=== PATIENT | female | born 1935 | race Caucasian/White ===

== ENCOUNTER 2017-05-22 01:52 | Emergency (ER) | payer MEDICARE, BC ==
--- NOTE | 2017-05-22 02:34 | ERPHSYRPT ---
- History of Present Illness Time Seen by Provider: 05/22/17 02:25 Source: patient, family Exam Limitations: clinical condition Patient Subjective Stated Complaint: pt states her blood pressure has been going up over the last 2-3 days; 2100 this pm she felt like the top of her head was hurting so she took 0.25mg xanax and her pressure was in the 160's; woke up this am and felt worse and her pressure was higher; pt also states she has been having "arthritic pain" in the back of her neck but feels the pain is normal for her arthritis. Triage Nursing Assessment: pt assisted to room per wc; skin p, w, and d; pt presents slightly anxious; no other distress noted; family at bedside. Physician History: PATIENT WITH A HISTORY OF HYPERTENSION, AORTIC VALVE REPLACEMENT COMPLAINS OF ELEVATED BLOOD PRESSURE THE PAST 3 DAYS, ASSOCIATED WITH A HEADACHE OVER THE TOP OF HER HEAD. DENIES BLURRED VISION, SLURRED SPEECH, UNSTABLE GAIT, AND FOCAL NUMBNESS, TINGLING OR WEAKNESS IN EXTREMITIES. Timing/Duration: day(s) Activities at Onset: none Quality: throbbing Location: other (HEADACHE) Chest Pain Radiation: no radiation Severity of Pain-Max: moderate Severity of Pain-Current: moderate Modifying Factors: Improves With: nothing Nitro Today/Relief: no nitro taken today Aspirin Treatment Today: no aspirin today (DENIES CHEST PAIN) Associated Symptoms: other (HEADACHE) Prior Chest Pain/Cardiac Workup: no prior chest pain (AORTIC VALVE REPLACEMENT) Allergies/Adverse Reactions: losartan potassium [From Cozaar] Allergy (Verified 05/22/17 02:14) Tetracyclines Allergy (Verified 05/22/17 02:14) Home Medications: Alprazolam 0.5 tab PO UD PRN 05/22/14 [History] Aspirin 81 mg PO DAILY 05/22/14 [History] Biotin 5,000 mg PO DAILY 05/22/14 [History] Esomeprazole Magnesium [Nexium] 40 mg PO DAILY 05/22/14 [History] Leucovorin Calcium 5 mg PO WEEKLY 05/22/14 [History] Metformin HCl 500 mg PO DAILY 05/22/14 [History] Methotrexate Sodium 2.5 mg [Trexall 2.5 mg] 2.5 mg PO UD 05/22/14 [History ] Methylprednisolone 4 mg [Medrol 4 mg] 4 mg PO DAILY 05/22/14 [History] Metoprolol Succinate [Toprol Xl] 25 mg PO DAILY 05/22/14 [History] Simvastatin 20 mg PO HS 05/22/14 [History] Tramadol HCl [Ultram] 50 mg PO Q6HPRN PRN 05/22/14 [History] Triamterene/Hydrochlorothiazid [Maxzide 37.5 mg-25 mg Tablet] 0.5 tab PO DAILY 05/22/14 [History] Triazolam [Halcion] 0.5 tab PO HS 05/22/14 [History] Warfarin Sodium [Coumadin] 4 mg PO DAILY 05/22/14 [History] Acetaminophen [Tylenol Arthritis] 1 tab PO UD 07/22/16 [History] Cholecalciferol (Vitamin D3) [Vitamin D] 1,000 units PO DAILY 07/22/16 [ History] Vitamin B Complex 1 tab PO DAILY 07/22/16 [History] Hx Tetanus, Diphtheria Vaccination/Date Given: Yes Hx Influenza Vaccination/Date Given: Yes Hx Pneumococcal Vaccination/Date Given: Yes - Review of Systems Constitutional: Night Sweats, Other (HEADACHE), No Fever, No Chills Eyes: No Symptoms Ears, Nose, & Throat: No Symptoms Respiratory: No Symptoms, No Cough, No Dyspnea Cardiac: No Symptoms, No Chest Pain, No Edema, No Syncope Abdominal/Gastrointestinal: No Symptoms, No Abdominal Pain, No Nausea, No Vomiting, No Diarrhea Genitourinary Symptoms: No Symptoms, No Dysuria Musculoskeletal: No Symptoms, No Back Pain, No Neck Pain Skin: No Rash Neurological: Headache, No Dizziness, No Focal Weakness, No Sensory Changes Psychological: No Symptoms Endocrine: No Symptoms All Other Systems: Reviewed and Negative - Past Medical History Pertinent Past Medical History: Yes Neurological History: TIA ENT History: Cataracts Cardiac History: High Cholesterol, Hypertension, Other Respiratory History: No Pertinent History Endocrine Medical History: Diabetes Type II Musculoskeletal History: Degenerative Disk Disease, Osteoarthritis, Rheumatoid Arthritis GI Medical History: GERD History: No Pertinent History Psycho-Social History: Anxiety Female Reproductive Disorders: No Pertinent History Other Medical History: artificial aortic valve - Past Surgical History Past Surgical History: Yes Neuro Surgical History: No Pertinent History Cardiac: CABG, Cardiac Catheterization, Valve Replacement Respiratory: No Pertinent History Gastrointestinal: Hernia Repair Genitourinary: No Pertinent History Musculoskeletal: No Pertinent History Female Surgical History: No Pertinent History - Social History Smoking Status: Never smoker Exposure to second hand smoke: No Drug Use: none Patient Lives Alone: No - Female History Hx Last Menstrual Period: postmenopausal - Nursing Vital Signs Nursing Vital Signs: Initial Vital Signs Temperature 97.9 F 05/22/17 01:59 Pulse Rate 82 05/22/17 01:59 Respiratory Rate 16 05/22/17 01:59 Blood Pressure 238/119 05/22/17 01:59 O2 Sat by Pulse Oximetry 99 05/22/17 01:59 Pain Scale Pain Intensity 0 - Physical Exam General Appearance: no apparent distress, alert Eye Exam: PERRL/EOMI, eyes nml inspection Ears, Nose, Throat Exam: normal ENT inspection, moist mucous membranes Neck Exam: normal inspection, non-tender, supple Respiratory Exam: normal breath sounds, lungs clear, No respiratory distress Cardiovascular Exam: regular rate/rhythm, normal heart sounds, other (SYSTOLIC EJECTION MURMUR GRADE 3/6), No edema Gastrointestinal/Abdomen Exam: soft, No tenderness, No mass Back Exam: normal inspection, No CVA tenderness, No vertebral tenderness Extremity Exam: normal inspection, normal range of motion Neurologic Exam: alert, oriented x 3, cooperative, normal mood/affect, nml cerebellar function, sensation nml, No motor deficits Skin Exam: normal color, warm, dry Lymphatic Exam: No adenopathy SpO2 Interpretation: normal SpO2: 99 Oxygen Delivery: Room Air - Course EKG Interpreted by Me: RATE, Sinus Rhythm (RATE [address]GMENT DEPRESSION), NORMAL AXIS - CT Exams Head CT Interpretation: Tele-radiologist Report (OLD LACUNAR INFARCT IN THE LEFT BASAL GANGLIA, ATROPHY, PREIVENTRICULAR WHITE MATTER HYPODENSITY IS NONSPECIFIC.) Ordered Tests: Active Orders 24 hr Category Date Time Status [employer] Erecting STAT Care 05/22/17 02:25 Active EKG-ER Only STAT Care 05/22/17 02:25 Active IV Insertion STAT Care 05/22/17 02:25 Active Oxygen-ED Only NASAL CANNULA 2 lpm Care 05/22/17 02:25 Active CHEST 1 VIEW (PORTABLE) Stat Exams 05/22/17 02:25 Taken HEAD WITHOUT CONTRAST [CT] Stat Exams 05/22/17 02:41 Taken CBC W DIFF Stat Lab 05/22/17 02:31 Completed CMP Stat Lab 05/22/17 02:31 Completed Manual Differential NC Stat Lab 05/22/17 02:31 Completed PROTIME WITH INR Stat Lab 05/22/17 02:31 Completed TROPONIN Q3H Lab 05/22/17 02:31 Completed TROPONIN Q3H Lab 05/22/17 05:30 Ordered TROPONIN Q3H Lab 05/22/17 08:30 Ordered TROPONIN Q3H Lab 05/22/17 11:30 Ordered TROPONIN Q3H Lab 05/22/17 14:30 Ordered UA W/ MICROSCOPIC Stat Lab 05/22/17 03:35 Completed Medication Summary Generic Name Dose Route Start Last Admin Trade Name Freq PRN Reason Stop Dose Admin Sodium Chloride 500 mls @ 50 mls/hr 05/22/17 02:45 05/22/17 03:07 Sodium Chloride 0.9% 500 Ml IV 06/21/17 02:44 50 mls/hr .Q10H ADRIAN Administration Discontinued Medications Generic Name Dose Route Start Last Admin Trade Name Freq PRN Reason Stop Dose Admin Hydralazine HCl 15 mg 05/22/17 02:49 05/22/17 03:07 Apresoline 20 Mg/Ml Inj IV 05/22/17 02:50 15 mg STAT ONE Administration Lab/Rad Data: Laboratory Result Diagrams 05/22/17 02:31 05/22/17 02:31 Laboratory Results 05/22/17 05/22/17 05/22/17 Range/Units 03:35 02:31 02:31 WBC (4.0-10.5) K/mm3 RBC (4.1-5.4) M/mm3 Hgb (12.0-16.0) gm/dl Hct (35-47) % MCV (78-100) fl MCH (26-32) pg MCHC (32-36) g/dl RDW (11.5-14.0) % Plt Count (150-450) K/mm3 MPV (6-9.5) fl Segmented Neutrophils (36.0-66.0) % Lymphocytes (Manual) (24-44) % Monocytes (Manual) (0.0-12.0) % Differential Comment Atypical Lymphocytes % Platelet Estimate (NORMAL) INR 2.37 (0.8-3.0) Sodium (137-145) mmol/L Potassium (3.5-5.1) mmol/L Chloride (98-107) mEq/L Carbon Dioxide (22-30) mmol/L Anion Gap (5-15) MEQ/L BUN (7-17) mg/dl Creatinine (0.52-1.04) mg/dl Estimated GFR ML/MIN Glucose (74-106) mg/dL Calcium (8.4-10.2) mg/dL Total Bilirubin (0.2-1.3) mg/d? AST (14-36) U/L ALT (0-35) U/L Alkaline Phosphatase (38-126) U/L Troponin I < 0.012 (0.000-0.034) ng/ml Serum Total Protein (6.3-8.2) mg/dl Albumin (3.5-5.0) g/dl Ur Collection Type CLEAN CATCH Urine Color YELLOW (YELLOW) Urine Appearance CLEAR (CLEAR) Urine pH 7.0 (5-6) Ur Specific [place] 1.005 (1.005-1.025) Urine Protein NEGATIVE (Negative) Urine Ketones NEGATIVE (NEGATIVE) Urine Blood 50 (0-5) Jossue/ul Urine Nitrite NEGATIVE (NEGATIVE) Urine Bilirubin NEGATIVE (NEGATIVE) Urine Urobilinogen NORMAL (0-1) mg/dL Ur Leukocyte Esterase NEGATIVE (NEGATIVE) Urine Microscopic RBC 5-10 (0-2) /HPF Urine Bacteria FEW (NEGATIVE) /HPF Urine Culture Reflexed NO (NO) Urine Glucose NEGATIVE (NEGATIVE) mg/dL Specimen Received [id number] 05/22/17 05/22/17 Range/Units 02:31 02:31 WBC 7.4 (4.0-10.5) K/mm3 RBC 4.01 L (4.1-5.4) M/mm3 Hgb 11.2 L (12.0-16.0) gm/dl Hct 37.4 (35-47) % MCV 93.3 (78-100) fl MCH 27.9 (26-32) pg MCHC 29.9 L (32-36) g/dl RDW 17.9 H (11.5-14.0) % Plt Count 389 (150-450) K/mm3 MPV 10.1 H (6-9.5) fl Segmented Neutrophils 64 (36.0-66.0) % Lymphocytes (Manual) 25 (24-44) % Monocytes (Manual) 7 (0.0-12.0) % Differential Comment NORMAL Atypical Lymphocytes 4 % Platelet Estimate NORMAL (NORMAL) INR (0.8-3.0) Sodium 142 (137-145) mmol/L Potassium 3.3 L (3.5-5.1) mmol/L Chloride 102 (98-107) mEq/L Carbon Dioxide 31 H (22-30) mmol/L Anion Gap 12.9 (5-15) MEQ/L BUN 13 (7-17) mg/dl Creatinine 0.61 (0.52-1.04) mg/dl Estimated GFR > 60 ML/MIN Glucose 95 (74-106) mg/dL Calcium 9.7 (8.4-10.2) mg/dL Total Bilirubin 0.20 (0.2-1.3) mg/d? AST 22 (14-36) U/L ALT 18 (0-35) U/L Alkaline Phosphatase 82 (38-126) U/L Troponin I (0.000-0.034) ng/ml Serum Total Protein 6.2 L (6.3-8.2) mg/dl Albumin 3.8 (3.5-5.0) g/dl Ur Collection Type Urine Color (YELLOW) Urine Appearance (CLEAR) Urine pH (5-6) Ur Specific [place] (1.005-1.025) Urine Protein (Negative) Urine Ketones (NEGATIVE) Urine Blood (0-5) Jossue/ul Urine Nitrite (NEGATIVE) Urine Bilirubin (NEGATIVE) Urine Urobilinogen (0-1) mg/dL Ur Leukocyte Esterase (NEGATIVE) Urine Microscopic RBC (0-2) /HPF Urine Bacteria (NEGATIVE) /HPF Urine Culture Reflexed (NO) Urine Glucose (NEGATIVE) mg/dL Specimen Received - Progress Progress: improved Progress Note: 05/22/17 02:55 IV NORMAL SALINE 50ML/HR ADMINISTERED HYDRALAZINE 15MG IV, BLOOD PRESSURE IMPROVED TO BP 153/73 05/22/17 04:11 Counseled pt/family regarding: lab results, diagnosis, need for follow-up, rad results - Departure Time of Disposition: 05:10 Departure Disposition: Home Clinical Impression: HYPERTENSION Condition: Stable Critical Care Time: No Referrals: BETHANY CHAMPAGNE [Primary Care Provider] - Additional Instructions: CONTINUE ALL CURRENT MEDICATIONS. BEGIN NORVASC 5MG EVERY MORNING. CONSULT YOUR PRIMARY CARE PROVIDER IN 2 DAYS FOR EVALUATION. Prescriptions: Amlodipine Besylate 5 mg [Norvasc 5 mg] 5 mg PO DAILY #30 tablet
[2017-05-22 02:35] LABS: Granulocyte Absolute (ANC) 5.13 (1.4-6.9); Hematocrit 37.4 % (35-47); Hemoglobin 11.2 gm/dl (12.0-16.0); Mean Cell Volume 93.3 fl (78-100); Mean Corpuscular Hemoglobin 27.9 pg (26-32); Mean Corpuscular Hgb Concent. 29.9 g/dl (32-36); Mean Platelet Volume 10.1 fl (6-9.5); Platelet Count 389 K/mm3 (150-450); Red Blood Count 4.01 M/mm3 (4.1-5.4); Red Cell Distribution Width 17.9 % (11.5-14.0); White Blood Count 7.4 K/mm3 (4.0-10.5)
[2017-05-22] MEDS ORDERED: Sodium Chloride 0.9% 500 ML 500 ML IV SCH (02:45)
[2017-05-22] MEDS ORDERED: APRESOLINE 20 MG/ML INJ IV ONE (02:49)
[2017-05-22] MEDS ORDERED: Sodium Chloride 0.9% 500 ML 500 ML IV ONE (02:57)
[2017-05-22 02:58] LABS: ALBUMIN 3.8 g/dl (3.5-5.0); ALKALINE PHOSPHATASE 82 U/L (38-126); ANION GAP 12.9 MEQ/L (5-15); BLOOD UREA NITROGEN 13 mg/dl (7-17); CHLORIDE 102 mEq/L (98-107); Calcium 9.7 mg/dL (8.4-10.2); Carbon Dioxide 31 mmol/L (22-30); Creatinine 1 0.61 mg/dl (0.52-1.04); Glucose 95 mg/dL (74-106); Potassium 3.3 mmol/L (3.5-5.1); SGOT/AST 22 U/L (14-36); SGPT/ALT 18 U/L (0-35); SODIUM 142 mmol/L (137-145); Total Protein 6.2 mg/dl (6.3-8.2)
[2017-05-22 03:00] LABS: INR 2.37 (0.8-3.0)
[2017-05-22 03:55] LABS: Appearance CLEAR (CLEAR); Bilirubin NEGATIVE (NEGATIVE); Glucose NEGATIVE (NEGATIVE); Ketones NEGATIVE (NEGATIVE); Leukocyte Esterase NEGATIVE (NEGATIVE); Nitrite NEGATIVE (NEGATIVE); Protein,Urine Dip NEGATIVE (Negative); Specific Gravity 1.005 (1.005-1.025); Urobilinogen NORMAL mg/dL (0-1)
[2017-05-22 03:56] LABS: Bacteria FEW /HPF (NEGATIVE); Blood 50 Ery/ul (0-5)
[2017-05-22 04:42] LABS: ATYPICAL LYMPHS 4 %; Lymphocytes 25 % (24-44); Monocyte 7 % (0.0-12.0); Neutrophils 64 % (36.0-66.0); Platelet Estimate NORMAL (NORMAL); Total Cells Counted 100
[2017-05-22] MEDS ORDERED: NORVASC 5 MG ONE (05:03)
[2017-05-22] MEDS ORDERED: NORVASC 5 MG PO ONE (05:06)
[2017-05-22 05:11] VITALS: BP 157/75; PULSE 71; O2SAT 97
--- NOTE | 2017-05-22 07:37 | XRAY ---
Indication: Hypertension. Comparison: June 11, 2011. Portable chest remains clear. Heart and mediastinal structures within normal limits again with previous cardiac valvular replacement surgery. Bony thorax intact with stable double curvature scoliosis. No new/acute findings.
--- NOTE | 2017-05-22 07:39 | XRAY ---
Indication: Headache. Hypertension. Multiple contiguous axial images obtained through the head without contrast. Comparison: None Age-appropriate global atrophy and mild periventricular degenerative micro-ischemia bilaterally. Small focus remote infarct left basal ganglia. No acute intracranial hemorrhage, abnormal extra-axial fluid collection, or mass effect. Fourth ventricle is midline without hydrocephalus. Bony calvarium intact. Moderate mucosal thickening of the visualized right maxillary sinus. Mastoid air cells are clear. Impression: 1. 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 2. Right maxillary sinus disease. Comment: Preliminary interpretation was made by [facility]. No discrepancy. CTDI 71.01
== END 2017-05-22 05:31 | disposition home or self-care (01) ==
LOC: ED 01:52
DX: I10 Essential (primary) hypertension (principal); R51 Headache; Z79.01 Long term (current) use of anticoagulants; Z79.899 Other long term (current) drug therapy
CPT/HCPCS: 36000; 36415; 70450; 71045; 80053; 81000; 84484; 85025; 85610; 93005; 93041; 96360; 96374; 99284; J0360; A9270-GY

== ENCOUNTER 2017-12-18 19:47 | Emergency (ER) | payer MEDICARE, BC ==
[2017-12-18 20:15] LABS: Granulocyte Absolute (ANC) 5.93 (1.4-6.9); Hematocrit 48.9 % (35-47); Hemoglobin 15.7 gm/dl (12.0-16.0); Mean Cell Volume 102.1 fl (78-100); Mean Corpuscular Hemoglobin 32.8 pg (26-32); Mean Corpuscular Hgb Concent. 32.1 g/dl (32-36); Mean Platelet Volume 10.6 fl (6-9.5); Platelet Count 351 K/mm3 (150-450); Red Blood Count 4.79 M/mm3 (4.1-5.4); Red Cell Distribution Width 14.1 % (11.5-14.0); White Blood Count 8.4 K/mm3 (4.0-10.5)
[2017-12-18 20:36] LABS: ALBUMIN 4.5 g/dL (3.5-5.0); ALKALINE PHOSPHATASE 128 U/L (38-126); AMYLASE 75 U/L (30-110); ANION GAP 14.2 MEQ/L (5-15); BLOOD UREA NITROGEN 12 mg/dL (7-17); CHLORIDE 100 mmol/L (98-107); Calcium 10.2 mg/dL (8.4-10.2); Carbon Dioxide 30 mmol/L (22-30); Creatinine 1 0.52 mg/dL (0.52-1.04); Glucose 124 mg/dL (74-106); LIPASE 88 U/L (23-300); Potassium 3.3 mmol/L (3.5-5.1); SGOT/AST 47 U/L (14-36); SGPT/ALT 37 U/L (0-35); SODIUM 140 mmol/L (137-145); Total Protein 6.9 g/dL (6.3-8.2)
[2017-12-18 20:37] LABS: INR 1.13 (0.8-3.0)
--- NOTE | 2017-12-18 20:41 | ERPHSYRPT ---
- History of Present Illness Time Seen by Provider: 12/18/17 20:27 Historian: patient Exam Limitations: no limitations Patient Subjective Stated Complaint: chest pain Triage Nursing Assessment: Pt c/o of chest pain that radiates to her left shoulder and back, started approx at 1900, nausea, diaphoresis, BP 174/106, pulses normal, rates pain 5/10, heard S1, S2, S3, hx of aorta valve replacement , no edema, walks with cane and walker, Physician History: 82-year-old white female with history of diabetes, atherosclerotic coronary artery disease, CABG, aortic valve replacement, hyperlipidemia, high blood pressure. Patient arrives with complaint of pain in her anterior sternal region radiating to her left scapular area as described as sharp worse with breathing symptoms since 1900 today positive diaphoresis positive nausea denies shortness of breath Patient has had recent hernia surgery. Past medical history includes cataracts, diabetes, hyperlipidemia, high blood pressure, GERD, degenerative disc disease, osteoarthritis, rheumatoid arthritis , anxiety, aortic gout replacement, (prosthetic) Past surgical history includes cataracts, CABG, aortic valve prosthesis, hernia surgery Social history patient denies tobacco alcohol or illicit drug use Timing/Duration: today (1900 today) Activities at Onset: none Quality: sharpness Location: substernal, other (left scapular area) Chest Pain Radiation: back (left scapular area) Severity of Pain-Max: moderate Severity of Pain-Current: moderate Modifying Factors: Improves With: nothing Associated Symptoms: nausea, diaphoresis, back pain (pain left scapular area), No vomiting, No palpitations, No heartburn, No abdominal pain, No shortness of breath, No cough, No hurts to breathe, No chills, No fever, No fatigue, No weakness, No swelling/lump in chest, No syncope, No rash, No dizziness, No edema Nitro Today/Relief: no nitro taken today Aspirin Treatment Today: provided at home (81 mg at home noon today), provided by ED (81 mg in er) Allergies/Adverse Reactions: losartan potassium [From Cozaar] Allergy (Verified 12/18/17 20:14) Tetracyclines Allergy (Verified 12/18/17 20:14) Home Medications: Aspirin 81 mg PO DAILY 05/22/14 [History] Biotin 5,000 mg PO DAILY 05/22/14 [History] Esomeprazole Magnesium [Nexium] 40 mg PO DAILY 05/22/14 [History] Leucovorin Calcium 5 mg PO WEEKLY 05/22/14 [History] Metformin HCl 500 mg PO BID 05/22/14 [History] Methotrexate Sodium 2.5 mg [Trexall 2.5 mg] 6 tab PO UD 05/22/14 [History] Methylprednisolone 4 mg [Medrol 4 mg] 8 mg PO DAILY 05/22/14 [History] Metoprolol Succinate [Toprol Xl] 25 mg PO DAILY 05/22/14 [History] Simvastatin 20 mg PO HS 05/22/14 [History] Tramadol HCl [Ultram] 50 mg PO Q6HPRN PRN 05/22/14 [History] Triamterene/Hydrochlorothiazid [Maxzide 37.5 mg-25 mg Tablet] 0.5 tab PO DAILY 05/22/14 [History] Triazolam [Halcion] 0.5 tab PO HS 05/22/14 [History] Warfarin Sodium [Coumadin] 4 mg PO DAILY 05/22/14 [History] Acetaminophen [Tylenol Arthritis] 1 tab PO UD 07/22/16 [History] Cholecalciferol (Vitamin D3) [Vitamin D] 1,000 units PO DAILY 07/22/16 [ History] Vitamin B Complex 1 tab PO DAILY 07/22/16 [History] Enoxaparin Sodium [Enoxaparin Sodium] 60 mg SQ BID 12/18/17 [History] Hx Tetanus, Diphtheria Vaccination/Date Given: Yes Hx Influenza Vaccination/Date Given: Yes Hx Pneumococcal Vaccination/Date Given: Yes - Review of Systems Constitutional: No Fever, No Chills Eyes: No Symptoms Ears, Nose, & Throat: No Symptoms Respiratory: No Cough, No Dyspnea Cardiac: Chest Pain, No Edema, No Syncope Abdominal/Gastrointestinal: Nausea, No Abdominal Pain, No Vomiting, No Constipation, No Hematemesis, No Hematochezia, No Melena, No Dysphagia, No Appetite Changes Genitourinary Symptoms: No Dysuria Musculoskeletal: No Symptoms, No Back Pain, No Neck Pain Skin: No Rash Neurological: No Dizziness, No Focal Weakness, No Sensory Changes Psychological: No Symptoms Endocrine: No Symptoms All Other Systems: Reviewed and Negative - Past Medical History Pertinent Past Medical History: Yes Neurological History: TIA ENT History: Cataracts Cardiac History: High Cholesterol, Hypertension, Other Respiratory History: No Pertinent History Endocrine Medical History: Diabetes Type II Musculoskeletal History: Degenerative Disk Disease, Osteoarthritis, Rheumatoid Arthritis GI Medical History: GERD History: No Pertinent History Psycho-Social History: Anxiety Female Reproductive Disorders: No Pertinent History Other Medical History: artificial aortic valve - Past Surgical History Past Surgical History: Yes Neuro Surgical History: No Pertinent History Cardiac: CABG, Cardiac Catheterization, Valve Replacement Respiratory: No Pertinent History Gastrointestinal: Hernia Repair Genitourinary: No Pertinent History Musculoskeletal: No Pertinent History Female Surgical History: No Pertinent History - Social History Smoking Status: Never smoker Exposure to second hand smoke: No Drug Use: none Patient Lives Alone: No - Nursing Vital Signs Nursing Vital Signs: Initial Vital Signs Temperature 97.9 F 12/18/17 20:02 Pulse Rate 65 12/18/17 20:02 Respiratory Rate 19 12/18/17 20:02 Blood Pressure 157/112 12/18/17 20:02 O2 Sat by Pulse Oximetry 98 12/18/17 20:02 Pain Scale Pain Intensity 5 - Physical Exam General Appearance: mild distress, anxiety Eye Exam: PERRL/EOMI, eyes nml inspection Ears, Nose, Throat Exam: normal ENT inspection, moist mucous membranes Neck Exam: normal inspection, non-tender, supple, full range of motion Respiratory Exam: normal breath sounds, lungs clear, No respiratory distress Cardiovascular Exam: regular rate/rhythm, normal heart sounds, murmur Gastrointestinal/Abdomen Exam: soft, No tenderness, No mass Back Exam: normal inspection, No CVA tenderness, No vertebral tenderness Extremity Exam: normal inspection, normal range of motion Neurologic Exam: alert, oriented x 3, cooperative, remote sensing technician II-XII nml as tested, normal mood/affect, sensation nml, No motor deficits Skin Exam: normal color, warm, dry SpO2 Interpretation: normal (99%), borderline oxygenation SpO2: 99 Oxygen Delivery: Room Air - Course Nursing assessment & vital signs reviewed: Yes EKG Interpreted by Me: RATE (82 bpm), Sinus Rhythm (Tylenol over at [place] himPVCs negative artery of), NORMAL AXIS, Other (EKG: Sinus rhythm with PVC, 82 bpm, normal axis, T-wave inversion and ST depressi, that she filled) - Radiology Exams Chest X-ray Interpretation: Interpreted by me (chest x-ray: No acute disease process noted, status post CABG and prosthetic aortic valve) Ordered Tests: Active Orders 24 hr Category Date Time Status Supervisor Furnace Room STAT Care 12/18/17 20:02 Active EKG-ER Only STAT Care 12/18/17 20:02 Active IV Insertion STAT Care 12/18/17 20:02 Active Pulse Oximetry (ED) STAT Care 12/18/17 20:02 Active CHEST 1 VIEW (PORTABLE) Stat Exams 12/18/17 20:02 Completed AMYLASE Stat Lab 12/18/17 20:37 Completed CBC W DIFF Stat Lab 12/18/17 20:12 Completed CMP Stat Lab 12/18/17 20:37 Completed D-DIMER QUANTITATION Stat Lab 12/18/17 20:37 Completed LIPASE Stat Lab 12/18/17 20:37 Completed Manual Differential NC Stat Lab 12/18/17 20:12 Completed PROTIME WITH INR Stat Lab 12/18/17 20:37 Completed PTT Stat Lab 12/18/17 20:37 Completed TROPONIN Q3H Lab 12/18/17 20:37 Completed TROPONIN Q3H Lab 12/18/17 23:24 Completed TROPONIN Q3H Lab 12/19/17 02:15 Ordered TROPONIN Q3H Lab 12/19/17 05:15 Ordered TROPONIN Q3H Lab 12/19/17 08:15 Ordered Medication Summary Generic Name Dose Route Start Last Admin Trade Name Freq PRN Reason Stop Dose Admin Sodium Chloride 1,000 mls @ 50 mls/hr 12/19/17 00:15 12/19/17 00:22 Sodium Chloride 0.9% 1000 Ml IV 01/18/18 00:14 50 mls/hr .Q20H ADRIAN Administration Discontinued Medications Generic Name Dose Route Start Last Admin Trade Name Freq PRN Reason Stop Dose Admin Aspirin 81 mg 12/18/17 21:22 12/18/17 21:29 Baby Aspirin 81 Mg Chew PO 12/18/17 21:23 81 mg STAT ONE Administration Aspirin Confirm 12/18/17 21:27 Baby Aspirin 81 Mg Chew Administered 12/18/17 21:28 Dose 81 mg .ROUTE .STK-MED ONE Aspirin 162 mg 12/19/17 00:28 12/19/17 00:34 Baby Aspirin 81 Mg Chew PO 12/19/17 00:29 162 mg STAT ONE Administration Morphine Sulfate 4 mg 12/18/17 20:42 12/18/17 20:47 Morphine Sulfate 4 Mg Inj IV 12/18/17 20:43 4 mg STAT ONE Administration Morphine Sulfate Confirm 12/18/17 20:43 Morphine Sulfate 4 Mg Inj Administered 12/18/17 20:44 Dose 4 mg .ROUTE .STK-MED ONE Nitroglycerin 1 gm 12/19/17 00:12 12/19/17 00:22 Nitro-Bid 2% Ud Packets TOP 12/19/17 00:13 1 gm STAT ONE Administration Nitroglycerin Confirm 12/19/17 00:13 Nitro-Bid 2% Ud Packets Administered 12/19/17 00:14 Dose 1 gm .ROUTE .STK-MED ONE Ondansetron HCl 4 mg 12/18/17 20:42 12/18/17 20:47 Zofran 4 Mg/2 Ml Vial IV 12/18/17 20:43 4 mg STAT ONE Administration Ondansetron HCl Confirm 12/18/17 20:43 Zofran 4 Mg/2 Ml Vial Administered 12/18/17 20:44 Dose 4 mg .ROUTE .STK-MED ONE Ondansetron HCl 4 mg 12/18/17 23:59 12/19/17 00:01 Zofran 4 Mg/2 Ml Vial IV 12/19/17 00:00 4 mg STAT ONE Administration Ondansetron HCl Confirm 12/19/17 00:00 Zofran 4 Mg/2 Ml Vial Administered 12/19/17 00:01 Dose 4 mg .ROUTE .STK-MED ONE Lab/Rad Data: Laboratory Result Diagrams 12/18/17 20:12 12/18/17 20:37 Laboratory Results 12/18/17 12/18/17 12/18/17 Range/Units 23:24 20:37 20:37 WBC (4.0-10.5) K/mm3 RBC (4.1-5.4) M/mm3 Hgb (12.0-16.0) gm/dl Hct (35-47) % MCV (78-100) fl MCH (26-32) pg MCHC (32-36) g/dl RDW (11.5-14.0) % Plt Count (150-450) K/mm3 MPV (6-9.5) fl Absolute Granulocytes (1.4-6.9) Segmented Neutrophils (36.0-66.0) % Band Neutrophils (0.0-2.0) % Lymphocytes (Manual) (24-44) % Monocytes (Manual) (0.0-12.0) % Eosinophils (Manual) (0.00-3.0) % Atypical Lymphocytes % Platelet Estimate (NORMAL) RBC Morphology PT (9.95-12.35) SECONDS INR (0.8-3.0) APTT (25.3-37.0) SECONDS D-Dimer (215-500) ng/mL Sodium (137-145) mmol/L Potassium (3.5-5.1) mmol/L Chloride (98-107) mmol/L Carbon Dioxide (22-30) mmol/L Anion Gap (5-15) MEQ/L BUN (7-17) mg/dL Creatinine (0.52-1.04) mg/dL Estimated GFR ML/MIN Glucose (74-106) mg/dL Calcium (8.4-10.2) mg/dL Total Bilirubin (0.2-1.3) mg/dL AST (14-36) U/L ALT (0-35) U/L Alkaline Phosphatase (38-126) U/L Troponin I 1.710 H* 0.013 (0.000-0.034) ng/mL Serum Total Protein (6.3-8.2) g/dL Albumin (3.5-5.0) g/dL Amylase 75 (30-110) U/L Lipase 88 (23-300) U/L 12/18/17 12/18/17 12/18/17 Range/Units 20:37 20:37 20:12 WBC 8.4 (4.0-10.5) K/mm3 RBC 4.79 (4.1-5.4) M/mm3 Hgb 15.7 (12.0-16.0) gm/dl Hct 48.9 H (35-47) % MCV 102.1 H (78-100) fl MCH 32.8 H (26-32) pg MCHC 32.1 (32-36) g/dl RDW 14.1 H (11.5-14.0) % Plt Count 351 (150-450) K/mm3 MPV 10.6 H (6-9.5) fl Absolute Granulocytes 5.93 (1.4-6.9) Segmented Neutrophils 73 H (36.0-66.0) % Band Neutrophils 1 (0.0-2.0) % Lymphocytes (Manual) 16 L (24-44) % Monocytes (Manual) 3 (0.0-12.0) % Eosinophils (Manual) 2 (0.00-3.0) % Atypical Lymphocytes 5 % Platelet Estimate NORMAL (NORMAL) RBC Morphology NORMAL PT 13.1 H (9.95-12.35) SECONDS INR 1.13 (0.8-3.0) APTT 36.0 (25.3-37.0) SECONDS D-Dimer 291 (215-500) ng/mL Sodium 140 (137-145) mmol/L Potassium 3.3 L (3.5-5.1) mmol/L Chloride 100 (98-107) mmol/L Carbon Dioxide 30 (22-30) mmol/L Anion Gap 14.2 (5-15) MEQ/L BUN 12 (7-17) mg/dL Creatinine 0.52 (0.52-1.04) mg/dL Estimated GFR > 60.0 ML/MIN Glucose 124 H (74-106) mg/dL Calcium 10.2 (8.4-10.2) mg/dL Total Bilirubin 0.30 (0.2-1.3) mg/dL AST 47 H (14-36) U/L ALT 37 H (0-35) U/L Alkaline Phosphatase 128 H (38-126) U/L Troponin I (0.000-0.034) ng/mL Serum Total Protein 6.9 (6.3-8.2) g/dL Albumin 4.5 (3.5-5.0) g/dL Amylase (30-110) U/L Lipase (23-300) U/L - Progress Progress: improved Air Movement: fair Progress Note: 12/18/17 21:50 a this is an 82-year-old white female with history of diabetes, hyperlipidemia, high blood pressure, GERD, able Toradol replacement, CABG status post hernia surgery 3 days ago she arrives with complaint of pain in her anterior sternal region radiating to her scapular region described as sharp worse with breathing. Patient had nausea no shortness of breath. Symptoms came on at approximately 1900 today patient was noted have an elevated blood pressure which has improved after 4 mg of morphine patient does continue to have pain in her left anterior chest radiating into her left scapular region patient's chest x-ray Nonacute chest with chronic features patient is status post aortic valve replacement and CABG patient's EKG sinus rhythm with PVC 65 bpm normal axis there is ST inversion in leads 3 patient does not appear to have acute ST or T wave changes Patient's blood pressure again elevated on arrival 157/112 after 4 mg of morphine is 164/92 patient's heart rate is 67 respirations 19 oxygen saturation 99% Patient's CBC within normal limits INR is at 1.13, patient's d-dimer is 291 Patient's chemistry essentially normal amylase 75 lipase 88 troponin 0.013. Should be noted that patient is on Lovenox 60 mg twice a day she has had one injection this morning. She also is on Coumadin 4 mg a day she has apparently had transitioned to Lovenox to enable surgery and was in the process of getting back on the Coumadin. Patient also takes aspirin she took 81 mg of aspirin at noon today I gave the patient 81 mg in the emergency room. Case is discussed with Dr. Booker who is aqua ammonia operator for Dr. Dirk decker also with , hospitalist at [facility]. Will transfer patient to [facility]. Diagnosis chest pain. Patient appears stable at this time. , 12/19/17 00:29 Notified by lab the patient's troponin is elevated to 1.710. Patient with continued pain in her back. I have ordered nitroglycerin 1 inch topically. An additional 162 mg of aspirin. [facility] has been contacted with the patient's information as to increased troponin. They are working on getting a bed on a different floor however they have stated not to delay transport of the patient. Will go ahead and plan on transferring the patient over to [facility]. Will go ahead and check a second EKG at this time as well. 12/19/17 00:35 Repeat EKG Time December 19, 2017 12:32 AM EKG impression sinus rhythm 73 beats for minute normal axis no acute ST or T wave changes essentially normal EKG. - Departure Time of Disposition: 00:32 Departure Disposition: Transfer ([facility]) Clinical Impression: Elevated troponin Chest pain Qualifiers: Chest pain type: unspecified Qualified Code(s): R07.9 - Chest pain, unspecified Condition: Fair Critical Care Time: No Referrals: BETHANY CHAMPAGNE [Primary Care Provider] -
[2017-12-18] MEDS ORDERED: Zofran 4 MG/2 ML VIAL IV ONE ×2 (20:42→23:59)
[2017-12-18] MEDS ORDERED: MORPHINE SULFATE 4 MG INJ IV ONE (20:42)
[2017-12-18] MEDS ORDERED: MORPHINE SULFATE 4 MG INJ ONE (20:43)
[2017-12-18] MEDS ORDERED: Zofran 4 MG/2 ML VIAL ONE (20:43)
[2017-12-18 20:50] LABS: ATYPICAL LYMPHS 5 %; BAND 1 % (0.0-2.0); Eosinophil 2 % (0.00-3.0); Lymphocytes 16 % (24-44); Monocyte 3 % (0.0-12.0); Neutrophils 73 % (36.0-66.0); Total Cells Counted 100
[2017-12-18 20:51] LABS: Platelet Estimate NORMAL (NORMAL)
[2017-12-18] MEDS ORDERED: BABY ASPIRIN 81 MG CHEW PO ONE (21:22)
--- NOTE | 2017-12-18 21:26 | XRAY ---
Indication: Chest pain. Comparison: May 22, 2017. Portable chest remains clear. Heart is not enlarged again with previous cardiac valvular replacement surgery. Bony thorax again demonstrates osteopenia, degenerative changes and dextroscoliosis with interval L1 kyphoplasty. Impression: Nonacute chest with chronic features.
[2017-12-18] MEDS ORDERED: BABY ASPIRIN 81 MG CHEW ONE (21:27)
[2017-12-19] MEDS ORDERED: Zofran 4 MG/2 ML VIAL ONE
[2017-12-19] MEDS ORDERED: Sodium Chloride 0.9% 1000 ML 1,000 ML ONE (00:12)
[2017-12-19] MEDS ORDERED: NITRO-BID 2% UD PACKETS TOP ONE (00:12)
[2017-12-19] MEDS ORDERED: NITRO-BID 2% UD PACKETS ONE (00:13)
[2017-12-19] MEDS ORDERED: Sodium Chloride 0.9% 1000 ML 1,000 ML IV SCH (00:15)
[2017-12-19] MEDS ORDERED: BABY ASPIRIN 81 MG CHEW PO ONE (00:28)
[2017-12-19] MEDS ORDERED: Phenergan 25 MG INJ IV ONE (00:41)
[2017-12-19] MEDS ORDERED: Phenergan 25 MG INJ ONE ×2 (00:42→00:45)
[2017-12-19 00:49] VITALS: BP 151/92; PULSE 78; O2SAT 98
[2017-12-19] MEDS ORDERED: BABY ASPIRIN 81 MG CHEW ONE (11:00)
== END 2017-12-19 00:56 | disposition short-term general hospital (02) ==
LOC: ED 19:47
DX: R07.9 Chest pain, unspecified (principal); R77.8 Other specified abnormalities of plasma proteins; Z95.1 Presence of aortocoronary bypass graft; Z79.01 Long term (current) use of anticoagulants; Z79.899 Other long term (current) drug therapy; E11.9 Type 2 diabetes mellitus without complications; Z79.84 Long term (current) use of oral hypoglycemic drugs; I10 Essential (primary) hypertension
CPT/HCPCS: 36000; 36415; 71045; 80053; 82150; 83690; 84484; 85025; 85379; 85610; 85730; 93005; 93041; 96374; 96375; 96376; 99285; J2270; J2405; J2550; A9270-GY

== ENCOUNTER 2019-03-13 09:35 | Emergency (ER) | payer MEDICARE, BC ==
[2019-03-13] MEDS ORDERED: ZOFRAN ODT 4 MG PO ONE (09:52)
[2019-03-13] MEDS ORDERED: ZOFRAN ODT 4 MG ONE (09:55)
[2019-03-13] MEDS ORDERED: MORPHINE SULFATE 4 MG INJ IM ONE (09:58)
[2019-03-13] MEDS ORDERED: MORPHINE SULFATE 4 MG INJ ONE (10:00)
--- NOTE | 2019-03-13 10:02 | ERPHSYRPT ---
- History of Present Illness Time Seen by Provider: 03/13/19 09:50 Source: patient Exam Limitations: no limitations Patient Subjective Stated Complaint: Pt states "I have rotator cuff problems and I am on blood thinners and I have been having right shoulder pain and I went [facility] in [place] and they said I have bleeding in the right shoulder and it is really hurting since last night." Triage Nursing Assessment: Pt presented alert and oriented X 3, skin pwd Pt ambulates with assistance, able to speak in clear full sentences. PT has severe bruising noted to right shoulder and arm down to her right hand. Physician History: I have rotator cuff problems for long time and I am on blood thinners and I have been having right shoulder pain and I went to [facility] in [place]. I have had multiple X rays in the past. The ortho would not do any surgery as I am high risk Occurred: other (2-3 weeks. Pt has been to [facility] for the same) Method of Injury: unknown Quality: sharpness Severity of Pain-Max: severe Severity of Pain-Current: severe Extremities Pain Location: shoulder: right, arm: right Modifying Factors: Improves With: movement Associated Symptoms: No back pain, No chills, No chest discomfort, No chest pain , No dyspnea, No fever, No jaw pain, No nausea, No neck pain, No sweating Allergies/Adverse Reactions: losartan potassium [From Cozaar] Allergy (Verified 12/18/17 20:14) Tetracyclines Allergy (Verified 12/18/17 20:14) Home Medications: Aspirin 81 mg PO DAILY 05/22/14 [History] Biotin 5,000 mg PO DAILY 05/22/14 [History] Esomeprazole Magnesium [Nexium] 40 mg PO DAILY 05/22/14 [History] Leucovorin Calcium 5 mg PO WEEKLY 05/22/14 [History] Metformin HCl 500 mg PO BID 05/22/14 [History] Methotrexate Sodium 2.5 mg [Trexall 2.5 mg] 6 tab PO UD 05/22/14 [History] Methylprednisolone 4 mg [Medrol 4 mg] 8 mg PO DAILY 05/22/14 [History] Metoprolol Succinate [Toprol Xl] 25 mg PO DAILY 05/22/14 [History] Simvastatin 20 mg PO HS 05/22/14 [History] Tramadol HCl [Ultram] 50 mg PO Q6HPRN PRN 05/22/14 [History] Triamterene/Hydrochlorothiazid [Maxzide 37.5 mg-25 mg Tablet] 0.5 tab PO DAILY 05/22/14 [History] Triazolam [Halcion] 0.5 tab PO HS 05/22/14 [History] Warfarin Sodium [Coumadin] 4 mg PO DAILY 05/22/14 [History] Acetaminophen [Tylenol Arthritis] 1 tab PO UD 07/22/16 [History] Cholecalciferol (Vitamin D3) [Vitamin D] 1,000 units PO DAILY 07/22/16 [ History] Vitamin B Complex 1 tab PO DAILY 07/22/16 [History] Enoxaparin Sodium [Enoxaparin Sodium] 60 mg SQ BID 12/18/17 [History] Hx Tetanus, Diphtheria Vaccination/Date Given: No Hx Influenza Vaccination/Date Given: Yes Hx Pneumococcal Vaccination/Date Given: Yes Immunizations Up to Date: Yes - Review of Systems Constitutional: No Fever, No Chills Eyes: No Symptoms Ears, Nose, & Throat: No Symptoms Respiratory: No Cough, No Dyspnea Cardiac: No Chest Pain, No Edema, No Syncope Abdominal/Gastrointestinal: No Abdominal Pain, No Nausea, No Vomiting, No Diarrhea Genitourinary Symptoms: No Dysuria Musculoskeletal: Other (right shoulder: Painful, bruised, painful range of motion. No deformity. Right upper arm also is bruised. No obvious hematoma.) , No Back Pain, No Neck Pain Skin: Other (right shoulder: Painful, bruised, painful range of motion. No deformity. Right upper arm also is bruised. No obvious hematoma.), No Rash Neurological: No Dizziness, No Focal Weakness, No Sensory Changes Psychological: No Symptoms Endocrine: No Symptoms All Other Systems: Reviewed and Negative - Past Medical History Pertinent Past Medical History: Yes Neurological History: TIA ENT History: Cataracts Cardiac History: High Cholesterol, Hypertension, Other Respiratory History: No Pertinent History Endocrine Medical History: Diabetes Type II Musculoskeletal History: Degenerative Disk Disease, Osteoarthritis, Rheumatoid Arthritis GI Medical History: GERD History: No Pertinent History Psycho-Social History: Anxiety Female Reproductive Disorders: No Pertinent History Other Medical History: artificial aortic valve - Past Surgical History Past Surgical History: Yes Neuro Surgical History: No Pertinent History Cardiac: CABG, Cardiac Catheterization, Valve Replacement Respiratory: No Pertinent History Gastrointestinal: Hernia Repair Genitourinary: No Pertinent History Musculoskeletal: No Pertinent History Female Surgical History: No Pertinent History Other Surgical History: cardiac stent - Social History Smoking Status: Never smoker Exposure to second hand smoke: No Drug Use: none Patient Lives Alone: No - Female History Hx Now: No - Nursing Vital Signs Nursing Vital Signs: Initial Vital Signs Temperature 97.7 F 03/13/19 09:43 Pulse Rate 80 03/13/19 09:43 Respiratory Rate 20 03/13/19 09:43 Blood Pressure 187/103 03/13/19 09:43 O2 Sat by Pulse Oximetry 99 03/13/19 09:43 Pain Scale Pain Intensity 10 - Physical Exam General Appearance: alert Eyes, Ears, Nose, Throat Exam: moist mucous membranes Neck Exam: non-tender, supple Cardiovascular/Respiratory Exam: chest non-tender, normal breath sounds, regular rate/rhythm, no respiratory distress Abdominal Exam: non-tender, No guarding Back Exam: normal inspection, No vertebral tenderness Shoulder Exam: ecchymosis, limited ROM, pain (right shoulder: Painful, bruised, painful range of motion. No deformity. Right upper arm also is bruised. No obvious hematoma., nnormal distal neurovascular function), No bone tenderness, No deformity Wrist Exam: normal inspection Hand Exam: normal inspection Neuro/Tendon Exam: normal sensation, normal motor functions Mental Status Exam: alert, oriented x 3, cooperative Skin Exam: normal color, warm, dry, other (right shoulder: Painful, bruised, painful range of motion. No deformity. Right upper arm also is bruised. No obvious hematoma., nnormal distal neurovascular function) SpO2 Interpretation: normal SpO2: 99 O2 Delivery: Room Air - Course Nursing assessment & vital signs reviewed: Yes Ordered Tests: Active Orders 24 hr Category Date Time Status CBC Stat Lab 03/13/19 10:16 Completed PROTIME WITH INR Stat Lab 03/13/19 10:16 Completed PTT Stat Lab 03/13/19 10:16 Completed Medication Summary Discontinued Medications Generic Name Dose Route Start Last Admin Trade Name Freq PRN Reason Stop Dose Admin Morphine Sulfate 4 mg 03/13/19 09:58 03/13/19 10:01 Morphine Sulfate 4 Mg Inj IM 03/13/19 09:59 4 mg STAT ONE Administration Morphine Sulfate Confirm 03/13/19 10:00 Morphine Sulfate 4 Mg Inj Administered 03/13/19 10:01 Dose 4 mg .ROUTE .STK-MED ONE Ondansetron HCl 4 mg 03/13/19 09:52 03/13/19 09:56 Zofran Odt 4 Mg PO 03/13/19 09:53 4 mg STAT ONE Administration Ondansetron HCl Confirm 03/13/19 09:55 Zofran Odt 4 Mg Administered 03/13/19 09:56 Dose 4 mg .ROUTE .STK-MED ONE Lab/Rad Data: Laboratory Result Diagrams 03/13/19 10:16 Laboratory Results 03/13/19 03/13/19 Range/Units 10:16 10:16 WBC 14.8 H (4.0-10.5) K/mm3 RBC 4.32 (4.1-5.4) M/mm3 Hgb 12.0 (12.0-16.0) gm/dl Hct 39.2 (35-47) % MCV 90.7 (78-100) fl MCH 27.8 (26-32) pg MCHC 30.6 L (32-36) g/dl RDW 19.0 H (11.5-14.0) % Plt Count 453 H (150-450) K/mm3 MPV 9.4 (6-9.5) fl PT 25.5 H (9.95-12.35) SECONDS INR 2.22 (0.8-3.0) APTT 41.5 H (25.3-37.0) SECONDS - Progress Progress: improved Progress Note: 03/13/19 10:39 and that is within expected range of that the no signs of active bleeding. There this is patient's a chronic problem so we'll send patient home to follow with her orthopedic doctor. Counseled pt/family regarding: lab results, diagnosis, need for follow-up - Departure Departure Disposition: Home Clinical Impression: Shoulder pain, right Qualifiers: Chronicity: chronic Qualified Code(s): M25.511 - Pain in right shoulder; G89.29 - Other chronic pain Condition: Stable Critical Care Time: No Referrals: BETHANY CHAMPAGNE [Primary Care Provider] - 03/14/19 Instructions: Shoulder Tendinopathy (DC), Shoulder Sprain (DC) Plan of Treatment: see PCP and also for further management of your chronic shoulder pain. Prescriptions: Ondansetron ODT 4 MG [Zofran Odt 4 mg] 4 mg PO Q6H PRN PRN #10 tab.rapdis PRN Reason: Vomiting
[2019-03-13 10:20] LABS: Hematocrit 39.2 % (35-47); Mean Cell Volume 90.7 fl (78-100); Mean Corpuscular Hemoglobin 27.8 pg (26-32); Mean Corpuscular Hgb Concent. 30.6 g/dl (32-36); Mean Platelet Volume 9.4 fl (6-9.5); Platelet Count 453 K/mm3 (150-450); Red Blood Count 4.32 M/mm3 (4.1-5.4); White Blood Count 14.8 K/mm3 (4.0-10.5)
[2019-03-13 10:25] LABS: INR 2.22 (0.8-3.0); PROTIME 25.5 SECONDS (9.95-12.35)
[2019-03-13 10:27] LABS: PTT 41.5 SECONDS (25.3-37.0)
[2019-03-13 11:03] VITALS: BP 167/100; PULSE 74; O2SAT 98
== END 2019-03-13 11:20 | disposition home or self-care (01) ==
LOC: ED 09:35
DX: M25.511 Pain in right shoulder (principal); G89.29 Other chronic pain; I10 Essential (primary) hypertension; E78.00 Pure hypercholesterolemia, unspecified; E11.9 Type 2 diabetes mellitus without complications; M19.90 Unspecified osteoarthritis, unspecified site; K21.9 Gastro-esophageal reflux disease without esophagitis; Z79.01 Long term (current) use of anticoagulants
CPT/HCPCS: 36415; 85027; 85610; 85730; 96372; 99284; J2270; Q0162

== ENCOUNTER 2019-05-03 00:39 | Emergency (ER) | payer MEDICARE, BC ==
[2019-05-03] MEDS ORDERED: SUBLIMAZE 100 MCG/2 ML IV ONE (00:42)
[2019-05-03] MEDS ORDERED: Nitrostat 0.4 MG (ED) SL ONE ×2 (00:42→01:23)
[2019-05-03] MEDS ORDERED: Sodium Chloride 0.9% 1000 ML 1,000 ML IV SCH (00:45)
[2019-05-03 01:09] LABS: Absolute Neutrophil Ct (ANC) 5.09 (1.4-6.9); BASOPHIL % 0.3 % (0.0-0.4); Basophil (Absolute #) 0.02 (0-0.4); Eosinophil % 0.6 % (0.00-5.0); Eosinophil (Absolute #) 0.04 (0-0.5); Hematocrit 34.4 % (35-47); Hemoglobin 10.3 gm/dl (12.0-16.0); Lymphocyte (Absolute #) 1.24 (1.0-4.6); Lymphocytes % 17.6 % (24.0-44.0); Mean Cell Volume 92.2 fl (78-100); Mean Corpuscular Hemoglobin 27.6 pg (26-32); Mean Corpuscular Hgb Concent. 29.9 g/dl (32-36); Mean Platelet Volume 9.4 fl (7.5-11.0); Monocyte (Absolute #) 0.65 (0.0-1.3); Monocytes % 9.2 % (0.0-12.0); Neutrophil % 72.3 % (36.0-66.0); Platelet Count 469 K/mm3 (150-450); Red Blood Count 3.73 M/mm3 (4.1-5.4); Red Cell Distribution Width 18.8 % (11.5-14.0)
[2019-05-03 01:15] LABS: INR 2.15 (0.8-3.0); PROTIME 24.7 SECONDS (9.95-12.35)
[2019-05-03] MEDS ORDERED: SUBLIMAZE 100 MCG/2 ML ONE (01:23)
[2019-05-03] MEDS ORDERED: Sodium Chloride 0.9% 1000 ML 1,000 ML ONE (01:23)
[2019-05-03 01:28] LABS: ALBUMIN 3.9 g/dL (3.5-5.0); ALKALINE PHOSPHATASE 149 U/L (38-126); AMYLASE 55 U/L (30-110); ANION GAP 8.9 MEQ/L (5-15); BLOOD UREA NITROGEN 17 mg/dL (7-17); CHLORIDE 104 mmol/L (98-107); Calcium 9.8 mg/dL (8.4-10.2); Carbon Dioxide 29 mmol/L (22-30); Creatinine 1 0.51 mg/dL (0.52-1.04); Glucose 99 mg/dL (74-106); LIPASE 50 U/L (23-300); MAGNESIUM 2.3 mg/dL (1.6-2.3); NT PRO BNP 7160 pg/mL (0-1800); Potassium 3.9 mmol/L (3.5-5.1); SGOT/AST 23 U/L (14-36); SGPT/ALT 10 U/L (0-35); SODIUM 137 mmol/L (137-145); Total Protein 6.8 g/dL (6.3-8.2)
[2019-05-03] MEDS ORDERED: Lasix 40 MG/4 ML IV ONE (01:45)
[2019-05-03] MEDS ORDERED: Lasix 40 MG/4 ML ONE (01:49)
[2019-05-03 02:00] LABS: Appearance CLEAR (CLEAR); Bilirubin NEGATIVE (NEGATIVE); Blood SMALL Ery/ul (0-5); Glucose NEGATIVE (NEGATIVE); Ketones NEGATIVE (NEGATIVE); Leukocyte Esterase NEGATIVE (NEGATIVE); Nitrite NEGATIVE (NEGATIVE); Protein,Urine Dip NEGATIVE (Negative); Specific Gravity 1.006 (1.005-1.025); Urobilinogen NEGATIVE mg/dL (0-1); WBC 0-2 /HPF (0-5)
--- NOTE | 2019-05-03 02:57 | ERPHSYRPT ---
- History of Present Illness Patient Subjective Stated Complaint: pt c/o c/p radiating to her back. did not take her ntg at home Triage Nursing Assessment: pt c/o chest pain radiating to back. Pt states, "It felt like indigestion but I couldn't get away from it". Lungs clear, heart tones reg, abd soft with active bs x4 quad, nontender. Physician History: patient is an 84-year-old white female who presents after awakening one hour prior to arrival with what felt like indigestion and chest pain which radiated through to the back. She did have some nausea she has a history of previous HI and an artificial aortic valve. She is on warfarin and Plavix. She took some [place] which did not provide her any relief. She does have a history of diabetes atherosclerotic coronary artery disease she's had a CABG aortic valve replacement she has hyperlipidemia blood pressure she also complains of some shortness of breath this evening. And alert and in is an alert and very who is in where italo and in her right and and and a who came in to talk to Timing/Duration: week(s) (2aand) Activities at Onset: none Quality: fullness, tightness Location: substernal Chest Pain Radiation: back Severity of Pain-Max: moderate Severity of Pain-Current: moderate Modifying Factors: Improves With: nothing Prior Chest Pain/Cardiac Workup: cardiac cath, heart attack Nitro Today/Relief: no nitro taken today Aspirin Treatment Today: no aspirin today (ppatient is maintained on warfarin and Plavix for anticoagulation) Allergies/Adverse Reactions: losartan potassium [From Cozaar] Allergy (Verified 05/03/19 00:55) Tetracyclines Allergy (Verified 05/03/19 00:55) Home Medications: Biotin 5,000 mg PO DAILY 05/22/14 [History] Esomeprazole Magnesium [Nexium] 40 mg PO DAILY 05/22/14 [History] Leucovorin Calcium 5 mg PO WEEKLY 05/22/14 [History] Metformin HCl 500 mg PO BID 05/22/14 [History] Methotrexate Sodium 2.5 mg [Trexall 2.5 mg] 8 tab PO UD 05/22/14 [History] Methylprednisolone 4 mg [Medrol 4 mg] 4 mg PO DAILY 05/22/14 [History] Tramadol HCl [Ultram] 100 mg PO Q6HPRN PRN 05/22/14 [History] Warfarin Sodium [Coumadin] 4 mg PO DAILY 05/22/14 [History] Acetaminophen [Tylenol Arthritis] 1 tab PO UD 07/22/16 [History] Cholecalciferol (Vitamin D3) [Vitamin D] 1,000 units PO DAILY 07/22/16 [ History] Clopidogrel Bisulfate [Clopidogrel] 75 mg PO DAILY 05/03/19 [History] Metoprolol Succinate 25 mg Xl* [Toprol-Xl 25MG Tablets] 25 mg PO BID [History] lisinopriL [Lisinopril] 5 mg PO BID 05/03/19 [History] Hx Tetanus, Diphtheria Vaccination/Date Given: Yes Hx Influenza Vaccination/Date Given: Yes Hx Pneumococcal Vaccination/Date Given: Yes Immunizations Up to Date: Yes - Past Medical History Pertinent Past Medical History: Yes Neurological History: TIA ENT History: Cataracts Cardiac History: High Cholesterol, Hypertension, Myocardial Infarction ([place]), Other Respiratory History: No Pertinent History Endocrine Medical History: Diabetes Type II Musculoskeletal History: Degenerative Disk Disease, Osteoarthritis, Rheumatoid Arthritis GI Medical History: GERD History: No Pertinent History Psycho-Social History: Anxiety Female Reproductive Disorders: No Pertinent History Other Medical History: artificial aortic valve, heart stent - Past Surgical History Past Surgical History: Yes Neuro Surgical History: No Pertinent History Cardiac: CABG, Cardiac Catheterization, Valve Replacement Respiratory: No Pertinent History Gastrointestinal: Hernia Repair Genitourinary: No Pertinent History Musculoskeletal: No Pertinent History Female Surgical History: No Pertinent History Other Surgical History: cardiac stent - Social History Smoking Status: Never smoker Exposure to second hand smoke: No Drug Use: none Patient Lives Alone: No - Nursing Vital Signs Nursing Vital Signs: Initial Vital Signs Temperature 97.8 F 05/03/19 00:42 Pulse Rate 75 05/03/19 00:42 Respiratory Rate 19 05/03/19 00:42 Blood Pressure 191/93 05/03/19 00:42 O2 Sat by Pulse Oximetry 99 05/03/19 00:42 Pain Scale Pain Intensity 3 - Physical Exam General Appearance: mild distress, alert Eye Exam: PERRL/EOMI, eyes nml inspection Ears, Nose, Throat Exam: normal ENT inspection, moist mucous membranes Neck Exam: normal inspection, non-tender, supple, full range of motion Respiratory Exam: normal breath sounds, lungs clear, No respiratory distress Cardiovascular Exam: regular rate/rhythm, normal heart sounds Gastrointestinal/Abdomen Exam: soft, No tenderness, No mass Back Exam: normal inspection, No CVA tenderness, No vertebral tenderness Extremity Exam: normal inspection, normal range of motion Neurologic Exam: alert, oriented x 3, cooperative, normal mood/affect, sensation nml, No motor deficits Skin Exam: normal color, warm, dry SpO2: 98 - Course Nursing assessment & vital signs reviewed: Yes EKG Interpreted by Me: RATE, Sinus Rhythm, NORMAL AXIS, NORMAL INTERVALS, Non- specific ST Changes, Other (isolated PVC no change from previous tracings) - Radiology Exams Chest X-ray Interpretation: Interpreted by me (chronic changes and an artificial aortic valve) Ordered Tests: Active Orders 24 hr Category Date Time Status Business Performance Analyst STAT Care 05/03/19 00:43 Active EKG-ER Only STAT Care 05/03/19 00:42 Active IV Insertion STAT Care 05/03/19 00:42 Active CHEST 1 VIEW (PORTABLE) Stat Exams 05/03/19 00:43 Ordered AMYLASE Stat Lab 05/03/19 00:55 Completed CBC W DIFF Stat Lab 05/03/19 00:55 Completed CMP Stat Lab 05/03/19 00:55 Completed D-DIMER QUANTITATIVE Stat Lab 05/03/19 00:55 Completed LIPASE Stat Lab 05/03/19 00:55 Completed Lactic Acid Stat Lab 05/03/19 01:00 Completed MAGNESIUM Stat Lab 05/03/19 00:55 Completed NT PRO BNP Stat Lab 05/03/19 00:55 Completed PROTIME WITH INR Stat Lab 05/03/19 00:55 Completed PTT Stat Lab 05/03/19 00:55 Completed TROPONIN Q3H Lab 05/03/19 00:55 Completed TROPONIN Q3H Lab 05/03/19 03:45 Ordered TROPONIN Q3H Lab 05/03/19 06:45 Ordered TROPONIN Q3H Lab 05/03/19 09:45 Ordered TROPONIN Q3H Lab 05/03/19 12:45 Ordered UA W/RFX UR CULTURE Stat Lab 05/03/19 01:46 Completed Medication Summary Generic Name Dose Route Start Last Admin Trade Name Freq PRN Reason Stop Dose Admin Sodium Chloride 1,000 mls @ 50 mls/hr 05/03/19 00:45 05/03/19 01:29 Sodium Chloride 0.9% 1000 Ml IV 06/02/19 00:44 50 mls/hr .Q20H ADRIAN Administration Discontinued Medications Generic Name Dose Route Start Last Admin Trade Name Whitney PRN Reason Stop Dose Admin Fentanyl Citrate 50 mcg 05/03/19 00:42 05/03/19 01:29 Sublimaze 100 Mcg/2 Ml IV 05/03/19 00:43 50 mcg STAT ONE Administration Fentanyl Citrate Confirm 05/03/19 01:23 Sublimaze 100 Mcg/2 Ml Administered 05/03/19 01:24 Dose 100 mcg .ROUTE .STK-MED ONE Furosemide 40 mg 05/03/19 01:45 05/03/19 01:51 Lasix 40 Mg/4 Ml IV 05/03/19 01:46 40 mg STAT ONE Administration Furosemide Confirm 05/03/19 01:49 Lasix 40 Mg/4 Ml Administered 05/03/19 01:50 Dose 40 mg .ROUTE .STK-MED ONE Nitroglycerin 0.4 mg 05/03/19 00:42 05/03/19 01:30 Nitrostat 0.4 Mg (Ed) SL 05/03/19 00:43 0.4 mg STAT ONE Administration Nitroglycerin Confirm 05/03/19 01:23 Nitrostat 0.4 Mg (Ed) Administered 05/03/19 01:24 Dose 0.4 mg SL .STK-MED ONE Lab/Rad Data: Laboratory Result Diagrams 05/03/19 00:55 05/03/19 00:55 Laboratory Results 05/03/19 05/03/19 05/03/19 Range/Units 01:46 01:00 00:55 WBC (4.0-10.5) K/mm3 RBC (4.1-5.4) M/mm3 Hgb (12.0-16.0) gm/dl Hct (35-47) % MCV (78-100) fl MCH (26-32) pg MCHC (32-36) g/dl RDW (11.5-14.0) % Plt Count (150-450) K/mm3 MPV (7.5-11.0) fl Gran % (36.0-66.0) % Eos # (Auto) (0-0.5) Absolute Lymphs (auto) (1.0-4.6) Absolute Monos (auto) (0.0-1.3) Lymphocytes % (24.0-44.0) % Monocytes % (0.0-12.0) % Eosinophils % (0.00-5.0) % Basophils % (0.0-0.4) % Absolute Granulocytes (1.4-6.9) Basophils # (0-0.4) PT (9.95-12.35) SECONDS INR (0.8-3.0) APTT (25.3-37.0) SECONDS D-Dimer (215-500) ng/mL Sodium (137-145) mmol/L Potassium (3.5-5.1) mmol/L Chloride (98-107) mmol/L Carbon Dioxide (22-30) mmol/L Anion Gap (5-15) MEQ/L BUN (7-17) mg/dL Creatinine (0.52-1.04) mg/dL Estimated GFR ML/MIN Glucose (74-106) mg/dL Lactic Acid 1.5 (0.4-2.0) Calcium (8.4-10.2) mg/dL Magnesium (1.6-2.3) mg/dL Total Bilirubin (0.2-1.3) mg/dL AST (14-36) U/L ALT (0-35) U/L Alkaline Phosphatase (38-126) U/L Troponin I < 0.012 (0.000-0.034) ng/mL NT-Pro-B Natriuret Pep (0-1800) pg/mL Serum Total Protein (6.3-8.2) g/dL Albumin (3.5-5.0) g/dL Amylase (30-110) U/L Lipase (23-300) U/L Urine Color STRAW (YELLOW) Urine Appearance CLEAR (CLEAR) Urine pH 9.0 (5-6) Ur Specific [place] 1.006 (1.005-1.025) Urine Protein NEGATIVE (Negative) Urine Ketones NEGATIVE (NEGATIVE) Urine Blood SMALL (0-5) Jossue/ul Urine Nitrite NEGATIVE (NEGATIVE) Urine Bilirubin NEGATIVE (NEGATIVE) Urine Urobilinogen NEGATIVE (0-1) mg/dL Ur Leukocyte Esterase NEGATIVE (NEGATIVE) Urine WBC (Auto) 0-2 (0-5) /HPF Urine RBC (Auto) 6-10 (0-2) /HPF U Epithel Cells (Auto) NONE (FEW) /HPF Urine Bacteria (Auto) NONE (NEGATIVE) /HPF Urine Culture Reflexed NO (NO) Urine Glucose NEGATIVE (NEGATIVE) mg/dL 05/03/19 05/03/19 05/03/19 Range/Units 00:55 00:55 00:55 WBC 7.0 (4.0-10.5) K/mm3 RBC 3.73 L (4.1-5.4) M/mm3 Hgb 10.3 L (12.0-16.0) gm/dl Hct 34.4 L (35-47) % MCV 92.2 (78-100) fl MCH 27.6 (26-32) pg MCHC 29.9 L (32-36) g/dl RDW 18.8 H (11.5-14.0) % Plt Count 469 H (150-450) K/mm3 MPV 9.4 (7.5-11.0) fl Gran % 72.3 H (36.0-66.0) % Eos # (Auto) 0.04 (0-0.5) Absolute Lymphs (auto) 1.24 (1.0-4.6) Absolute Monos (auto) 0.65 (0.0-1.3) Lymphocytes % 17.6 L (24.0-44.0) % Monocytes % 9.2 (0.0-12.0) % Eosinophils % 0.6 (0.00-5.0) % Basophils % 0.3 (0.0-0.4) % Absolute Granulocytes 5.09 (1.4-6.9) Basophils # 0.02 (0-0.4) PT 24.7 H (9.95-12.35) SECONDS INR 2.15 (0.8-3.0) APTT 42.0 H (25.3-37.0) SECONDS D-Dimer 3108 H* (215-500) ng/mL Sodium 137 (137-145) mmol/L Potassium 3.9 (3.5-5.1) mmol/L Chloride 104 (98-107) mmol/L Carbon Dioxide 29 (22-30) mmol/L Anion Gap 8.9 (5-15) MEQ/L BUN 17 (7-17) mg/dL Creatinine 0.51 L (0.52-1.04) mg/dL Estimated GFR > 60.0 ML/MIN Glucose 99 (74-106) mg/dL Lactic Acid (0.4-2.0) Calcium 9.8 (8.4-10.2) mg/dL Magnesium 2.3 (1.6-2.3) mg/dL Total Bilirubin 0.40 (0.2-1.3) mg/dL AST 23 (14-36) U/L ALT 10 (0-35) U/L Alkaline Phosphatase 149 H (38-126) U/L Troponin I (0.000-0.034) ng/mL NT-Pro-B Natriuret Pep 7160 H (0-1800) pg/mL Serum Total Protein 6.8 (6.3-8.2) g/dL Albumin 3.9 (3.5-5.0) g/dL Amylase 55 (30-110) U/L Lipase 50 (23-300) U/L Urine Color (YELLOW) Urine Appearance (CLEAR) Urine pH (5-6) Ur Specific [place] (1.005-1.025) Urine Protein (Negative) Urine Ketones (NEGATIVE) Urine Blood (0-5) Jossue/ul Urine Nitrite (NEGATIVE) Urine Bilirubin (NEGATIVE) Urine Urobilinogen (0-1) mg/dL Ur Leukocyte Esterase (NEGATIVE) Urine WBC (Auto) (0-5) /HPF Urine RBC (Auto) (0-2) /HPF U Epithel Cells (Auto) (FEW) /HPF Urine Bacteria (Auto) (NEGATIVE) /HPF Urine Culture Reflexed (NO) Urine Glucose (NEGATIVE) mg/dL - Progress Progress: improved Air Movement: good Blood Culture(s) Obtained: No Antibiotics given: No (so in yes this for the measurements th) Discussed with DrBritt: Other (Dr Michael (admissions supervisor for Dr Smith) aand hospitalist Genie at [facility] and patient was accepted in transfer) - Departure Departure Disposition: Transfer (ppatient was transferred to [facility] to the hospitalist service Dr. Dirk Roe cardiology group consult) Clinical Impression: Chest pain, CHF (congestive heart failure) Condition: Fair Critical Care Time: Yes Critical Care Time(excluding separately billable procedures): Critical 30-74 mins Referrals: BETHANY CHAMPAGNE [Primary Care Provider] - Instructions: Heart Failure
[2019-05-03 04:13] VITALS: BP 169/86; PULSE 73; O2SAT 99
--- NOTE | 2019-05-03 09:00 | XRAY ---
Indication: Chest pain. Comparison: December 18, 2017. Portable apical lordotic chest remains clear. Heart is now borderline enlarged again with cardiac valvular replacement surgery. Bony thorax intact again with osteopenia, degenerative changes, scoliosis, L1 kyphoplasty, and sternotomy wires. Impression: Nonacute chest with chronic features.
== END 2019-05-03 04:10 | disposition short-term general hospital (02) ==
LOC: ED 00:39
DX: R07.89 Other chest pain (principal); I50.9 Heart failure, unspecified; R11.0 Nausea; I25.2 Old myocardial infarction; Z79.01 Long term (current) use of anticoagulants; I25.10 Atherosclerotic heart disease of native coronary artery without angina pectoris; E78.5 Hyperlipidemia, unspecified; Z79.899 Other long term (current) drug therapy; I10 Essential (primary) hypertension; E78.00 Pure hypercholesterolemia, unspecified; E11.9 Type 2 diabetes mellitus without complications
CPT/HCPCS: 36000; 36415; 71045; 80053; 81001; 82150; 83605; 83690; 83735; 83880; 84484; 85025; 85379; 85610; 85730; 93005; 93041; 96374; 96375; 99285; 99291; J1940; J3010; A9270-GY

== ENCOUNTER 2019-07-08 16:52 | Emergency (ER) | payer MEDICARE, BC ==
[2019-07-08] MEDS ORDERED: Sodium Chloride 0.9% 1000 ML 1,000 ML IV SCH (17:00)
[2019-07-08] MEDS ORDERED: Sodium Chloride 0.9% 1000 ML 1,000 ML ONE (17:01)
[2019-07-08 17:12] LABS: Absolute Neutrophil Ct (ANC) 7.11 (1.4-6.9); BASOPHIL % 0.3 % (0.0-0.4); Basophil (Absolute #) 0.03 (0-0.4); Eosinophil (Absolute #) 0 (0-0.5); Hematocrit 38.7 % (35-47); Hemoglobin 11.5 gm/dl (12.0-16.0); Lymphocyte (Absolute #) 1.17 (1.0-4.6); Lymphocytes % 13.2 % (24.0-44.0); Mean Cell Volume 95.3 fl (78-100); Mean Corpuscular Hemoglobin 28.3 pg (26-32); Mean Corpuscular Hgb Concent. 29.7 g/dl (32-36); Mean Platelet Volume 9.5 fl (7.5-11.0); Monocyte (Absolute #) 0.58 (0.0-1.3); Monocytes % 6.5 % (0.0-12.0); Platelet Count 459 K/mm3 (150-450); Red Blood Count 4.06 M/mm3 (4.1-5.4); Red Cell Distribution Width 18.9 % (11.5-14.0); White Blood Count 8.9 K/mm3 (4.0-10.5)
[2019-07-08 17:19] LABS: INR 1.65 (0.8-3.0); PROTIME 18.8 SECONDS (9.95-12.35)
[2019-07-08 17:22] LABS: ALBUMIN 4.4 g/dL (3.5-5.0); ALKALINE PHOSPHATASE 107 U/L (38-126); ANION GAP 14.1 MEQ/L (5-15); BLOOD UREA NITROGEN 19 mg/dL (7-17); CHLORIDE 99 mmol/L (98-107); Calcium 9.2 mg/dL (8.4-10.2); Carbon Dioxide 31 mmol/L (22-30); Creatinine 1 0.54 mg/dL (0.52-1.04); Glucose 111 mg/dL (74-106); Potassium 3.5 mmol/L (3.5-5.1); SGOT/AST 28 U/L (14-36); SGPT/ALT 18 U/L (0-35); SODIUM 141 mmol/L (137-145); Total Protein 7.3 g/dL (6.3-8.2)
--- NOTE | 2019-07-08 17:36 | ERPHSYRPT ---
- History of Present Illness Time Seen by Provider: 07/08/19 17:29 Source: patient, EMS Exam Limitations: no limitations Patient Subjective Stated Complaint: Dizziness and difficulty forming words. Last known well @ 1530 Triage Nursing Assessment: Pt presents alert et oriented x3. Pt reports experiencing dizziness with associated difficulty forming words. Initial NIHSS - 0. EMS reported negative stroke scale. Pupills 3mm reactive to light. Denies visual/auditory disturbances. Symmetrical facial expression. No noted focal neurological deficits. Symmetrical chest expansion. Lungs clear with adequate airflow. Abdomen soft non-tender without noted palpable organomegaly. No dependent edema. Decreased ROM noted to bilateral upper extremities attributed to bilateral shoulder surgeries. Denied chest pain/shortness of breath/nausea/ vomiting. Physician History: Dizziness and difficulty forming words. Last known well @ 1530 patient states that she gave a list to buy the grocery from the store to his son. When he brought a grocery bag she thought that she did not write all these things and she felt like she has a hard time remembering. Patient son states that she has little bit slurred speech. Patient denies any other symptoms now. Patient denies any other weakness or sensory loss or headache or nausea or vomiting. Patient also denies any speech disturbance now. Time of Onset/Last Time Seen Normal: Dizziness and difficulty forming words. Last known well @ 1530 Timing/Duration: today Severity: mild Character of Deficits: impaired speech Deficits: no difficulties Baseline/Normal Cognition: alert oriented x 3 Current Cognition: alert oriented x 3 Associated Symptoms: denies symptoms Allergies/Adverse Reactions: leflunomide Allergy (Verified 07/08/19 17:01) Stomach Cramps losartan potassium [From Cozaar] Allergy (Verified 07/08/19 16:57) Tetracyclines Allergy (Verified 07/08/19 16:57) Home Medications: Biotin 5,000 mg PO DAILY 05/22/14 [History] Esomeprazole Magnesium [Nexium] 40 mg PO DAILY 05/22/14 [History] Leucovorin Calcium 5 mg PO WEEKLY 05/22/14 [History] Metformin HCl 500 mg PO BID 05/22/14 [History] Methotrexate Sodium 2.5 mg [Trexall 2.5 mg] 8 tab PO UD 05/22/14 [History] Methylprednisolone 4 mg [Medrol 4 mg] 4 mg PO DAILY 05/22/14 [History] Tramadol HCl [Ultram] 100 mg PO Q6HPRN PRN 05/22/14 [History] Warfarin Sodium [Coumadin] 4 mg PO DAILY 05/22/14 [History] Acetaminophen [Tylenol Arthritis] 1 tab PO UD 07/22/16 [History] Cholecalciferol (Vitamin D3) [Vitamin D] 1,000 units PO DAILY 07/22/16 [ History] Clopidogrel Bisulfate [Clopidogrel] 75 mg PO DAILY 05/03/19 [History] Metoprolol Succinate 25 mg Xl* [Toprol-Xl 25MG Tablets] 25 mg PO BID [History] lisinopriL [Lisinopril] 5 mg PO BID 05/03/19 [History] Hx Tetanus, Diphtheria Vaccination/Date Given: Yes Hx Influenza Vaccination/Date Given: Yes Hx Pneumococcal Vaccination/Date Given: Yes Immunizations Up to Date: Yes Travel Risk - International Travel Have you traveled outside of the country in past 3 weeks: No (N) Have you or anyone close to you been diagnosed with or: No Do your reside in a community with a known COVID-19 case?: Yes If Yes where:: [facility] - Coronavirus Screening Has patient experienced Coronavirus symptoms: No - Review of Systems Constitutional: No Fever, No Chills Eyes: No Symptoms Ears, Nose, & Throat: No Symptoms Respiratory: No Cough, No Dyspnea Cardiac: No Chest Pain, No Edema, No Syncope Abdominal/Gastrointestinal: No Abdominal Pain, No Nausea, No Vomiting, No Diarrhea Genitourinary Symptoms: No Dysuria Musculoskeletal: No Back Pain, No Neck Pain Skin: No Rash Neurological: Dizziness, Speech Changes, No Focal Weakness, No Sensory Changes Psychological: No Symptoms Endocrine: No Symptoms All Other Systems: Reviewed and Negative - Past Medical History Pertinent Past Medical History: Yes Neurological History: TIA ENT History: Cataracts Cardiac History: High Cholesterol, Hypertension, Myocardial Infarction ([place]), Other Respiratory History: No Pertinent History Endocrine Medical History: Diabetes Type II Musculoskeletal History: Degenerative Disk Disease, Osteoarthritis, Rheumatoid Arthritis GI Medical History: GERD History: No Pertinent History Psycho-Social History: Anxiety Female Reproductive Disorders: No Pertinent History Other Medical History: artificial aortic valve, heart stent - Past Surgical History Past Surgical History: Yes Neuro Surgical History: No Pertinent History Cardiac: CABG, Cardiac Catheterization, Valve Replacement Respiratory: No Pertinent History Gastrointestinal: Hernia Repair Genitourinary: No Pertinent History Musculoskeletal: No Pertinent History Female Surgical History: No Pertinent History Other Surgical History: cardiac stent - Social History Smoking Status: Never smoker Exposure to second hand smoke: No Drug Use: none Patient Lives Alone: No - Nursing Vital Signs Nursing Vital Signs: Initial Vital Signs Temperature 98.3 F 07/08/19 16:52 Pulse Rate 70 07/08/19 16:52 Respiratory Rate 20 07/08/19 16:52 Blood Pressure 178/96 07/08/19 16:52 O2 Sat by Pulse Oximetry 99 07/08/19 16:52 Pain Scale Pain Intensity 0 - Malachi Coma Scale Best Eye Response (Edro[place]): (4) open spontaneously Best Verbal Response (Malachi): (5) oriented Best Motor Response (Malachi): (6) obeys commands Edroy Total: 15 - Physical Exam General Appearance: no apparent distress, alert Eye Exam: bilateral eye: PERRL, EOMI Ears, Nose, Throat Exam: normal ENT inspection, moist mucous membranes Neck Exam: normal inspection, non-tender, supple Respiratory: normal breath sounds, lungs clear, airway intact, No respiratory distress Cardiovascular: regular rate/rhythm, No edema Gastrointestinal: soft, No tenderness, No distention Back Exam: normal inspection Extremity Exam: normal inspection, No pedal edema Mental Status: alert, oriented x 3 ux engineer Exam: tongue midline Coordination/Gait: normal finger to nose, normal gait Skin Exam: normal color, warm, dry, No rash SpO2: 99 - Course Nursing assessment & vital signs reviewed: Yes EKG Interpreted by Me: Sinus Rhythm - Radiology Exams Chest X-ray Interpretation: Reviewed by me, Negative - CT Exams Head CT Interpretation: Tele-radiologist Report, No/Intracranial Hemorrhag Ordered Tests: Active Orders 24 hr Category Date Time Status EKG-ER Only STAT Care 07/08/19 16:55 Active NPO (ED) STAT Care 07/08/19 16:55 Active CHEST 1 VIEW (PORTABLE) Stat Exams 07/08/19 16:56 Taken HEAD WITHOUT CONTRAST [CT] Stat Exams 07/08/19 16:56 Taken CBC W DIFF Stat Lab 07/08/19 17:09 Completed CMP Stat Lab 07/08/19 17:09 Completed PROTIME WITH INR Stat Lab 07/08/19 17:09 Completed TROPONIN Stat Lab 07/08/19 17:09 Received Medication Summary Generic Name Dose Route Start Last Admin Trade Name Whitney PRN Reason Stop Dose Admin Sodium Chloride 1,000 mls @ 50 mls/hr 07/08/19 17:00 07/08/19 17:02 Sodium Chloride 0.9% 1000 Ml IV 08/07/19 16:59 50 mls/hr .Q20H ADRIAN Administration Lab/Rad Data: Laboratory Result Diagrams 07/08/19 17:09 07/08/19 17:09 Laboratory Results 07/08/19 07/08/19 07/08/19 Range/Units 17:09 17:09 17:09 WBC 8.9 (4.0-10.5) K/mm3 RBC 4.06 L (4.1-5.4) M/mm3 Hgb 11.5 L (12.0-16.0) gm/dl Hct 38.7 (35-47) % MCV 95.3 (78-100) fl MCH 28.3 (26-32) pg MCHC 29.7 L (32-36) g/dl RDW 18.9 H (11.5-14.0) % Plt Count 459 H (150-450) K/mm3 MPV 9.5 (7.5-11.0) fl Gran % 80.0 H (36.0-66.0) % Eos # (Auto) 0 (0-0.5) Absolute Lymphs (auto) 1.17 (1.0-4.6) Absolute Monos (auto) 0.58 (0.0-1.3) Lymphocytes % 13.2 L (24.0-44.0) % Monocytes % 6.5 (0.0-12.0) % Eosinophils % 0.0 (0.00-5.0) % Basophils % 0.3 (0.0-0.4) % Absolute Granulocytes 7.11 H (1.4-6.9) Basophils # 0.03 (0-0.4) PT 18.8 H (9.95-12.35) SECONDS INR 1.65 (0.8-3.0) Sodium 141 (137-145) mmol/L Potassium 3.5 (3.5-5.1) mmol/L Chloride 99 (98-107) mmol/L Carbon Dioxide 31 H (22-30) mmol/L Anion Gap 14.1 (5-15) MEQ/L BUN 19 H (7-17) mg/dL Creatinine 0.54 (0.52-1.04) mg/dL Estimated GFR > 60.0 ML/MIN Glucose 111 H (74-106) mg/dL Calcium 9.2 (8.4-10.2) mg/dL Total Bilirubin 0.50 (0.2-1.3) mg/dL AST 28 (14-36) U/L ALT 18 (0-35) U/L Alkaline Phosphatase 107 (38-126) U/L Serum Total Protein 7.3 (6.3-8.2) g/dL Albumin 4.4 (3.5-5.0) g/dL - Progress Progress: improved Discussed with : Other (Hospitalist at [facility]) Will see patient in: other Counseled pt/family regarding: lab results, diagnosis, need for follow-up, rad results - Departure Departure Disposition: Transfer ([facility]) Clinical Impression: TIA (transient ischemic attack) Condition: Fair Critical Care Time: Yes Critical Care Time(excluding separately billable procedures): Critical 30-74 mins Referrals: BETHANY CHAMPAGNE [Primary Care Provider] -
[2019-07-08 18:10] VITALS: BP 170/90; PULSE 67; O2SAT 96
[2019-07-08 18:16] LABS: Appearance CLEAR (CLEAR); Bilirubin NEGATIVE (NEGATIVE); Blood SMALL Ery/ul (0-5); Glucose NEGATIVE (NEGATIVE); Ketones NEGATIVE (NEGATIVE); Leukocyte Esterase NEGATIVE (NEGATIVE); Nitrite NEGATIVE (NEGATIVE); Protein,Urine Dip NEGATIVE (Negative); Specific Gravity 1.008 (1.005-1.025); Urobilinogen NEGATIVE mg/dL (0-1)
--- NOTE | 2019-07-08 19:11 | XRAY ---
Indication: Confusion and slurred speech. Comparison: May 03, 2019. Portable chest remains clear. Heart remains borderline enlarged again with cardiac valve replacement surgery. Vascularity normal. Suspect new small hiatal hernia. Bony thorax intact again with osteopenia, bilateral shoulder degenerative arthropathy, multilevel degenerative spondylosis, double curvature scoliosis, L1 kyphoplasty, and L1 kyphoplasty. Impression: Nonacute chest with chronic features.
--- NOTE | 2019-07-11 07:43 | XRAY ---
Indication: Confusion and slurred speech. Multiple contiguous axial images obtained through the head without contrast. Comparison: May 22, 2017. There is again age-appropriate global atrophy, mild periventricular degenerative micro-ischemia bilaterally, and remote left basal ganglia lacunar infarct. No acute intracranial hemorrhage, abnormal extra-axial fluid collection, or mass effect. Fourth ventricle is midline without hydrocephalus. Bony calvarium intact. Again moderate mucosal thickening right maxillary sinus. Remaining visualized paranasal sinuses and mastoid air cells are clear. Impression: Continued nonacute senile brain with remote left basal ganglia lacunar infarct and right maxillary sinus disease. Comment: Preliminary interpretation was made by [facility]. No critical discrepancy.
== END 2019-07-08 18:20 | disposition short-term general hospital (02) ==
LOC: ED 16:52
DX: G45.9 Transient cerebral ischemic attack, unspecified (principal); E11.9 Type 2 diabetes mellitus without complications; I10 Essential (primary) hypertension; E78.00 Pure hypercholesterolemia, unspecified; I25.2 Old myocardial infarction
CPT/HCPCS: 36000; 36415; 70450; 71045; 80053; 81001; 82962; 84484; 85025; 85610; 93005; 96360; 99285; 99291

== ENCOUNTER 2020-02-22 09:51 | Emergency (ER) | payer MEDICARE, BC ==
[2020-02-22] MEDS ORDERED: BABY ASPIRIN 81 MG CHEW PO ONE (10:09)
[2020-02-22 10:28] LABS: Absolute Neutrophil Ct (ANC) 7.79 (1.4-6.9); BASOPHIL % 0.3 % (0.0-0.4); Basophil (Absolute #) 0.03 (0-0.4); Eosinophil (Absolute #) 0.09 (0-0.5); Hematocrit 34.6 % (35-47); Hemoglobin 9.7 gm/dl (12.0-16.0); Lymphocyte (Absolute #) 0.58 (1.0-4.6); Lymphocytes % 6.4 % (24.0-44.0); Mean Cell Volume 86.7 fl (78-100); Mean Corpuscular Hemoglobin 24.3 pg (26-32); Mean Platelet Volume 9.8 fl (7.5-11.0); Monocyte (Absolute #) 0.55 (0.0-1.3); Monocytes % 6.1 % (0.0-12.0); Neutrophil % 86.2 % (36.0-66.0); Platelet Count 384 K/mm3 (150-450); Red Blood Count 3.99 M/mm3 (4.1-5.4); Red Cell Distribution Width 21.7 % (11.5-14.0)
[2020-02-22 10:34] LABS: INR 2.78 (0.8-3.0); PROTIME 31.7 SECONDS (9.95-12.35)
[2020-02-22 10:37] LABS: PTT 38.3 SECONDS (25.3-37.0)
[2020-02-22 10:47] LABS: ALBUMIN 3.9 g/dL (3.5-5.0); ALKALINE PHOSPHATASE 84 U/L (38-126); ANION GAP 8.4 MEQ/L (5-15); BLOOD UREA NITROGEN 20 mg/dL (7-17); CHLORIDE 102 mmol/L (98-107); Calcium 9.3 mg/dL (8.4-10.2); Carbon Dioxide 31 mmol/L (22-30); EST GLOMERULAR FILTRATION RATE > 60.0 ML/MIN; Glucose 117 mg/dL (74-106); NT PRO BNP 4470 pg/mL (0-1800); SGOT/AST 23 U/L (14-36); SGPT/ALT 12 U/L (0-35); SODIUM 137 mmol/L (137-145); Total Protein 6.3 g/dL (6.3-8.2)
--- NOTE | 2020-02-22 10:57 | XRAY ---
Indication: Chest pain. Comparison: July 08, 2019. Portable chest remains clear. Heart is borderline enlarged again with cardiac valve replacement surgery. Stable moderate-sized hiatal hernia. Bony thorax intact again with osteopenia, bilateral shoulder degenerative arthropathy, multilevel degenerative spondylosis, double curvature scoliosis, and L1/L4 kyphoplasty. Impression: Continued nonacute chest with chronic features.
--- NOTE | 2020-02-22 11:20 | ERPHSYRPT ---
- History of Present Illness Source: patient Exam Limitations: no limitations Patient Subjective Stated Complaint: PT states "I had a really sudden case of pain in my neck and it went into my back and I took 2 nitro and the pain went away. I feel a little better now." Triage Nursing Assessment: Pt presnted alert and oriented x 3, skin pwd Pt ambulates with a slow gait, able to speak in clear full sentences. Pt shaking, laying on the bed. Pt csm X 4, Physician History: 84 yo wf w inferior neck-superior chest pain 45 minutes before arrival/ sharp/radiation to back/pain 2 out of 10 after 2 SL NTG at home/8 out of 10 at worst. Pt denies N/V/dyspnea/diaphoresis. She has a h/o MVR/RCA stents/VT/HTN/DM/HTN/Hyperlipidemia. 325mg ASA given in ER. Timing/Duration: other (45min) Quality: sharpness Location: other (Inferior neck/superior chest) Chest Pain Radiation: back Severity of Pain-Max: severe (10) Severity of Pain-Current: mild (2) Modifying Factors: Improves With: nitroglycerin Nitro Today/Relief: 0.4 mg x 2, provided at home Aspirin Treatment Today: no aspirin today Associated Symptoms: chest pain, No nausea, No vomiting, No abdominal pain, No shortness of breath, No heartburn, No diaphoresis, No cough, No chills, No fever, No headaches, No malaise, No rash Prior Chest Pain/Cardiac Workup: cardiac cath, heart attack Allergies/Adverse Reactions: leflunomide Allergy (Verified 07/08/19 17:01) Stomach Cramps losartan potassium [From Cozaar] Allergy (Verified 07/08/19 16:57) Tetracyclines Allergy (Verified 07/08/19 16:57) Home Medications: Biotin 5,000 mg PO DAILY 05/22/14 [History] Esomeprazole Magnesium [Nexium] 40 mg PO DAILY 05/22/14 [History] Leucovorin Calcium 5 mg PO WEEKLY 05/22/14 [History] Metformin HCl 500 mg PO BID 05/22/14 [History] Methotrexate Sodium 2.5 mg [Trexall 2.5 mg] 8 tab PO UD 05/22/14 [History] Methylprednisolone 4 mg [Medrol 4 mg] 4 mg PO DAILY 05/22/14 [History] Tramadol HCl [Ultram] 100 mg PO Q6HPRN PRN 05/22/14 [History] Warfarin Sodium [Coumadin] 4 mg PO DAILY 05/22/14 [History] Acetaminophen [Tylenol Arthritis] 1 tab PO UD 07/22/16 [History] Cholecalciferol (Vitamin D3) [Vitamin D] 1,000 units PO DAILY 07/22/16 [History] Clopidogrel Bisulfate [Clopidogrel] 75 mg PO DAILY 05/03/19 [History] Metoprolol Succinate 25 mg Xl* [Toprol-Xl 25MG Tablets] 25 mg PO BID 05/03/19 [History] lisinopriL [Lisinopril] 5 mg PO BID 05/03/19 [History] Hx Tetanus, Diphtheria Vaccination/Date Given: Yes Hx Influenza Vaccination/Date Given: Yes Hx Pneumococcal Vaccination/Date Given: Yes Immunizations Up to Date: Yes Travel Risk - International Travel Have you traveled outside of the country in past 3 weeks: No - Coronavirus Screening Are you exhibiting any of the following symptoms?: No Close contact with a COVID-19 positive Pt in past 14-21 Days: No - Review of Systems Constitutional: No Symptoms Eyes: No Symptoms Ears, Nose, & Throat: No Symptoms Respiratory: No Symptoms Abdominal/Gastrointestinal: No Symptoms Genitourinary Symptoms: No Symptoms Musculoskeletal: No Symptoms Skin: No Symptoms Neurological: No Symptoms Psychological: No Symptoms Endocrine: No Symptoms Hematologic/Lymphatic: No Symptoms Immunological/Allergic: No Symptoms All Other Systems: Reviewed and Negative - Past Medical History Pertinent Past Medical History: Yes Neurological History: TIA ENT History: Cataracts Cardiac History: High Cholesterol, Hypertension, Myocardial Infarction (VT), Other Respiratory History: No Pertinent History Endocrine Medical History: Diabetes Type II Musculoskeletal History: Degenerative Disk Disease, Osteoarthritis, Rheumatoid Arthritis GI Medical History: GERD History: No Pertinent History Psycho-Social History: Anxiety Female Reproductive Disorders: No Pertinent History Other Medical History: artificial aortic valve, heart stent - Past Surgical History Past Surgical History: Yes Neuro Surgical History: No Pertinent History Cardiac: CABG, Cardiac Catheterization, Valve Replacement Respiratory: No Pertinent History Gastrointestinal: Hernia Repair Genitourinary: No Pertinent History Musculoskeletal: No Pertinent History Female Surgical History: No Pertinent History Other Surgical History: cardiac stent - Social History Smoking Status: Never smoker Exposure to second hand smoke: No Drug Use: none Patient Lives Alone: No - Female History Hx Now: No - Nursing Vital Signs Nursing Vital Signs: Initial Vital Signs Temperature 98.6 F 02/22/20 09:57 Pulse Rate 70 02/22/20 09:57 Respiratory Rate 20 02/22/20 09:57 Blood Pressure 159/91 02/22/20 09:57 O2 Sat by Pulse Oximetry 97 02/22/20 09:57 Pain Scale Pain Intensity 0 - Physical Exam SpO2: 97 Ordered Tests: Active Orders 24 hr Category Date Time Status EKG-ER Only STAT Care 02/22/20 10:09 Completed IV Insertion STAT Care 02/22/20 10:09 Completed CHEST 1 VIEW (PORTABLE) Stat Exams 02/22/20 10:10 Completed CBC W DIFF Stat Lab 02/22/20 10:00 Completed CMP Stat Lab 02/22/20 10:00 Completed NT PRO BNP Stat Lab 02/22/20 10:00 Completed PROTIME WITH INR Stat Lab 02/22/20 10:00 Completed PTT Stat Lab 02/22/20 10:00 Completed TROPONIN Q3H Lab 02/22/20 10:15 Completed TROPONIN Q3H Lab 02/22/20 12:45 Completed Medication Summary Discontinued Medications Generic Name Dose Route Start Last Admin Trade Name Freq PRN Reason Stop Dose Admin Aspirin 324 mg 02/22/20 10:09 02/22/20 10:22 Baby Aspirin 81 Mg Chew PO 02/22/20 10:10 324 mg STAT ONE Administration Lab/Rad Data: Laboratory Result Diagrams 02/22/20 10:00 02/22/20 10:00 Laboratory Results 02/22/20 02/22/20 02/22/20 Range/Units 12:45 10:15 10:00 WBC (4.0-10.5) K/mm3 RBC (4.1-5.4) M/mm3 Hgb (12.0-16.0) gm/dl Hct (35-47) % MCV (78-100) fl MCH (26-32) pg MCHC (32-36) g/dl RDW (11.5-14.0) % Plt Count (150-450) K/mm3 MPV (7.5-11.0) fl Gran % (36.0-66.0) % Eos # (Auto) (0-0.5) Absolute Lymphs (auto) (1.0-4.6) Absolute Monos (auto) (0.0-1.3) Lymphocytes % (24.0-44.0) % Monocytes % (0.0-12.0) % Eosinophils % (0.00-5.0) % Basophils % (0.0-0.4) % Absolute Granulocytes (1.4-6.9) Basophils # (0-0.4) PT 31.7 H (9.95-12.35) SECONDS INR 2.78 (0.8-3.0) APTT 38.3 H (25.3-37.0) SECONDS Sodium (137-145) mmol/L Potassium (3.5-5.1) mmol/L Chloride (98-107) mmol/L Carbon Dioxide (22-30) mmol/L Anion Gap (5-15) MEQ/L BUN (7-17) mg/dL Creatinine (0.52-1.04) mg/dL Estimated GFR ML/MIN Glucose (74-106) mg/dL Calcium (8.4-10.2) mg/dL Total Bilirubin (0.2-1.3) mg/dL AST (14-36) U/L ALT (0-35) U/L Alkaline Phosphatase (38-126) U/L Troponin I 0.017 0.026 (0.000-0.034) ng/mL NT-Pro-B Natriuret Pep (0-1800) pg/mL Serum Total Protein (6.3-8.2) g/dL Albumin (3.5-5.0) g/dL Slides for Path Review 02/22/20 02/22/20 Range/Units 10:00 10:00 WBC 9.0 (4.0-10.5) K/mm3 RBC 3.99 L (4.1-5.4) M/mm3 Hgb 9.7 L (12.0-16.0) gm/dl Hct 34.6 L (35-47) % MCV 86.7 (78-100) fl MCH 24.3 L (26-32) pg MCHC 28.0 L (32-36) g/dl RDW 21.7 H (11.5-14.0) % Plt Count 384 (150-450) K/mm3 MPV 9.8 (7.5-11.0) fl Gran % 86.2 H (36.0-66.0) % Eos # (Auto) 0.09 (0-0.5) Absolute Lymphs (auto) 0.58 L (1.0-4.6) Absolute Monos (auto) 0.55 (0.0-1.3) Lymphocytes % 6.4 L (24.0-44.0) % Monocytes % 6.1 (0.0-12.0) % Eosinophils % 1.0 (0.00-5.0) % Basophils % 0.3 (0.0-0.4) % Absolute Granulocytes 7.79 H (1.4-6.9) Basophils # 0.03 (0-0.4) PT (9.95-12.35) SECONDS INR (0.8-3.0) APTT (25.3-37.0) SECONDS Sodium 137 (137-145) mmol/L Potassium 4.0 (3.5-5.1) mmol/L Chloride 102 (98-107) mmol/L Carbon Dioxide 31 H (22-30) mmol/L Anion Gap 8.4 (5-15) MEQ/L BUN 20 H (7-17) mg/dL Creatinine 0.70 (0.52-1.04) mg/dL Estimated GFR > 60.0 ML/MIN Glucose 117 H (74-106) mg/dL Calcium 9.3 (8.4-10.2) mg/dL Total Bilirubin 0.40 (0.2-1.3) mg/dL AST 23 (14-36) U/L ALT 12 (0-35) U/L Alkaline Phosphatase 84 (38-126) U/L Troponin I (0.000-0.034) ng/mL NT-Pro-B Natriuret Pep 4470 H (0-1800) pg/mL Serum Total Protein 6.3 (6.3-8.2) g/dL Albumin 3.9 (3.5-5.0) g/dL Slides for Path Review YES - Progress Progress: improved Air Movement: good Progress Note: 02/22/20 15:14 Pt painfree shortly after arrival and throughout rest of stay. Spoke w Dr. Smith, would like to send home w office f/u in AM. - Departure Departure Disposition: Home Clinical Impression: Chest pain Condition: Stable Critical Care Time: No Referrals: BETHANY CHAMPAGNE [Primary Care Provider] - Instructions: Chest Pain (DC) Additional Instructions: Call Dr. Smith's office in AM for appointment Return to ER for increasing pain or shortness of breath
[2020-02-22 13:24] LABS: Slide Review 1 YES
[2020-02-22 15:25] VITALS: BP 179/81; PULSE 74
[2020-02-22 17:42] VITALS: O2SAT 97
== END 2020-02-22 15:58 | disposition home or self-care (01) ==
LOC: ED 09:51
DX: R07.9 Chest pain, unspecified (principal); I10 Essential (primary) hypertension; E78.5 Hyperlipidemia, unspecified; E11.9 Type 2 diabetes mellitus without complications; Z79.4 Long term (current) use of insulin; Z79.899 Other long term (current) drug therapy; E78.00 Pure hypercholesterolemia, unspecified; M06.9 Rheumatoid arthritis, unspecified
CPT/HCPCS: 36000; 36415; 71045; 80053; 83880; 84484; 85025; 85610; 85730; 93005; 99284; A9270-GY

== ENCOUNTER 2020-04-26 21:05 | Emergency (ER) | payer MEDICARE, BC ==
--- NOTE | 2020-04-26 21:40 | ERPHSYRPT ---
- History of Present Illness Time Seen by Provider: 04/26/20 21:20 Historian: patient Exam Limitations: no limitations Patient Subjective Stated Complaint: "My heart is just beating so hard." Triage Nursing Assessment: Patient reported that she has been working with her pharmacoepidemiologist for two weeks trying to get her BP under better control. Reported that she had her metoprolo changed from 25mg to 50mg today. Reported that roughly 45 minutes after taking her metoprolol, she experienced a heaviness and pounding sensation in her chest with associated nausea. Denied headache, dizziness, near syncope, or vomiting. Pain described as heaviness and non- radiating. Significant cardiac history of MT, stent x2, aortic valve replacement, and CABG. Pupils 3mm brisk bilateral direct and consensual reaction. Neck supple non-tender without JVD. No noted bruits or thrills. Symmetrical chest expansion. heart tones irregular S1/S2 without extra sounds. Lungs vesicular with adequate airflow. Peripheral pulses +2 bilateral. Abdomen soft non-distended with bowel sounds present in all quadrants. No palpable hepatosplenomegaly. No noetd dependent edema. Physician History: This is an 85-year-old white female who has a history of hypertension, chf, rheumatoid arthritis, gastroesophageal reflux disease, elevated cholesterol, typ e 2 diabetes, MT, cardiac stent placement x2, CABG and aortic valve replacement. She is on both Coumadin and Plavix. Patient has had a recent change in her medication. Patient's pharmacoepidemiologist, Dr. Smith, has increased the patient's daily metoprolol from 25 mg a day to 50 mg a day. Patient states that she has had some dizziness but today she noticed a pounding in her chest with some pressure present as well as some associated nausea. She told me that she has had some dizziness on the other days that she took her new 50 mg metoprolol dose. Patient states that she wants to be transferred to [facility] if she has to be admitted anywhere. Timing/Duration: today Activities at Onset: none Quality: pressure Location: substernal, central Chest Pain Radiation: no radiation Severity of Pain-Max: none Severity of Pain-Current: none Associated Symptoms: nausea, palpitations Prior Chest Pain/Cardiac Workup: cardiac cath, heart attack Nitro Today/Relief: no nitro taken today Aspirin Treatment Today: no aspirin today Allergies/Adverse Reactions: leflunomide Allergy (Verified 04/26/20 21:12) Stomach Cramps losartan potassium [From Cozaar] Allergy (Verified 04/26/20 21:12) Tetracyclines Allergy (Verified 04/26/20 21:12) Home Medications: Esomeprazole Magnesium [Nexium] 40 mg PO DAILY 05/22/14 [History] Leucovorin Calcium 5 mg PO WEEKLY 05/22/14 [History] Metformin HCl 500 mg PO BID 05/22/14 [History] Methotrexate Sodium 2.5 mg [Trexall 2.5 mg] 8 tab PO UD 05/22/14 [History] Methylprednisolone 4 mg [Medrol 4 mg] 4 mg PO DAILY 05/22/14 [History] Tramadol HCl [Ultram] 100 mg PO Q6HPRN PRN 05/22/14 [History] Warfarin Sodium [Coumadin] 4 mg PO DAILY 05/22/14 [History] Acetaminophen [Tylenol Arthritis] 1 tab PO UD 07/22/16 [History] Cholecalciferol (Vitamin D3) [Vitamin D] 1,000 units PO DAILY 07/22/16 [History] Clopidogrel Bisulfate [Clopidogrel] 75 mg PO DAILY 05/03/19 [History] Metoprolol Succinate 25 mg Xl* [Toprol-Xl 25MG Tablets] 50 mg PO BID 05/03/19 [History] Hx Tetanus, Diphtheria Vaccination/Date Given: Yes Hx Influenza Vaccination/Date Given: Yes Hx Pneumococcal Vaccination/Date Given: Yes Travel Risk - International Travel Have you traveled outside of the country in past 3 weeks: No - Coronavirus Screening Are you exhibiting any of the following symptoms?: No Symptoms: Vomiting/Diarrhea Close contact with a COVID-19 positive Pt in past 14-21 Days: No - Review of Systems Constitutional: No Symptoms Eyes: No Symptoms Ears, Nose, & Throat: No Symptoms Respiratory: No Symptoms Cardiac: Chest Pain (Described as pressure), Palpitations Abdominal/Gastrointestinal: No Symptoms Genitourinary Symptoms: No Symptoms Musculoskeletal: No Symptoms Skin: No Symptoms Neurological: No Symptoms Psychological: No Symptoms Endocrine: No Symptoms Hematologic/Lymphatic: No Symptoms Immunological/Allergic: No Symptoms All Other Systems: Reviewed and Negative - Past Medical History Pertinent Past Medical History: Yes Neurological History: TIA ENT History: Cataracts Cardiac History: High Cholesterol, Hypertension, Myocardial Infarction (MT), Other Respiratory History: No Pertinent History Endocrine Medical History: Diabetes Type II Musculoskeletal History: Degenerative Disk Disease, Osteoarthritis, Rheumatoid Arthritis GI Medical History: GERD History: No Pertinent History Psycho-Social History: Anxiety Female Reproductive Disorders: No Pertinent History Other Medical History: artificial aortic valve, heart stent - Past Surgical History Past Surgical History: Yes Neuro Surgical History: No Pertinent History Cardiac: CABG, Cardiac Catheterization, Valve Replacement Respiratory: No Pertinent History Gastrointestinal: Hernia Repair Genitourinary: No Pertinent History Musculoskeletal: No Pertinent History Female Surgical History: No Pertinent History Other Surgical History: cardiac stent - Social History Smoking Status: Never smoker Exposure to second hand smoke: No Drug Use: none Patient Lives Alone: No - Nursing Vital Signs Nursing Vital Signs: Initial Vital Signs Temperature 36.7 F 04/26/20 21:06 Pulse Rate 60 04/26/20 21:06 Respiratory Rate 16 04/26/20 21:06 Blood Pressure 188/119 04/26/20 21:06 O2 Sat by Pulse Oximetry 99 04/26/20 21:06 Pain Scale Pain Intensity 2 - Physical Exam General Appearance: no apparent distress, alert, anxiety, thin Eye Exam: PERRL/EOMI, eyes nml inspection Ears, Nose, Throat Exam: normal ENT inspection, moist mucous membranes Neck Exam: normal inspection, non-tender, supple, full range of motion Respiratory Exam: normal breath sounds, lungs clear, airway intact, No respiratory distress Cardiovascular Exam: regular rate/rhythm, normal heart sounds, normal peripheral pulses Gastrointestinal/Abdomen Exam: soft, normal bowel sounds, No tenderness Pelvic Exam: not done Rectal Exam: not done Back Exam: normal inspection, normal range of motion, No CVA tenderness, No vertebral tenderness Extremity Exam: normal inspection, normal range of motion, pelvis stable Neurologic Exam: alert, oriented x 3, cooperative, slunk skin curer II-XII nml as tested, normal mood/affect, nml cerebellar function, nml station & gait, sensation nml Skin Exam: normal color, warm, dry Lymphatic Exam: No adenopathy SpO2 Interpretation: normal SpO2: 98 O2 Delivery: Room Air - Course Nursing assessment & vital signs reviewed: Yes EKG Interpreted by Me: RATE (72), NORMAL AXIS, NORMAL INTERVALS, NORMAL QRS, Other (No acute ischemic changes on today's EKG. There are multiform PVCs present which are new compared to an EKG dated 02/22/2020. There are borderline T wave abnormalities which were present on the prior EKG.) Ordered Tests: Active Orders 24 hr Category Date Time Status Maxillofacial Prosthodontist STAT Care 04/26/20 21:24 Active EKG-ER Only STAT Care 04/26/20 21:24 Active IV Insertion STAT Care 04/26/20 21:24 Active Pulse Oximetry (ED) STAT Care 04/26/20 21:25 Active CHEST 1 VIEW (PORTABLE) Stat Exams 04/26/20 21:42 Taken CBC W DIFF Stat Lab 04/26/20 21:15 Completed CMP Stat Lab 04/26/20 21:15 Completed CULTURE,URINE Stat Lab 04/26/20 22:18 Received D-DIMER QUANTITATIVE Stat Lab 04/26/20 21:15 Completed NT PRO BNP Stat Lab 04/26/20 21:15 Completed PROTIME WITH INR Stat Lab 04/26/20 21:15 Completed TROPONIN Q3H Lab 04/26/20 21:15 Completed TROPONIN Q3H Lab 04/27/20 00:45 Ordered TROPONIN Q3H Lab 04/27/20 03:45 Ordered TROPONIN Q3H Lab 04/27/20 06:45 Ordered TROPONIN Q3H Lab 04/27/20 09:45 Ordered UA W/RFX UR CULTURE Stat Lab 04/26/20 22:18 Completed Medication Summary Generic Name Dose Route Start Last Admin Trade Name Freq PRN Reason Stop Dose Admin Ceftriaxone Sodium/Dextrose 1 g in 50 mls @ 100 mls/hr 04/26/20 23:26 Rocephin 1 Gm-D5w 50 Ml Bag IV 04/26/20 23:55 STAT STA Nitroglycerin 0.4 mg 04/26/20 22:32 04/26/20 22:35 Nitrostat 0.4 Mg Tablet SL 05/26/20 22:31 0.4 mg Q5MIN PRN MR X 3 PRN Administration CHEST PAIN Discontinued Medications Generic Name Dose Route Start Last Admin Trade Name Freq PRN Reason Stop Dose Admin Amlodipine Besylate 5 mg 04/26/20 23:26 Norvasc 5 Mg PO 04/26/20 23:27 STAT ONE Enalaprilat 1.25 mg 04/26/20 21:47 04/26/20 21:50 Vasotec I.V. 2.5 Mg IV 04/26/20 21:48 1.25 mg STAT ONE Administration Enalaprilat Confirm 04/26/20 21:48 Vasotec I.V. 2.5 Mg Administered 04/26/20 21:49 Dose 2.5 mg IV .STK-MED ONE Furosemide 40 mg 04/26/20 22:33 04/26/20 22:35 Lasix 40 Mg/4 Ml IV 04/26/20 22:34 40 mg STAT ONE Administration Furosemide Confirm 04/26/20 22:34 Lasix 40 Mg/4 Ml Administered 04/26/20 22:35 Dose 40 mg .ROUTE .STK-MED ONE Nitroglycerin Confirm 04/26/20 22:34 Nitrostat 0.4 Mg (Ed) Administered 04/26/20 22:35 Dose 0.4 mg SL .STK-MED ONE Lab/Rad Data: Laboratory Result Diagrams 04/26/20 21:15 04/26/20 21:15 Laboratory Results 04/26/20 04/26/20 04/26/20 Range/Units 22:18 21:15 21:15 WBC (4.0-10.5) K/mm3 RBC (4.1-5.4) M/mm3 Hgb (12.0-16.0) gm/dl Hct (35-47) % MCV (78-100) fl MCH (26-32) pg MCHC (32-36) g/dl RDW (11.5-14.0) % Plt Count (150-450) K/mm3 MPV (7.5-11.0) fl Gran % (36.0-66.0) % Eos # (Auto) (0-0.5) Absolute Lymphs (auto) (1.0-4.6) Absolute Monos (auto) (0.0-1.3) Lymphocytes % (24.0-44.0) % Monocytes % (0.0-12.0) % Eosinophils % (0.00-5.0) % Basophils % (0.0-0.4) % Absolute Granulocytes (1.4-6.9) Basophils # (0-0.4) PT 25.8 H (9.95-12.35) SECONDS INR 2.26 (0.8-3.0) D-Dimer 397 (215-500) ng/mL Sodium (137-145) mmol/L Potassium (3.5-5.1) mmol/L Chloride (98-107) mmol/L Carbon Dioxide (22-30) mmol/L Anion Gap (5-15) MEQ/L BUN (7-17) mg/dL Creatinine (0.52-1.04) mg/dL Estimated GFR ML/MIN Glucose (74-106) mg/dL Calcium (8.4-10.2) mg/dL Total Bilirubin (0.2-1.3) mg/dL AST (14-36) U/L ALT (0-35) U/L Alkaline Phosphatase (38-126) U/L Troponin I 0.014 (0.000-0.034) ng/mL NT-Pro-B Natriuret Pep (0-1800) pg/mL Serum Total Protein (6.3-8.2) g/dL Albumin (3.5-5.0) g/dL Urine Color YELLOW (YELLOW) Urine Appearance SLIGHTLY CLOUDY (CLEAR) Urine pH 7.0 (5-6) Ur Specific [place] 1.009 (1.005-1.025) Urine Protein NEGATIVE (Negative) Urine Ketones NEGATIVE (NEGATIVE) Urine Blood MODERATE (0-5) Jossue/ul Urine Nitrite POSITIVE (NEGATIVE) Urine Bilirubin NEGATIVE (NEGATIVE) Urine Urobilinogen NEGATIVE (0-1) mg/dL Ur Leukocyte Esterase NEGATIVE (NEGATIVE) Urine WBC (Auto) 0-2 (0-5) /HPF Urine RBC (Auto) 6-10 (0-2) /HPF U Epithel Cells (Auto) RARE (FEW) /HPF Urine Bacteria (Auto) MANY (NEGATIVE) /HPF Urine Culture Reflexed YES (NO) Urine Glucose NEGATIVE (NEGATIVE) mg/dL 04/26/20 04/26/20 Range/Units 21:15 21:15 WBC 6.6 (4.0-10.5) K/mm3 RBC 4.55 (4.1-5.4) M/mm3 Hgb 11.4 L (12.0-16.0) gm/dl Hct 40.2 (35-47) % MCV 88.4 (78-100) fl MCH 25.1 L (26-32) pg MCHC 28.4 L (32-36) g/dl RDW 23.0 H (11.5-14.0) % Plt Count 379 (150-450) K/mm3 MPV 9.6 (7.5-11.0) fl Gran % 71.4 H (36.0-66.0) % Eos # (Auto) 0.06 (0-0.5) Absolute Lymphs (auto) 0.99 L (1.0-4.6) Absolute Monos (auto) 0.81 (0.0-1.3) Lymphocytes % 15.1 L (24.0-44.0) % Monocytes % 12.3 H (0.0-12.0) % Eosinophils % 0.9 (0.00-5.0) % Basophils % 0.3 (0.0-0.4) % Absolute Granulocytes 4.69 (1.4-6.9) Basophils # 0.02 (0-0.4) PT (9.95-12.35) SECONDS INR (0.8-3.0) D-Dimer (215-500) ng/mL Sodium 132 L (137-145) mmol/L Potassium 4.0 (3.5-5.1) mmol/L Chloride 95 L (98-107) mmol/L Carbon Dioxide 30 (22-30) mmol/L Anion Gap 10.5 (5-15) MEQ/L BUN 18 H (7-17) mg/dL Creatinine 0.60 (0.52-1.04) mg/dL Estimated GFR > 60.0 ML/MIN Glucose 105 (74-106) mg/dL Calcium 9.6 (8.4-10.2) mg/dL Total Bilirubin 0.40 (0.2-1.3) mg/dL AST 28 (14-36) U/L ALT 14 (0-35) U/L Alkaline Phosphatase 107 (38-126) U/L Troponin I (0.000-0.034) ng/mL NT-Pro-B Natriuret Pep 5930 H (0-1800) pg/mL Serum Total Protein 6.7 (6.3-8.2) g/dL Albumin 4.1 (3.5-5.0) g/dL Urine Color (YELLOW) Urine Appearance (CLEAR) Urine pH (5-6) Ur Specific [place] (1.005-1.025) Urine Protein (Negative) Urine Ketones (NEGATIVE) Urine Blood (0-5) Jossue/ul Urine Nitrite (NEGATIVE) Urine Bilirubin (NEGATIVE) Urine Urobilinogen (0-1) mg/dL Ur Leukocyte Esterase (NEGATIVE) Urine WBC (Auto) (0-5) /HPF Urine RBC (Auto) (0-2) /HPF U Epithel Cells (Auto) (FEW) /HPF Urine Bacteria (Auto) (NEGATIVE) /HPF Urine Culture Reflexed (NO) Urine Glucose (NEGATIVE) mg/dL - Progress Progress: improved, re-examined Air Movement: good Progress Note: 04/26/20 22:09 Chest x-ray shows no acute cardiopulmonary process. 04/26/20 23:35 Medical decision making: This patient has a mild urinary tract infection, CHF as well as hypertensive urgency. Patient's UTI is being covered with Rocephin intravenously, patient was given Lasix 40 mg intravenously for the CHF as well as treatment of her hypertensive urgency with Vasotec IV and nitroglycerin sublingually. Patient prefers admission to [facility]. I contacted Dr. Otto, the hospitalist on-call for [facility], at [phone]. I reviewed the patient history, condition, EKG results, chest x-ray results and lab results as well has her response to the therapy I provided. He declined admission. He does not feel the patient requires transfer and admission. The patient's pharmacoepidemiologist told the patient that her blood pressure was not under better control and she was symptomatic that she should report to the emergency department [facility] and be admitted. However, patient symptoms made her divert her travel to our hospital. Therefore I contacted Dr. Traore, the pharmacoepidemiologist on-call for the patient's pharmacoepidemiologist at [facility]. He recommends transfer to [facility] on telemetry/monitored bed. He recommends hospitalist admission and cardiology will consult. He also recommended a dose of amlodipine 5 mg orally now. The patient's blood pressure has improved to a more normal level and will hold off on the amlodipine. Once we hear back from the hospitalist/transfer center we will transfer the patient to [facility]. Blood Culture(s) Obtained: No Antibiotics given: No Counseled pt/family regarding: lab results, diagnosis, need for follow-up, rad results - Departure Departure Disposition: Transfer Clinical Impression: UTI (urinary tract infection), CHF (congestive heart failure), Hypertensive urgency Condition: Stable Critical Care Time: Yes Critical Care Time(excluding separately billable procedures): Critical 30-74 mins Referrals: BETHANY CHAMPAGNE [Primary Care Provider] - Instructions: Heart Failure
[2020-04-26] MEDS ORDERED: VASOTEC I.V. 2.5 MG IV ONE ×2 (21:47→21:48)
[2020-04-26 22:02] LABS: Absolute Neutrophil Ct (ANC) 4.69 (1.4-6.9); BASOPHIL % 0.3 % (0.0-0.4); Basophil (Absolute #) 0.02 (0-0.4); Eosinophil % 0.9 % (0.00-5.0); Eosinophil (Absolute #) 0.06 (0-0.5); Hematocrit 40.2 % (35-47); Hemoglobin 11.4 gm/dl (12.0-16.0); Lymphocyte (Absolute #) 0.99 (1.0-4.6); Lymphocytes % 15.1 % (24.0-44.0); Mean Cell Volume 88.4 fl (78-100); Mean Corpuscular Hemoglobin 25.1 pg (26-32); Mean Corpuscular Hgb Concent. 28.4 g/dl (32-36); Mean Platelet Volume 9.6 fl (7.5-11.0); Monocyte (Absolute #) 0.81 (0.0-1.3); Monocytes % 12.3 % (0.0-12.0); Neutrophil % 71.4 % (36.0-66.0); Platelet Count 379 K/mm3 (150-450); Red Blood Count 4.55 M/mm3 (4.1-5.4); White Blood Count 6.6 K/mm3 (4.0-10.5)
[2020-04-26 22:09] LABS: INR 2.26 (0.8-3.0); PROTIME 25.8 SECONDS (9.95-12.35)
[2020-04-26 22:29] LABS: ALBUMIN 4.1 g/dL (3.5-5.0); ALKALINE PHOSPHATASE 107 U/L (38-126); ANION GAP 10.5 MEQ/L (5-15); BLOOD UREA NITROGEN 18 mg/dL (7-17); CHLORIDE 95 mmol/L (98-107); Calcium 9.6 mg/dL (8.4-10.2); Carbon Dioxide 30 mmol/L (22-30); EST GLOMERULAR FILTRATION RATE > 60.0 ML/MIN; Glucose 105 mg/dL (74-106); NT PRO BNP 5930 pg/mL (0-1800); SGOT/AST 28 U/L (14-36); SGPT/ALT 14 U/L (0-35); SODIUM 132 mmol/L (137-145); Total Protein 6.7 g/dL (6.3-8.2)
[2020-04-26] MEDS ORDERED: Nitrostat 0.4 MG Tablet SL PRN (22:32)
[2020-04-26] MEDS ORDERED: Lasix 40 MG/4 ML IV ONE (22:33)
[2020-04-26] MEDS ORDERED: Nitrostat 0.4 MG (ED) SL ONE (22:34)
[2020-04-26] MEDS ORDERED: Lasix 40 MG/4 ML ONE (22:34)
[2020-04-26 22:43] LABS: Appearance SLIGHTLY CLOUDY (CLEAR); Bacteria MANY /HPF (NEGATIVE); Bilirubin NEGATIVE (NEGATIVE); Blood MODERATE Ery/ul (0-5); Epithelial Cells RARE /HPF (FEW); Glucose NEGATIVE (NEGATIVE); Ketones NEGATIVE (NEGATIVE); Leukocyte Esterase NEGATIVE (NEGATIVE); Nitrite POSITIVE (NEGATIVE); Protein,Urine Dip NEGATIVE (Negative); Specific Gravity 1.009 (1.005-1.025); Urobilinogen NEGATIVE mg/dL (0-1); WBC 0-2 /HPF (0-5)
[2020-04-26 23:05] VITALS: BP 185/89; PULSE 59
[2020-04-26] MEDS ORDERED: NORVASC 5 MG PO ONE (23:26)
[2020-04-26] MEDS ORDERED: ROCEPHIN 1 Gm-D5w 50 ml Bag** 1 G/50 ML IVPB IV STA (23:26)
[2020-04-26] MEDS ORDERED: ROCEPHIN 1 Gm-D5w 50 ml Bag** 1 G/50 ML IVPB IV ONE (23:33)
[2020-04-26] MEDS ORDERED: NORVASC 5 MG ONE (23:33)
[2020-04-26 23:40] VITALS: O2SAT 98
[2020-04-27 01:33] LABS: Slide Review 1 YES
--- NOTE | 2020-04-27 07:36 | XRAY ---
Indication: Chest pain. Palpitations. Comparison: February 22, 2020. Portable chest remains clear. Heart remains borderline enlarged again with cardiac valve replacement surgery. Stable moderate-sized hiatal hernia. Bony thorax intact with osteopenia, bilateral shoulder degenerative arthropathy, multilevel degenerative spondylosis, double curvature scoliosis, and L1 kyphoplasty. Impression: Continued nonacute chest with chronic features.
== END 2020-04-27 00:05 | disposition short-term general hospital (02) ==
LOC: ED 21:05
DX: R07.89 Other chest pain (principal); I50.9 Heart failure, unspecified; R00.2 Palpitations; I16.0 Hypertensive urgency; N39.0 Urinary tract infection, site not specified; R11.2 Nausea with vomiting, unspecified; E11.9 Type 2 diabetes mellitus without complications; I25.2 Old myocardial infarction; Z79.01 Long term (current) use of anticoagulants
CPT/HCPCS: 36000; 36415; 71045; 80053; 81001; 83880; 84484; 85025; 85379; 85610; 87077; 87086; 87186; 93005; 93041; 94760; 96374; 96375; 99285; 99291; J0696; J1940; A9270-GY

== ENCOUNTER 2021-02-10 09:27 | Inpatient (IN) | payer MEDICARE, BC ==
[2021-02-10 09:54] LABS: INR 2.19 (0.8-3.0); PROTIME 25.8 SECONDS (9.4-12.5)
[2021-02-10 09:56] LABS: Hematocrit 41.4 % (35-47); Hemoglobin 12.4 gm/dl (12.0-16.0); Mean Cell Volume 90.8 fl (78-100); Mean Corpuscular Hemoglobin 27.2 pg (26-32); Mean Platelet Volume 10.4 fl (7.5-11.0); Platelet Count 323 K/mm3 (150-450); Red Blood Count 4.56 M/mm3 (4.1-5.4); Red Cell Distribution Width 19.3 % (11.5-14.0)
[2021-02-10 09:56] LABS: PTT 40.7 SECONDS (25.1-36.5)
[2021-02-10] MEDS ORDERED: SUBLIMAZE 100 MCG/2 ML IV ONE (10:03)
[2021-02-10] MEDS ORDERED: SUBLIMAZE 100 MCG/2 ML ONE (10:04)
[2021-02-10] MEDS ORDERED: Zofran 4 MG/2 ML VIAL ONE (10:04)
[2021-02-10] MEDS ORDERED: Zofran 4 MG/2 ML VIAL IV ONE (10:04)
[2021-02-10 10:07] LABS: ALBUMIN 3.7 g/dL (3.5-5.0); ALKALINE PHOSPHATASE 89 U/L (38-126); ANION GAP 9.7 MEQ/L (5-15); BLOOD UREA NITROGEN 16 mg/dL (7-17); CHLORIDE 95 mmol/L (98-107); Calcium 8.6 mg/dL (8.4-10.2); Carbon Dioxide 26 mmol/L (22-30); Creatinine 1 0.56 mg/dL (0.52-1.04); EST GLOMERULAR FILTRATION RATE > 60.0 ML/MIN; Glucose 91 mg/dL (74-106); NT PRO BNP 3500 pg/mL (0-1800); Potassium 3.2 mmol/L (3.5-5.1); SGOT/AST 39 U/L (14-36); SGPT/ALT 18 U/L (0-35); SODIUM 128 mmol/L (137-145); Total Protein 5.9 g/dL (6.3-8.2)
--- NOTE | 2021-02-10 10:09 | XRAY ---
Indication: Short of breath. Suspect Covid 19. Comparison: February 04, 2021. Portable chest better inflated with result cardiomegaly, pulmonary edema, and bibasilar effusions. New left midlung subsegmental atelectasis/scarring. Heart not enlarged again with CABG and large hiatal hernia. Impression: Improved chest as detailed with new left midlung subsegmental atelectasis/scarring and stable large hiatal hernia.
[2021-02-10] MEDS ORDERED: TYLENOL EXTRA STRENGTH 500 MG PO ONE (10:11)
[2021-02-10] MEDS ORDERED: TYLENOL EXTRA STRENGTH 500 MG ONE (10:13)
--- NOTE | 2021-02-10 10:20 | ERPHSYRPT ---
- History of Present Illness Source: patient, EMS Exam Limitations: other (Poor historian) Patient Subjective Stated Complaint: PT stated "I hurt." Triage Nursing Assessment: PT presented alert and confused, unable to sit still. pt rambling, complaining of back pain. Pt has bruisinig noted to left shoulder and right hand. PT unable to say what happened. PT keeps stating she does not feel well. Physician History: 85 yo wf who tested+ for CV19 on 01/04/21 presents w lethargy/fever/back pain/MATOS/confusion. Timing/Duration: other (01/04/21) Fever Severity: mild Fever Therapy STATISTICAL ANALYST: none Associated Symptoms: confusion, cough, headache, muscle aches, shortness of breath, weakness, No abdominal pain, No chest pain, No diaphoresis, No nausea/vomiting, No rash, No rhinorrhea, No sore throat, No stiff neck, No syncope Allergies/Adverse Reactions: leflunomide Allergy (Verified 02/03/21 20:09) Stomach Cramps losartan potassium [From Cozaar] Allergy (Verified 02/03/21 20:09) Tetracyclines Allergy (Verified 02/03/21 20:09) Home Medications: Esomeprazole Magnesium [Nexium] 40 mg PO DAILY 05/22/14 [History] Leucovorin Calcium 5 mg PO WEEKLY 05/22/14 [History] Metformin HCl 500 mg PO BID 05/22/14 [History] Methotrexate Sodium 2.5 mg [Trexall 2.5 mg] 8 tab PO UD 05/22/14 [History] Methylprednisolone 4 mg [Medrol 4 mg] 4 mg PO BID 05/22/14 [History] Tramadol HCl [Ultram] 100 mg PO Q6HPRN PRN 05/22/14 [History] Warfarin Sodium [Coumadin] 4 mg PO DAILY 05/22/14 [History] Acetaminophen [Tylenol Arthritis] 1 tab PO UD 07/22/16 [History] Cholecalciferol (Vitamin D3) [Vitamin D] 1,000 units PO DAILY 07/22/16 [History] Aspirin EC 81 mg [Ecotrin 81 mg] 1 tab PO DAILY 02/03/21 [History] Biotin 5,000 mcg PO DAILY 02/03/21 [History] Diclofenac Sodium Gel [Voltaren GEL] 1 gel TOP BID 02/03/21 [History] Hctz/Triamteren 37.5 mg/25 mg* [Maxzide-25MG Tablet] 0.5 tab PO DAILY 02/03/21 [History] Hx Tetanus, Diphtheria Vaccination/Date Given: Yes Hx Influenza Vaccination/Date Given: Yes Hx Pneumococcal Vaccination/Date Given: Yes Immunizations Up to Date: Yes Travel Risk - International Travel Have you traveled outside of the country in past 3 weeks: No - Coronavirus Screening Are you exhibiting any of the following symptoms?: Yes Symptoms: Cough: New Onset, Vomiting/Diarrhea Close contact with a COVID-19 positive Pt in past 14-21 Days: Yes - Vaccine Status Have you recieved a Covid-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: Yes 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: [employer] - Vaccination Dates Date of 2cond Vaccination (if applicable): 04/15/20 - Review of Systems Constitutional: No Symptoms, Fever, Chills, Fatigue, Lethargy, Weakness Eyes: No Symptoms Ears, Nose, & Throat: No Symptoms, Nose Discharge Respiratory: Cough, Dyspnea Cardiac: No Symptoms Abdominal/Gastrointestinal: No Symptoms Genitourinary Symptoms: No Symptoms Musculoskeletal: No Symptoms, Arthralgias, Back Pain, Myalgias Skin: No Symptoms Neurological: No Symptoms, Headache Psychological: No Symptoms Endocrine: No Symptoms Hematologic/Lymphatic: No Symptoms Immunological/Allergic: No Symptoms - Past Medical History Pertinent Past Medical History: Yes Neurological History: TIA ENT History: Cataracts Cardiac History: High Cholesterol, Hypertension, Myocardial Infarction ([place]), Other Respiratory History: No Pertinent History Endocrine Medical History: Diabetes Type II Musculoskeletal History: Degenerative Disk Disease, Osteoarthritis, Rheumatoid Arthritis GI Medical History: GERD History: No Pertinent History Psycho-Social History: Anxiety Female Reproductive Disorders: No Pertinent History Other Medical History: artificial aortic valve, heart stent - Past Surgical History Past Surgical History: Yes Neuro Surgical History: No Pertinent History Cardiac: CABG, Cardiac Catheterization, Valve Replacement Respiratory: No Pertinent History Gastrointestinal: Hernia Repair Genitourinary: No Pertinent History Musculoskeletal: No Pertinent History Female Surgical History: No Pertinent History Other Surgical History: cardiac stent - Social History Smoking Status: Never smoker Exposure to second hand smoke: No Drug Use: none Patient Lives Alone: No - Nursing Vital Signs Nursing Vital Signs: Initial Vital Signs Temperature 101.1 F 02/10/21 09:32 Pulse Rate 100 H 02/10/21 09:32 Respiratory Rate 28 H 02/10/21 09:32 Blood Pressure 139/83 02/10/21 09:32 O2 Sat by Pulse Oximetry 95 02/10/21 09:32 Pain Scale Pain Intensity 0 Febrile/Tachy/Tachyneic - Physical Exam General Appearance: mild distress Eye Exam: PERRL/EOMI, eyes nml inspection ENT Exam: normal ENT inspection, no apparent trauma, TMs normal, pharynx normal Neck Exam: normal inspection, non-tender, supple, trachea midline Respiratory Exam: no respiratory distress (Rales L base) Cardiovascular/Chest Exam: tachycardia (Tachy w audible prosthetic valve) Gastrointestinal/Abdominal Exam: soft, non tender, no distention Extremity Exam: non-tender, normal range of motion, normal inspection, normal capillary refill, no pedal edema Neurologic Exam: alert (Oriented to person only), cooperative, road builder II-XII nml as tested, sensation nml, confusion, No motor deficits, No sensory deficit Skin Exam: normal color, warm, dry Lymphatic: No adenopathy SpO2 Interpretation: normal SpO2: 95 O2 Delivery: Room Air - Course EKG Interpreted by Me: RATE (NSR/R99/LVH/Prolonged QTc/PAC's/Flat T-waves) Ordered Tests: Active Orders 24 hr Category Date Time Status Clear Liquid Diet 02/10/21 Dinner Completed CHEST 1 VIEW (PORTABLE) Stat Exams 02/10/21 09:32 Completed BLOOD CULTURE Stat Lab 02/10/21 11:03 Received CBC W DIFF AM.LAB Lab 02/11/21 04:00 Ordered CBC W DIFF Stat Lab 02/10/21 09:40 Completed CMP AM.LAB Lab 02/11/21 04:00 Ordered CMP Stat Lab 02/10/21 09:40 Completed CULTURE,URINE Stat Lab 02/10/21 09:59 Ordered D-DIMER QUANTITATIVE AM.LAB Lab 02/11/21 04:00 Ordered Lactic Acid Stat Lab 02/10/21 09:53 Completed Manual Differential NC Stat Lab 02/10/21 09:40 Completed NT PRO BNP Stat Lab 02/10/21 09:40 Completed PROTIME WITH INR AM.LAB Lab 02/11/21 04:00 Ordered PROTIME WITH INR Stat Lab 02/10/21 09:36 Completed PTT AM.LAB Lab 02/11/21 04:00 Ordered PTT Stat Lab 02/10/21 09:36 Completed TROPONIN Q3H Lab 02/10/21 09:40 Completed TROPONIN Q3H Lab 02/10/21 12:44 Completed TROPONIN Q3H Lab 02/10/21 15:46 Completed TROPONIN Q3H Lab 02/10/21 18:45 Ordered TROPONIN Q3H Lab 02/10/21 21:45 Ordered UA W/RFX UR CULTURE Stat Lab 02/10/21 10:30 Completed Transfer Order Routine Transfer 02/10/21 Completed Medication Summary Generic Name Dose Route Start Last Admin Trade Name Freq PRN Reason Stop Dose Admin Acetaminophen 650 mg 02/10/21 11:02 Acetaminophen 325 Mg Tablet PO 03/12/21 11:01 Q4H PRN PRN PAIN AND/OR FEVER Acetaminophen 500 mg 02/10/21 16:06 02/10/21 17:54 Acetaminophen 500 Mg Tablet PO 03/12/21 16:05 500 mg Q6H PRN PRN Administration PAIN Aspirin 81 mg 02/10/21 16:09 Aspirin 81 Mg Tablet.Ec PO 03/06/21 09:59 DAILY ADRIAN Famotidine 20 mg 02/10/21 22:00 Famotidine 20 Mg/1 Vial IV 03/12/21 21:59 Q12HT ADRIAN Sodium Chloride 1,000 mls @ 50 mls/hr 02/10/21 11:15 02/10/21 12:27 Sodium Chloride 0.9% 1000 Ml IV 03/12/21 11:14 100 mls/hr .Q20H ADRIAN Administration Ceftriaxone Sodium/Dextrose 1 g in 50 mls @ 100 mls/hr 02/11/21 10:00 Rocephin 1 Gm-D5w 50 Ml Bag IV 02/14/21 09:59 Q24H10 ADRIAN Insulin Human Lispro 0 unit 02/10/21 17:29 Insulin Lispro 1 Unit SQ 03/12/21 17:28 UD PRN HYPERGLYCEMIA Metformin HCl 500 mg 02/10/21 16:09 02/10/21 17:54 Metformin Hcl 500 Mg Tablet PO 03/06/21 09:59 500 mg BIDWM ADRIAN Administration Methotrexate 20 mg 02/12/21 20:00 Methotrexate Sodium 2.5 Mg Tablet PO 03/14/21 19:59 Q7D ADRIAN Methylprednisolone 4 mg 02/10/21 16:09 Methylprednisolone 4 Mg Tablet PO 03/07/21 10:29 BID [facility] Ondansetron HCl 4 mg 02/10/21 11:02 Ondansetron Hcl 4 Mg/2 Ml Vial IV 03/12/21 11:01 Q6H PRN PRN NAUSEA/VOMITING Pantoprazole Sodium 40 mg 02/10/21 16:10 Protonix (Pantoprazole) 40 Mg Tablet PO 03/06/21 09:59 DAILY [facility] Potassium Chloride 10 meq 02/10/21 22:00 Potassium Chloride 10 Meq Tablet PO 03/12/21 21:59 BID [facility] Tramadol HCl 100 mg 02/10/21 16:05 02/10/21 17:54 Tramadol Hcl 50 Mg Tablet PO 03/06/21 09:59 100 mg Q6HPRN PRN Administration PAIN Triamterene/Hydrochlorothiazide 0.5 tab 02/10/21 16:09 Triamterene/Hydrochlorothiazide 37.5/25mg 1 Tablet PO 03/06/21 09:59 DAILY [facility] Warfarin Sodium 1 mg/ Warfarin 4 mg 02/10/21 16:08 02/10/21 17:54 Sodium 3 mg PO 03/06/21 17:59 4 mg DAILY AT 1800 [facility] Administration Discontinued Medications Generic Name Dose Route Start Last Admin Trade Name Freq PRN Reason Stop Dose Admin Acetaminophen 1,000 mg 02/10/21 10:11 02/10/21 10:16 Acetaminophen 500 Mg Tablet PO 02/10/21 10:12 1,000 mg STAT ONE Administration Acetaminophen Confirm 02/10/21 10:13 Acetaminophen 500 Mg Tablet Administered 02/10/21 10:14 Dose 1,000 mg .ROUTE .STK-MED ONE Acetaminophen 500 - 1,000 mg 02/10/21 16:05 Acetaminophen 500 Mg Tablet PO 03/06/21 09:53 Q4H PRN PRN Temp > 100.4 Orally Dexamethasone Sodium Phosphate 10 mg 02/10/21 10:58 02/10/21 11:13 Dexamethasone Sod Phosphate 10 Mg/Ml IV 02/10/21 10:59 10 mg STAT ONE Administration Dexamethasone Sodium Phosphate 6 mg 02/11/21 10:00 Dexamethasone Sod Phosphate 10 Mg/Ml IV 03/13/21 09:59 DAILY [facility] Dexamethasone Sodium Phosphate Confirm 02/10/21 11:11 Dexamethasone Sod Phosphate 10 Mg/Ml Administered 02/10/21 11:12 Dose 10 mg .ROUTE .STK-MED ONE Fentanyl Citrate 25 mcg 02/10/21 10:03 02/10/21 10:16 Fentanyl Citrate 100 Mcg/2 Ml* Vial IV 02/10/21 10:04 25 mcg STAT ONE Administration Fentanyl Citrate Confirm 02/10/21 10:04 Fentanyl Citrate 100 Mcg/2 Ml* Vial Administered 02/10/21 10:05 Dose 100 mcg .ROUTE .STK-MED ONE Sodium Chloride 500 mls @ 500 mls/hr 02/10/21 10:25 02/10/21 12:19 Sodium Chloride 0.9% 500 Ml IV 02/10/21 11:24 Infused .Q1H ONE Infusion Sodium Chloride Confirm 02/10/21 10:27 Sodium Chloride 0.9% 500 Ml Administered 02/10/21 10:28 Dose 500 mls @ ud IV .STK-MED ONE Ceftriaxone Sodium/Dextrose 1 g in 50 mls @ 100 mls/hr 02/10/21 10:43 02/10/21 12:20 Rocephin 1 Gm-D5w 50 Ml Bag IV 02/10/21 11:12 Infused STAT STA Infusion Remdesivir 100 mg/ Sodium 100 mls @ 100 mls/hr 02/11/21 10:00 Chloride IV 02/14/21 10:59 Q24H ADRIAN Remdesivir 200 mg/ Sodium 250 mls @ 125 mls/hr 02/10/21 11:08 02/10/21 12:25 Chloride IV 02/10/21 13:07 125 mls/hr ONCE ONE Administration Ceftriaxone Sodium/Dextrose Confirm 02/10/21 11:11 Rocephin 1 Gm-D5w 50 Ml Bag Administered 02/10/21 11:12 Dose 1 g in 50 mls @ ud IV .STK-MED ONE Sodium Chloride Confirm 02/10/21 12:26 Sodium Chloride 0.9% 1000 Ml Administered 02/10/21 12:27 Dose 1,000 mls @ ud .ROUTE .STK-MED ONE Ondansetron HCl Confirm 02/10/21 10:04 Ondansetron Hcl 4 Mg/2 Ml Vial Administered 02/10/21 10:05 Dose 4 mg .ROUTE .STK-MED ONE Ondansetron HCl 4 mg 02/10/21 10:04 11/29/21 10:16 Ondansetron Hcl 4 Mg/2 Ml Vial IV 02/10/21 10:05 4 mg STAT ONE Administration Warfarin Sodium 5 mg 02/10/21 18:00 Warfarin Sodium 5 Mg Tablet PO 03/12/21 17:59 DAILY@1800 [facility] Lab/Rad Data: Laboratory Result Diagrams 02/10/21 09:40 02/10/21 09:40 Laboratory Results 02/10/21 02/10/21 02/10/21 Range/Units 12:44 10:30 09:53 WBC (4.0-10.5) K/mm3 RBC (4.1-5.4) M/mm3 Hgb (12.0-16.0) gm/dl Hct (35-47) % MCV (78-100) fl MCH (26-32) pg MCHC (32-36) g/dl RDW (11.5-14.0) % Plt Count (150-450) K/mm3 MPV (7.5-11.0) fl Segmented Neutrophils (36.0-66.0) % Band Neutrophils (0.0-2.0) % Lymphocytes (Manual) (24-44) % Monocytes (Manual) (0.0-12.0) % Platelet Estimate (NORMAL) RBC Morphology PT (9.4-12.5) SECONDS INR (0.8-3.0) APTT (25.1-36.5) SECONDS Sodium (137-145) mmol/L Potassium (3.5-5.1) mmol/L Chloride (98-107) mmol/L Carbon Dioxide (22-30) mmol/L Anion Gap (5-15) MEQ/L BUN (7-17) mg/dL Creatinine (0.52-1.04) mg/dL Estimated GFR ML/MIN Glucose (74-106) mg/dL Lactic Acid 1.6 (0.4-2.0) Calcium (8.4-10.2) mg/dL Total Bilirubin (0.2-1.3) mg/dL AST (14-36) U/L ALT (0-35) U/L Alkaline Phosphatase (38-126) U/L Troponin I 0.027 (0.000-0.034) ng/mL NT-Pro-B Natriuret Pep (0-1800) pg/mL Serum Total Protein (6.3-8.2) g/dL Albumin (3.5-5.0) g/dL Urine Color MARC (YELLOW) Urine Appearance SLIGHTLY CLOUDY (CLEAR) Urine pH 6.0 (5-6) Ur Specific [place] 1.021 (1.005-1.025) Urine Protein 30 (Negative) Urine Ketones MODERATE (NEGATIVE) Urine Blood MODERATE (0-5) Jossue/ul Urine Nitrite NEGATIVE (NEGATIVE) Urine Bilirubin NEGATIVE (NEGATIVE) Urine Urobilinogen NEGATIVE (0-1) mg/dL Ur Leukocyte Esterase SMALL (NEGATIVE) Urine WBC (Auto) >100 (0-5) /HPF Urine RBC (Auto) 3-5 (0-2) /HPF U Epithel Cells (Auto) FEW (FEW) /HPF Urine Bacteria (Auto) FEW (NEGATIVE) /HPF Urine Mucus (Auto) SLIGHT (NEGATIVE) /HPF Urine Culture Reflexed YES (NO) Urine Glucose NEGATIVE (NEGATIVE) mg/dL 02/10/21 02/10/21 02/10/21 Range/Units 09:40 09:40 09:40 WBC 10.0 (4.0-10.5) K/mm3 RBC 4.56 (4.1-5.4) M/mm3 Hgb 12.4 (12.0-16.0) gm/dl Hct 41.4 (35-47) % MCV 90.8 (78-100) fl MCH 27.2 (26-32) pg MCHC 30.0 L (32-36) g/dl RDW 19.3 H (11.5-14.0) % Plt Count 323 (150-450) K/mm3 MPV 10.4 (7.5-11.0) fl Segmented Neutrophils 87 H (36.0-66.0) % Band Neutrophils 2 (0.0-2.0) % Lymphocytes (Manual) 7 L (24-44) % Monocytes (Manual) 4 (0.0-12.0) % Platelet Estimate NORMAL (NORMAL) RBC Morphology NORMAL PT (9.4-12.5) SECONDS INR (0.8-3.0) APTT (25.1-36.5) SECONDS Sodium 128 L (137-145) mmol/L Potassium 3.2 L (3.5-5.1) mmol/L Chloride 95 L (98-107) mmol/L Carbon Dioxide 26 (22-30) mmol/L Anion Gap 9.7 (5-15) MEQ/L BUN 16 (7-17) mg/dL Creatinine 0.56 (0.52-1.04) mg/dL Estimated GFR > 60.0 ML/MIN Glucose 91 (74-106) mg/dL Lactic Acid (0.4-2.0) Calcium 8.6 (8.4-10.2) mg/dL Total Bilirubin 1.00 (0.2-1.3) mg/dL AST 39 H (14-36) U/L ALT 18 (0-35) U/L Alkaline Phosphatase 89 (38-126) U/L Troponin I 0.084 H* (0.000-0.034) ng/mL NT-Pro-B Natriuret Pep 3500 H (0-1800) pg/mL Serum Total Protein 5.9 L (6.3-8.2) g/dL Albumin 3.7 (3.5-5.0) g/dL Urine Color (YELLOW) Urine Appearance (CLEAR) Urine pH (5-6) Ur Specific [place] (1.005-1.025) Urine Protein (Negative) Urine Ketones (NEGATIVE) Urine Blood (0-5) Jossue/ul Urine Nitrite (NEGATIVE) Urine Bilirubin (NEGATIVE) Urine Urobilinogen (0-1) mg/dL Ur Leukocyte Esterase (NEGATIVE) Urine WBC (Auto) (0-5) /HPF Urine RBC (Auto) (0-2) /HPF U Epithel Cells (Auto) (FEW) /HPF Urine Bacteria (Auto) (NEGATIVE) /HPF Urine Mucus (Auto) (NEGATIVE) /HPF Urine Culture Reflexed (NO) Urine Glucose (NEGATIVE) mg/dL 02/10/21 Range/Units 09:36 WBC (4.0-10.5) K/mm3 RBC (4.1-5.4) M/mm3 Hgb (12.0-16.0) gm/dl Hct (35-47) % MCV (78-100) fl MCH (26-32) pg MCHC (32-36) g/dl RDW (11.5-14.0) % Plt Count (150-450) K/mm3 MPV (7.5-11.0) fl Segmented Neutrophils (36.0-66.0) % Band Neutrophils (0.0-2.0) % Lymphocytes (Manual) (24-44) % Monocytes (Manual) (0.0-12.0) % Platelet Estimate (NORMAL) RBC Morphology PT 25.8 H (9.4-12.5) SECONDS INR 2.19 (0.8-3.0) APTT 40.7 H (25.1-36.5) SECONDS Sodium (137-145) mmol/L Potassium (3.5-5.1) mmol/L Chloride (98-107) mmol/L Carbon Dioxide (22-30) mmol/L Anion Gap (5-15) MEQ/L BUN (7-17) mg/dL Creatinine (0.52-1.04) mg/dL Estimated GFR ML/MIN Glucose (74-106) mg/dL Lactic Acid (0.4-2.0) Calcium (8.4-10.2) mg/dL Total Bilirubin (0.2-1.3) mg/dL AST (14-36) U/L ALT (0-35) U/L Alkaline Phosphatase (38-126) U/L Troponin I (0.000-0.034) ng/mL NT-Pro-B Natriuret Pep (0-1800) pg/mL Serum Total Protein (6.3-8.2) g/dL Albumin (3.5-5.0) g/dL Urine Color (YELLOW) Urine Appearance (CLEAR) Urine pH (5-6) Ur Specific [place] (1.005-1.025) Urine Protein (Negative) Urine Ketones (NEGATIVE) Urine Blood (0-5) Jossue/ul Urine Nitrite (NEGATIVE) Urine Bilirubin (NEGATIVE) Urine Urobilinogen (0-1) mg/dL Ur Leukocyte Esterase (NEGATIVE) Urine WBC (Auto) (0-5) /HPF Urine RBC (Auto) (0-2) /HPF U Epithel Cells (Auto) (FEW) /HPF Urine Bacteria (Auto) (NEGATIVE) /HPF Urine Mucus (Auto) (NEGATIVE) /HPF Urine Culture Reflexed (NO) Urine Glucose (NEGATIVE) mg/dL - Progress Progress Note: 02/10/21 11:[address] Ardon Admitting orders written 25umg IV Fentanyl/4mg IV Zofran 10mg IV Decadron 1g IV Rocephin for UTI 500ml IV NS - Departure Departure Disposition: Observation Clinical Impression: COVID-19, UTI (urinary tract infection) Condition: Stable Critical Care Time: Yes Critical Care Time(excluding separately billable procedures): Critical 30-74 mins
[2021-02-10 10:22] LABS: BAND 2 % (0.0-2.0); Lymphocytes 7 % (24-44); Monocyte 4 % (0.0-12.0); Neutrophils 87 % (36.0-66.0); Platelet Estimate NORMAL (NORMAL); Total Cells Counted 100
[2021-02-10] MEDS ORDERED: Sodium Chloride 0.9% 500 ML 500 ML IV ONE ×2 (10:25→10:27)
[2021-02-10 10:38] LABS: Appearance SLIGHTLY CLOUDY (CLEAR); Bilirubin NEGATIVE (NEGATIVE); Blood MODERATE Ery/ul (0-5); Glucose NEGATIVE (NEGATIVE); Ketones MODERATE (NEGATIVE); Leukocyte Esterase SMALL (NEGATIVE); Mucus SLIGHT /HPF (NEGATIVE); Nitrite NEGATIVE (NEGATIVE); Protein,Urine Dip 30 (Negative); Specific Gravity 1.021 (1.005-1.025); Urobilinogen NEGATIVE mg/dL (0-1); WBC >100 /HPF (0-5)
[2021-02-10 10:39] LABS: Bacteria FEW /HPF (NEGATIVE); Epithelial Cells FEW /HPF (FEW)
[2021-02-10] MEDS ORDERED: ROCEPHIN 1 Gm-D5w 50 ml Bag** 1 G/50 ML IVPB IV STA (10:43)
[2021-02-10] MEDS ORDERED: DECADRON 10MG INJ. IV ONE (10:58)
[2021-02-10] MEDS ORDERED: TYLENOL 325 MG PO PRN (11:02)
[2021-02-10] MEDS ORDERED: Zofran 4 MG/2 ML VIAL IV PRN (11:02)
[2021-02-10] MEDS ORDERED: REMDESIVIR 200 MG in Sodium Chloride 0.9% 250 ML 250 ML IV ONE (11:08)
[2021-02-10] MEDS ORDERED: ROCEPHIN 1 Gm-D5w 50 ml Bag** 1 G/50 ML IVPB IV ONE (11:11)
[2021-02-10] MEDS ORDERED: DECADRON 10MG INJ. ONE (11:11)
[2021-02-10] MEDS ORDERED: Sodium Chloride 0.9% 1000 ML 1,000 ML ONE (12:26)
[2021-02-10] MEDS: Sodium Chloride 0.9% 1000 ML 1,000 ML IV SCH (12:27)
[2021-02-10] MEDS ORDERED: TYLENOL EXTRA STRENGTH 500 MG PO PRN (16:05)
[2021-02-10] MEDS ORDERED: HUMALOG SQ PRN (17:29)
[2021-02-10] MEDS: Coumadin 1 MG*** 1 MG, Coumadin 3 MG*** 3 MG PO SCH ×2 (17:54)
[2021-02-10] MEDS: Glucophage 500 MG PO SCH (17:54)
[2021-02-10] MEDS: TYLENOL EXTRA STRENGTH 500 MG PO PRN (17:54)
[2021-02-10] MEDS: ULTRAM 50 MG PO PRN (17:54)
[2021-02-10] MEDS ORDERED: Coumadin 5 MG PO SCH (18:00)
[2021-02-10] MEDS: Pepcid 20 MG VIAL IV SCH (22:11)
[2021-02-10] MEDS: MEDROL 4 MG PO SCH (22:12)
[2021-02-10] MEDS: BENADRYL 25 MG CAPSULE PO PRN (22:12)
[2021-02-10] MEDS: Klor Con 10 MEQ PO SCH (22:14)
[2021-02-11 07:08] LABS: Hematocrit 37.9 % (35-47); Hemoglobin 11.3 gm/dl (12.0-16.0); Mean Cell Volume 93.6 fl (78-100); Mean Corpuscular Hemoglobin 27.9 pg (26-32); Mean Corpuscular Hgb Concent. 29.8 g/dl (32-36); Mean Platelet Volume 10.7 fl (7.5-11.0); Platelet Count 312 K/mm3 (150-450); Red Blood Count 4.05 M/mm3 (4.1-5.4); Red Cell Distribution Width 18.7 % (11.5-14.0); White Blood Count 6.4 K/mm3 (4.0-10.5)
[2021-02-11 07:27] LABS: INR 2.63 (0.8-3.0)
[2021-02-11 07:29] LABS: PTT 35.8 SECONDS (25.1-36.5)
[2021-02-11 07:31] LABS: ALBUMIN 2.8 g/dL (3.5-5.0); ALKALINE PHOSPHATASE 74 U/L (38-126); ANION GAP 10.2 MEQ/L (5-15); BLOOD UREA NITROGEN 17 mg/dL (7-17); CHLORIDE 107 mmol/L (98-107); Calcium 8.1 mg/dL (8.4-10.2); Carbon Dioxide 22 mmol/L (22-30); Creatinine 1 0.41 mg/dL (0.52-1.04); EST GLOMERULAR FILTRATION RATE > 60.0 ML/MIN; Potassium 3.3 mmol/L (3.5-5.1); SGOT/AST 32 U/L (14-36); SGPT/ALT 15 U/L (0-35); SODIUM 136 mmol/L (137-145); Total Protein 4.8 g/dL (6.3-8.2)
[2021-02-11 07:33] LABS: Glucose 126 mg/dL (74-106)
--- NOTE | 2021-02-11 08:08 | HP ---
CHIEF COMPLAINT: Increased confusion, low back pain, fever. HISTORY OF PRESENT ILLNESS: The patient is an 85-year-old white female which was discharged here five days ago after she was treated for COVID. When she left she was alert, orientated, pleasant, eating somewhat, weak and not coughing hardly at all. She had markedly improved. After she went home she had a gradual decrease in condition, according to the son. When I saw her in the emergency room at 12:00 she had a temperature of 102F. She was very much more confused, moving around in bed with marked change. She really could not give a history which normally she could. PAST MEDICAL HISTORY: She has multiple problems of rheumatoid arthritis which she has been on steroids, congestive heart failure which her BNP is elevated to 1900, diabetes mellitus for 20 years on oral agents, recent history of COVID pneumonia but the chest x-ray is improved and not eating well. HOME MEDICATIONS: Tylenol, aspirin 81, biotin 5,000 q.d., vitamin D 1,000 q.d., Nexium 40 q.d., Dyazide 1 q.d. Takes leucovorin calcium 5 mg every week, metformin 500 b.i.d., methotrexate 2.5 q.d., methylprednisolone 4 mg a day, tramadol every 4 hours PRN. ALLERGIES: TETRACYCLINE. LEFLUNOMIDE. LOSARTAN. PAST SURGICAL HISTORY: Coronary artery bypass graft, cardiac catheterization, cardiac stent, valve replacement. Hernia repair. PHYSICAL EXAMINATION: VITAL SIGNS: Temperature 100F, pulse 90, respirations 20. GENERAL: Presently she is alert and more orientated, not in pain. HEENT: Pupils equal and reactive to light. Mouth is dry. NECK: Supple without adenopathy. CHEST: Clear. CVS: Regular rate. No murmurs or gallops. ABDOMEN: No tenderness or organomegaly. EXTREMITIES: Bruising in multiple places from the Coumadin. She states that is just her normal. She does not remember falling. LAB DATA AND TESTS: I do note that her potassium is low at 3.2. Cardiac enzymes are normal. Her BNP is 1900. Chest x-ray showed some new left mid lung segmental atelectasis, scarring, large hiatal hernia. IMPRESSION: 1) Fever and confusion probably secondary to bacterial pneumonia versus less likely urinary tract infection, less likely COVID. 2) Recovering from COVID pneumonia. 3) Rheumatoid arthritis on long-term steroids. 4) Anticoagulated due to mitral valve replacement. 5) Dehydration as shown by labs and her general condition. PLAN: Will give her slow bolus of IV fluids 100 cc/hour, add potassium. Treat her for community acquired pneumonia at this time with Zithromax and Rocephin. She is already anticoagulated. INR is appropriate with her Coumadin. PROGNOSIS: Fair.
[2021-02-11] MEDS: ECOTRIN 81 MG PO SCH (09:46)
[2021-02-11] MEDS: Pepcid 20 MG VIAL IV SCH ×2 (09:46→21:14)
[2021-02-11] MEDS: Klor Con 10 MEQ PO SCH ×2 (09:46→21:13)
[2021-02-11] MEDS: Maxzide-25MG Tablet PO SCH (09:46)
[2021-02-11] MEDS: Glucophage 500 MG PO SCH ×2 (09:46→16:17)
[2021-02-11] MEDS: Protonix 40MG Tablet PO SCH (09:46)
[2021-02-11] MEDS: MEDROL 4 MG PO SCH ×2 (09:47→21:13)
[2021-02-11] MEDS: ROCEPHIN 1 Gm-D5w 50 ml Bag** 1 G/50 ML IVPB IV SCH (09:56)
[2021-02-11] MEDS: Sodium Chloride 0.9% 1000 ML 1,000 ML IV SCH (09:56)
[2021-02-11] MEDS ORDERED: DECADRON 10MG INJ. IV SCH (10:00)
[2021-02-11] MEDS ORDERED: REMDESIVIR 100 MG in Sodium Chloride 0.9% 100 ML BAG 100 ML IV SCH (10:00)
[2021-02-11 10:35] LABS: ANISOCYTOSIS 1+; BAND 1 % (0.0-2.0); Lymphocytes 9 % (24-44); Monocyte 3 % (0.0-12.0); Neutrophils 87 % (36.0-66.0); Platelet Estimate NORMAL (NORMAL); Total Cells Counted 100
[2021-02-11] MEDS: Zithromax 500 MG/ 250 ML NaCl Premix 500 MG/250 ML IVPB IV SCH (14:49)
[2021-02-11] MEDS: Coumadin 1 MG*** 1 MG, Coumadin 3 MG*** 3 MG PO SCH ×2 (16:48)
[2021-02-11] MEDS: ULTRAM 50 MG PO PRN (17:51)
[2021-02-11] MEDS ORDERED: Restoril 15 MG PO SCH (22:00)
[2021-02-11] MEDS: BENADRYL 25 MG CAPSULE PO PRN (22:46)
[2021-02-11] MEDS ORDERED: Lopressor 50 MG ONE (23:03)
[2021-02-11] MEDS: Lopressor 25MG Tab PO SCH (23:04)
[2021-02-12] MEDS: ULTRAM 50 MG PO PRN ×2 (01:44→09:04)
[2021-02-12] MEDS: TYLENOL EXTRA STRENGTH 500 MG PO PRN ×2 (01:45→09:03)
[2021-02-12] MEDS: Sodium Chloride 0.9% 1000 ML 1,000 ML IV SCH (04:49)
[2021-02-12 06:10] LABS: Hematocrit 36.5 % (35-47); Hemoglobin 10.7 gm/dl (12.0-16.0); Mean Cell Volume 94.3 fl (78-100); Mean Corpuscular Hemoglobin 27.6 pg (26-32); Mean Corpuscular Hgb Concent. 29.3 g/dl (32-36); Mean Platelet Volume 10.5 fl (7.5-11.0); Platelet Count 395 K/mm3 (150-450); Red Blood Count 3.87 M/mm3 (4.1-5.4); Red Cell Distribution Width 18.8 % (11.5-14.0); White Blood Count 9.8 K/mm3 (4.0-10.5)
[2021-02-12 06:28] LABS: INR 3.97 (0.8-3.0); PROTIME 46.8 SECONDS (9.4-12.5)
[2021-02-12 06:37] LABS: ANION GAP 8.8 MEQ/L (5-15); Potassium 4.1 mmol/L (3.5-5.1)
[2021-02-12] MEDS: Glucophage 500 MG PO SCH (08:12)
[2021-02-12] MEDS: Protonix 40MG Tablet PO SCH (09:05)
[2021-02-12] MEDS: Klor Con 10 MEQ PO SCH (09:05)
[2021-02-12] MEDS: ECOTRIN 81 MG PO SCH (09:05)
[2021-02-12] MEDS: Pepcid 20 MG VIAL IV SCH (09:06)
[2021-02-12] MEDS: MEDROL 4 MG PO SCH (09:07)
[2021-02-12] MEDS: Lopressor 25MG Tab PO SCH (09:07)
[2021-02-12] MEDS: Maxzide-25MG Tablet PO SCH (09:07)
[2021-02-12] MEDS: ROCEPHIN 1 Gm-D5w 50 ml Bag** 1 G/50 ML IVPB IV SCH (09:09)
[2021-02-12] MEDS: Zithromax 500 MG/ 250 ML NaCl Premix 500 MG/250 ML IVPB IV SCH (10:28)
[2021-02-12 12:07] VITALS: BP 147/97
[2021-02-12 14:20] VITALS: PULSE 62; O2SAT 92
[2021-02-12] MEDS ORDERED: TREXALL 2.5 MG PO SCH (20:00)
== END 2021-02-12 15:55 | disposition home health service (06) | DRG 178 ==
LOC: ED 09:27 → MED SURG 14:26 → OBSVTOIN 17:25
PROVIDERS: ADMIT Family Medicine; ATTEND Family Medicine
DX: U07.1 COVID-19 (principal); N39.0 Urinary tract infection, site not specified; E11.9 Type 2 diabetes mellitus without complications; E78.00 Pure hypercholesterolemia, unspecified; I10 Essential (primary) hypertension; E86.0 Dehydration; R41.0 Disorientation, unspecified; I25.2 Old myocardial infarction; Z79.01 Long term (current) use of anticoagulants; Z79.899 Other long term (current) drug therapy
CPT/HCPCS: 36415; 51702; 71045; 80051; 80053; 81001; 82947; 83605; 83880; 84134; 84484; 85025; 85027; 85379; 85610; 85730; 87040; 87077; 87086; 87186; 93268; 94762; 96374; 96375; 99285; 99291; J0456; J0696; J1100; J1817; J2405; J3010; A9270-GY

== ENCOUNTER 2021-02-15 20:06 | Observation (INO) | payer MEDICARE, BC ==
[2021-02-15 20:48] LABS: Appearance CLEAR (CLEAR); Bilirubin NEGATIVE (NEGATIVE); Blood NEGATIVE Ery/ul (0-5); Glucose NEGATIVE (NEGATIVE); Ketones SMALL (NEGATIVE); Leukocyte Esterase NEGATIVE (NEGATIVE); Mucus SLIGHT /HPF (NEGATIVE); Nitrite NEGATIVE (NEGATIVE); Protein,Urine Dip 30 (Negative); Specific Gravity 1.019 (1.005-1.025); Urobilinogen 2 mg/dL (0-1); WBC 0-2 /HPF (0-5)
--- NOTE | 2021-02-15 20:54 | ERPHSYRPT ---
- History of Present Illness Time Seen by Provider: 02/15/21 20:29 Source: patient, family, EMS Exam Limitations: clinical condition Patient Subjective Stated Complaint: fever Triage Nursing Assessment: Patient brought into ED via EMS and transferred to bed per 2. Patient Alert to self only. Patient's skin pink, warm and dry. Patient confused. This nurse spoke with patient's son and he stated patient was released from hospital on Wednesday for UTI and wasn't able to take her bactrim due to pill being too big. Patient's son got a liquid form of bactrim and she has taken 3 doses of atb. Patient denies pain or discomfort. Physician History: 85 years old female with history of heart valve replacement on Coumadin, h ypertension, hyperlipidemia, recent COVID-19 and UTI who was discharged few days ago is brought back with increasing generalized weakness fatigue and tiredness and confusion. Patient is not acting herself per son and EMS. She is not in any distress on my evaluation. Alert to self and moving all 4 extremities and following few commands. According to son she was given Bactrim for UTI but could not take the pill because of its size and has taken only 2 doses of liquid Bactrim. She is refusing to eat or drink. She is having a downhill course since the start of Covid needing admission twice in the last couple of weeks. She was not discharged on oxygen but today she is requiring 2 L oxygen and was a fever of 101 by EMS. Timing/Duration: day(s) (2), gradual onset, worse Severity: moderate Modifying Factors: Improves With: nothing Associated Symptoms: loss of appetite, weakness Allergies/Adverse Reactions: leflunomide Allergy (Verified 02/15/21 20:20) Stomach Cramps losartan potassium [From Cozaar] Allergy (Verified 02/15/21 20:20) Tetracyclines Allergy (Verified 02/15/21 20:20) Home Medications: Esomeprazole Magnesium [Nexium] 40 mg PO DAILY 05/22/14 [History] Leucovorin Calcium 5 mg PO WEEKLY 05/22/14 [History] Metformin HCl 500 mg PO BID 05/22/14 [History] Methotrexate Sodium 2.5 mg [Trexall 2.5 mg] 8 tab PO UD 05/22/14 [History] Methylprednisolone 4 mg [Medrol 4 mg] 4 mg PO BID 05/22/14 [History] Tramadol HCl [Ultram] 100 mg PO Q6HPRN PRN 05/22/14 [History] Acetaminophen [Tylenol Arthritis] 1 tab PO UD 07/22/16 [History] Cholecalciferol (Vitamin D3) [Vitamin D] 1,000 units PO DAILY 07/22/16 [History] Aspirin EC 81 mg [Ecotrin 81 mg] 1 tab PO DAILY 02/03/21 [History] Biotin 5,000 mcg PO DAILY 02/03/21 [History] Diclofenac Sodium Gel [Voltaren GEL] 1 gel TOP BID 02/03/21 [History] Hctz/Triamteren 37.5 mg/25 mg* [Maxzide-25MG Tablet] 0.5 tab PO DAILY 02/03/21 [History] Metoprolol Tartrate 25 mg PO BID 02/11/21 [History] Hx Tetanus, Diphtheria Vaccination/Date Given: Yes Hx Influenza Vaccination/Date Given: Yes Hx Pneumococcal Vaccination/Date Given: Yes Immunizations Up to Date: Yes Travel Risk - International Travel Have you traveled outside of the country in past 3 weeks: No - Coronavirus Screening Are you exhibiting any of the following symptoms?: Yes Symptoms: Fever - Vaccine Status Have you recieved a Covid-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: Yes 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: [employer] - Vaccination Dates Date of 2cond Vaccination (if applicable): 04/15/20 - Review of Systems All Other Systems: Unable due to condition - Past Medical History Pertinent Past Medical History: Yes Neurological History: TIA ENT History: Cataracts Cardiac History: High Cholesterol, Hypertension, Myocardial Infarction (ND), Other Respiratory History: No Pertinent History Endocrine Medical History: Diabetes Type II Musculoskeletal History: Degenerative Disk Disease, Osteoarthritis, Rheumatoid Arthritis GI Medical History: GERD History: No Pertinent History Psycho-Social History: Anxiety Female Reproductive Disorders: No Pertinent History Other Medical History: artificial aortic valve, heart stent - Past Surgical History Past Surgical History: Yes Neuro Surgical History: No Pertinent History Cardiac: CABG, Cardiac Catheterization, Valve Replacement Respiratory: No Pertinent History Gastrointestinal: Hernia Repair Genitourinary: No Pertinent History Musculoskeletal: No Pertinent History Female Surgical History: No Pertinent History Other Surgical History: cardiac stent - Social History Smoking Status: Never smoker Exposure to second hand smoke: No Drug Use: none Patient Lives Alone: No - Nursing Vital Signs Nursing Vital Signs: Initial Vital Signs Temperature 99.6 F 02/15/21 20:20 Pulse Rate 94 H 02/15/21 20:20 Respiratory Rate 18 02/15/21 20:20 Blood Pressure 125/71 02/15/21 20:20 O2 Sat by Pulse Oximetry 98 02/15/21 20:20 Pain Scale Pain Intensity 0 - Physical Exam General Appearance: no apparent distress, alert Eye Exam: eyes nml inspection Ears, Nose, Throat Exam: TMs normal, dry mucous membranes, pharyngeal erythema Neck Exam: normal inspection, supple, full range of motion Respiratory Exam: diminished breath sounds, crackles/rales, wheezing Cardiovascular Exam: regular rate/rhythm, normal heart sounds, murmur Gastrointestinal/Abdomen Exam: soft, normal bowel sounds, No tenderness Back Exam: normal inspection Extremity Exam: normal inspection, pelvis stable Neurologic Exam: alert, 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 as tested, No oriented x 3, No normal mood/affect Skin Exam: normal color SpO2 Interpretation: O2 applied SpO2: 98 O2 Delivery: Nasal Cannula Ordered Tests: Active Orders 24 hr Category Date Time Status IV Insertion STAT Care 02/15/21 20:29 Active CHEST 1 VIEW (PORTABLE) Stat Exams 02/15/21 20:30 Taken HEAD WITHOUT CONTRAST [CT] Stat Exams 02/15/21 20:51 Taken BLOOD CULTURE Stat Lab 02/15/21 21:10 Received CBC W DIFF Stat Lab 02/15/21 20:47 Completed CMP Stat Lab 02/15/21 20:29 Completed CULTURE,URINE Stat Lab 02/15/21 20:40 Received LIPASE Stat Lab 02/15/21 20:29 Completed Lactic Acid Stat Lab 02/15/21 21:00 Completed Manual Differential NC Stat Lab 02/15/21 20:47 Completed PROTIME WITH INR Stat Lab 02/15/21 20:47 Completed UA W/RFX UR CULTURE Stat Lab 02/15/21 20:40 Completed Transfer Order Routine Transfer 02/15/21 Ordered Medication Summary Generic Name Dose Route Start Last Admin Trade Name Freq PRN Reason Stop Dose Admin Azithromycin 500 mg in 250 mls @ 250 mls/hr 02/15/21 23:12 Zithromax 500 Mg/ 250 Ml Nacl Premix IV 02/16/21 00:11 STAT STA Discontinued Medications Generic Name Dose Route Start Last Admin Trade Name Whitney PRN Reason Stop Dose Admin Ceftriaxone Sodium/Dextrose 1 g in 50 mls @ 100 mls/hr 02/15/21 23:12 02/15/21 23:52 Rocephin 1 Gm-D5w 50 Ml Bag IV 02/15/21 23:41 100 ml/hr STAT STA 100 mls/hr Administration Azithromycin Confirm 02/15/21 23:43 Zithromax 500 Mg/ 250 Ml Nacl Premix Administered 02/15/21 23:44 Dose 500 mg in 250 mls @ ud IV .STK-MED ONE Ceftriaxone Sodium/Dextrose Confirm 02/15/21 23:43 Rocephin 1 Gm-D5w 50 Ml Bag Administered 02/15/21 23:44 Dose 1 g in 50 mls @ ud IV .STK-MED ONE Phytonadione 2.5 mg 02/15/21 23:12 02/15/21 23:50 Phytonadione 10 Mg/Ml Amp PO 02/15/21 23:13 2.5 mg STAT ONE Administration Phytonadione Confirm 02/15/21 23:43 Phytonadione 10 Mg/Ml Amp Administered 02/15/21 23:44 Dose 10 mg .ROUTE .STK-MED ONE Lab/Rad Data: Laboratory Result Diagrams 02/15/21 20:47 02/15/21 20:29 Laboratory Results 02/15/21 02/15/21 02/15/21 Range/Units 21:00 20:47 20:47 WBC 8.6 (4.0-10.5) K/mm3 RBC 4.08 L (4.1-5.4) M/mm3 Hgb 11.4 L (12.0-16.0) gm/dl Hct 37.5 (35-47) % MCV 91.9 (78-100) fl MCH 27.9 (26-32) pg MCHC 30.4 L (32-36) g/dl RDW 19.0 H (11.5-14.0) % Plt Count 390 (150-450) K/mm3 MPV 10.6 (7.5-11.0) fl PT 102.8 H (9.4-12.5) SECONDS INR 8.83 H* (0.8-3.0) Sodium (137-145) mmol/L Potassium (3.5-5.1) mmol/L Chloride (98-107) mmol/L Carbon Dioxide (22-30) mmol/L Anion Gap (5-15) MEQ/L BUN (7-17) mg/dL Creatinine (0.52-1.04) mg/dL Estimated GFR ML/MIN Glucose (74-106) mg/dL Lactic Acid 1.6 (0.4-2.0) Calcium (8.4-10.2) mg/dL Total Bilirubin (0.2-1.3) mg/dL AST (14-36) U/L ALT (0-35) U/L Alkaline Phosphatase (38-126) U/L Serum Total Protein (6.3-8.2) g/dL Albumin (3.5-5.0) g/dL Lipase (23-300) U/L Urine Color (YELLOW) Urine Appearance (CLEAR) Urine pH (5-6) Ur Specific [place] (1.005-1.025) Urine Protein (Negative) Urine Ketones (NEGATIVE) Urine Blood (0-5) Jossue/ul Urine Nitrite (NEGATIVE) Urine Bilirubin (NEGATIVE) Urine Urobilinogen (0-1) mg/dL Ur Leukocyte Esterase (NEGATIVE) Urine WBC (Auto) (0-5) /HPF Urine RBC (Auto) (0-2) /HPF U Epithel Cells (Auto) (FEW) /HPF Urine Bacteria (Auto) (NEGATIVE) /HPF Urine Mucus (Auto) (NEGATIVE) /HPF Urine Culture Reflexed (NO) Urine Glucose (NEGATIVE) mg/dL 02/15/21 02/15/21 Range/Units 20:40 20:29 WBC (4.0-10.5) K/mm3 RBC (4.1-5.4) M/mm3 Hgb (12.0-16.0) gm/dl Hct (35-47) % MCV (78-100) fl MCH (26-32) pg MCHC (32-36) g/dl RDW (11.5-14.0) % Plt Count (150-450) K/mm3 MPV (7.5-11.0) fl PT (9.4-12.5) SECONDS INR (0.8-3.0) Sodium 129 L (137-145) mmol/L Potassium 3.2 L (3.5-5.1) mmol/L Chloride 96 L (98-107) mmol/L Carbon Dioxide 26 (22-30) mmol/L Anion Gap 10.2 (5-15) MEQ/L BUN 9 (7-17) mg/dL Creatinine 0.58 (0.52-1.04) mg/dL Estimated GFR > 60.0 ML/MIN Glucose 107 H (74-106) mg/dL Lactic Acid (0.4-2.0) Calcium 8.1 L (8.4-10.2) mg/dL Total Bilirubin 0.80 (0.2-1.3) mg/dL AST 28 (14-36) U/L ALT 16 (0-35) U/L Alkaline Phosphatase 82 (38-126) U/L Serum Total Protein 5.1 L (6.3-8.2) g/dL Albumin 3.0 L (3.5-5.0) g/dL Lipase 43 (23-300) U/L Urine Color YELLOW (YELLOW) Urine Appearance CLEAR (CLEAR) Urine pH 7.0 (5-6) Ur Specific [place] 1.019 (1.005-1.025) Urine Protein 30 (Negative) Urine Ketones SMALL (NEGATIVE) Urine Blood NEGATIVE (0-5) Jossue/ul Urine Nitrite NEGATIVE (NEGATIVE) Urine Bilirubin NEGATIVE (NEGATIVE) Urine Urobilinogen 2 (0-1) mg/dL Ur Leukocyte Esterase NEGATIVE (NEGATIVE) Urine WBC (Auto) 0-2 (0-5) /HPF Urine RBC (Auto) 11-15 (0-2) /HPF U Epithel Cells (Auto) NONE (FEW) /HPF Urine Bacteria (Auto) NONE (NEGATIVE) /HPF Urine Mucus (Auto) SLIGHT (NEGATIVE) /HPF Urine Culture Reflexed ORDERED SEPARATELY (NO) Urine Glucose NEGATIVE (NEGATIVE) mg/dL - Progress Progress: unchanged, re-examined Progress Note: 02/15/21 23:23 85 years old is evaluated for generalized weakness fatigue and some increasing shortness of breath with recent history of COVID-19. She is currently on 2 L oxygen with saturation around 96%. Chest x-ray showed worsening of airspace disease when compared with previous. Given a dose of antibiotic. She also has INR of 8.3 and given an oral dose of 2.5 mg vitamin K. No UTI at this time. Discussed with Dr. Brown and patient is being admitted for observation. Discussed with Dr.: Other (Dr. Ardon) Will see patient in: hospital (observation) Counseled pt/family regarding: lab results, diagnosis, need for follow-up, rad results - Departure Departure Disposition: Observation Clinical Impression: Hyponatremia, SARS-CoV-2 positive, Bilateral pneumonia, Generalized weakness, Elevated INR (international normalized ratio) Condition: Stable Critical Care Time: No Referrals: BETHANY CHAMPAGNE [Primary Care Provider] - Follow up/PCP as directed
[2021-02-15 21:20] LABS: Hematocrit 37.5 % (35-47); Hemoglobin 11.4 gm/dl (12.0-16.0); Mean Cell Volume 91.9 fl (78-100); Mean Corpuscular Hemoglobin 27.9 pg (26-32); Mean Corpuscular Hgb Concent. 30.4 g/dl (32-36); Mean Platelet Volume 10.6 fl (7.5-11.0); Platelet Count 390 K/mm3 (150-450); Red Blood Count 4.08 M/mm3 (4.1-5.4); White Blood Count 8.6 K/mm3 (4.0-10.5)
[2021-02-15 21:45] LABS: ALKALINE PHOSPHATASE 82 U/L (38-126); ANION GAP 10.2 MEQ/L (5-15); BLOOD UREA NITROGEN 9 mg/dL (7-17); CHLORIDE 96 mmol/L (98-107); Calcium 8.1 mg/dL (8.4-10.2); Carbon Dioxide 26 mmol/L (22-30); Creatinine 1 0.58 mg/dL (0.52-1.04); EST GLOMERULAR FILTRATION RATE > 60.0 ML/MIN; Glucose 107 mg/dL (74-106); LIPASE 43 U/L (23-300); Potassium 3.2 mmol/L (3.5-5.1); SGOT/AST 28 U/L (14-36); SGPT/ALT 16 U/L (0-35); SODIUM 129 mmol/L (137-145); Total Protein 5.1 g/dL (6.3-8.2)
[2021-02-15 21:55] LABS: PROTIME 102.8 SECONDS (9.4-12.5)
[2021-02-15 21:56] LABS: INR 8.83 (0.8-3.0)
[2021-02-15] MEDS ORDERED: Zithromax 500 MG/ 250 ML NaCl Premix 500 MG/250 ML IVPB IV STA (23:12)
[2021-02-15] MEDS ORDERED: ROCEPHIN 1 Gm-D5w 50 ml Bag** 1 G/50 ML IVPB IV STA (23:12)
[2021-02-15] MEDS ORDERED: Vitamin K 10 MG/ML PO ONE (23:12)
[2021-02-15] MEDS ORDERED: Zithromax 500 MG/ 250 ML NaCl Premix 500 MG/250 ML IVPB IV ONE (23:43)
[2021-02-15] MEDS ORDERED: Vitamin K 10 MG/ML ONE (23:43)
[2021-02-15] MEDS ORDERED: ROCEPHIN 1 Gm-D5w 50 ml Bag** 1 G/50 ML IVPB IV ONE (23:43)
[2021-02-16] MEDS ORDERED: TYLENOL 325 MG PO PRN (00:58)
[2021-02-16] MEDS ORDERED: Zofran 4 MG/2 ML VIAL IV PRN (00:58)
[2021-02-16] MEDS ORDERED: HUMALOG SQ PRN (00:58)
[2021-02-16] MEDS ORDERED: DUONEB 0.5-3 MG/3 ml Neb IH SCH (01:00)
[2021-02-16 01:52] LABS: ANISOCYTOSIS 1+; Lymphocytes 3 % (24-44); Monocyte 2 % (0.0-12.0); Neutrophils 95 % (36.0-66.0); Platelet Estimate NORMAL (NORMAL); Total Cells Counted 100; Toxic Granulation 1+
[2021-02-16] MEDS ORDERED: VENTOLIN COMMON CANISTER IH PRN (02:48)
[2021-02-16 06:45] LABS: Hematocrit 34.4 % (35-47); Hemoglobin 10.2 gm/dl (12.0-16.0); Mean Cell Volume 92.7 fl (78-100); Mean Corpuscular Hemoglobin 27.5 pg (26-32); Mean Corpuscular Hgb Concent. 29.7 g/dl (32-36); Mean Platelet Volume 11.1 fl (7.5-11.0); Platelet Count 347 K/mm3 (150-450); Red Blood Count 3.71 M/mm3 (4.1-5.4); Red Cell Distribution Width 18.7 % (11.5-14.0); White Blood Count 6.4 K/mm3 (4.0-10.5)
[2021-02-16 07:14] LABS: ALBUMIN 2.4 g/dL (3.5-5.0); ALKALINE PHOSPHATASE 69 U/L (38-126); ANION GAP 7.6 MEQ/L (5-15); BLOOD UREA NITROGEN 7 mg/dL (7-17); CHLORIDE 103 mmol/L (98-107); Calcium 7.9 mg/dL (8.4-10.2); Carbon Dioxide 25 mmol/L (22-30); Creatinine 1 0.52 mg/dL (0.52-1.04); EST GLOMERULAR FILTRATION RATE > 60.0 ML/MIN; Glucose 84 mg/dL (74-106); PROTIME 61.1 SECONDS (9.4-12.5); Potassium 3.7 mmol/L (3.5-5.1); SGOT/AST 24 U/L (14-36); SGPT/ALT 13 U/L (0-35); SODIUM 132 mmol/L (137-145); Total Protein 4.3 g/dL (6.3-8.2)
[2021-02-16 07:21] LABS: INR 5.33 (0.8-3.0)
--- NOTE | 2021-02-16 07:53 | XRAY ---
Indication: Weakness. Comparison: February 10, 2021. Portable chest demonstrates new moderate diffuse bilateral patchy airspace disease without consolidation/large effusion. Heart not enlarged. Comment: Preliminary interpretation made by C. No critical discrepancy.
--- NOTE | 2021-02-16 07:57 | XRAY ---
Indication: Confusion. History Covid 19. Multiple contiguous axial images obtained through the head without contrast. Comparison: July 08, 2019 Again age-appropriate global atrophy, mild/moderate periventricular degenerative micro-ischemia, and left basal ganglia remote lacunar infarct. No acute intracranial hemorrhage, abnormal extra-axial fluid collection, or mass effect. Fourth ventricle is midline without hydrocephalus. Bony calvarium intact. Again near complete opacification of the right maxillary sinus. New tiny fluid leveling both sphenoid sinuses. Mastoid air cells are clear. Impression: 1. Continued nonacute senile brain with again remote left basal ganglia lacunar infarct. 2. Incidental paranasal sinus disease. Comment: Preliminary interpretation made by [facility]. No critical discrepancy.
[2021-02-16 08:37] LABS: Lymphocytes 14 % (24-44); Monocyte 3 % (0.0-12.0); Neutrophils 83 % (36.0-66.0); Total Cells Counted 100
[2021-02-16 08:38] LABS: ANISOCYTOSIS 1+; Platelet Estimate NORMAL (NORMAL)
[2021-02-16] MEDS ORDERED: REMDESIVIR 200 MG in Sodium Chloride 0.9% 250 ML 250 ML IV ONE (10:00)
[2021-02-16] MEDS ORDERED: PROTONIX 40 MG IV IV SCH (10:00)
[2021-02-16] MEDS: OLUMIANT PO SCH (10:53)
[2021-02-16] MEDS ORDERED: Voltaren GEL TOP PRN (11:53)
[2021-02-16] MEDS: Lopressor 50 MG PO SCH ×2 (12:41→21:25)
[2021-02-16] MEDS: Maxzide-25MG Tablet PO SCH (12:42)
[2021-02-16] MEDS: ULTRAM 50 MG PO PRN (15:45)
[2021-02-16] MEDS: TYLENOL EXTRA STRENGTH 500 MG PO PRN (15:52)
[2021-02-16] MEDS: Glucophage 500 MG PO SCH (16:27)
[2021-02-16] MEDS ORDERED: Lopressor 25MG Tab PO SCH (22:00)
[2021-02-16] MEDS ORDERED: ROCEPHIN 1 Gm-D5w 50 ml Bag** 1 G/50 ML IVPB IV SCH (22:00)
[2021-02-16] MEDS ORDERED: Zithromax 500 MG/ 250 ML NaCl Premix 500 MG/250 ML IVPB IV SCH (22:00)
[2021-02-17] MEDS: ULTRAM 50 MG PO PRN ×2 (02:45→09:09)
[2021-02-17] MEDS: TYLENOL EXTRA STRENGTH 500 MG PO PRN ×2 (02:45→09:08)
[2021-02-17 05:54] LABS: INR 1.66 (0.8-3.0); PROTIME 19.6 SECONDS (9.4-12.5)
[2021-02-17 06:17] LABS: ANION GAP 7.6 MEQ/L (5-15); Potassium 3.4 mmol/L (3.5-5.1)
[2021-02-17] MEDS: Glucophage 500 MG PO SCH (08:38)
[2021-02-17] MEDS: Lopressor 50 MG PO SCH (09:04)
[2021-02-17] MEDS: Maxzide-25MG Tablet PO SCH (09:05)
[2021-02-17] MEDS: OLUMIANT PO SCH (09:05)
[2021-02-17] MEDS ORDERED: REMDESIVIR 100 MG in Sodium Chloride 0.9% 100 ML BAG 100 ML IV SCH (10:00)
[2021-02-17] MEDS ORDERED: Protonix 40MG Tablet PO SCH (10:00)
[2021-02-17] MEDS ORDERED: NON-FORMULARY ITEM (Esomeprazole Magnesium [Nexium] 40 MG Capsule.Dr) PO SCH (10:00)
--- NOTE | 2021-02-17 11:52 | HP ---
CHIEF COMPLAINT: Shortness of breath, weak, cannot walk, nausea, not eating. HISTORY OF PRESENT ILLNESS: The patient is an 85-year-old white female who was discharged from here three or four days ago. She was treated for three days for COVID pneumonia and improved. She was walking with a walker and very much wanted to go home. She was off of oxygen. After got home she stopped eating and started bruising more. She had been on some Bactrim which we had to switch to liquid however really I do not think there was much of a urinary tract infection as urine is clear in the emergency room. She had no fever, denies pain or discomfort. She is just too weak to walk. She has a history of aortic valve replacement, I believe. She is on Coumadin. Her pro-time is elevated. The emergency room doctor did give her some vitamin K so will have to watch that carefully. She has been getting worse for two days. She has had COVID for at least seven or eight days. TRAVEL RISK: International travel: None. CORONAVIRUS SCREENING: She did get a COVID vaccine ([employer]), did not get the booster but did get the second one. HOME MEDICATIONS: Nexium. Metformin 500 b.i.d., methotrexate 2.5 b.i.d., tramadol 100 every 4 hours PRN, Tylenol PRN, vitamin D3 1,000 units q.d., aspirin 81 q.d., Biotin 5,000 q.d., Voltaren gel twice a day to her knees, hydrochlorothiazide 37.5/25 q.d., metoprolol 25 b.i.d. ALLERGIES: LEFLUNOMIDE. TETRACYCLINE. LOSARTAN. PAST MEDICAL HISTORY: The patient was here for three days with COVID pneumonitis. She did get well pretty quickly but as I said she walked out but came back in when she could not eat and became quickly weak. Hypertension. PAST SURGICAL HISTORY: Cataract surgery. Cardiac catheterization, coronary artery bypass graft. Valve replacement. Hernia repair. REVIEW OF SYSTEMS: HEENT: Cataract surgery. CVS: High cholesterol, hypertension, myocardial infarction in the past and also valve replacement. RESPIRATORY: Usually no problems. She has a persistent dry cough. ENDOCRINE: Diabetes mellitus type II well controlled. MUSCULOSKELETAL: Rheumatoid arthritis. Osteoarthritis. GI: Reflux. : No problems. PSYCHOSOCIAL: Some anxiety. SOCIAL HISTORY: She lives with her who is older but he is much healthier and their son lives next door who is very involved in their care. She is not a smoker, no drug use. PHYSICAL EXAMINATION: The patient's emergency room had a temperature of 100F, pulse 90, respirations 18, blood pressure 125/71. O2 saturation 98% but that did drop by the time she got back to the unit. She is now on 2 liters with her O2 saturation at 90%. Pain intensity was 0. GENERAL: The patient when I saw her at midnight she was alert, orientated, fatigued. Claims she is a little confused but nothing markedly. HEENT: Pupils equal and reactive to light. Seems to hear and see okay. CHEST: Few crackles bilateral. CVS: Regular rate. I cannot hear any murmurs. ABDOMEN: Soft. No tenderness or organomegaly. NEUROLOGIC: The patient is weak. She can move all four extremities. There is no edema. Good pulses. LAB DATA AND TESTS: Chest x-ray showed some bilateral effusions not changed from a week ago. White count was 8.6, hemoglobin 11.4. Sodium down to 129, potassium down to 3.2. Her pro-time was 102.8 markedly elevated. INR 8.83. Lactic acid 1.6. IMPRESSION: The patient is suffering from COVID still, generalized weakness and over hydration perhaps. She is not eating so her INR is elevated. The emergency room doctor has given her some vitamin K so will do a daily pro-time and watch that carefully. Will go ahead and start medications for COVID pneumonia to see if they will still help her, some Decadron would certainly help and I expect her to recover.
--- NOTE | 2021-02-17 13:07 | PCM.DS ---
Discharge Summary Date of Admission: 02/16/21 00:54 Admitting Physician: LISA LANDAVERDE Primary Care Provider: BETHANY CHAMPAGNE Allergies Allergies leflunomide Allergy (Verified 02/15/21 20:20) Stomach Cramps losartan potassium [From Cozaar] Allergy (Verified 02/15/21 20:20) Tetracyclines Allergy (Verified 02/15/21 20:20) Hospital Summary - Hospital Course Hospital Course: Chief Complaint Diagnosis Bilateral pneumonia Allergies Allergy/AdvReac Type Severity Reaction Status Date / Time leflunomide Allergy Stomach Verified 02/15/21 20:20 Cramps losartan potassium Allergy Verified 02/15/21 20:20 [From Cozaar] Tetracyclines Allergy Verified 02/15/21 20:20 Vital Signs (Last 24 hours) Temp Pulse Resp BP Pulse Ox 02/17/21 12:00 97.5 F 58 L 12 125/74 96 02/17/21 10:00 66 16 96 02/17/21 08:25 72 18 97 02/17/21 08:00 97.7 F 74 23 146/70 97 02/17/21 06:00 69 21 94 L 02/17/21 04:00 73 16 97 02/17/21 02:00 72 16 96 02/17/21 00:00 97.5 F 70 16 124/74 97 02/16/21 21:53 72 19 92 L 02/16/21 20:06 72 16 96 02/16/21 20:00 97.7 F 70 19 107/63 95 02/16/21 17:39 18 02/16/21 17:27 98.7 F 76 18 137/72 92 L 02/16/21 16:00 98 F 59 L 22 137/72 91 L 02/16/21 15:59 22 02/16/21 15:43 56 L 18 100 02/16/21 13:50 22 02/16/21 13:48 95 H 21 92 L Home Medications Medication Instructions Recorded Confirmed Last Taken Type Sulfamethoxazole/Trimethoprim 20 ml PO BID 02/16/21 02/16/21 Unknown History [Sulfamethoxazole-Tmp Susp] Metformin HCl 500 mg 500 mg PO BREAKFAST #30 tablet 02/17/21 Unknown Rx [Glucophage 500 MG] Warfarin Sodium 1 mg [Coumadin 2 mg PO DAILY 7 Days #7 tablet 02/17/21 Unknown Rx 1 MG] Current Medications Generic Name Dose Route Start Last Admin Trade Name Freq PRN Reason Stop Dose Admin Acetaminophen 650 mg 02/16/21 00:58 Acetaminophen 325 Mg Tablet PO 03/18/21 00:57 Q4H PRN PRN PAIN AND/OR FEVER Acetaminophen 500 mg 02/16/21 15:49 02/17/21 09:08 Acetaminophen 500 Mg Tablet PO 03/18/21 15:48 500 mg UD PRN Administration PAIN Albuterol Sulfate 4 puff 02/16/21 02:48 Albuterol Common Canister Inhaler IH 03/18/21 02:47 Q4H PRN PRN SHORTNESS OF BREATH/WHEEZING Baricitinib 2 mg 02/16/21 10:00 02/17/21 09:05 Baricitinib 2 Mg Tablet PO 03/01/21 10:01 2 mg DAILY ADRIAN Administration Diclofenac Sodium 0 gm 02/16/21 11:53 Diclofenac Sodium 100 Gm Gel..Gm. TOP 03/18/21 11:52 BID PRN PRN PAIN Azithromycin 500 mg in 250 mls @ 250 mls/hr 02/16/21 22:00 02/16/21 22:05 Zithromax 500 Mg/ 250 Ml Nacl Premix IV 03/18/21 21:59 250 mls/hr Q24H22 ADRIAN Administration Ceftriaxone Sodium/Dextrose 1 g in 50 mls @ 100 mls/hr 02/16/21 22:00 02/16/21 21:25 Rocephin 1 Gm-D5w 50 Ml Bag IV 02/19/21 21:59 100 mls/hr Q24H22 ADRIAN Administration Remdesivir 100 mg/ Sodium 100 mls @ 100 mls/hr 02/17/21 10:00 02/17/21 09:54 Chloride IV 02/20/21 10:59 100 mls/hr Q24H ADRIAN Administration Insulin Human Lispro 0 unit 02/16/21 00:58 Insulin Lispro 1 Unit SQ 03/18/21 00:57 UD PRN HYPERGLYCEMIA Metformin HCl 500 mg 02/18/21 08:00 Metformin Hcl 500 Mg Tablet PO 03/20/21 07:59 BREAKFAST ADRIAN Methotrexate 20 mg 02/20/21 18:00 Methotrexate Sodium 2.5 Mg Tablet PO 03/22/21 17:59 Th@1800 ADRIAN Metoprolol Tartrate 25 mg 02/16/21 12:30 02/17/21 09:04 Metoprolol Tartrate 50 Mg Tablet PO 03/18/21 12:29 25 mg BID ADRIAN Administration Ondansetron HCl 4 mg 02/16/21 00:58 Ondansetron Hcl 4 Mg/2 Ml Vial IV 03/18/21 00:57 Q6H PRN PRN NAUSEA/VOMITING Pantoprazole Sodium 40 mg 02/17/21 10:00 02/17/21 09:04 Protonix (Pantoprazole) 40 Mg Tablet PO 03/19/21 09:59 40 mg DAILY ADRIAN Administration Tramadol HCl 100 mg 02/16/21 11:53 02/17/21 09:09 Tramadol Hcl 50 Mg Tablet PO 03/18/21 11:52 100 mg Q6HPRN PRN Administration PAIN Triamterene/Hydrochlorothiazide 0.5 tab 02/16/21 12:30 02/17/21 09:05 Triamterene/Hydrochlorothiazide 37.5/25mg 1 Tablet PO 03/18/21 12:29 0.5 tab DAILY ADRIAN Administration Discontinued Medications Generic Name Dose Route Start Last Admin Trade Name Freq PRN Reason Stop Dose Admin Albuterol/Ipratropium 3 ml 02/16/21 01:00 Ipratropium/Albuterol Sulfate 3 Ml Ampul.Neb IH 03/18/21 00:59 Q6HRT ADRIAN Azithromycin 500 mg in 250 mls @ 250 mls/hr 02/15/21 23:12 02/16/21 00:39 Zithromax 500 Mg/ 250 Ml Nacl Premix IV 02/16/21 00:11 250 mls/hr STAT STA 250 mls/hr Administration Ceftriaxone Sodium/Dextrose 1 g in 50 mls @ 100 mls/hr 02/15/21 23:12 02/16/21 00:26 Rocephin 1 Gm-D5w 50 Ml Bag IV 02/15/21 23:41 Infused STAT STA Infusion Azithromycin Confirm 02/15/21 23:43 Zithromax 500 Mg/ 250 Ml Nacl Premix Administered 02/15/21 23:44 Dose 500 mg in 250 mls @ ud IV .STK-MED ONE Ceftriaxone Sodium/Dextrose Confirm 02/15/21 23:43 Rocephin 1 Gm-D5w 50 Ml Bag Administered 02/15/21 23:44 Dose 1 g in 50 mls @ ud IV .STK-MED ONE Remdesivir 200 mg/ Sodium 250 mls @ 125 mls/hr 02/16/21 10:00 02/16/21 10:53 Chloride IV 02/16/21 11:59 125 mls/hr ONCE ONE Administration Metformin HCl 500 mg 02/16/21 17:00 02/17/21 08:38 Metformin Hcl 500 Mg Tablet PO 03/18/21 16:59 Not Given BIDWM ADRIAN Pantoprazole Sodium 40 mg 02/16/21 10:00 02/16/21 10:54 Pantoprazole 40 Mg Vial IV 03/18/21 09:59 40 mg Q24H10 ADRIAN Administration Phytonadione 2.5 mg 02/15/21 23:12 02/15/21 23:50 Phytonadione 10 Mg/Ml Amp PO 02/15/21 23:13 2.5 mg STAT ONE Administration Phytonadione Confirm 02/15/21 23:43 Phytonadione 10 Mg/Ml Amp Administered 02/15/21 23:44 Dose 10 mg .ROUTE .STK-MED ONE Intake & Output (Last 24 hours) 02/15/21 02/16/21 02/17/21 02/18/21 11:59 11:59 11:59 11:59 Intake Total 731 2332 Output Total 650 2250 Balance 81 82 Weight 56.6 kg Microbiology Results (Last 24 hours) 02/15/21 20:40 Catherized Urine Culture - Final NO GROWTH Laboratory Results (Last 24 hours) 02/17/21 02/17/21 02/17/21 11:12 07:58 05:15 PT 19.6 H INR 1.66 D Sodium Potassium Chloride Carbon Dioxide Anion Gap POC Glucometer 96 81 02/17/21 02/16/21 02/16/21 05:15 21:30 15:56 PT INR Sodium 131 L Potassium 3.4 L Chloride 101 Carbon Dioxide 26 Anion Gap 7.6 POC Glucometer 87 156 H Orders (Last 24 hours) Category Date Time Status Discharge Routine Discharge 02/17/21 Ordered Discharge/Telephone Order Routine Discharge 02/17/21 Active Lytes [ELECTROLYTE PANEL] AM.LAB Lab 02/17/21 05:15 Completed POCT GLUCOSE Stat Lab 02/16/21 15:56 Completed POCT GLUCOSE Stat Lab 02/16/21 21:30 Completed POCT GLUCOSE Stat Lab 02/17/21 07:58 Completed POCT GLUCOSE Stat Lab 02/17/21 11:12 Completed PROTIME WITH INR DAILY Lab 02/18/21 10:38 Ordered PROTIME WITH INR DAILY Lab 02/19/21 10:38 Ordered PT INR [PROTIME WITH INR] AM.LAB Lab 02/17/21 05:15 Completed PT INR [PROTIME WITH INR] AM.LAB Lab 02/18/21 04:00 Ordered PT INR [PROTIME WITH INR] AM.LAB Lab 02/19/21 04:00 Ordered PT INR [PROTIME WITH INR] AM.LAB Lab 02/20/21 04:00 Ordered PT INR [PROTIME WITH INR] AM.LAB Lab 02/21/21 04:00 Ordered Acetaminophen 500 mg [Tylenol Extra Strength 500 mg* Med 02/16/21 15:49 Active ] 500 mg PO UD PRN Azithromycin 500 mg/250 ml [Zithromax 500 MG/ 250 ML Med 02/16/21 22:00 Active NaCl Premix] 500 mg in 250 ml IV Q24H22 Ceftriaxone 1 GM/50 ML PREMIX* [ROCEPHIN 1 Gm-D5w 50 ml Med 02/16/21 22:00 Active Bag] 1 g in 50 ml IV Q24H22 Hctz/Triamteren 37.5 mg/25 mg* [Maxzide-25MG Tablet] Med 02/16/21 12:30 Active 0.5 tab PO DAILY Metformin HCl 500 mg [Glucophage 500 MG] Med 02/16/21 17:00 Discontinued 500 mg PO BIDWM Metformin HCl 500 mg [Glucophage 500 MG] Med 02/18/21 08:00 Active 500 mg PO BREAKFAST Methotrexate Sodium 2.5 mg [Trexall 2.5 mg] Med 02/20/21 18:00 Active 20 mg PO Th@1800 Metoprolol Tartrate 50 mg [Lopressor 50 MG] Med 02/16/21 12:30 Active 25 mg PO BID PANTOPRAZOLE 40 mg Tablet [Protonix 40MG Tablet] Med 02/17/21 10:00 Active 40 mg PO DAILY Remdesivir 100 mg Med 02/17/21 10:00 Active NaCl 0.9% 100Ml [Sodium Chloride 0.9% 100 ML BAG] 100 ml IV Q24H Patient Care Notes (Last 24 hours) 02/17/21 12:31 Case Management Note by Adilene Anne S/W KRISHNA- THEY WILL ARRANGE FOR THE [facility] TO PICK PATIENT UP AFTER 3PM. NOTIFIED. CALLED AND S/W DR. LITTLE PATIENT NO LONGER INFECTIOUS FOR COVID Initialized on 02/17/21 12:31 - END OF NOTE 02/17/21 10:58 Case Management Note by Adilene Anne HAS ACCEPTED PATIENT AND ARE READY WHEN PATIENT MEDICALLY READY FOR DC Initialized on 02/17/21 10:58 - END OF NOTE 02/17/21 10:03 Case Management Note by Adilene Anne S/W ELOISA- THIS IS PATIENT'S THIRD STAY HERE SINCE COVID DIAGNOSIS. THEY WOULD LIKE PATIENT TO GO TO [facility] FOR REHAB AFTER HER STAY THIS TIME. REFERRAL FAXED TO [facility] AT THIS TIME Initialized on 02/17/21 10:03 - END OF NOTE 02/16/21 20:20 Nursing Note by Nicolas Chavez Pt's O2 sat was 84% on RA while sleeping. Added 2L NC, O2 sat up to 96%, turned down to 1L, O2 sat 94%. RT notified. Initialized on 02/16/21 20:20 - END OF NOTE - Vitals & Intake/Output Vital Signs: Vital Signs Temperature 97.5 F 02/17/21 12:00 Pulse Rate 58 L 02/17/21 12:00 Respiratory Rate 12 02/17/21 12:00 Blood Pressure 125/74 02/17/21 12:00 O2 Sat by Pulse Oximetry 96 02/17/21 12:00 Intake & Output: Intake & Output 02/15/21 02/16/21 02/17/21 02/18/21 11:59 11:59 11:59 11:59 Intake Total 731 2332 Output Total 650 2250 Balance 81 82 Weight 56.6 kg - Lab Result Diagrams: 02/16/21 05:40 02/17/21 05:15 Lab Results-Last 24 Hrs: Lab Results-Last 24 Hours 02/16/21 02/16/21 02/17/21 Range/Units 15:56 21:30 05:15 PT (9.4-12.5) SECONDS INR (0.8-3.0) Sodium 131 L (137-145) mmol/L Potassium 3.4 L (3.5-5.1) mmol/L Chloride 101 (98-107) mmol/L Carbon Dioxide 26 (22-30) mmol/L Anion Gap 7.6 (5-15) MEQ/L POC Glucometer 156 H 87 (74 to 106) mg/dL 02/17/21 02/17/21 02/17/21 Range/Units 05:15 07:58 11:12 PT 19.6 H (9.4-12.5) SECONDS INR 1.66 D (0.8-3.0) Sodium (137-145) mmol/L Potassium (3.5-5.1) mmol/L Chloride (98-107) mmol/L Carbon Dioxide (22-30) mmol/L Anion Gap (5-15) MEQ/L POC Glucometer 81 96 (74 to 106) mg/dL Micro Results-Entire Visit: Microbiology 02/15/21 20:40 Urine Culture - Final Catherized NO GROWTH Accuchecks Date 02/17/21 Date 02/17/21 Date 02/16/21 Time 11:30 Time 07:30 Time 16:00 - Radiology Exams Ordered Rad Exams-Entire Visit: Radiology Procedures Category Date Time Status CHEST 1 VIEW (PORTABLE) Stat Exams 02/15/21 20:30 Completed HEAD WITHOUT CONTRAST [CT] Stat Exams 02/15/21 20:51 Completed - Procedures and Test Procedures and Tests throughout Hospitalization: Therapy Orders & Screens 02/16/21 00:58 Oxygen Nasal Cannula 2 lpm Comment: 02/16/21 02:48 Respiratory Therapy Assessment DAILY Comment: Diagnosis: Bilateral pneumonia 02/16/21 03:06 OT Screen per Nursing Assess ONCE Comment: Protocol Order Physician Instructions: Greater than 3 points order OT Admission Screening Reason For Exam: Triggered on Admission Diagnosis: Bilateral pneumonia Open Wound/Cellutlitis/Pressure Ulcers: Yes Acute Fx/ORIF/Change in wt bearing status: No Severe MUSCULOSKELETAL pain: No ADL Dysfunction: No Acute CVA w/Hemiparesis/Hemiplegia: No Decreased Functional Mobility/Strength: Yes Sprain/Strain: No Acute Post-op Mobility Dysfunction: No Total Points: 6 PT Screen per Nursing Assess ONCE Comment: Protocol Order Physician Instructions: Greater than 3 points order PT Admission Screenin Reason For Exam: Triggered on Admission Diagnosis: Bilateral pneumonia Open Wound/Cellutlitis/Pressure Ulcers: Yes Acute Fx/ORIF/Change in wt bearing status: No Severe MUSCULOSKELETAL pain: No ADL Dysfunction: No Acute CVA w/Hemiparesis/Hemiplegia: No Decreased Functional Mobility/Strength: Yes Sprain/Strain: No Acute Post-op Mobility Dysfunction: No Total Points: 6 ST Screen per Nursing Assess ONCE Comment: Protocol Order Physician Instructions: Greater than [address] Admission Screening Reason For Exam: Triggered on Admission Diagnosis: Bilateral pneumonia CVA/Dyshpagia/Aphasia: No Cognitive Deficits: No Dehydration/Nutrition Deficit: No Reflux: Yes Oral-Motor Difficulties: No Pneumonia: Yes Long Term Resident: No Total Points: 8 Discharge Exam General Appearance: no apparent distress, alert Neurologic Exam: alert, oriented x 3, cooperative, normal mood/affect, nml cerebellar function, sensation nml, No motor deficits Eye Exam: PERRL, EOMI, eyes nml inspection Ears, Nose, Throat Exam: normal ENT inspection, pharynx normal, moist mucous membranes Neck Exam: normal inspection, non-tender, supple, full range of motion Respiratory Exam: normal breath sounds, lungs clear, No respiratory distress Cardiovascular Exam: regular rate/rhythm, normal heart sounds Gastrointestinal/Abdomen Exam: soft, No tenderness, No mass Pelvic Exam: deferred Rectal Exam: deferred Back Exam: normal inspection, normal range of motion, No CVA tenderness, No vertebral tenderness Extremity Exam: normal inspection, normal range of motion Skin Exam: normal color, warm, dry Wound Assessment: Skin/Wound Assessment Wound/Incision Assessment Start: 02/16/21 03:06 Text: Status: Active Freq: Q6H Protocol: Document 02/17/21 08:00 BA (Rec: 02/17/21 08:51 BA [id number]) Wound/Incision Assessment Left Lower Other Wound Assessment Admission Wound Type chronic wound Wound Stage Non Pressure Wound Dressing Status Dry & Intact Length (cm) (cm) 5 Width (cm) (cm) 3 Wound Bed Greatest Portion Yellow (Slough) Wound Bed Lesser Portion Pale [place] Surrounding Tissue [place] Secondary Dressing Elastic Bandage Comment Dressing CDI Wound Photo Photo Taken Yes Date: 02/16/21 Final Diagnosis/Problem List - Final Discharge Diagnosis/Problem (1) Bilateral pneumonia Current Visit: Yes Status: Resolved Priority: High Code(s): J18.9 - PNEUMONIA, UNSPECIFIED ORGANISM (2) Elevated INR (international normalized ratio) Current Visit: Yes Status: Acute Code(s): R79.1 - ABNORMAL COAGULATION PROFILE (3) Generalized weakness Current Visit: Yes Status: Acute Code(s): R53.1 - WEAKNESS (4) SARS-CoV-2 positive Current Visit: Yes Status: Acute Code(s): U07.1 - COVID-19 (5) TIA (transient ischemic attack) Current Visit: No Status: Acute Code(s): G45.9 - TRANSIENT CEREBRAL ISCHEMIC ATTACK, UNSPECIFIED - Discharge Discharge Date: 02/17/21 Disposition: Home, Self-Care Condition: Stable Prescriptions: New Warfarin Sodium 1 mg [Coumadin 1 MG] 2 mg PO DAILY 7 Days #7 tablet Metformin HCl 500 mg [Glucophage 500 MG] 500 mg PO BREAKFAST #30 tablet Continue Leucovorin Calcium 5 mg PO WEEKLY Methotrexate Sodium 2.5 mg [Trexall 2.5 mg] 8 tab PO UD Esomeprazole Magnesium [Nexium] 40 mg PO DAILY Tramadol HCl [Ultram] 100 mg PO Q6HPRN PRN PRN Reason: Pain Acetaminophen [Tylenol Arthritis] 1 tab PO Q4H PRN PRN PRN Reason: Pain Cholecalciferol (Vitamin D3) [Vitamin D] 1,000 units PO DAILY Hctz/Triamteren 37.5 mg/25 mg* [Maxzide-25MG Tablet] 0.5 tab PO DAILY Aspirin EC 81 mg [Ecotrin 81 mg] 1 tab PO DAILY Diclofenac Sodium Gel [Voltaren GEL] 1 gel TOP BID PRN PRN PRN Reason: Pain Biotin 5,000 mcg PO DAILY Metoprolol Tartrate 25 mg PO BID Sulfamethoxazole/Trimethoprim [Sulfamethoxazole-Tmp Susp] 20 ml PO BID Discontinued Metformin HCl 500 mg PO BID Warfarin Sodium 3 mg [Coumadin 3 MG] 2 mg PO DAILY AT 1800 Additional Instructions: Keep SPO2>92% Regular diet. Pt evaluate and Tx regarding L lower leg wound and Gait strengthening. Accu checks AC and HS. INR. 02/18/21. Follow up with: BETHANY CHAMPAGNE [Primary Care Provider] -
[2021-02-17 14:39] VITALS: BP 130/77; PULSE 71; O2SAT 94
[2021-02-18] MEDS ORDERED: Glucophage 500 MG PO SCH (08:00)
[2021-02-20] MEDS ORDERED: TREXALL 2.5 MG PO SCH (18:00)
== END 2021-02-17 17:42 ==
LOC: ED 20:06 → MED SURG 02-16 00:54
PROVIDERS: ADMIT Family Medicine; ATTEND Family Medicine
DX: J18.9 Pneumonia, unspecified organism (principal); U07.1 COVID-19; R79.1 Abnormal coagulation profile; E87.1 Hypo-osmolality and hyponatremia; R53.1 Weakness; G45.9 Transient cerebral ischemic attack, unspecified; E78.5 Hyperlipidemia, unspecified; E11.9 Type 2 diabetes mellitus without complications; I10 Essential (primary) hypertension; I25.2 Old myocardial infarction; Z79.01 Long term (current) use of anticoagulants; Z79.899 Other long term (current) drug therapy
CPT/HCPCS: 36000; 36415; 70450; 71045; 80051; 80053; 81001; 82947; 83605; 83690; 85025; 85379; 85610; 87040; 87086; 93268; 94762; 99285; G0378; J0456; J0696; J3430; A9270-GY

== ENCOUNTER 2021-07-30 12:45 | Observation (INO) | payer MEDICARE, BC ==
--- NOTE | 2021-07-30 12:50 | ERPHSYRPT ---
- History of Present Illness Time Seen by Provider: 07/30/21 12:49 Historian: patient, family Exam Limitations: no limitations Physician History: This is an 86-year-old white female who presents via EMS for complaint of chest pain that started earlier this morning. She had associated back pain with this. She had been told by Dr. Smith, her supply assistant, that if she had chest pain to take nitroglycerin x3 and if it did not resolve then to come to the emergency department. The ambulance service brought the patient in. They gave her 324 mg of baby aspirin. Upon arrival to the emergency department, the patient's chest pain has resolved but she still has some back pain. Patient has a history of cardiac valve replacement, cardiac stent and CABG and is on Coumadin. She has a history of hypertension, elevated cholesterol, TIAs, degenerative joint disease, rheumatoid arthritis and gastroesophageal reflux disease. Timing/Duration: today Activities at Onset: none Quality: aching Location: substernal, central Chest Pain Radiation: back Severity of Pain-Max: mild (To moderate) Severity of Pain-Current: none Modifying Factors: Improves With: nitroglycerin, aspirin Associated Symptoms: denies symptoms Prior Chest Pain/Cardiac Workup: cardiac cath, heart attack Nitro Today/Relief: 0.4 mg x 3, provided at home Aspirin Treatment Today: 81 mg x 4, provided by ED Allergies/Adverse Reactions: leflunomide Allergy (Verified 02/15/21 20:20) Stomach Cramps losartan potassium [From Cozaar] Allergy (Verified 02/15/21 20:20) Tetracyclines Allergy (Verified 02/15/21 20:20) Home Medications: Esomeprazole Magnesium [Nexium] 40 mg PO DAILY 05/22/14 [History] Leucovorin Calcium 5 mg PO WEEKLY 05/22/14 [History] Methotrexate Sodium 2.5 mg [Trexall 2.5 mg] 8 tab PO UD 05/22/14 [History] Tramadol HCl [Ultram] 100 mg PO Q6HPRN PRN 05/22/14 [History] Acetaminophen [Tylenol Arthritis] 1 tab PO Q4H PRN PRN 07/22/16 [History] Cholecalciferol (Vitamin D3) [Vitamin D] 1,000 units PO DAILY 07/22/16 [History] Aspirin EC 81 mg [Ecotrin 81 mg] 1 tab PO DAILY 02/03/21 [History] Biotin 5,000 mcg PO DAILY 02/03/21 [History] Diclofenac Sodium Gel [Voltaren GEL] 1 gel TOP BID PRN PRN 02/03/21 [History] Hctz/Triamteren 37.5 mg/25 mg* [Maxzide-25MG Tablet] 0.5 tab PO DAILY PRN 02/03/21 [History] Metoprolol Tartrate 25 mg PO BID 02/11/21 [History] Amlodipine Besylate 5 mg [Norvasc 5 mg] 5 mg PO DAILY 07/30/21 [History] Methylprednisolone 4 mg [Medrol 4 mg] 4 mg PO DAILY 07/30/21 [History] Sertraline HCl [Zoloft] 25 mg PO DAILY 07/30/21 [History] Hx Tetanus, Diphtheria Vaccination/Date Given: Yes Hx Influenza Vaccination/Date Given: Yes Hx Pneumococcal Vaccination/Date Given: Yes Travel Risk - International Travel Have you traveled outside of the country in past 3 weeks: No - Coronavirus Screening Are you exhibiting any of the following symptoms?: No Close contact with a COVID-19 positive Pt in past 14-21 Days: No - Vaccine Status Have you recieved a Covid-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: 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[employer] - Vaccination Dates Date of 2cond Vaccination (if applicable): Apr 2020 Comment: Had booster recently but does not remember the date - Review of Systems Constitutional: No Symptoms Eyes: No Symptoms Ears, Nose, & Throat: No Symptoms, Throat Swelling Cardiac: Chest Pain Abdominal/Gastrointestinal: No Symptoms Genitourinary Symptoms: No Symptoms Musculoskeletal: Back Pain, No Injury Skin: No Symptoms Neurological: No Symptoms Psychological: No Symptoms Endocrine: No Symptoms Hematologic/Lymphatic: No Symptoms Immunological/Allergic: No Symptoms All Other Systems: Reviewed and Negative - Past Medical History Pertinent Past Medical History: Yes Neurological History: TIA ENT History: Cataracts Cardiac History: High Cholesterol, Hypertension, Myocardial Infarction ([place]), Other Respiratory History: No Pertinent History Endocrine Medical History: Diabetes Type II Musculoskeletal History: Degenerative Disk Disease, Osteoarthritis, Rheumatoid Arthritis GI Medical History: GERD History: No Pertinent History Psycho-Social History: Anxiety Female Reproductive Disorders: No Pertinent History Other Medical History: artificial aortic valve, heart stent - Past Surgical History Past Surgical History: Yes Neuro Surgical History: No Pertinent History Cardiac: CABG, Cardiac Catheterization, Valve Replacement Respiratory: No Pertinent History Gastrointestinal: Hernia Repair Genitourinary: No Pertinent History Musculoskeletal: No Pertinent History Female Surgical History: No Pertinent History Other Surgical History: cardiac stent - Social History Smoking Status: Never smoker Exposure to second hand smoke: No Drug Use: none Patient Lives Alone: No - Nursing Vital Signs Nursing Vital Signs: Initial Vital Signs Temperature 97.6 F 07/30/21 12:45 Pulse Rate 73 07/30/21 12:45 Respiratory Rate 22 07/30/21 12:45 Blood Pressure 158/92 07/30/21 12:45 O2 Sat by Pulse Oximetry 98 07/30/21 12:45 Pain Scale Pain Intensity 0 - Physical Exam General Appearance: no apparent distress, alert, anxiety Eye Exam: PERRL/EOMI, eyes nml inspection Ears, Nose, Throat Exam: normal ENT inspection, moist mucous membranes Neck Exam: normal inspection, non-tender, supple, full range of motion Respiratory Exam: normal breath sounds, lungs clear, airway intact, No chest tenderness, No respiratory distress Cardiovascular Exam: regular rate/rhythm, normal heart sounds, normal peripheral pulses Gastrointestinal/Abdomen Exam: soft, normal bowel sounds, No tenderness Pelvic Exam: not done Rectal Exam: not done Back Exam: normal inspection, normal range of motion, No CVA tenderness, No vertebral tenderness Extremity Exam: normal inspection, normal range of motion, pelvis stable Neurologic Exam: alert, oriented x 3, cooperative, dot compliance specialist II-XII nml as tested, normal mood/affect, nml cerebellar function, nml station & gait, sensation nml Skin Exam: normal color, warm, dry Lymphatic Exam: No adenopathy SpO2 Interpretation: normal O2 Delivery: Room Air - Course Nursing assessment & vital signs reviewed: Yes EKG Interpreted by Me: RATE (71), Sinus Rhythm, NORMAL AXIS, NORMAL INTERVALS, NORMAL QRS, NORMAL ST-T, Other (When compared to EKG dated 02/10/2021, the PVCs have now resolved. There is currently no nonspecific T changes on today's EKG.) Ordered Tests: Active Orders 24 hr Category Date Time Status EKG-ER Only STAT Care 07/30/21 13:04 Active IV Insertion STAT Care 07/30/21 13:04 Active Pulse Oximetry (ED) STAT Care 07/30/21 13:04 Active CHEST 1 VIEW (PORTABLE) Stat Exams 07/30/21 13:05 Completed CHEST WITH CONTRAST [CT] Stat Exams 07/30/21 14:01 Ordered CBC W DIFF Stat Lab 07/30/21 13:25 Completed CMP Stat Lab 07/30/21 13:25 Completed D-DIMER QUANTITATIVE Stat Lab 07/30/21 13:25 Completed NT PRO BNP Stat Lab 07/30/21 13:25 Completed PROTIME WITH INR Stat Lab 07/30/21 13:25 Completed TROPONIN Q3H Lab 07/30/21 13:25 Completed TROPONIN Q3H Lab 07/30/21 16:15 Ordered TROPONIN Q3H Lab 07/30/21 19:15 Ordered TROPONIN Q3H Lab 07/30/21 22:15 Ordered TROPONIN Q3H Lab 07/31/21 01:15 Ordered Medication Summary Generic Name Dose Route Start Last Admin Trade Name Freq PRN Reason Stop Dose Admin Sodium Chloride 500 mls @ 50 mls/hr 07/30/21 14:15 07/30/21 14:19 Sodium Chloride 0.9% 500 Ml IV 08/29/21 14:14 Not Given .Q10H ADRIAN Sodium Chloride 1,000 mls @ 50 mls/hr 07/30/21 14:30 07/30/21 14:20 Sodium Chloride 0.9% 1000 Ml IV 08/29/21 14:29 50 mls/hr .Q20H ADRIAN Administration Discontinued Medications Generic Name Dose Route Start Last Admin Trade Name Freq PRN Reason Stop Dose Admin Furosemide 40 mg 07/30/21 14:02 07/30/21 14:18 Furosemide 40 Mg/4 Ml Vial IV 07/30/21 14:03 40 mg STAT ONE Administration Furosemide Confirm 07/30/21 14:17 Furosemide 40 Mg/4 Ml Vial Administered 07/30/21 14:18 Dose 40 mg .ROUTE .STK-MED ONE Lab/Rad Data: Laboratory Result Diagrams 07/30/21 13:25 07/30/21 13:25 Laboratory Results 07/30/21 07/30/21 07/30/21 Range/Units 13:25 13:25 13:25 WBC (4.0-10.5) x10^3/uL RBC (4.1-5.4) x10^6/uL Hgb (12.0-16.0) g/dL Hct (35-47) % MCV (78-100) fL MCH (26-32) pg MCHC (32-36) g/dL RDW (11.5-14.0) % Plt Count (150-450) x10^3/uL MPV (7.5-11.0) fL Gran % (36.0-66.0) % Immature Gran % (Auto) (0.00-0.4) % Nucleat RBC Rel Count (0.00-0.1) % Eos # (Auto) (0-0.5) x10^3/uL Immature Gran # (Auto) (0.00-0.03) x10^3u/L Absolute Lymphs (auto) (1.0-4.6) x10^3/uL Absolute Monos (auto) (0.0-1.3) x10^3/uL Absolute Nucleated RBC (0.00-0.01) x10^3u/L Lymphocytes % (24.0-44.0) % Monocytes % (0.0-12.0) % Eosinophils % (0.00-5.0) % Basophils % (0.0-0.4) % Absolute Granulocytes (1.4-6.9) x10^3/uL Basophils # (0-0.4) x10^3/uL PT 34.3 H (9.4-12.5) SECONDS INR 3.64 H (0.8-3.0) D-Dimer 0.71 H* (0.0-0.50) ng/mL Sodium 136 L (137-145) mmol/L Potassium 4.4 (3.5-5.1) mmol/L Chloride 100 (98-107) mmol/L Carbon Dioxide 31 H (22-30) mmol/L Anion Gap 9.6 (5-15) MEQ/L BUN 24 H (7-17) mg/dL Creatinine 0.49 L (0.52-1.04) mg/dL Estimated GFR > 60.0 ML/MIN Glucose 156 H (74-106) mg/dL Calcium 8.9 (8.4-10.2) mg/dL Total Bilirubin 0.60 (0.2-1.3) mg/dL AST 35 (14-36) U/L ALT 18 (0-35) U/L Alkaline Phosphatase 100 (38-126) U/L Troponin I 3.210 H* (0.000-0.034) ng/mL NT-Pro-B Natriuret Pep 4390 H (0-1800) pg/mL Serum Total Protein 5.9 L (6.3-8.2) g/dL Albumin 3.5 (3.5-5.0) g/dL Slides for Path Review 07/30/21 Range/Units 13:25 WBC 10.8 H (4.0-10.5) x10^3/uL RBC 4.44 (4.1-5.4) x10^6/uL Hgb 10.7 L (12.0-16.0) g/dL Hct 37.7 (35-47) % MCV 84.9 (78-100) fL MCH 24.1 L (26-32) pg MCHC 28.4 L (32-36) g/dL RDW 23.0 H (11.5-14.0) % Plt Count 379 (150-450) x10^3/uL MPV 10.0 (7.5-11.0) fL Gran % 88.0 H (36.0-66.0) % Immature Gran % (Auto) 2.4 H (0.00-0.4) % Nucleat RBC Rel Count 0.0 (0.00-0.1) % Eos # (Auto) 0.03 (0-0.5) x10^3/uL Immature Gran # (Auto) 0.26 H (0.00-0.03) x10^3u/L Absolute Lymphs (auto) 0.53 L (1.0-4.6) x10^3/uL Absolute Monos (auto) 0.44 (0.0-1.3) x10^3/uL Absolute Nucleated RBC 0.00 (0.00-0.01) x10^3u/L Lymphocytes % 4.9 L (24.0-44.0) % Monocytes % 4.1 (0.0-12.0) % Eosinophils % 0.3 (0.00-5.0) % Basophils % 0.3 (0.0-0.4) % Absolute Granulocytes 9.54 H (1.4-6.9) x10^3/uL Basophils # 0.03 (0-0.4) x10^3/uL PT (9.4-12.5) SECONDS INR (0.8-3.0) D-Dimer (0.0-0.50) ng/mL Sodium (137-145) mmol/L Potassium (3.5-5.1) mmol/L Chloride (98-107) mmol/L Carbon Dioxide (22-30) mmol/L Anion Gap (5-15) MEQ/L BUN (7-17) mg/dL Creatinine (0.52-1.04) mg/dL Estimated GFR ML/MIN Glucose (74-106) mg/dL Calcium (8.4-10.2) mg/dL Total Bilirubin (0.2-1.3) mg/dL AST (14-36) U/L ALT (0-35) U/L Alkaline Phosphatase (38-126) U/L Troponin I (0.000-0.034) ng/mL NT-Pro-B Natriuret Pep (0-1800) pg/mL Serum Total Protein (6.3-8.2) g/dL Albumin (3.5-5.0) g/dL Slides for Path Review YES - Progress Progress: improved Air Movement: good Progress Note: 07/30/21 13:47 Chest x-ray shows no acute cardiopulmonary process. 07/30/21 14:40 Medical decision making: We spoke with Dr. Mckeon, who is covering for the patient's supply assistant Dr. Smith. He recommends patient being transferred to [facility] under the hospitalist admission and they will consult. We will now wait for the hospitalist to call us back. The supply assistant also stated there was no need to anticoagulate the patient further since her INR is 3.6 07/30/21 15:01 07/30/21 15:[address] Corona, the [facility] hospitalist. He accepts her in transfer. The transfer center said that the bed level that she requires is scarce at this time. It may be several hours before the patient is transferred. The hospitalist recommends follow-up with the CTA and serial troponins. They have her on the list to be admitted. 07/30/21 15:09 Transfer of care of this patient in this emergency department is to Dr. Blanco. He will check on the CT results and follow serial troponins. They are to call the [facility] in the next several hours. It may be later tonight or tomorrow morning before the patient can be transferred and he will make final disposition of this patient. Blood Culture(s) Obtained: No Antibiotics given: No Counseled pt/family regarding: lab results, diagnosis, need for follow-up, rad results - Departure Departure Disposition: Transfer Clinical Impression: Elevated d-dimer, CHF (congestive heart failure), NSTEMI (non-ST elevated myocardial infarction) Condition: Fair Critical Care Time: Yes Critical Care Time(excluding separately billable procedures): Critical 30-74 mins (30 minutes) Referrals: BETHANY CHAMPAGNE [Primary Care Provider] - Follow up/PCP as directed Instructions: Heart Failure
--- NOTE | 2021-07-30 13:25 | XRAY ---
Indication: Chest pain. Comparison: February 15, 2021. Portable chest now clear. Heart not enlarged again with cardiac valve replacement surgery. Large hiatal hernia. Bony thorax intact again with osteopenia, degenerative changes, double curvature scoliosis, and L1 kyphoplasty. Impression: Nonacute chest with chronic features.
[2021-07-30 13:32] LABS: Absolute Neutrophil Ct (ANC) 9.54 x10^3/uL (1.4-6.9); Basophil (Absolute #) 0.03 x10^3/uL (0-0.4); Eosinophil % 0.3 % (0.00-5.0); Eosinophil (Absolute #) 0.03 x10^3/uL (0-0.5); Hematocrit 37.7 % (35-47); Hemoglobin 10.7 g/dL (12.0-16.0); Lymphocyte (Absolute #) 0.53 x10^3/uL (1.0-4.6); Lymphocytes % 4.9 % (24.0-44.0); Mean Cell Volume 84.9 fL (78-100); Mean Corpuscular Hemoglobin 24.1 pg (26-32); Mean Corpuscular Hgb Concent. 28.4 g/dL (32-36); Monocyte (Absolute #) 0.44 x10^3/uL (0.0-1.3); Monocytes % 4.1 % (0.0-12.0); Platelet Count 379 x10^3/uL (150-450); Red Blood Count 4.44 x10^6/uL (4.1-5.4); White Blood Count 10.8 x10^3/uL (4.0-10.5)
[2021-07-30 13:45] LABS: INR 3.64 (0.8-3.0); PROTIME 34.3 SECONDS (9.4-12.5)
[2021-07-30 13:53] LABS: ALBUMIN 3.5 g/dL (3.5-5.0); ALKALINE PHOSPHATASE 100 U/L (38-126); ANION GAP 9.6 MEQ/L (5-15); BLOOD UREA NITROGEN 24 mg/dL (7-17); CHLORIDE 100 mmol/L (98-107); Calcium 8.9 mg/dL (8.4-10.2); Carbon Dioxide 31 mmol/L (22-30); Creatinine 1 0.49 mg/dL (0.52-1.04); EST GLOMERULAR FILTRATION RATE > 60.0 ML/MIN; Glucose 156 mg/dL (74-106); NT PRO BNP 4390 pg/mL (0-1800); Potassium 4.4 mmol/L (3.5-5.1); SGOT/AST 35 U/L (14-36); SGPT/ALT 18 U/L (0-35); SODIUM 136 mmol/L (137-145); Total Protein 5.9 g/dL (6.3-8.2)
[2021-07-30 13:55] LABS: D-DIMER QUANTITATIVE 0.71 ng/mL (0.0-0.50)
[2021-07-30] MEDS ORDERED: Lasix 40 MG/4 ML IV ONE (14:02)
[2021-07-30] MEDS ORDERED: Lasix 40 MG/4 ML ONE (14:17)
[2021-07-30] MEDS: Sodium Chloride 0.9% 500 ML 500 ML IV SCH (14:19)
[2021-07-30] MEDS: Sodium Chloride 0.9% 1000 ML 1,000 ML IV SCH (14:20)
[2021-07-30] MEDS ORDERED: HOLD METFORMIN PRODUCTS FOR 48 HOURS MC SCH (15:00)
[2021-07-30 15:01] LABS: Slide Review 1 YES
[2021-07-30] MEDS ORDERED: ULTRAM 50 MG PO ONE (19:33)
[2021-07-30] MEDS ORDERED: ULTRAM 50 MG ONE (19:36)
[2021-07-30] MEDS ORDERED: MORPHINE SULFATE 4 MG INJ IV PRN (23:24)
[2021-07-31] MEDS ORDERED: ULTRAM 50 MG PO ONE (11:50)
[2021-07-31 12:50] LABS: INFLUENZA A NEGATIVE (NEGATIVE); INFLUENZA B NEGATIVE (NEGATIVE); RESPIRATORY SYNCTIAL VIRUS NEGATIVE (Negative); SARS-CoV-2 Xpert Express NEGATIVE (NEGATIVE)
[2021-07-31] MEDS ORDERED: ULTRAM 50 MG ONE (13:12)
--- NOTE | 2021-07-31 13:29 | XRAY ---
Indication: Chest pain, short of breath, elevated d-dimer. Multiple contiguous axial images obtained through the chest using 80 cc Isovue 370 contrast and PE protocol. Comparison: None There is good opacification of the pulmonary arteries to include the lobar and segmental branches. No pulmonary embolus. Heart not enlarged with aortic valve replacement surgery. Aorta mildly etcher sclerotic without aneurysm/dissection. Small subcarinal calcified nodes. No pathologic mediastinal/hilar lymphadenopathy. Large hiatal hernia with partial intrathoracic stomach occupying medial left lung base. Lungs demonstrates minimal bilateral lower lobe subsegmental atelectasis/scarring. No suspicious pulmonary mass, infiltrate, or effusion. Bony thorax intact with osteopenia, moderate degenerative changes throughout thoracolumbar spine, moderate double curvature thoracolumbar scoliosis, L1/L4 kyphoplasty, and sternotomy wires. Limited upper abdomen demonstrates moderate diffuse fecal debris of the visualized colon Impression: 1. Negative pulmonary embolus. No acute cardiopulmonary abnormalities. 2. Large hiatal hernia with left lung base intrathoracic stomach. 3. Chronic bony findings and old granulomatous disease.
[2021-07-31] MEDS ORDERED: ULTRAM 50 MG PO PRN ×2 (13:46→16:51)
[2021-07-31] MEDS ORDERED: Zofran 4 MG/2 ML VIAL IV PRN (13:46)
[2021-07-31] MEDS ORDERED: TYLENOL 325 MG PO PRN (13:46)
[2021-07-31] MEDS: Sodium Chloride 0.9% 500 ML 500 ML IV SCH (14:09)
[2021-07-31] MEDS: Sodium Chloride 0.9% 1000 ML 1,000 ML IV SCH (14:09)
[2021-07-31] MEDS ORDERED: ENOXAPARIN SODIUM SQ SCH (15:00)
[2021-07-31] MEDS: Lasix 20 MG/2 ML IV SCH (16:47)
[2021-07-31] MEDS ORDERED: NON-FORMULARY ITEM (Acetaminophen [Tylenol Arthritis] 650 MG Tablet.Er) PO PRN (16:51)
[2021-07-31] MEDS ORDERED: DICLOFENAC SODIUM TP PRN (16:51)
[2021-07-31] MEDS ORDERED: TREXALL 2.5 MG PO SCH (17:00)
[2021-07-31] MEDS ORDERED: LEUCOVORIN CALCIUM 5 MG PO SCH (17:00)
[2021-07-31] MEDS ORDERED: MEDICATION INTERVENTION MC SCH ×2 (17:30)
[2021-07-31] MEDS: Lopressor 25MG Tab PO SCH (20:33)
[2021-07-31] MEDS ORDERED: NON-FORMULARY ITEM (Sertraline Hcl [Zoloft] 25 MG Tablet) PO SCH (22:00)
[2021-07-31] MEDS ORDERED: Glucophage 500 MG PO SCH (22:00)
[2021-07-31] MEDS ORDERED: ZOLOFT 50 MG TABLET PO SCH (22:00)
[2021-08-01 04:52] LABS: Absolute Neutrophil Ct (ANC) 5.82 x10^3/uL (1.4-6.9); Basophil (Absolute #) 0.04 x10^3/uL (0-0.4); Eosinophil % 1.3 % (0.00-5.0); Hematocrit 36.9 % (35-47); Hemoglobin 10.4 g/dL (12.0-16.0); Lymphocyte (Absolute #) 0.84 x10^3/uL (1.0-4.6); Lymphocytes % 10.7 % (24.0-44.0); Mean Cell Volume 84.8 fL (78-100); Mean Corpuscular Hemoglobin 23.9 pg (26-32); Mean Corpuscular Hgb Concent. 28.2 g/dL (32-36); Monocyte (Absolute #) 0.89 x10^3/uL (0.0-1.3); Monocytes % 11.4 % (0.0-12.0); Neutrophil % 74.4 % (36.0-66.0); Platelet Count 369 x10^3/uL (150-450); Red Blood Count 4.35 x10^6/uL (4.1-5.4); Red Cell Distribution Width 23.4 % (11.5-14.0); White Blood Count 7.8 x10^3/uL (4.0-10.5)
[2021-08-01 05:39] LABS: ALBUMIN 2.8 g/dL (3.5-5.0); ALKALINE PHOSPHATASE 90 U/L (38-126); BLOOD UREA NITROGEN 26 mg/dL (7-17); CHLORIDE 100 mmol/L (98-107); Calcium 8.6 mg/dL (8.4-10.2); Carbon Dioxide 29 mmol/L (22-30); Creatinine 1 0.45 mg/dL (0.52-1.04); EST GLOMERULAR FILTRATION RATE > 60.0 ML/MIN; Glucose 122 mg/dL (74-106); Potassium 3.6 mmol/L (3.5-5.1); SGOT/AST 23 U/L (14-36); SGPT/ALT 13 U/L (0-35); SODIUM 133 mmol/L (137-145); Total Protein 4.9 g/dL (6.3-8.2)
[2021-08-01 07:38] LABS: Slide Review 1 YES
[2021-08-01 08:07] LABS: INR 1.86 (0.8-3.0); PROTIME 18.6 SECONDS (9.4-12.5)
[2021-08-01] MEDS ORDERED: Miralax Powder 17GM PACKET PO PRN (08:58)
[2021-08-01] MEDS: Lopressor 25MG Tab PO SCH (09:47)
[2021-08-01] MEDS: Lasix 20 MG/2 ML IV SCH (09:48)
[2021-08-01] MEDS ORDERED: Protonix 40MG Tablet PO SCH (10:00)
[2021-08-01] MEDS ORDERED: BIOTIN 5000 MCG PO SCH (10:00)
[2021-08-01] MEDS ORDERED: MEDROL 4 MG PO SCH (10:00)
[2021-08-01] MEDS ORDERED: NORVASC 5 MG PO SCH (10:00)
[2021-08-01] MEDS ORDERED: ECOTRIN 81 MG PO SCH (10:00)
[2021-08-01] MEDS ORDERED: VITAMIN D PO SCH (10:00)
[2021-08-01] MEDS ORDERED: NON-FORMULARY ITEM (Esomeprazole Magnesium [Nexium] 40 MG Capsule.Dr) PO SCH (10:00)
[2021-08-01 11:55] VITALS: BP 114/68; PULSE 60; O2SAT 95
[2021-08-01] MEDS ORDERED: TREXALL 2.5 MG PO SCH (18:00)
[2021-08-01] MEDS ORDERED: PATIENT OWN MEDICATION PO SCH (18:00)
[2021-08-01] MEDS ORDERED: JANTOVEN PO SCH (18:00)
[2021-08-01] MEDS ORDERED: Glucophage 500 MG PO SCH (22:00)
[2021-08-02] MEDS ORDERED: JANTOVEN PO SCH (18:00)
[2021-08-03] MEDS ORDERED: JANTOVEN PO SCH (18:00)
[2021-08-04] MEDS ORDERED: JANTOVEN PO SCH (18:00)
== END 2021-08-01 13:25 | disposition home or self-care (01) ==
LOC: ED 12:45 → MED SURG 07-31 13:44
PROVIDERS: ADMIT Family Medicine; ATTEND Family Medicine
DX: I21.4 Non-ST elevation (NSTEMI) myocardial infarction (principal); I11.0 Hypertensive heart disease with heart failure; I50.9 Heart failure, unspecified; E78.00 Pure hypercholesterolemia, unspecified; E11.9 Type 2 diabetes mellitus without complications; I25.2 Old myocardial infarction; R79.89 Other specified abnormal findings of blood chemistry; Z79.01 Long term (current) use of anticoagulants; Z79.899 Other long term (current) drug therapy; Z20.828 Contact with and (suspected) exposure to other viral communicable diseases
CPT/HCPCS: 0241U; 36415; 71045; 71260; 80053; 82947; 83036; 83880; 84484; 85025; 85379; 85610; 93005; 93268; 94760; 96360; 96361; 96374; 96375; 99285; 99291; G0378; J1650; J1940; J2270; A9270-GY

== ENCOUNTER 2021-09-24 15:53 | Emergency (ER) | payer MEDICARE, BC ==
--- NOTE | 2021-09-24 16:02 | ERPHSYRPT ---
- History of Present Illness Time Seen by Provider: 09/24/21 16:02 Source: patient Allergies/Adverse Reactions: leflunomide Allergy (Verified 02/15/21 20:20) Stomach Cramps losartan potassium [From Cozaar] Allergy (Verified 02/15/21 20:20) Tetracyclines Allergy (Verified 02/15/21 20:20) Home Medications: Esomeprazole Magnesium [Nexium] 40 mg PO DAILY 05/22/14 [History] Methotrexate Sodium 2.5 mg [Trexall 2.5 mg] 6 tab PO UD 05/22/14 [History] Acetaminophen [Tylenol Arthritis] 1 tab PO Q4H PRN PRN 07/22/16 [History] Cholecalciferol (Vitamin D3) [Vitamin D] 1,000 units PO DAILY 07/22/16 [History] Aspirin EC 81 mg [Ecotrin 81 mg] 1 tab PO DAILY 02/03/21 [History] Biotin 5,000 mcg PO DAILY 02/03/21 [History] Metoprolol Tartrate 25 mg PO BID 02/11/21 [History] Amlodipine Besylate 5 mg [Norvasc 5 mg] 5 mg PO DAILY 07/30/21 [History] Methylprednisolone 4 mg [Medrol 4 mg] 8 mg PO DAILY 07/30/21 [History] Metformin HCl 500 mg [Glucophage 500 MG] 500 mg PO HS 07/31/21 [History] Warfarin Sodium 1 mg [Jantoven] 2.5 mg PO UD 07/31/21 [History] Warfarin Sodium 5 mg [Jantoven] 5 mg PO UD 07/31/21 [History] Leucovorin Calcium 5 mg PO UD 08/01/21 [History] Hx Tetanus, Diphtheria Vaccination/Date Given: Yes Hx Influenza Vaccination/Date Given: Yes Hx Pneumococcal Vaccination/Date Given: Yes Travel Risk - Vaccine Status Have you recieved a Covid-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: Yes 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[employer] - Vaccination Dates Date of 2cond Vaccination (if applicable): 05/02/20 - Past Medical History Pertinent Past Medical History: Yes Neurological History: No Pertinent History ENT History: Cataracts Cardiac History: Angina, Congestive Heart Failure, Hypertension, Myocardial Infarction ([place]) Respiratory History: CHF Endocrine Medical History: Diabetes Type II Musculoskeletal History: Rheumatoid Arthritis GI Medical History: No Pertinent History History: No Pertinent History Psycho-Social History: No Pertinent History Female Reproductive Disorders: No Pertinent History Other Medical History: artificial aortic valve, heart stent - Past Surgical History Past Surgical History: Yes Neuro Surgical History: No Pertinent History Cardiac: Cardiac Catheterization, Cardiac Stent, Valve Replacement Respiratory: No Pertinent History Gastrointestinal: No Pertinent History Genitourinary: No Pertinent History Musculoskeletal: No Pertinent History Female Surgical History: No Pertinent History Other Surgical History: cardiac stent - Social History Smoking Status: Never smoker Exposure to second hand smoke: No Drug Use: none Patient Lives Alone: No - Departure Referrals: BETHANY CHAMPAGNE [Primary Care Provider] - Follow up/PCP as directed
== END 2021-09-24 16:24 | disposition left against medical advice (07) ==
LOC: ED 15:53
DX: Z53.21 Procedure and treatment not carried out due to patient leaving prior to being seen by health care provider (principal)
CPT/HCPCS: 81015; 99281

== ENCOUNTER 2021-10-13 15:27 | Emergency (ER) | payer MEDICARE, BC ==
--- NOTE | 2021-10-13 15:51 | ERPHSYRPT ---
- History of Present Illness Time Seen by Provider: 10/13/21 15:47 Source: patient Exam Limitations: no limitations Physician History: This is an 86-year-old white female who was brought into the emergency department by her son because of some increased confusion. She is losing track of dates and times. Patient denies head injury. She denies headache. She denies chest pain. She denies abdominal pain. She is not short of breath. Patient also has not been eating or drinking well and there is concern for possible dehydration. Patient has had similar symptoms in the past and this was secondary to urinary tract infection. Patient has a history of hypertension, CHF and arthritis. Patient does have a history of cardiac disease and has had a cardiac valve replacement is taking Coumadin. Timing/Duration: day(s) (In the last several days) Severity: mild (To moderate) Associated Symptoms: denies symptoms Allergies/Adverse Reactions: leflunomide Allergy (Verified 10/13/21 15:41) Stomach Cramps losartan potassium [From Cozaar] Allergy (Verified 10/13/21 15:41) Tetracyclines Allergy (Verified 10/13/21 15:41) Home Medications: Esomeprazole Magnesium [Nexium] 40 mg PO DAILY 05/22/14 [History] Methotrexate Sodium 2.5 mg [Trexall 2.5 mg] 8 tab PO UD 05/22/14 [History] Acetaminophen [Tylenol Arthritis] 1 tab PO Q4H PRN PRN 07/22/16 [History] Cholecalciferol (Vitamin D3) [Vitamin D] 2,000 units PO DAILY 07/22/16 [History] Metoprolol Tartrate 25 mg PO BID 02/11/21 [History] Amlodipine Besylate 5 mg [Norvasc 5 mg] 5 mg PO DAILY 07/30/21 [History] Metformin HCl 500 mg [Glucophage 500 MG] 500 mg PO EVENING MEAL 07/31/21 [History] Warfarin Sodium 1 mg [Jantoven] 2.5 mg PO UD 07/31/21 [History] Warfarin Sodium 5 mg [Jantoven] 5 mg PO UD 07/31/21 [History] Leucovorin Calcium 5 mg PO UD 08/01/21 [History] Ezetimibe 10 mg [Zetia 10 MG] 1 tab PO HS 10/13/21 [History] Hx Tetanus, Diphtheria Vaccination/Date Given: Yes Hx Influenza Vaccination/Date Given: Yes Hx Pneumococcal Vaccination/Date Given: Yes Travel Risk - International Travel Have you traveled outside of the country in past 3 weeks: No - Coronavirus Screening Are you exhibiting any of the following symptoms?: No Close contact with a COVID-19 positive Pt in past 14-21 Days: No - Vaccine Status Have you recieved a Covid-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: Yes 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[employer] - Vaccination Dates Date of 2cond Vaccination (if applicable): 05/02/20 - Review of Systems Constitutional: No Symptoms Eyes: No Symptoms Ears, Nose, & Throat: No Symptoms Respiratory: No Symptoms Cardiac: No Symptoms Abdominal/Gastrointestinal: No Symptoms Genitourinary Symptoms: No Symptoms Musculoskeletal: No Symptoms Skin: No Symptoms Neurological: Other (Family is concerned of increased confusion the last several days) Psychological: No Symptoms Endocrine: No Symptoms Hematologic/Lymphatic: No Symptoms Immunological/Allergic: No Symptoms All Other Systems: Reviewed and Negative - Past Medical History Pertinent Past Medical History: Yes Neurological History: No Pertinent History ENT History: Cataracts Cardiac History: Angina, Congestive Heart Failure, Hypertension, Myocardial Infarction ([place]) Respiratory History: CHF Endocrine Medical History: Diabetes Type II Musculoskeletal History: Rheumatoid Arthritis GI Medical History: No Pertinent History History: No Pertinent History Psycho-Social History: No Pertinent History Female Reproductive Disorders: No Pertinent History Other Medical History: artificial aortic valve, heart stent - Past Surgical History Past Surgical History: Yes Neuro Surgical History: No Pertinent History Cardiac: Cardiac Catheterization, Cardiac Stent, Valve Replacement Respiratory: No Pertinent History Gastrointestinal: No Pertinent History Genitourinary: No Pertinent History Musculoskeletal: No Pertinent History Female Surgical History: No Pertinent History Other Surgical History: cardiac stent - Social History Smoking Status: Never smoker Exposure to second hand smoke: No Drug Use: none Patient Lives Alone: No - Nursing Vital Signs Nursing Vital Signs: Initial Vital Signs Temperature 97.9 F 10/13/21 15:41 Pulse Rate 68 10/13/21 15:41 Respiratory Rate 18 10/13/21 15:41 Blood Pressure 158/83 10/13/21 15:41 O2 Sat by Pulse Oximetry 97 10/13/21 15:41 Pain Scale Pain Intensity 0 - Physical Exam General Appearance: no apparent distress, alert Eye Exam: PERRL/EOMI, eyes nml inspection Ears, Nose, Throat Exam: normal ENT inspection, moist mucous membranes Neck Exam: normal inspection, non-tender, supple, full range of motion Respiratory Exam: normal breath sounds, lungs clear, airway intact, No chest tenderness, No respiratory distress Cardiovascular Exam: regular rate/rhythm, normal heart sounds, normal peripheral pulses Gastrointestinal/Abdomen Exam: soft, normal bowel sounds, No tenderness Pelvic Exam: not done Rectal Exam: not done Back Exam: normal inspection, normal range of motion, No CVA tenderness, No vertebral tenderness Extremity Exam: normal inspection, normal range of motion, pelvis stable Neurologic Exam: alert, oriented x 3, cooperative, merry go round attendant II-XII nml as tested, nor mal mood/affect, nml cerebellar function, nml station & gait, sensation nml Skin Exam: normal color, warm, dry Lymphatic Exam: No adenopathy SpO2 Interpretation: normal O2 Delivery: Room Air - Course Nursing assessment & vital signs reviewed: Yes Ordered Tests: Active Orders 24 hr Category Date Time Status EKG-ER Only STAT Care 10/13/21 15:51 Active NPO (ED) STAT Care 10/13/21 15:51 Active HEAD WITHOUT CONTRAST [CT] Stat Exams 10/13/21 15:51 Completed CBC W DIFF Stat Lab 10/13/21 16:02 Completed CMP Stat Lab 10/13/21 16:02 Completed PROTIME WITH INR Stat Lab 10/13/21 16:02 Completed UA W/RFX CULTURE Stat Lab 10/13/21 16:36 Completed Medication Summary Generic Name Dose Route Start Last Admin Trade Name Freq PRN Reason Stop Dose Admin Sodium Chloride 1,000 mls @ 100 mls/hr 10/13/21 16:30 10/13/21 16:45 Sodium Chloride 0.9% 1000 Ml IV 11/12/21 16:29 100 mls/hr .Q10H ADRIAN Administration Lab/Rad Data: Laboratory Result Diagrams 10/13/21 16:02 10/13/21 16:02 Laboratory Results 10/13/21 10/13/21 10/13/21 Range/Units 16:36 16:02 16:02 WBC (4.0-10.5) x10^3/uL RBC (4.1-5.4) x10^6/uL Hgb (12.0-16.0) g/dL Hct (35-47) % MCV (78-100) fL MCH (26-32) pg MCHC (32-36) g/dL RDW (11.5-14.0) % Plt Count (150-450) x10^3/uL MPV (7.5-11.0) fL Gran % (36.0-66.0) % Immature Gran % (Auto) (0.00-0.4) % Nucleat RBC Rel Count (0.00-0.1) % Eos # (Auto) (0-0.5) x10^3/uL Immature Gran # (Auto) (0.00-0.03) x10^3u/L Absolute Lymphs (auto) (1.0-4.6) x10^3/uL Absolute Monos (auto) (0.0-1.3) x10^3/uL Absolute Nucleated RBC (0.00-0.01) x10^3u/L Lymphocytes % (24.0-44.0) % Monocytes % (0.0-12.0) % Eosinophils % (0.00-5.0) % Basophils % (0.0-0.4) % Absolute Granulocytes (1.4-6.9) x10^3/uL Basophils # (0-0.4) x10^3/uL PT 27.0 H (9.4-12.5) SECONDS INR 2.80 (0.8-3.0) Sodium 135 L (137-145) mmol/L Potassium 3.8 (3.5-5.1) mmol/L Chloride 101 (98-107) mmol/L Carbon Dioxide 28 (22-30) mmol/L Anion Gap 9.7 (5-15) MEQ/L BUN 15 (7-17) mg/dL Creatinine 0.60 (0.52-1.04) mg/dL Estimated GFR > 60.0 ML/MIN Glucose 195 H (74-106) mg/dL Calcium 8.7 (8.4-10.2) mg/dL Total Bilirubin 0.30 (0.2-1.3) mg/dL AST 24 (14-36) U/L ALT 18 (0-35) U/L Alkaline Phosphatase 82 (38-126) U/L Serum Total Protein 5.5 L (6.3-8.2) g/dL Albumin 3.3 L (3.5-5.0) g/dL Urinalys Dipstick Clnc MAIN LAB Urine Color YELLOW (YELLOW) Urine Appearance CLEAR (CLEAR) Urine pH 6.0 (5-6) Ur Specific Brady 1.020 (1.005-1.025) POC Urine Protein Conf NEGATIVE (Negative) Urine Ketones NEGATIVE (NEGATIVE) Urine Nitrite NEGATIVE (NEGATIVE) Urine Bilirubin NEGATIVE (NEGATIVE) Urine Urobilinogen 0.2 (0-1) mg/dL Urine Leukocytes NEGATIVE (NEGATIVE) Urine WBC (Auto) NONE (0-5) /HPF Urine RBC (Auto) NONE (0-2) /HPF U Epithel Cells (Auto) NONE (FEW) /HPF Urine Bacteria (Auto) NONE (NEGATIVE) /HPF Urine RBC TRACE-LYSED (0-5) Jossue/ul Ur Culture Indicated? NO Urine Glucose NEGATIVE (NEGATIVE) mg/dL 10/13/21 Range/Units 16:02 WBC 10.3 (4.0-10.5) x10^3/uL RBC 3.95 L (4.1-5.4) x10^6/uL Hgb 9.4 L (12.0-16.0) g/dL Hct 32.7 L (35-47) % MCV 82.8 (78-100) fL MCH 23.8 L (26-32) pg MCHC 28.7 L (32-36) g/dL RDW 21.2 H (11.5-14.0) % Plt Count 306 (150-450) x10^3/uL MPV 10.4 (7.5-11.0) fL Gran % 88.9 H (36.0-66.0) % Immature Gran % (Auto) 0.5 H (0.00-0.4) % Nucleat RBC Rel Count 0.0 (0.00-0.1) % Eos # (Auto) 0 (0-0.5) x10^3/uL Immature Gran # (Auto) 0.05 H (0.00-0.03) x10^3u/L Absolute Lymphs (auto) 0.77 L (1.0-4.6) x10^3/uL Absolute Monos (auto) 0.30 (0.0-1.3) x10^3/uL Absolute Nucleated RBC 0.00 (0.00-0.01) x10^3u/L Lymphocytes % 7.5 L (24.0-44.0) % Monocytes % 2.9 (0.0-12.0) % Eosinophils % 0.0 (0.00-5.0) % Basophils % 0.2 (0.0-0.4) % Absolute Granulocytes 9.11 H (1.4-6.9) x10^3/uL Basophils # 0.02 (0-0.4) x10^3/uL PT (9.4-12.5) SECONDS INR (0.8-3.0) Sodium (137-145) mmol/L Potassium (3.5-5.1) mmol/L Chloride (98-107) mmol/L Carbon Dioxide (22-30) mmol/L Anion Gap (5-15) MEQ/L BUN (7-17) mg/dL Creatinine (0.52-1.04) mg/dL Estimated GFR ML/MIN Glucose (74-106) mg/dL Calcium (8.4-10.2) mg/dL Total Bilirubin (0.2-1.3) mg/dL AST (14-36) U/L ALT (0-35) U/L Alkaline Phosphatase (38-126) U/L Serum Total Protein (6.3-8.2) g/dL Albumin (3.5-5.0) g/dL Urinalys Dipstick Clnc Urine Color (YELLOW) Urine Appearance (CLEAR) Urine pH (5-6) Ur Specific Brady (1.005-1.025) POC Urine Protein Conf (Negative) Urine Ketones (NEGATIVE) Urine Nitrite (NEGATIVE) Urine Bilirubin (NEGATIVE) Urine Urobilinogen (0-1) mg/dL Urine Leukocytes (NEGATIVE) Urine WBC (Auto) (0-5) /HPF Urine RBC (Auto) (0-2) /HPF U Epithel Cells (Auto) (FEW) /HPF Urine Bacteria (Auto) (NEGATIVE) /HPF Urine RBC (0-5) Jossue/ul Ur Culture Indicated? Urine Glucose (NEGATIVE) mg/dL - Progress Progress: unchanged Progress Note: 10/13/21 16:59 CAT scan of the head without contrast shows continued nonacute senile brain with remote left basal ganglia lacunar infarct. Medical decision making: There is no acute, emergent or admissible cause of this patient's intermittent confusion. She is hemodynamically stable. She is afebrile. She has an MRI of the brain scheduled on October 19, 2021. She met with her primary care physician last week but they did not discuss confusion issues that have been occurring intermittently. She may have a degree of a type of dementia that may be slowly progressing. This needs to be discussed with the patient's primary care provider as an outpatient. I discussed this with the patient and her . Counseled pt/family regarding: lab results, diagnosis, need for follow-up, rad results - Departure Departure Disposition: Home Clinical Impression: Intermittent confusion Condition: Stable Critical Care Time: No Referrals: BETHANY CHAMPAGNE [Primary Care Provider] - Follow up/PCP as directed Additional Instructions: Take all your medications as prescribed. Follow-up with your primary care provider for further evaluation management. Make sure you keep your MRI of the brain appointment on October 19, 2021.
[2021-10-13 16:05] LABS: Absolute Neutrophil Ct (ANC) 9.11 x10^3/uL (1.4-6.9); Basophil (Absolute #) 0.02 x10^3/uL (0-0.4); Eosinophil (Absolute #) 0 x10^3/uL (0-0.5); Hematocrit 32.7 % (35-47); Hemoglobin 9.4 g/dL (12.0-16.0); Lymphocyte (Absolute #) 0.77 x10^3/uL (1.0-4.6); Lymphocytes % 7.5 % (24.0-44.0); Mean Cell Volume 82.8 fL (78-100); Mean Corpuscular Hemoglobin 23.8 pg (26-32); Mean Corpuscular Hgb Concent. 28.7 g/dL (32-36); Mean Platelet Volume 10.4 fL (7.5-11.0); Monocytes % 2.9 % (0.0-12.0); Neutrophil % 88.9 % (36.0-66.0); Platelet Count 306 x10^3/uL (150-450); Red Blood Count 3.95 x10^6/uL (4.1-5.4); Red Cell Distribution Width 21.2 % (11.5-14.0); White Blood Count 10.3 x10^3/uL (4.0-10.5)
[2021-10-13 16:15] LABS: ALBUMIN 3.3 g/dL (3.5-5.0); ALKALINE PHOSPHATASE 82 U/L (38-126); ANION GAP 9.7 MEQ/L (5-15); BLOOD UREA NITROGEN 15 mg/dL (7-17); CHLORIDE 101 mmol/L (98-107); Calcium 8.7 mg/dL (8.4-10.2); Carbon Dioxide 28 mmol/L (22-30); EST GLOMERULAR FILTRATION RATE > 60.0 ML/MIN; Glucose 195 mg/dL (74-106); INR 2.8 (0.8-3.0); Potassium 3.8 mmol/L (3.5-5.1); SGOT/AST 24 U/L (14-36); SGPT/ALT 18 U/L (0-35); SODIUM 135 mmol/L (137-145); Total Protein 5.5 g/dL (6.3-8.2)
--- NOTE | 2021-10-13 16:23 | XRAY ---
Indication: Confusion 3 days. No known injury. History hypertension. Multiple contiguous axial images obtained without without contrast. Comparison: February 15, 2021 Again age-appropriate global atrophy, moderate periventricular degenerative microvascular ischemia bilaterally, and remote lacunar infarct left basal ganglia. No acute intracranial hemorrhage, abnormal extra-axial fluid collection, or mass effect. Fourth ventricle is midline without hydrocephalus. Bony calvarium intact. Visualized paranasal sinuses and mastoid air cells are clear. Impression: Continued nonacute senile brain with again remote left basal ganglia lacunar infarct.
[2021-10-13] MEDS ORDERED: Sodium Chloride 0.9% 1000 ML 1,000 ML ONE (16:27)
[2021-10-13] MEDS ORDERED: Sodium Chloride 0.9% 1000 ML 1,000 ML IV SCH (16:30)
[2021-10-13 16:47] LABS: Appearance CLEAR (CLEAR); Bilirubin NEGATIVE (NEGATIVE); Dipstick done @ ? MAIN LAB; Glucose NEGATIVE (NEGATIVE); Ketones NEGATIVE (NEGATIVE); Nitrite NEGATIVE (NEGATIVE); Protein,Urine Dip NEGATIVE (Negative); RBC TRACE-LYSED Ery/ul (0-5); Urobilinogen 0.2 mg/dL (0-1)
[2021-10-13 16:53] LABS: Urine Cultured Indicated? NO
[2021-10-13 17:18] LABS: Slide Review 1 YES
[2021-10-13 17:19] VITALS: BP 154/71; PULSE 69; O2SAT 96
== END 2021-10-13 17:40 | disposition home or self-care (01) ==
LOC: ED 15:27
DX: R41.0 Disorientation, unspecified (principal); I11.0 Hypertensive heart disease with heart failure; I50.9 Heart failure, unspecified; E11.9 Type 2 diabetes mellitus without complications; Z79.84 Long term (current) use of oral hypoglycemic drugs; Z79.01 Long term (current) use of anticoagulants; Z79.899 Other long term (current) drug therapy
CPT/HCPCS: 36000; 36415; 70450; 80053; 81015; 85025; 85610; 93005; 99284

== ENCOUNTER 2022-02-28 14:43 | Observation (INO) | payer MEDICARE, BC ==
[2022-02-28 15:37] LABS: Absolute Neutrophil Ct (ANC) 8.33 x10^3/uL (1.4-6.9); BASOPHIL % 0.3 % (0.0-0.4); Basophil (Absolute #) 0.03 x10^3/uL (0-0.4); Eosinophil % 0.1 % (0.00-5.0); Eosinophil (Absolute #) 0.01 x10^3/uL (0-0.5); Hematocrit 45.6 % (35-47); Hemoglobin 13.8 g/dL (12.0-16.0); IMMATURE GRAN # 0.03 x10^3u/L (0.00-0.03); IMMATURE GRAN % 0.3 % (0.00-0.4); Lymphocyte (Absolute #) 0.79 x10^3/uL (1.0-4.6); Lymphocytes % 8.3 % (24.0-44.0); Mean Cell Volume 91.2 fL (78-100); Mean Corpuscular Hemoglobin 27.6 pg (26-32); Mean Corpuscular Hgb Concent. 30.3 g/dL (32-36); Mean Platelet Volume 9.9 fL (7.5-11.0); Monocyte (Absolute #) 0.33 x10^3/uL (0.0-1.3); Monocytes % 3.5 % (0.0-12.0); Neutrophil % 87.5 % (36.0-66.0); Platelet Count 277 x10^3/uL (150-450); Red Cell Distribution Width 23.1 % (11.5-14.0); White Blood Count 9.5 x10^3/uL (4.0-10.5)
[2022-02-28 15:45] LABS: Bacteria FEW /HPF (NEGATIVE); Mucus SLIGHT /HPF (NEGATIVE)
[2022-02-28 15:48] LABS: Appearance CLEAR (CLEAR); Glucose NEGATIVE (NEGATIVE)
[2022-02-28 15:49] LABS: Bilirubin NEGATIVE (NEGATIVE); Ketones TRACE (NEGATIVE); Nitrite POSITIVE (NEGATIVE); Protein,Urine Dip 30 (Negative); RBC MODERATE Ery/ul (0-5); Specific Gravity 1.025 (1.005-1.025); Urine Cultured Indicated? YES; Urobilinogen 1 mg/dL (0-1)
[2022-02-28 15:54] LABS: INR 1.87 (0.8-3.0); PROTIME 18.7 SECONDS (9.4-12.5)
[2022-02-28 16:04] LABS: ALBUMIN 3.9 g/dL (3.5-5.0); ALKALINE PHOSPHATASE 146 U/L (38-126); ANION GAP 8.4 MEQ/L (5-15); BLOOD UREA NITROGEN 15 mg/dL (7-17); CHLORIDE 101 mmol/L (98-107); Calcium 8.8 mg/dL (8.4-10.2); Carbon Dioxide 27 mmol/L (22-30); Creatinine 1 0.52 mg/dL (0.52-1.04); EST GLOMERULAR FILTRATION RATE > 60.0 ML/MIN; Glucose 132 mg/dL (74-106); LIPASE 74 U/L (23-300); Potassium 3.6 mmol/L (3.5-5.1); SGOT/AST 32 U/L (14-36); SGPT/ALT 21 U/L (0-35); SODIUM 133 mmol/L (137-145); Total Protein 6.6 g/dL (6.3-8.2)
[2022-02-28 16:30] LABS: Dipstick done @ ? MAIN LAB
[2022-02-28] MEDS ORDERED: ROCEPHIN 2 Gm-D5w 50ML BAG** 2 G/50 ML IVPB IV STA (16:58)
--- NOTE | 2022-02-28 17:28 | ERPHSYRPT ---
- History of Present Illness Time Seen by Provider: 02/28/22 14:54 Historian: patient Exam Limitations: no limitations Patient Subjective Stated Complaint: abd pain Triage Nursing Assessment: ptto ED by EMS c/o abd pain and 2 episodes dark stool, once last night and once today. pt states mild pain "it could be worse, but it was enough to be concerning." rates 5/10. has intermittent periods of confusion, but denies feeling confused. A&Ox4. hx dementia. denies NVD or constipation. abd non tender, all bowel sounds active. Physician History: 86 years old female with history of coronary artery disease status post stent ing, hypertension, hyperlipidemia, GERD, diabetes mellitus, arthritis, on Coumadin presented in the ER with chief complaint of abdominal pain off and on since yesterday moderate intensity, sharp nature without any significant aggravating or relieving factors. It comes and goes and currently her pain is better on presentation in the ER. Does report having couple of episodes of dark stool but denies any hematochezia or epigastric pain, pain is more in the periumbilical area. Denies any chest pain palpitations or shortness of breath. Patient does have dementia with intermittent confusion. Patient states that she had to catch a flight from [facility] but because of pain she could n ot. Patient was not actually going anywhere per family. Timing/Duration: yesterday, intermittent, improved Activities at Onset: rest Quality: sharpness Abdominal Pain Onset Location: periumbilical Pain Radiation: no radiation Severity of Pain-Max: moderate Severity of Pain-Current: mild Modifying Factors: Improves With: nothing Associated Symptoms: No chest pain, No diarrhea, No fever/chills, No nausea, No neck pain, No shortness of breath, No syncope, No weakness Allergies/Adverse Reactions: leflunomide Allergy (Verified 02/28/22 14:54) Stomach Cramps losartan potassium [From Cozaar] Allergy (Verified 02/28/22 14:54) Tetracyclines Allergy (Verified 02/28/22 14:54) Home Medications: Esomeprazole Magnesium [Nexium] 40 mg PO DAILY 05/22/14 [History] Methotrexate Sodium 2.5 mg [Trexall 2.5 mg] 6 tab PO UD 05/22/14 [History] Acetaminophen [Tylenol Arthritis] 1 tab PO Q4H PRN PRN 07/22/16 [History] Cholecalciferol (Vitamin D3) [Vitamin D] 2,000 units PO DAILY 07/22/16 [History] Metoprolol Tartrate 25 mg PO BID 02/11/21 [History] Metformin HCl 500 mg [Glucophage 500 MG] 500 mg PO EVENING MEAL 07/31/21 [History] Warfarin Sodium 1 mg [Jantoven] 2.5 mg PO UD 07/31/21 [History] Leucovorin Calcium 5 mg PO UD 08/01/21 [History] Ezetimibe 10 mg [Zetia 10 MG] 1 tab PO HS 10/13/21 [History] Cyanocobalamin (Vitamin B-12) [Vitamin B12] 2,500 mcg PO DAILY 02/28/22 [History] Furosemide 40 mg [Lasix 40 MG] 40 mg PO DAILY PRN PRN 02/28/22 [History] Iron 65 mg PO DAILY 02/28/22 [History] Memantine HCl [Namenda] 10 mg PO BID 02/28/22 [History] Methylprednisolone 4 mg [Medrol 4 mg] 4 mg PO DAILY 02/28/22 [History] Polyethylene Glycol 3350 [Clearlax] 17 gm PO HSPRN PRN 02/28/22 [History] Ropinirole 2Mg [Requip 2Mg Tab] 0.25 mg PO HS 02/28/22 [History] Tramadol HCl 50 mg [Ultram 50 mg] 50 mg PO Q8H PRN 02/28/22 [History] Triazolam 0.125 mg PO HS 02/28/22 [History] Amlodipine Besylate 5 mg [Norvasc 5 mg] 5 mg PO LUNCH 03/01/22 [History] Potassium Chloride 10 meq PO UD 03/01/22 [History] Hx Tetanus, Diphtheria Vaccination/Date Given: Yes Hx Influenza Vaccination/Date Given: Yes Hx Pneumococcal Vaccination/Date Given: Yes Immunizations Up to Date: Yes Travel Risk - International Travel Have you traveled outside of the country in past 3 weeks: No - Coronavirus Screening Are you exhibiting any of the following symptoms?: No Close contact with a COVID-19 positive Pt in past 14-21 Days: No - Vaccine Status Have you recieved a Covid-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: Yes 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 - Vaccination Dates Date of 2cond Vaccination (if applicable): 05/02/20 - Review of Systems Constitutional: No Symptoms Eyes: No Symptoms Ears, Nose, & Throat: No Symptoms Respiratory: No Symptoms Cardiac: No Symptoms Abdominal/Gastrointestinal: Abdominal Pain Genitourinary Symptoms: No Symptoms Musculoskeletal: Arthralgias Neurological: No Symptoms Endocrine: No Symptoms Hematologic/Lymphatic: No Symptoms Immunological/Allergic: No Symptoms - Past Medical History Pertinent Past Medical History: Yes Neurological History: No Pertinent History ENT History: Cataracts Cardiac History: Angina, Congestive Heart Failure, Hypertension, Myocardial Infarction ([place]) Respiratory History: CHF Endocrine Medical History: Diabetes Type II Musculoskeletal History: Rheumatoid Arthritis GI Medical History: No Pertinent History History: No Pertinent History Psycho-Social History: No Pertinent History Female Reproductive Disorders: No Pertinent History Other Medical History: artificial aortic valve, heart stent - Past Surgical History Past Surgical History: Yes Neuro Surgical History: No Pertinent History Cardiac: Cardiac Catheterization, Cardiac Stent, Valve Replacement Respiratory: No Pertinent History Gastrointestinal: Hernia Repair Genitourinary: No Pertinent History Musculoskeletal: No Pertinent History Female Surgical History: No Pertinent History Other Surgical History: artifical aortic valve - Social History Smoking Status: Never smoker Exposure to second hand smoke: No Drug Use: none Patient Lives Alone: No - Nursing Vital Signs Nursing Vital Signs: Initial Vital Signs Temperature 99.9 F 02/28/22 14:55 Pulse Rate 86 02/28/22 14:55 Respiratory Rate 16 02/28/22 14:55 Blood Pressure 132/93 02/28/22 14:55 O2 Sat by Pulse Oximetry 97 02/28/22 14:55 Pain Scale Pain Intensity 0 - Physical Exam General Appearance: no apparent distress, alert Eye Exam: PERRL/EOMI Ears, Nose, Throat Exam: normal ENT inspection Neck Exam: normal inspection, non-tender, supple, full range of motion Respiratory Exam: normal breath sounds, lungs clear Cardiovascular Exam: regular rate/rhythm, normal heart sounds Gastrointestinal/Abdomen Exam: soft, normal bowel sounds, tenderness (Minimal periumbilical tenderness), No distention, No guarding Back Exam: normal inspection Extremity Exam: normal inspection, normal range of motion Neurologic Exam: alert, oriented x 3, cooperative, rehabilitation worker II-XII nml as tested, No normal mood/affect, No motor deficits Skin Exam: normal color SpO2 Interpretation: normal SpO2: 96 O2 Delivery: Room Air - Course EKG Interpreted by Me: RATE (84), Sinus Rhythm, NORMAL AXIS, prolonged QT int erval, Q-wave, Non-specific ST Changes Ordered Tests: Medication Summary Discontinued Medications Generic Name Dose Route Start Last Admin Trade Name Freq PRN Reason Stop Dose Admin Acetaminophen 650 mg 02/28/22 23:07 03/01/22 01:27 Acetaminophen 325 Mg Tablet PO 03/30/22 23:06 650 mg Q4H PRN PRN Administration PAIN AND/OR FEVER Albuterol/Ipratropium 3 ml 02/28/22 23:07 Ipratropium/Albuterol Sulfate 3 Ml Ampul.Neb IH 03/30/22 23:06 Q4HPRN PRN SHORTNESS OF BREATH/WHEEZING Amlodipine Besylate 5 mg 03/02/22 12:00 Amlodipine Besylate 5 Mg Tablet PO 04/01/22 11:59 LUNCH ADRIAN Cholecalciferol 2,000 unit 03/02/22 10:00 03/02/22 10:16 Cholecalciferol (Vitamin D3) 1000 Unit Tablet PO 04/01/22 09:59 2,000 unit DAILY ADRIAN Administration Cyanocobalamin 2,500 mcg 03/02/22 10:00 03/02/22 10:16 Cyanocobalamin 500 Mcg Tablet PO 04/01/22 09:59 2,500 mcg DAILY ADRIAN Administration Ezetimibe 10 mg 03/01/22 22:00 03/01/22 21:48 Ezetimibe 10 Mg Tab PO 03/01/22 22:01 10 mg ONCE ONE Administration Ezetimibe 10 mg 03/02/22 22:00 Ezetimibe 10 Mg Tab PO 04/01/22 21:59 HS ADRIAN Ferrous Sulfate 325 mg 03/02/22 10:00 03/02/22 10:17 Ferrous Sulfate 325 Mg Tablet PO 04/01/22 09:59 325 mg DAILY ADRIAN Administration Furosemide 40 mg 03/02/22 07:18 Furosemide 40 Mg Tablet PO 04/01/22 07:17 DAILY PRN PRN CHF Ceftriaxone Sodium/Dextrose 2 g in 50 mls @ 100 mls/hr 02/28/22 16:58 02/28/22 19:41 Rocephin 2 Gm-D5w 50ml Bag IV 02/28/22 17:27 Infused STAT STA Infusion Ceftriaxone Sodium/Dextrose Confirm 02/28/22 19:08 Rocephin 2 Gm-D5w 50ml Bag Administered 02/28/22 19:09 Dose 2 g in 50 mls @ ud IV .STK-MED ONE Ceftriaxone Sodium/Dextrose 1 g in 50 mls @ 100 mls/hr 03/01/22 22:00 03/01/22 21:54 Rocephin 1 Gm-D5w 50 Ml Bag IV 03/04/22 21:59 100 mls/hr Q24H22 ADRIAN Administration Insulin Human Lispro 0 unit 02/28/22 23:07 Insulin Lispro 1 Unit SQ 03/30/22 23:06 UD PRN HYPERGLYCEMIA Memantine 10 mg 03/01/22 22:00 03/01/22 21:50 Memantine Hcl 5 Mg Tablet PO 03/01/22 22:01 10 mg ONCE ONE Administration Memantine 10 mg 03/02/22 10:00 03/02/22 10:17 Memantine Hcl 5 Mg Tablet PO 04/01/22 09:59 10 mg BID ADRIAN Administration Metformin HCl 500 mg 03/02/22 18:00 Metformin Hcl 500 Mg Tablet PO 04/01/22 17:59 EVENING MEAL ADRIAN Methylprednisolone 4 mg 03/02/22 10:00 03/02/22 10:47 Methylprednisolone 4 Mg Tablet PO 04/01/22 09:59 4 mg DAILY ADRIAN Administration Metoprolol Tartrate 25 mg 03/01/22 22:00 03/01/22 21:48 Metoprolol Tartrate 25 Mg Tab PO 03/01/22 22:01 25 mg ONCE ONE Administration Metoprolol Tartrate 25 mg 03/02/22 10:00 03/02/22 10:17 Metoprolol Tartrate 25 Mg Tab PO 04/01/22 09:59 25 mg BID ADRIAN Administration Miscellaneous Information 1 each 03/02/22 08:00 Medication Intervention 1 Each Each 04/01/22 07:59 .RN TO CHECK ADRIAN Miscellaneous Information 1 each 03/02/22 08:00 Medication Intervention 1 Each Each 04/01/22 07:59 .RN TO CHECK ADRIAN Miscellaneous Information 1 each 03/02/22 08:00 Medication Intervention 1 Each Each 04/01/22 07:59 .RN TO CHECK ADRIAN Non-Formulary Medication 10 meq 03/02/22 07:30 Potassium Chloride [Potassium Chloride] PO 04/01/22 07:29 QDP PRN Non-Formulary Medication 1 tab 03/02/22 07:18 Acetaminophen [Tylenol Arthritis] PO Q4H PRN PRN PAIN Ondansetron HCl 4 mg 02/28/22 23:07 Ondansetron Hcl 4 Mg/2 Ml Vial IV 03/30/22 23:06 Q6H PRN PRN NAUSEA/VOMITING Pantoprazole Sodium 40 mg 03/01/22 10:00 Pantoprazole 40 Mg Vial IV 03/31/22 09:59 Q24H10 ADRIAN Pantoprazole Sodium 40 mg 03/02/22 10:00 03/02/22 10:16 Protonix (Pantoprazole) 40 Mg Tablet PO 04/01/22 09:59 40 mg DAILY ADRIAN Administration Polyethylene Glycol 17 gm 03/02/22 07:14 Polyethylene Glycol 3350 17 Gm Packet PO 04/01/22 07:13 HS PRN PRN CONSTIPATION Polyethylene Glycol 17 gm 03/02/22 07:18 Polyethylene Glycol 3350 17 Gm Packet PO 04/01/22 07:17 HSPRN PRN CONSTIPATION Ropinirole HCl 0.25 mg 03/01/22 22:00 03/01/22 21:49 Ropinirole Hcl 0.5 Mg Tablet PO 03/01/22 22:01 0.25 mg ONCE ONE Administration Ropinirole HCl 0.25 mg 03/02/22 22:00 Ropinirole Hcl 0.5 Mg Tablet PO 04/01/22 21:59 HS [facility] Tramadol HCl 50 mg 03/01/22 19:47 03/02/22 00:54 Tramadol Hcl 50 Mg Tablet PO 03/31/22 19:46 50 mg Q8H PRN PRN Administration PAIN Tramadol HCl 50 mg 03/02/22 07:18 Tramadol Hcl 50 Mg Tablet PO 04/01/22 07:17 Q8HPRN PRN PAIN Warfarin Sodium 2.5 mg 02/28/22 19:27 02/28/22 19:35 Warfarin Sodium 5 Mg 5 Mg Tablet PO 02/28/22 19:28 2.5 mg ONCE ONE Administration Warfarin Sodium 3 mg 03/02/22 22:00 03/01/22 21:49 Warfarin Sodium 3 Mg Tablet PO 03/02/22 22:01 3 mg ONCE ONE Administration Warfarin Sodium Confirm 03/01/22 20:29 Warfarin Sodium 3 Mg Tablet Administered 03/01/22 20:30 Dose 3 mg .ROUTE .STK-MED ONE Warfarin Sodium 2.5 mg 03/02/22 07:30 Warfarin Sodium 1 Mg Tablet PO 04/01/22 07:29 UD [facility] Lab/Rad Data: Laboratory Result Diagrams 02/28/22 15:30 02/28/22 15:30 Laboratory Results 02/28/22 02/28/22 02/28/22 Range/Units 18:40 18:40 15:30 WBC (4.0-10.5) x10^3/uL RBC (4.1-5.4) x10^6/uL Hgb (12.0-16.0) g/dL Hct (35-47) % MCV (78-100) fL MCH (26-32) pg MCHC (32-36) g/dL RDW (11.5-14.0) % Plt Count (150-450) x10^3/uL MPV (7.5-11.0) fL Gran % (36.0-66.0) % Immature Gran % (Auto) (0.00-0.4) % Nucleat RBC Rel Count (0.00-0.1) % Eos # (Auto) (0-0.5) x10^3/uL Immature Gran # (Auto) (0.00-0.03) x10^3u/L Absolute Lymphs (auto) (1.0-4.6) x10^3/uL Absolute Monos (auto) (0.0-1.3) x10^3/uL Absolute Nucleated RBC (0.00-0.01) x10^3u/L Lymphocytes % (24.0-44.0) % Monocytes % (0.0-12.0) % Eosinophils % (0.00-5.0) % Basophils % (0.0-0.4) % Absolute Granulocytes (1.4-6.9) x10^3/uL Basophils # (0-0.4) x10^3/uL PT (9.4-12.5) SECONDS INR (0.8-3.0) Sodium (137-145) mmol/L Potassium (3.5-5.1) mmol/L Chloride (98-107) mmol/L Carbon Dioxide (22-30) mmol/L Anion Gap (5-15) MEQ/L BUN (7-17) mg/dL Creatinine (0.52-1.04) mg/dL Estimated GFR ML/MIN Glucose (74-106) mg/dL Lactic Acid (0.4-2.0) Calcium (8.4-10.2) mg/dL Magnesium (1.6-2.3) mg/dL Total Bilirubin (0.2-1.3) mg/dL AST (14-36) U/L ALT (0-35) U/L Alkaline Phosphatase (38-126) U/L Troponin I 0.065 H* 0.078 H* (0.000-0.034) ng/mL Serum Total Protein (6.3-8.2) g/dL Albumin (3.5-5.0) g/dL Lipase (23-300) U/L Urinalys Dipstick Clnc Urine Color (YELLOW) Urine Appearance (CLEAR) Urine pH (5-6) Ur Specific [place] (1.005-1.025) POC Urine Protein Conf (Negative) Urine Ketones (NEGATIVE) Urine Nitrite (NEGATIVE) Urine Bilirubin (NEGATIVE) Urine Urobilinogen (0-1) mg/dL Urine Leukocytes (NEGATIVE) Urine WBC (Auto) (0-5) /HPF Urine RBC (Auto) (0-2) /HPF U Epithel Cells (Auto) (FEW) /HPF Urine Bacteria (Auto) (NEGATIVE) /HPF Urine RBC (0-5) Jossue/ul Urine Mucus (Auto) (NEGATIVE) /HPF Ur Culture Indicated? Urine Glucose (NEGATIVE) mg/dL Influenza Type A Ag NEGATIVE (NEGATIVE) Influenza Type B Ag NEGATIVE (NEGATIVE) RSV (PCR) NEGATIVE (Negative) SARS-CoV-2 (PCR) NEGATIVE (NEGATIVE) Slides for Path Review 02/28/22 02/28/22 02/28/22 Range/Units 15:30 15:30 15:30 WBC 9.5 (4.0-10.5) x10^3/uL RBC 5.00 (4.1-5.4) x10^6/uL Hgb 13.8 (12.0-16.0) g/dL Hct 45.6 (35-47) % MCV 91.2 (78-100) fL MCH 27.6 (26-32) pg MCHC 30.3 L (32-36) g/dL RDW 23.1 H (11.5-14.0) % Plt Count 277 (150-450) x10^3/uL MPV 9.9 (7.5-11.0) fL Gran % 87.5 H (36.0-66.0) % Immature Gran % (Auto) 0.3 (0.00-0.4) % Nucleat RBC Rel Count 0.0 (0.00-0.1) % Eos # (Auto) 0.01 (0-0.5) x10^3/uL Immature Gran # (Auto) 0.03 (0.00-0.03) x10^3u/L Absolute Lymphs (auto) 0.79 L (1.0-4.6) x10^3/uL Absolute Monos (auto) 0.33 (0.0-1.3) x10^3/uL Absolute Nucleated RBC 0.00 (0.00-0.01) x10^3u/L Lymphocytes % 8.3 L (24.0-44.0) % Monocytes % 3.5 (0.0-12.0) % Eosinophils % 0.1 (0.00-5.0) % Basophils % 0.3 (0.0-0.4) % Absolute Granulocytes 8.33 H (1.4-6.9) x10^3/uL Basophils # 0.03 (0-0.4) x10^3/uL PT 18.7 H (9.4-12.5) SECONDS INR 1.87 (0.8-3.0) Sodium 133 L (137-145) mmol/L Potassium 3.6 (3.5-5.1) mmol/L Chloride 101 (98-107) mmol/L Carbon Dioxide 27 (22-30) mmol/L Anion Gap 8.4 (5-15) MEQ/L BUN 15 (7-17) mg/dL Creatinine 0.52 (0.52-1.04) mg/dL Estimated GFR > 60.0 ML/MIN Glucose 132 H (74-106) mg/dL Lactic Acid (0.4-2.0) Calcium 8.8 (8.4-10.2) mg/dL Magnesium 2.0 (1.6-2.3) mg/dL Total Bilirubin 0.90 (0.2-1.3) mg/dL AST 32 (14-36) U/L ALT 21 (0-35) U/L Alkaline Phosphatase 146 H (38-126) U/L Troponin I (0.000-0.034) ng/mL Serum Total Protein 6.6 (6.3-8.2) g/dL Albumin 3.9 (3.5-5.0) g/dL Lipase 74 (23-300) U/L Urinalys Dipstick Clnc Urine Color (YELLOW) Urine Appearance (CLEAR) Urine pH (5-6) Ur Specific [place] (1.005-1.025) POC Urine Protein Conf (Negative) Urine Ketones (NEGATIVE) Urine Nitrite (NEGATIVE) Urine Bilirubin (NEGATIVE) Urine Urobilinogen (0-1) mg/dL Urine Leukocytes (NEGATIVE) Urine WBC (Auto) (0-5) /HPF Urine RBC (Auto) (0-2) /HPF U Epithel Cells (Auto) (FEW) /HPF Urine Bacteria (Auto) (NEGATIVE) /HPF Urine RBC (0-5) Jossue/ul Urine Mucus (Auto) (NEGATIVE) /HPF Ur Culture Indicated? Urine Glucose (NEGATIVE) mg/dL Influenza Type A Ag (NEGATIVE) Influenza Type B Ag (NEGATIVE) RSV (PCR) (Negative) SARS-CoV-2 (PCR) (NEGATIVE) Slides for Path Review YES 02/28/22 02/28/22 Range/Units 15:17 15:09 WBC (4.0-10.5) x10^3/uL RBC (4.1-5.4) x10^6/uL Hgb (12.0-16.0) g/dL Hct (35-47) % MCV (78-100) fL MCH (26-32) pg MCHC (32-36) g/dL RDW (11.5-14.0) % Plt Count (150-450) x10^3/uL MPV (7.5-11.0) fL Gran % (36.0-66.0) % Immature Gran % (Auto) (0.00-0.4) % Nucleat RBC Rel Count (0.00-0.1) % Eos # (Auto) (0-0.5) x10^3/uL Immature Gran # (Auto) (0.00-0.03) x10^3u/L Absolute Lymphs (auto) (1.0-4.6) x10^3/uL Absolute Monos (auto) (0.0-1.3) x10^3/uL Absolute Nucleated RBC (0.00-0.01) x10^3u/L Lymphocytes % (24.0-44.0) % Monocytes % (0.0-12.0) % Eosinophils % (0.00-5.0) % Basophils % (0.0-0.4) % Absolute Granulocytes (1.4-6.9) x10^3/uL Basophils # (0-0.4) x10^3/uL PT (9.4-12.5) SECONDS INR (0.8-3.0) Sodium (137-145) mmol/L Potassium (3.5-5.1) mmol/L Chloride (98-107) mmol/L Carbon Dioxide (22-30) mmol/L Anion Gap (5-15) MEQ/L BUN (7-17) mg/dL Creatinine (0.52-1.04) mg/dL Estimated GFR ML/MIN Glucose (74-106) mg/dL Lactic Acid 1.1 (0.4-2.0) Calcium (8.4-10.2) mg/dL Magnesium (1.6-2.3) mg/dL Total Bilirubin (0.2-1.3) mg/dL AST (14-36) U/L ALT (0-35) U/L Alkaline Phosphatase (38-126) U/L Troponin I (0.000-0.034) ng/mL Serum Total Protein (6.3-8.2) g/dL Albumin (3.5-5.0) g/dL Lipase (23-300) U/L Urinalys Dipstick Clnc MAIN LAB Urine Color YELLOW (YELLOW) Urine Appearance CLEAR (CLEAR) Urine pH 6.0 (5-6) Ur Specific [place] 1.025 (1.005-1.025) POC Urine Protein Conf 30 A (Negative) Urine Ketones TRACE A (NEGATIVE) Urine Nitrite POSITIVE A (NEGATIVE) Urine Bilirubin NEGATIVE (NEGATIVE) Urine Urobilinogen 1 A (0-1) mg/dL Urine Leukocytes NEGATIVE (NEGATIVE) Urine WBC (Auto) 6-10 A (0-5) /HPF Urine RBC (Auto) 3-5 A (0-2) /HPF U Epithel Cells (Auto) NONE (FEW) /HPF Urine Bacteria (Auto) FEW A (NEGATIVE) /HPF Urine RBC MODERATE A (0-5) Jossue/ul Urine Mucus (Auto) SLIGHT A (NEGATIVE) /HPF Ur Culture Indicated? YES Urine Glucose NEGATIVE (NEGATIVE) mg/dL Influenza Type A Ag (NEGATIVE) Influenza Type B Ag (NEGATIVE) RSV (PCR) (Negative) SARS-CoV-2 (PCR) (NEGATIVE) Slides for Path Review - Progress Progress: improved Progress Note: 02/28/22 18:28 86-year-old is evaluated for confusion, abdominal pain. She does not have any chest pain. EKG did not show any acute ST elevation. Although has initial troponin of 107 but she always has elevated troponin with review of records. She has a normal white count, fairly unremarkable chemistries. Does have UTI and given a dose of Rocephin. I have obtained CT head and abdomen pelvis which are negative for any acute pathology. Later on son told that patient gets moments of confusion with UTI. Discussed with Dr. Cordova and patient is being admitted for observation, will trend cardiac enzymes and continue with antibiotics. Discussed with : Dayna Will see patient in: hospital (observation) Counseled pt/family regarding: lab results, diagnosis, rad results - Departure Departure Disposition: Observation Clinical Impression: Acute UTI, Intermittent confusion, Elevated troponin, Periumbilical pain Condition: Stable Critical Care Time: No
[2022-02-28] MEDS ORDERED: ROCEPHIN 2 Gm-D5w 50ML BAG** 2 G/50 ML IVPB IV ONE (19:08)
[2022-02-28 19:19] LABS: INFLUENZA A NEGATIVE (NEGATIVE); INFLUENZA B NEGATIVE (NEGATIVE); RESPIRATORY SYNCTIAL VIRUS NEGATIVE (Negative); SARS-CoV-2 Xpert Express NEGATIVE (NEGATIVE)
--- NOTE | 2022-02-28 19:26 | XRAY ---
Indication: Confusion. Multiple contiguous axial images obtained through the head without contrast. 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 No acute intracranial hemorrhage, abnormal extra-axial fluid collection, or mass effect. Fourth ventricle is midline without hydrocephalus. Bony calvarium intact. Visualized paranasal sinuses demonstrates new partial opacification right maxillary sinus. Remaining visualized paranasal sinuses and mastoid air cells are clear. 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 Incidental right maxillary sinus disease. Comment: Preliminary interpretation made by [facility]. No critical discrepancy.
[2022-02-28] MEDS ORDERED: JANTOVEN PO ONE (19:27)
[2022-02-28 19:30] LABS: Slide Review 1 YES
--- NOTE | 2022-02-28 19:46 | XRAY ---
Indication: Abdomen pain 2 days. History dementia. Multiple contiguous axial images obtained through the abdomen and pelvis without contrast. Comparison: May 22, 2014 Study is degraded by respiration artifact throughout. Lung bases demonstrate new posterior left lung base Bochdalek hernia with partial herniated stomach and subsequent left base compressive atelectasis. Remaining lung bases demonstrates mild dependent atelectasis. Heart is now enlarged again with cardiac valve replacement surgery. Noncontrasted stomach and bowel loops nonobstructed. Appendix not seen. There is again mild diffuse scattered colonic fecal debris with new mild rectal impaction. No free fluid/air. Remaining liver, gallbladder, pancreas, spleen, adrenal glands, kidneys, ureters, bladder, and uterus are unremarkable for noncontrast exam are unremarkable for noncontrast exam. Again moderate scattered vascular calcifications without AAA. Osseous structures again demonstrates osteopenia, significant levorotoscoliosis centered at L2, and moderate/advanced multilevel thoracolumbar degenerative spondylosis. Interval L1/L4 kyphoplasty. Impression: 1. Respiration artifact. 2. New left lung base Bochdalek hernia. 3. New cardiomegaly without shabnam CHF. 4. Again mild diffuse fecal stasis with new mild rectal impaction. 5. Chronic bony findings and scattered arteriosclerotic disease Comment: Preliminary interpretation made by [facility]. No critical discrepancy.
[2022-02-28] MEDS ORDERED: HUMALOG SQ PRN (23:07)
[2022-02-28] MEDS ORDERED: DUONEB 0.5-3 MG/3 ml Neb IH PRN (23:07)
[2022-02-28] MEDS ORDERED: Zofran 4 MG/2 ML VIAL IV PRN (23:07)
[2022-02-28] MEDS ORDERED: TYLENOL 325 MG PO PRN (23:07)
[2022-03-01 01:56] LABS: Absolute Neutrophil Ct (ANC) 6.14 x10^3/uL (1.4-6.9); BASOPHIL % 0.4 % (0.0-0.4); Basophil (Absolute #) 0.03 x10^3/uL (0-0.4); Eosinophil % 0.1 % (0.00-5.0); Eosinophil (Absolute #) 0.01 x10^3/uL (0-0.5); Hematocrit 43.7 % (35-47); IMMATURE GRAN # 0.05 x10^3u/L (0.00-0.03); IMMATURE GRAN % 0.7 % (0.00-0.4); Lymphocyte (Absolute #) 0.85 x10^3/uL (1.0-4.6); Lymphocytes % 11.5 % (24.0-44.0); Mean Cell Volume 91.4 fL (78-100); Mean Corpuscular Hemoglobin 27.2 pg (26-32); Mean Corpuscular Hgb Concent. 29.7 g/dL (32-36); Mean Platelet Volume 9.8 fL (7.5-11.0); Monocyte (Absolute #) 0.32 x10^3/uL (0.0-1.3); Monocytes % 4.3 % (0.0-12.0); Platelet Count 268 x10^3/uL (150-450); Red Blood Count 4.78 x10^6/uL (4.1-5.4); Red Cell Distribution Width 22.6 % (11.5-14.0); White Blood Count 7.4 x10^3/uL (4.0-10.5)
[2022-03-01 02:10] LABS: INR 1.82 (0.8-3.0); PROTIME 18.3 SECONDS (9.4-12.5)
[2022-03-01 02:20] LABS: ALBUMIN 3.4 g/dL (3.5-5.0); ALKALINE PHOSPHATASE 120 U/L (38-126); ANION GAP 7.2 MEQ/L (5-15); BLOOD UREA NITROGEN 18 mg/dL (7-17); CHLORIDE 103 mmol/L (98-107); Calcium 8.6 mg/dL (8.4-10.2); Carbon Dioxide 26 mmol/L (22-30); Creatinine 1 0.68 mg/dL (0.52-1.04); EST GLOMERULAR FILTRATION RATE > 60.0 ML/MIN; Glucose 136 mg/dL (74-106); Potassium 3.5 mmol/L (3.5-5.1); SGOT/AST 26 U/L (14-36); SGPT/ALT 18 U/L (0-35); SODIUM 133 mmol/L (137-145); Total Protein 5.8 g/dL (6.3-8.2)
[2022-03-01 03:41] LABS: Slide Review 1 YES
[2022-03-01] MEDS ORDERED: PROTONIX 40 MG IV IV SCH (10:00)
[2022-03-01] MEDS ORDERED: GAVILAX PO PRN (19:46)
[2022-03-01] MEDS ORDERED: ULTRAM 50 MG PO PRN (19:47)
[2022-03-01] MEDS ORDERED: Coumadin 3 MG ONE (20:29)
[2022-03-01] MEDS ORDERED: Zetia 10 MG PO ONE (22:00)
[2022-03-01] MEDS ORDERED: Lopressor 25MG Tab PO ONE (22:00)
[2022-03-01] MEDS ORDERED: ROCEPHIN 1 Gm-D5w 50 ml Bag** 1 G/50 ML IVPB IV SCH (22:00)
[2022-03-01] MEDS ORDERED: Requip 0.5 MG PO ONE (22:00)
[2022-03-01] MEDS ORDERED: Namenda 5 MG PO ONE (22:00)
[2022-03-02] MEDS ORDERED: Miralax Powder 17GM PACKET PO PRN ×2 (07:14→07:18)
[2022-03-02] MEDS ORDERED: NON-FORMULARY ITEM (Acetaminophen [Tylenol Arthritis] 650 MG Tablet.Er) PO PRN (07:18)
[2022-03-02] MEDS ORDERED: Lasix 40 MG PO PRN (07:18)
[2022-03-02] MEDS ORDERED: ULTRAM 50 MG PO PRN (07:18)
[2022-03-02] MEDS ORDERED: JANTOVEN PO SCH (07:30)
[2022-03-02] MEDS ORDERED: NON-FORMULARY ITEM (Potassium Chloride [Potassium Chloride] 20 MEQ/15 ML Liquid) PO PRN (07:30)
[2022-03-02] MEDS ORDERED: TREXALL 2.5 MG PO SCH (07:30)
[2022-03-02] MEDS ORDERED: LEUCOVORIN CALCIUM PO SCH (07:30)
[2022-03-02] MEDS ORDERED: MEDICATION INTERVENTION MC SCH ×3 (08:00)
[2022-03-02] MEDS ORDERED: VITAMIN D PO SCH (10:00)
[2022-03-02] MEDS ORDERED: NON-FORMULARY ITEM (Cyanocobalamin (Vitamin B-12) [Vitamin B12] 2,500 MCG Tab.Chew) PO SCH (10:00)
[2022-03-02] MEDS ORDERED: Protonix 40MG Tablet PO SCH (10:00)
[2022-03-02] MEDS ORDERED: NON-FORMULARY ITEM (Esomeprazole Magnesium [Nexium] 40 MG Capsule.Dr) PO SCH (10:00)
[2022-03-02] MEDS ORDERED: MEDROL 4 MG PO SCH (10:00)
[2022-03-02] MEDS ORDERED: NON-FORMULARY ITEM (Iron [Iron] 18 MG Tablet) PO SCH (10:00)
[2022-03-02] MEDS ORDERED: Lopressor 25MG Tab PO SCH (10:00)
[2022-03-02] MEDS ORDERED: Vitamin B-12 500 MCG PO SCH (10:00)
[2022-03-02] MEDS ORDERED: Namenda 5 MG PO SCH (10:00)
[2022-03-02] MEDS ORDERED: FEOSOL 325 MG PO SCH (10:00)
[2022-03-02] MEDS ORDERED: NON-FORMULARY ITEM (Memantine Hcl [Namenda] 10 MG Tablet) PO SCH (10:00)
[2022-03-02] MEDS ORDERED: NORVASC 5 MG PO SCH (12:00)
[2022-03-02 12:01] VITALS: BP 155/96; PULSE 70
[2022-03-02] MEDS ORDERED: Glucophage 500 MG PO SCH (18:00)
[2022-03-02] MEDS ORDERED: Coumadin 3 MG PO ONE (22:00)
[2022-03-02] MEDS ORDERED: Zetia 10 MG PO SCH (22:00)
[2022-03-02] MEDS ORDERED: REQUIP 2MG TAB PO SCH (22:00)
[2022-03-02] MEDS ORDERED: TRIAZOLAM 0.25 MG PO SCH (22:00)
[2022-03-02] MEDS ORDERED: Requip 0.5 MG PO SCH (22:00)
[2022-03-05 07:54] VITALS: O2SAT 96
--- NOTE | 2022-04-01 09:16 | PCM.HP ---
History of Present Illness - Chief Complaint Chief Complaint: Acute UTI, elevated troponin, intermittent confusion, abdominal pain History of Present Illness: is a 87 year old female patient with mild dementia who presented to ER with confusion and periumbilical pain. Patient told ER she was suppose to catch a plane out of [place] but Family says she was not going anywhere. PMHx iincludes coronary artery disease status post stenting, hypertension, hyperlipidemia, GERD, diabetes mellitus, arthritis, on Coumadin,mild dementia with intermittent confusion. ER evaluated for confusion, abdominal pain. She does not have any chest pain. EKG did not show any acute ST elevation. Troponin is chronically mildly elevated and was 0.07 0n admit down to 0.03 overnight. LABS- normal white count, fairly unremarkable chemistries. Does have UTI and was started on Rocephin . CT head and abdomen pelvis which are negative for any acute pathology. Son reports that patient gets moments of confusion with UTI. Patient was admitted to [facility] Obs. - Review of Systems Constitutional: No Symptoms Eyes: No Symptoms Ears, Nose, & Throat: No Symptoms Respiratory: No Symptoms Cardiac: No Symptoms Abdominal/Gastrointestinal: Abdominal Pain (mild periumbilical) Genitourinary Symptoms: Incontinence Musculoskeletal: Arthralgias Skin: No Symptoms Neurological: Other (mild memory impairment ,chronic) Psychological: No Symptoms Endocrine: No Symptoms, Other (diabetic controlled on oral meds) Medications & Allergies Home Medications: Home Medication List Esomeprazole Magnesium [Nexium] 40 mg PO DAILY 05/22/14 [History Confirmed 02/28/22] Methotrexate Sodium 2.5 mg [Trexall 2.5 mg] 6 tab PO UD 05/22/14 [History Confirmed 03/01/22] Acetaminophen [Tylenol Arthritis] 1 tab PO Q4H PRN PRN 07/22/16 [History Confirmed 02/28/22] Cholecalciferol (Vitamin D3) [Vitamin D] 2,000 units PO DAILY 07/22/16 [History Confirmed 02/28/22] Metoprolol Tartrate 25 mg PO BID 02/11/21 [History Confirmed 02/28/22] Metformin HCl 500 mg [Glucophage 500 MG] 500 mg PO EVENING MEAL 07/31/21 [History Confirmed 02/28/22] Warfarin Sodium 1 mg [Jantoven] 2.5 mg PO UD 07/31/21 [History Confirmed 02/28/22] Leucovorin Calcium 5 mg PO UD 08/01/21 [History Confirmed 02/28/22] Ezetimibe 10 mg [Zetia 10 MG] 1 tab PO HS 10/13/21 [History Confirmed 02/28/22] Cyanocobalamin (Vitamin B-12) [Vitamin B12] 2,500 mcg PO DAILY 02/28/22 [History Confirmed 02/28/22] Furosemide 40 mg [Lasix 40 MG] 40 mg PO DAILY PRN PRN 02/28/22 [History Confirmed 02/28/22] Iron 65 mg PO DAILY 02/28/22 [History Confirmed 02/28/22] Memantine HCl [Namenda] 10 mg PO BID 02/28/22 [History Confirmed 02/28/22] Methylprednisolone 4 mg [Medrol 4 mg] 4 mg PO DAILY 02/28/22 [History Confirmed 03/01/22] Polyethylene Glycol 3350 [Clearlax] 17 gm PO HSPRN PRN 02/28/22 [History Confirmed 03/01/22] Ropinirole 2Mg [Requip 2Mg Tab] 0.25 mg PO HS 02/28/22 [History Confirmed 03/01/22] Tramadol HCl 50 mg [Ultram 50 mg] 50 mg PO Q8H PRN 02/28/22 [History Confirmed 03/01/22] Triazolam 0.125 mg PO HS 02/28/22 [History Confirmed 03/01/22] Amlodipine Besylate 5 mg [Norvasc 5 mg] 5 mg PO LUNCH 03/01/22 [History Confirmed 03/01/22] Potassium Chloride 10 meq PO UD 03/01/22 [History Confirmed 03/01/22] Cefuroxime Axetil 500 mg [Ceftin 500 mg] 500 mg PO BID 7 Days #14 tablet 03/02/22 [Rx] Allergies/Adverse Reactions: Allergies Allergy/AdvReac Type Severity Reaction Status Date / Time leflunomide Allergy Stomach Verified 02/28/22 14:54 Cramps losartan potassium Allergy Verified 02/28/22 14:54 [From Cozaar] Tetracyclines Allergy Verified 02/28/22 14:54 - Past Medical History Past Medical History: Yes Neurological History: No Pertinent History ENT History: Cataracts Cardiac History: Angina, Congestive Heart Failure, Hypertension, Myocardial Infarction ([place]) Respiratory History: CHF Endocrine Medical History: Diabetes Type II Musculoskelatal History: Rheumatoid Arthritis GI Medical History: No Pertinent History History: No Pertinent History Pyscho-Social History: No Pertinent History Reproductive Disorders: No Pertinent History Comment: artificial aortic valve, heart stent - Past Surgical History Past Surgical History: Yes Neuro Surgical History: No Pertinent History Cardiac History: Cardiac Catheterization, Cardiac Stent, Valve Replacement Respiratory Surgery: No Pertinent History GI Surgical History: Hernia Repair Genitourinary Surgical Hx: No Pertinent History Musculskeletal Surgical Hx: No Pertinent History Female Surgical History: No Pertinent History Other Surgical History: artifical aortic valve - Social History Smoking Status: Never smoker Exposure to second hand smoke: No Alcohol: None Drug Use: none - Physical Exam General Appearance: no apparent distress Neurologic Exam: alert, oriented x 3, cooperative, judge clerk II-XII nml as tested, normal mood/affect, nml cerebellar function, other (no confusion today) Eye Exam: eyes nml inspection Ears, Nose, Throat Exam: normal ENT inspection Neck Exam: normal inspection Respiratory Exam: normal breath sounds Cardiovascular Exam: regular rate/rhythm Gastrointestinal/Abdomen Exam: soft, normal bowel sounds, tenderness (LLQ no guarding) Pelvic Exam: not done Rectal Exam: not done Back Exam: normal inspection (no CVA tenderness) Extremity Exam: normal inspection Skin Exam: normal color, warm, dry Results - Labs Lab/Micro Results: Microbiology 02/28/22 15:17 Urine Culture - Final Clean Catch Midstream Klebsiella Oxytoca Assessment/Plan (1) Elevated troponin Status: Chronic Assessment & Plan: treneded down overnight but remains mildly elevated consistent with Hx/records. No chest pain or dyspnea- Follows with Dr Cota ,has appt. Code(s): R74.8 - ABNORMAL LEVELS OF OTHER SERUM ENZYMES (2) Acute UTI Status: Acute Assessment & Plan: Treated with Rocephin and Rx Ceftin on discharge-see culture Code(s): N39.0 - URINARY TRACT INFECTION, SITE NOT SPECIFIED (3) Intermittent confusion Status: Acute Code(s): R41.0 - DISORIENTATION, UNSPECIFIED
--- NOTE | 2022-04-07 17:36 | PCM.DCORD ---
- Discharge Disposition: Home, Self-Care Condition: Stable Prescriptions: New Cefuroxime Axetil 500 mg [Ceftin 500 mg] 500 mg PO BID 7 Days #14 tablet No Action Methotrexate Sodium 2.5 mg [Trexall 2.5 mg] 6 tab PO UD Esomeprazole Magnesium [Nexium] 40 mg PO DAILY Acetaminophen [Tylenol Arthritis] 1 tab PO Q4H PRN PRN PRN Reason: Pain Cholecalciferol (Vitamin D3) [Vitamin D] 2,000 units PO DAILY Metoprolol Tartrate 25 mg PO BID Warfarin Sodium 1 mg [Jantoven] 2.5 mg PO UD Metformin HCl 500 mg [Glucophage 500 MG] 500 mg PO EVENING MEAL Leucovorin Calcium 5 mg PO UD Ezetimibe 10 mg [Zetia 10 MG] 1 tab PO HS Tramadol HCl 50 mg [Ultram 50 mg] 50 mg PO Q8H PRN PRN Reason: Pain Polyethylene Glycol 3350 [Clearlax] 17 gm PO HSPRN PRN PRN Reason: Constipation Ropinirole 2Mg [Requip 2Mg Tab] 0.25 mg PO HS Triazolam 0.125 mg PO HS Iron 65 mg PO DAILY Cyanocobalamin (Vitamin B-12) [Vitamin B12] 2,500 mcg PO DAILY Methylprednisolone 4 mg [Medrol 4 mg] 4 mg PO DAILY Memantine HCl [Namenda] 10 mg PO BID Furosemide 40 mg [Lasix 40 MG] 40 mg PO DAILY PRN PRN PRN Reason: CHF Potassium Chloride 10 meq PO UD Amlodipine Besylate 5 mg [Norvasc 5 mg] 5 mg PO LUNCH Instructions: Urinary Tract Infection, Adult (DC) Follow up with: BETHANY CHAMPAGNE [Primary Care Provider] - 03/03/22 11:15 am EDGAR ARCE [Family Provider] - 06/01/22 10:15 am (on the cancellation list)
== END 2022-03-02 11:25 | disposition home or self-care (01) ==
LOC: ED 14:43 → MED SURG 22:57
PROVIDERS: ADMIT Family Medicine; ATTEND Family Medicine
DX: N39.0 Urinary tract infection, site not specified (principal); R77.8 Other specified abnormalities of plasma proteins; R41.82 Altered mental status, unspecified; R10.33 Periumbilical pain; I11.0 Hypertensive heart disease with heart failure; I50.9 Heart failure, unspecified; E11.9 Type 2 diabetes mellitus without complications; Z79.01 Long term (current) use of anticoagulants; Z79.899 Other long term (current) drug therapy; Z20.828 Contact with and (suspected) exposure to other viral communicable diseases
CPT/HCPCS: 0241U; 36000; 36415; 70450; 74176; 80053; 81015; 82947; 83605; 83690; 83735; 84484; 85025; 85610; 87077; 87086; 87186; 93268; 94760; 96365; 99284; G0378; J0696; A9270-GY

== ENCOUNTER 2022-05-17 20:36 | Observation (INO) | payer OTHER, MEDICARE, BC ==
[2022-05-17] MEDS ORDERED: Sodium Chloride 0.9% 1000 ML 1,000 ML IV SCH (21:00)
[2022-05-17] MEDS ORDERED: Sodium Chloride 0.9% 1000 ML 1,000 ML ONE (21:03)
[2022-05-17 21:13] LABS: Absolute Neutrophil Ct (ANC) 6.04 x10^3/uL (1.4-6.9); BASOPHIL % 0.6 % (0.0-0.4); Basophil (Absolute #) 0.04 x10^3/uL (0-0.4); Eosinophil % 0.4 % (0.00-5.0); Eosinophil (Absolute #) 0.03 x10^3/uL (0-0.5); Hematocrit 44.4 % (35-47); Hemoglobin 14.3 g/dL (12.0-16.0); IMMATURE GRAN # 0.04 x10^3u/L (0.00-0.03); IMMATURE GRAN % 0.6 % (0.00-0.4); Lymphocyte (Absolute #) 0.47 x10^3/uL (1.0-4.6); Lymphocytes % 6.6 % (24.0-44.0); Mean Cell Volume 96.3 fL (78-100); Mean Corpuscular Hgb Concent. 32.2 g/dL (32-36); Mean Platelet Volume 10.6 fL (7.5-11.0); Monocyte (Absolute #) 0.45 x10^3/uL (0.0-1.3); Monocytes % 6.4 % (0.0-12.0); Neutrophil % 85.4 % (36.0-66.0); Platelet Count 212 x10^3/uL (150-450); Red Blood Count 4.61 x10^6/uL (4.1-5.4); Red Cell Distribution Width 17.5 % (11.5-14.0); White Blood Count 7.1 x10^3/uL (4.0-10.5)
[2022-05-17 21:29] LABS: INR 1.69 (0.8-3.0); PROTIME 17.7 SECONDS (9.4-12.5)
[2022-05-17 22:00] LABS: T4 (Thyroxine) 6.59 ug/dL (5.53-10.96); TSH, 3RD Generation 1.24 mIU/L (0.47-4.68)
[2022-05-17 22:03] LABS: ALBUMIN 3.6 g/dL (3.5-5.0); ALKALINE PHOSPHATASE 118 U/L (38-126); BLOOD UREA NITROGEN 11 mg/dL (7-17); CHLORIDE 96 mmol/L (98-107); Calcium 8.9 mg/dL (8.4-10.2); Carbon Dioxide 28 mmol/L (22-30); Creatinine 1 0.53 mg/dL (0.52-1.04); EST GLOMERULAR FILTRATION RATE > 60.0 ML/MIN; Glucose 93 mg/dL (74-106); Potassium 3.4 mmol/L (3.5-5.1); SGOT/AST 30 U/L (14-36); SGPT/ALT 23 U/L (0-35); SODIUM 132 mmol/L (137-145); Total Protein 5.9 g/dL (6.3-8.2)
[2022-05-17 22:12] LABS: ADD URINE CULTURE? YES (NO); Appearance Clear (Clear); Bacteria None Seen /HPF (None Seen); Bilirubin Negative (Negative); Blood Moderate (Negative); Epithelial Cells None Seen /HPF (None Seen); Glucose, Urine Negative (Negative); Ketones 15 (Negative); Leukocyte Esterase Trace (Negative); Nitrite Positive (Negative); Protein,Urine Dip Trace (Negative); Specific Gravity 1.015 (1.005-1.030); Urobilinogen 0.2 mg/dL (0.2); WBC 21-50 /HPF (0-5)
[2022-05-17 23:02] LABS: INFLUENZA A NEGATIVE (NEGATIVE); INFLUENZA B NEGATIVE (NEGATIVE); RESPIRATORY SYNCTIAL VIRUS NEGATIVE (Negative)
[2022-05-17 23:04] LABS: SARS-CoV-2 Xpert Express POSITIVE (NEGATIVE)
--- NOTE | 2022-05-17 23:49 | ERPHSYRPT ---
- History of Present Illness Time Seen by Provider: 05/17/22 23:44 Source: patient, family, EMS Exam Limitations: other (dementia) Patient Subjective Stated Complaint: pt c/o of general illness, not feeling well today. son states that she has had some increased confusion from her normal today and is concerned that she may have uti Triage Nursing Assessment: pt alert, answers some questions approp. does have some confusion that family feels is increased from her normal. skin warm and dry. respirations nonlabored. Physician History: pt has had some increase in her usual confusion beyond her usual dementia past few days. no focal findings on exam neuro otherwise nromal. chest and abd nontender and clear. discussed with family and pt and they agree with orders for Thyroid, CT, resp panel, CBC, CMP, Trops, EKG, and UA, and results discussehx confirmed by independent interviews with son and EMS. Timing/Duration: day(s), intermittent, worse Severity: moderate Associated Symptoms: denies symptoms Allergies/Adverse Reactions: leflunomide Allergy (Verified 05/17/22 21:02) Stomach Cramps losartan potassium [From Cozaar] Allergy (Verified 05/17/22 21:02) Tetracyclines Allergy (Verified 05/17/22 21:02) Home Medications: Esomeprazole Magnesium [Nexium] 40 mg PO DAILY 05/22/14 [History] Methotrexate Sodium 2.5 mg [Trexall 2.5 mg] 8 tab PO UD 05/22/14 [History] Cholecalciferol (Vitamin D3) [Vitamin D] 2,000 units PO DINNER 07/22/16 [History] Metoprolol Tartrate 25 mg PO BID 02/11/21 [History] Metformin HCl 500 mg [Glucophage 500 MG] 500 mg PO EVENING MEAL 07/31/21 [History] Warfarin Sodium 1 mg [Jantoven] 2.5 mg PO DINNER 07/31/21 [History] Leucovorin Calcium 5 mg PO UD 08/01/21 [History] Ezetimibe 10 mg [Zetia 10 MG] 1 tab PO HS 10/13/21 [History] Cyanocobalamin (Vitamin B-12) [Vitamin B12] 2,500 mcg PO DAILY 02/28/22 [History] Furosemide 40 mg [Lasix 40 MG] 40 mg PO DAILY PRN PRN 02/28/22 [History] Iron 65 mg PO DAILY 02/28/22 [History] Memantine HCl [Namenda] 20 mg PO BID 02/28/22 [History] Methylprednisolone 4 mg [Medrol 4 mg] 4 mg PO DAILY 02/28/22 [History] Polyethylene Glycol 3350 [Clearlax] 17 gm PO HSPRN PRN 02/28/22 [History] Ropinirole 2Mg [Requip 2Mg Tab] 1 mg PO HS 02/28/22 [History] Tramadol HCl 50 mg [Ultram 50 mg] 50 mg PO Q8H PRN 02/28/22 [History] Triazolam 0.125 mg PO HS 02/28/22 [History] Amlodipine Besylate 5 mg [Norvasc 5 mg] 5 mg PO LUNCH 03/01/22 [History] Potassium Chloride 10 meq PO UD 03/01/22 [History] Rivastigmine 1 each TD DINNER 05/17/22 [History] Hx Tetanus, Diphtheria Vaccination/Date Given: Yes Hx Influenza Vaccination/Date Given: Yes Hx Pneumococcal Vaccination/Date Given: Yes Immunizations Up to Date: Yes Travel Risk - International Travel Have you traveled outside of the country in past 3 weeks: No - Coronavirus Screening Are you exhibiting any of the following symptoms?: Yes Symptoms: Fever Close contact with a COVID-19 positive Pt in past 14-21 Days: No - Vaccine Status Have you recieved a Covid-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: 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: [employer] - Vaccination Dates Date of 2cond Vaccination (if applicable): 05/02/20 - Review of Systems Constitutional: No Fever, No Chills Eyes: No Symptoms Ears, Nose, & Throat: No Symptoms Respiratory: No Cough, No Dyspnea Cardiac: No Chest Pain, No Edema, No Syncope Abdominal/Gastrointestinal: No Abdominal Pain, No Nausea, No Vomiting, No Diarrhea Genitourinary Symptoms: No Dysuria Musculoskeletal: No Back Pain, No Neck Pain Skin: No Rash Neurological: No Dizziness, No Focal Weakness, No Sensory Changes Psychological: No Symptoms Endocrine: No Symptoms All Other Systems: Reviewed and Negative - Past Medical History Pertinent Past Medical History: Yes Neurological History: No Pertinent History ENT History: Cataracts Cardiac History: Angina, Congestive Heart Failure, Hypertension, Myocardial Infarction ([place]) Respiratory History: CHF Endocrine Medical History: Diabetes Type II Musculoskeletal History: Rheumatoid Arthritis GI Medical History: No Pertinent History History: No Pertinent History Psycho-Social History: No Pertinent History Female Reproductive Disorders: No Pertinent History Other Medical History: artificial aortic valve, heart stent, torn rotator cuff - Past Surgical History Past Surgical History: Yes Neuro Surgical History: No Pertinent History Cardiac: Cardiac Catheterization, Cardiac Stent, Valve Replacement Respiratory: No Pertinent History Gastrointestinal: Hernia Repair Genitourinary: No Pertinent History Musculoskeletal: No Pertinent History Female Surgical History: No Pertinent History Other Surgical History: artifical aortic valve - Social History Smoking Status: Never smoker Exposure to second hand smoke: No Drug Use: none Patient Lives Alone: Yes (family checks freq) - Nursing Vital Signs Nursing Vital Signs: Initial Vital Signs Temperature 99.9 F 05/17/22 20:42 Pulse Rate 87 05/17/22 20:42 Respiratory Rate 18 05/17/22 20:42 Blood Pressure 159/84 05/17/22 20:42 O2 Sat by Pulse Oximetry 96 05/17/22 20:42 Pain Scale Pain Intensity 0 - Physical Exam General Appearance: no apparent distress, alert Eye Exam: PERRL/EOMI, eyes nml inspection Ears, Nose, Throat Exam: normal ENT inspection, TMs normal, pharynx normal, moist mucous membranes Neck Exam: normal inspection, non-tender, supple, full range of motion Respiratory Exam: normal breath sounds, lungs clear, No respiratory distress Cardiovascular Exam: regular rate/rhythm, normal heart sounds, normal peripheral pulses Gastrointestinal/Abdomen Exam: soft, normal bowel sounds, No tenderness, No mass Pelvic Exam: deferred Rectal Exam: deferred Back Exam: normal inspection, normal range of motion, No CVA tenderness, No vertebral tenderness Extremity Exam: normal inspection, normal range of motion, pelvis stable Neurologic Exam: alert, oriented x 3, cooperative, tribal council member II-XII nml as tested, nor mal mood/affect, nml cerebellar function, nml station & gait, sensation nml, disoriented, confusion, No motor deficits, No facial droop, No slurred speech Skin Exam: normal color, warm, dry, No rash Lymphatic Exam: No adenopathy SpO2 Interpretation: borderline oxygenation SpO2: 93 O2 Delivery: Room Air - Course Nursing assessment & vital signs reviewed: Yes - CT Exams Head CT Interpretation: Tele-radiologist Report, No/Intracranial Hemorrhag, Old Stroke Ordered Tests: Active Orders 24 hr Category Date Time Status EKG-ER Only STAT Care 05/17/22 20:54 Active IV Insertion STAT Care 05/17/22 20:54 Active HEAD WITHOUT CONTRAST [CT] Stat Exams 05/17/22 20:56 Taken CBC W DIFF Stat Lab 05/17/22 21:12 Completed CMP Stat Lab 05/17/22 21:12 Completed CULTURE,URINE Stat Lab 05/17/22 22:03 Received Lactic Acid Stat Lab 05/17/22 21:12 Completed PT INR [PROTIME WITH INR] Stat Lab 05/17/22 20:57 Completed T4 (Thyroxine) Stat Lab 05/17/22 21:12 Completed TROPONIN Q4H Lab 05/17/22 21:12 Completed TROPONIN Q4H Lab 05/18/22 01:00 Ordered TROPONIN Q4H Lab 05/18/22 05:00 Ordered TSH [TSH, 3RD Generation] Stat Lab 05/17/22 21:12 Completed UA W/RFX UR CULTURE Stat Lab 05/17/22 22:03 Completed Medication Summary Generic Name Dose Route Start Last Admin Trade Name Freq PRN Reason Stop Dose Admin Sodium Chloride 1,000 mls @ 100 mls/hr 05/17/22 21:00 05/17/22 21:05 Sodium Chloride 0.9% 1000 Ml IV 06/16/22 20:59 100 mls/hr .Q10H ADRIAN Administration Ceftriaxone Sodium/Dextrose 1 g in 50 mls @ 100 mls/hr 05/17/22 23:51 Rocephin 1 Gm-D5w 50 Ml Bag IV 05/18/22 00:20 STAT STA Lab/Rad Data: Laboratory Result Diagrams 05/17/22 21:12 05/17/22 21:12 Laboratory Results 05/17/22 05/17/22 05/17/22 Range/Units 22:24 22:03 21:12 WBC (4.0-10.5) x10^3/uL RBC (4.1-5.4) x10^6/uL Hgb (12.0-16.0) g/dL Hct (35-47) % MCV (78-100) fL MCH (26-32) pg MCHC (32-36) g/dL RDW (11.5-14.0) % Plt Count (150-450) x10^3/uL MPV (7.5-11.0) fL Gran % (36.0-66.0) % Immature Gran % (Auto) (0.00-0.4) % Nucleat RBC Rel Count (0.00-0.1) % Eos # (Auto) (0-0.5) x10^3/uL Immature Gran # (Auto) (0.00-0.03) x10^3u/L Absolute Lymphs (auto) (1.0-4.6) x10^3/uL Absolute Monos (auto) (0.0-1.3) x10^3/uL Absolute Nucleated RBC (0.00-0.01) x10^3u/L Lymphocytes % (24.0-44.0) % Monocytes % (0.0-12.0) % Eosinophils % (0.00-5.0) % Basophils % (0.0-0.4) % Absolute Granulocytes (1.4-6.9) x10^3/uL Basophils # (0-0.4) x10^3/uL PT (9.4-12.5) SECONDS INR (0.8-3.0) Sodium (137-145) mmol/L Potassium (3.5-5.1) mmol/L Chloride (98-107) mmol/L Carbon Dioxide (22-30) mmol/L Anion Gap (5-15) MEQ/L BUN (7-17) mg/dL Creatinine (0.52-1.04) mg/dL Estimated GFR ML/MIN Glucose (74-106) mg/dL Lactic Acid (0.4-2.0) Calcium (8.4-10.2) mg/dL Total Bilirubin (0.2-1.3) mg/dL AST (14-36) U/L ALT (0-35) U/L Alkaline Phosphatase (38-126) U/L Troponin I (0.000-0.034) ng/mL Serum Total Protein (6.3-8.2) g/dL Albumin (3.5-5.0) g/dL Thyroxine (T4) 6.59 (5.53-10.96) ug/dL TSH 3rd Generation 1.240 (0.47-4.68) mIU/L Urine Color Yellow (Yellow) Urine Appearance Clear (Clear) Urine pH 6.0 (4.6-8.0) Ur Specific Amoret 1.015 (1.005-1.030) Urine Protein Trace A (Negative) Urine Glucose (UA) Negative (Negative) mg/dL Urine Ketones 15 A (Negative) Urine Blood Moderate A (Negative) Urine Nitrite Positive A (Negative) Urine Bilirubin Negative (Negative) Urine Urobilinogen 0.2 (0.2) mg/dL Ur Leukocyte Esterase Trace A (Negative) U Hyaline Cast (Auto) 3-5 A (0-2) /LPF Urine Microscopic RBC 6-10 A (0-5) /HPF Urine Microscopic WBC 21-50 A (0-5) /HPF Ur Epithelial Cells None Seen (None Seen) /HPF Urine Bacteria None Seen (None Seen) /HPF Urine Culture Reflexed YES (NO) Influenza Type A Ag NEGATIVE (NEGATIVE) Influenza Type B Ag NEGATIVE (NEGATIVE) RSV (PCR) NEGATIVE (Negative) SARS-CoV-2 (PCR) POSITIVE A (NEGATIVE) 05/17/22 05/17/22 05/17/22 Range/Units 21:12 21:12 21:12 WBC (4.0-10.5) x10^3/uL RBC (4.1-5.4) x10^6/uL Hgb (12.0-16.0) g/dL Hct (35-47) % MCV (78-100) fL MCH (26-32) pg MCHC (32-36) g/dL RDW (11.5-14.0) % Plt Count (150-450) x10^3/uL MPV (7.5-11.0) fL Gran % (36.0-66.0) % Immature Gran % (Auto) (0.00-0.4) % Nucleat RBC Rel Count (0.00-0.1) % Eos # (Auto) (0-0.5) x10^3/uL Immature Gran # (Auto) (0.00-0.03) x10^3u/L Absolute Lymphs (auto) (1.0-4.6) x10^3/uL Absolute Monos (auto) (0.0-1.3) x10^3/uL Absolute Nucleated RBC (0.00-0.01) x10^3u/L Lymphocytes % (24.0-44.0) % Monocytes % (0.0-12.0) % Eosinophils % (0.00-5.0) % Basophils % (0.0-0.4) % Absolute Granulocytes (1.4-6.9) x10^3/uL Basophils # (0-0.4) x10^3/uL PT (9.4-12.5) SECONDS INR (0.8-3.0) Sodium 132 L (137-145) mmol/L Potassium 3.4 L (3.5-5.1) mmol/L Chloride 96 L (98-107) mmol/L Carbon Dioxide 28 (22-30) mmol/L Anion Gap 11.0 (5-15) MEQ/L BUN 11 (7-17) mg/dL Creatinine 0.53 (0.52-1.04) mg/dL Estimated GFR > 60.0 ML/MIN Glucose 93 (74-106) mg/dL Lactic Acid 2.0 (0.4-2.0) Calcium 8.9 (8.4-10.2) mg/dL Total Bilirubin 0.80 (0.2-1.3) mg/dL AST 30 (14-36) U/L ALT 23 (0-35) U/L Alkaline Phosphatase 118 (38-126) U/L Troponin I 0.041 H* (0.000-0.034) ng/mL Serum Total Protein 5.9 L (6.3-8.2) g/dL Albumin 3.6 (3.5-5.0) g/dL Thyroxine (T4) (5.53-10.96) ug/dL TSH 3rd Generation (0.47-4.68) mIU/L Urine Color (Yellow) Urine Appearance (Clear) Urine pH (4.6-8.0) Ur Specific Amoret (1.005-1.030) Urine Protein (Negative) Urine Glucose (UA) (Negative) mg/dL Urine Ketones (Negative) Urine Blood (Negative) Urine Nitrite (Negative) Urine Bilirubin (Negative) Urine Urobilinogen (0.2) mg/dL Ur Leukocyte Esterase (Negative) U Hyaline Cast (Auto) (0-2) /LPF Urine Microscopic RBC (0-5) /HPF Urine Microscopic WBC (0-5) /HPF Ur Epithelial Cells (None Seen) /HPF Urine Bacteria (None Seen) /HPF Urine Culture Reflexed (NO) Influenza Type A Ag (NEGATIVE) Influenza Type B Ag (NEGATIVE) RSV (PCR) (Negative) SARS-CoV-2 (PCR) (NEGATIVE) 05/17/22 05/17/22 Range/Units 21:12 20:57 WBC 7.1 (4.0-10.5) x10^3/uL RBC 4.61 (4.1-5.4) x10^6/uL Hgb 14.3 (12.0-16.0) g/dL Hct 44.4 (35-47) % MCV 96.3 (78-100) fL MCH 31.0 (26-32) pg MCHC 32.2 (32-36) g/dL RDW 17.5 H (11.5-14.0) % Plt Count 212 (150-450) x10^3/uL MPV 10.6 (7.5-11.0) fL Gran % 85.4 H (36.0-66.0) % Immature Gran % (Auto) 0.6 H (0.00-0.4) % Nucleat RBC Rel Count 0.0 (0.00-0.1) % Eos # (Auto) 0.03 (0-0.5) x10^3/uL Immature Gran # (Auto) 0.04 H (0.00-0.03) x10^3u/L Absolute Lymphs (auto) 0.47 L (1.0-4.6) x10^3/uL Absolute Monos (auto) 0.45 (0.0-1.3) x10^3/uL Absolute Nucleated RBC 0.00 (0.00-0.01) x10^3u/L Lymphocytes % 6.6 L (24.0-44.0) % Monocytes % 6.4 (0.0-12.0) % Eosinophils % 0.4 (0.00-5.0) % Basophils % 0.6 (0.0-0.4) % Absolute Granulocytes 6.04 (1.4-6.9) x10^3/uL Basophils # 0.04 (0-0.4) x10^3/uL PT 17.7 H (9.4-12.5) SECONDS INR 1.69 (0.8-3.0) Sodium (137-145) mmol/L Potassium (3.5-5.1) mmol/L Chloride (98-107) mmol/L Carbon Dioxide (22-30) mmol/L Anion Gap (5-15) MEQ/L BUN (7-17) mg/dL Creatinine (0.52-1.04) mg/dL Estimated GFR ML/MIN Glucose (74-106) mg/dL Lactic Acid (0.4-2.0) Calcium (8.4-10.2) mg/dL Total Bilirubin (0.2-1.3) mg/dL AST (14-36) U/L ALT (0-35) U/L Alkaline Phosphatase (38-126) U/L Troponin I (0.000-0.034) ng/mL Serum Total Protein (6.3-8.2) g/dL Albumin (3.5-5.0) g/dL Thyroxine (T4) (5.53-10.96) ug/dL TSH 3rd Generation (0.47-4.68) mIU/L Urine Color (Yellow) Urine Appearance (Clear) Urine pH (4.6-8.0) Ur Specific Amoret (1.005-1.030) Urine Protein (Negative) Urine Glucose (UA) (Negative) mg/dL Urine Ketones (Negative) Urine Blood (Negative) Urine Nitrite (Negative) Urine Bilirubin (Negative) Urine Urobilinogen (0.2) mg/dL Ur Leukocyte Esterase (Negative) U Hyaline Cast (Auto) (0-2) /LPF Urine Microscopic RBC (0-5) /HPF Urine Microscopic WBC (0-5) /HPF Ur Epithelial Cells (None Seen) /HPF Urine Bacteria (None Seen) /HPF Urine Culture Reflexed (NO) Influenza Type A Ag (NEGATIVE) Influenza Type B Ag (NEGATIVE) RSV (PCR) (Negative) SARS-CoV-2 (PCR) (NEGATIVE) - Progress Progress: improved, re-examined Progress Note: 05/17/22 23:58 discussed with family, hospice , and COnsulted Dr. molly as well adn all agree best to place the pt in on obs and treat UTi, observe for improvement, and isolate for Covid. Trops were also noted to be high , but according to lab this is her baseline and no cardiac symptoms are present today but we will watch trops for trend and recheck INR and slightly bump coumaden. . Counseled pt/family regarding: lab results, diagnosis, need for follow-up, rad results Medical Desision Making - Independent Historian Additional History obtained from: Family - External Record(s) Reviewed Records reviewed as a part of evaluation & management: Clinic (consulted her hospice service to discuss coordinate care) - Discussion of managment Care discussed with:: on-call "doc" Reviewed:: Test results, Need for additional workup Agreed on:: Treatment plan, need for follow-up, decision to admit, place in obs Will see patient: in ED - Diagnostic Testing Diagnostic test were ordered, analyzed, and reviewed by me: Yes Radiological Interpretation: Teleradiologist Report - Risk of complications The pt has a mod risk of morbidity or mortality based on: Need for prescription drug management The pt has a high risk of morbidity or mortality based on: Decision regarding hospitilization or escalation of hosp level of care - Departure Departure Disposition: Observation Clinical Impression: Altered mental status, COVID-19, UTI (urinary tract infection) Condition: Good Critical Care Time: No Referrals: BETHANY CHAMPAGNE [Primary Care Provider] - Follow up/PCP as directed
[2022-05-17] MEDS ORDERED: ROCEPHIN 1 Gm-D5w 50 ml Bag** 1 G/50 ML IVPB IV STA (23:51)
[2022-05-17] MEDS ORDERED: ROCEPHIN 1 Gm-D5w 50 ml Bag** 1 G/50 ML IVPB IV ONE (23:57)
[2022-05-18] MEDS ORDERED: HUMULIN R SQ PRN (01:52)
[2022-05-18] MEDS ORDERED: JANTOVEN PO ONE (01:52)
[2022-05-18] MEDS ORDERED: TYLENOL 325 MG PO PRN (01:52)
[2022-05-18] MEDS ORDERED: DUONEB 0.5-3 MG/3 ml Neb IH PRN (01:52)
[2022-05-18 04:36] LABS: Absolute Neutrophil Ct (ANC) 4.61 x10^3/uL (1.4-6.9); BASOPHIL % 0.9 % (0.0-0.4); Basophil (Absolute #) 0.05 x10^3/uL (0-0.4); Eosinophil % 0.2 % (0.00-5.0); Eosinophil (Absolute #) 0.01 x10^3/uL (0-0.5); Hematocrit 44.3 % (35-47); Hemoglobin 14.4 g/dL (12.0-16.0); IMMATURE GRAN # 0.05 x10^3u/L (0.00-0.03); IMMATURE GRAN % 0.9 % (0.00-0.4); Lymphocyte (Absolute #) 0.58 x10^3/uL (1.0-4.6); Lymphocytes % 9.9 % (24.0-44.0); Mean Cell Volume 94.9 fL (78-100); Mean Corpuscular Hemoglobin 30.8 pg (26-32); Mean Corpuscular Hgb Concent. 32.5 g/dL (32-36); Mean Platelet Volume 10.6 fL (7.5-11.0); Monocyte (Absolute #) 0.54 x10^3/uL (0.0-1.3); Monocytes % 9.2 % (0.0-12.0); Neutrophil % 78.9 % (36.0-66.0); Platelet Count 219 x10^3/uL (150-450); Red Blood Count 4.67 x10^6/uL (4.1-5.4); Red Cell Distribution Width 18.1 % (11.5-14.0); White Blood Count 5.8 x10^3/uL (4.0-10.5)
[2022-05-18 05:06] LABS: INR 1.54 (0.8-3.0); PROTIME 16.3 SECONDS (9.4-12.5)
[2022-05-18 05:09] LABS: ALBUMIN 3.5 g/dL (3.5-5.0); ALKALINE PHOSPHATASE 102 U/L (38-126); ANION GAP 8.4 MEQ/L (5-15); BLOOD UREA NITROGEN 9 mg/dL (7-17); CHLORIDE 101 mmol/L (98-107); Calcium 8.3 mg/dL (8.4-10.2); Carbon Dioxide 27 mmol/L (22-30); Creatinine 1 0.53 mg/dL (0.52-1.04); EST GLOMERULAR FILTRATION RATE > 60.0 ML/MIN; Glucose 93 mg/dL (74-106); NT PRO BNPII 3990 pg/mL (<300); Potassium 3.3 mmol/L (3.5-5.1); SGOT/AST 30 U/L (14-36); SGPT/ALT 22 U/L (0-35); SODIUM 133 mmol/L (137-145); Total Protein 5.8 g/dL (6.3-8.2)
--- NOTE | 2022-05-18 08:46 | XRAY ---
Indication: Confusion. Altered mental status. Multiple contiguous axial images obtained through the head without contrast. 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 No acute intracranial hemorrhage, abnormal extra-axial axial fluid collection, or mass effect. Fourth ventricle is midline without hydrocephalus. Bony calvarium intact. Again near complete opacification right maxillary sinus. Remaining visualized paranasal sinuses and mastoid air cells are clear. 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 Comment: Preliminary interpretation made by [facility]. No critical discrepancy.
[2022-05-18 09:26] LABS: Slide Review 1 YES
[2022-05-18] MEDS ORDERED: MEDROL 4 MG PO SCH (10:00)
[2022-05-18] MEDS ORDERED: Pepcid 20 MG VIAL IV SCH (10:00)
[2022-05-18] MEDS ORDERED: Namenda 5 MG PO SCH (10:00)
[2022-05-18] MEDS ORDERED: NORVASC 5 MG PO SCH (12:00)
[2022-05-18 13:07] VITALS: BP 109/72; PULSE 69; O2SAT 99
--- NOTE | 2022-05-18 17:25 | PCM.SSS ---
History of Present Illness - Chief Complaint Chief Complaint: altered mental status for 1 day History of Present Illness: is a 87 year old female.pt has had some increase in her usual confusion beyond her usual dementia past few days. no focal findings on exam neuro otherwise nromal. chest and abd nontender and clear. discussed with family and pt and they agree with orders for Thyroid, CT, resp panel, CBC, CMP, Trops, EKG, and UA, and results discussehx confirmed by independent interviews with son and EMS. Timing/Duration: day(s), intermittent, worse Severity: moderate Associated Symptoms: denies symptoms - Review of Systems Constitutional: Lethargy, Malaise, Weakness, No Fever, No Chills Eyes: No Symptoms Ears, Nose, & Throat: No Symptoms Respiratory: No Cough, No Short Of Breath Cardiac: No Chest Pain, No Edema, No Syncope Abdominal/Gastrointestinal: No Abdominal Pain, No Nausea, No Vomiting, No Diarrhea Genitourinary Symptoms: No Dysuria Musculoskeletal: No Back Pain, No Neck Pain Skin: No Rash Neurological: No Dizziness, No Focal Weakness, No Sensory Changes Psychological: No Symptoms Endocrine: No Symptoms Hematologic/Lymphatic: No Symptoms Immunological/Allergic: No Symptoms Medications & Allergies Home Medications: Home Medication List Esomeprazole Magnesium [Nexium] 40 mg PO DAILY 05/22/14 [History Confirmed 05/17/22] Methotrexate Sodium 2.5 mg [Trexall 2.5 mg] 8 tab PO UD 05/22/14 [History Confirmed 05/17/22] Cholecalciferol (Vitamin D3) [Vitamin D] 2,000 units PO DINNER 07/22/16 [History Confirmed 05/17/22] Metoprolol Tartrate 25 mg PO BID 02/11/21 [History Confirmed 05/17/22] Metformin HCl 500 mg [Glucophage 500 MG] 500 mg PO EVENING MEAL 07/31/21 [History Confirmed 05/17/22] Warfarin Sodium 1 mg [Jantoven] 2.5 mg PO DINNER 07/31/21 [History Confirmed 05/17/22] Leucovorin Calcium 5 mg PO UD 08/01/21 [History Confirmed 05/17/22] Ezetimibe 10 mg [Zetia 10 MG] 1 tab PO HS 10/13/21 [History Confirmed 05/17/22] Cyanocobalamin (Vitamin B-12) [Vitamin B12] 2,500 mcg PO DAILY 02/28/22 [History Confirmed 05/17/22] Furosemide 40 mg [Lasix 40 MG] 40 mg PO DAILY PRN PRN 02/28/22 [History Confirmed 05/17/22] Iron 65 mg PO DAILY 02/28/22 [History Confirmed 05/17/22] Memantine HCl [Namenda] 20 mg PO BID 02/28/22 [History Confirmed 05/17/22] Methylprednisolone 4 mg [Medrol 4 mg] 4 mg PO DAILY 02/28/22 [History Confirmed 05/17/22] Polyethylene Glycol 3350 [Clearlax] 17 gm PO HSPRN PRN 02/28/22 [History Confirmed 05/17/22] Ropinirole 2Mg [Requip 2Mg Tab] 1 mg PO HS 02/28/22 [History Confirmed 05/17/22] Tramadol HCl 50 mg [Ultram 50 mg] 50 mg PO Q8H PRN 02/28/22 [History Confirmed 05/17/22] Triazolam 0.125 mg PO HS 02/28/22 [History Confirmed 05/17/22] Amlodipine Besylate 5 mg [Norvasc 5 mg] 5 mg PO LUNCH 03/01/22 [History Confirmed 05/17/22] Potassium Chloride 10 meq PO UD 03/01/22 [History Confirmed 05/17/22] Rivastigmine 1 each TD DINNER 05/17/22 [History Confirmed 05/17/22] Cephalexin 250 mg/5 ml Susp [Keflex 250 mg/5 ml Susp] 250 mg PO QID 7 Days #200 05/18/22 [Rx] Allergies/Adverse Reactions: Allergies Allergy/AdvReac Type Severity Reaction Status Date / Time leflunomide Allergy Stomach Verified 05/17/22 21:02 Cramps losartan potassium Allergy Verified 05/17/22 21:02 [From Cozaar] Tetracyclines Allergy Verified 05/17/22 21:02 - Past Medical History Past Medical History: Yes Neurological History: No Pertinent History ENT History: Cataracts Cardiac History: Angina, Congestive Heart Failure, Hypertension, Myocardial Infarction ([place]) Respiratory History: CHF Endocrine Medical History: Diabetes Type II Musculoskelatal History: Rheumatoid Arthritis GI Medical History: No Pertinent History History: No Pertinent History Pyscho-Social History: No Pertinent History Reproductive Disorders: No Pertinent History Comment: artificial aortic valve, heart stent, torn rotator cuff. info from history , pt confused at this time and answering questions with "I dont know" - Female History Are you now?: No - Past Surgical History Past Surgical History: Yes Neuro Surgical History: No Pertinent History Cardiac History: Cardiac Catheterization, Cardiac Stent, Valve Replacement Respiratory Surgery: No Pertinent History GI Surgical History: Hernia Repair Genitourinary Surgical Hx: No Pertinent History Musculskeletal Surgical Hx: No Pertinent History Female Surgical History: No Pertinent History Other Surgical History: artifical aortic valve - Social History Smoking Status: Never smoker Exposure to second hand smoke: No Alcohol: None Drug Use: none - Physical Exam Vital Signs: Vital Signs - 24 hr Temp Pulse Resp BP Pulse Ox 05/18/22 13:06 98.2 F 69 16 109/72 99 05/18/22 07:45 98.6 F 85 16 110/73 96 05/18/22 07:20 108 H 18 97 05/18/22 06:00 105 H 18 97 05/18/22 04:00 84 14 95 05/18/22 02:50 86 16 95 05/18/22 02:00 99.2 F 102 H 16 118/78 96 05/18/22 01:12 96 H 16 156/76 94 L 05/18/22 00:03 93 L 05/18/22 00:00 105 H 24 132/95 94 L 05/17/22 23:00 101 H 26 H 130/95 94 L 05/17/22 22:00 92 H 22 162/83 92 L 05/17/22 21:40 91 H 24 162/83 93 L 05/17/22 20:42 99.9 F 87 18 159/84 96 General Appearance: mild distress, alert, lethargy Neurologic Exam: alert, normal mood/affect, sensation nml, No motor deficits Eye Exam: PERRL/EOMI, eyes nml inspection Ears, Nose, Throat Exam: normal ENT inspection, TMs normal, pharynx normal, moist mucous membranes Neck Exam: normal inspection, non-tender, supple, full range of motion Respiratory Exam: normal breath sounds, lungs clear, No respiratory distress Cardiovascular Exam: regular rate/rhythm, normal heart sounds, normal peripheral pulses Gastrointestinal/Abdomen Exam: soft, normal bowel sounds, No tenderness, No mass Back Exam: normal inspection, normal range of motion, No CVA tenderness, No vertebral tenderness Extremity Exam: normal inspection, normal range of motion, pelvis stable Skin Exam: normal color, warm, dry, No rash Lymphatic Exam: No adenopathy Results - Labs Lab/Micro Results: Lab Results-Last 24 Hours 05/17/22 05/17/22 05/17/22 Range/Units 20:57 21:12 21:12 WBC 7.1 (4.0-10.5) x10^3/uL RBC 4.61 (4.1-5.4) x10^6/uL Hgb 14.3 (12.0-16.0) g/dL Hct 44.4 (35-47) % MCV 96.3 (78-100) fL MCH 31.0 (26-32) pg MCHC 32.2 (32-36) g/dL RDW 17.5 H (11.5-14.0) % Plt Count 212 (150-450) x10^3/uL MPV 10.6 (7.5-11.0) fL Gran % 85.4 H (36.0-66.0) % Immature Gran % (Auto) 0.6 H (0.00-0.4) % Nucleat RBC Rel Count 0.0 (0.00-0.1) % Eos # (Auto) 0.03 (0-0.5) x10^3/uL Immature Gran # (Auto) 0.04 H (0.00-0.03) x10^3u/L Absolute Lymphs (auto) 0.47 L (1.0-4.6) x10^3/uL Absolute Monos (auto) 0.45 (0.0-1.3) x10^3/uL Absolute Nucleated RBC 0.00 (0.00-0.01) x10^3u/L Lymphocytes % 6.6 L (24.0-44.0) % Monocytes % 6.4 (0.0-12.0) % Eosinophils % 0.4 (0.00-5.0) % Basophils % 0.6 (0.0-0.4) % Absolute Granulocytes 6.04 (1.4-6.9) x10^3/uL Basophils # 0.04 (0-0.4) x10^3/uL PT 17.7 H (9.4-12.5) SECONDS INR 1.69 (0.8-3.0) Sodium (137-145) mmol/L Potassium (3.5-5.1) mmol/L Chloride (98-107) mmol/L Carbon Dioxide (22-30) mmol/L Anion Gap (5-15) MEQ/L BUN (7-17) mg/dL Creatinine (0.52-1.04) mg/dL Estimated GFR ML/MIN Glucose (74-106) mg/dL POC Glucometer (74 to 106) mg/dL Hemoglobin A1c (4.5-6.0) % Lactic Acid 2.0 (0.4-2.0) Calcium (8.4-10.2) mg/dL Total Bilirubin (0.2-1.3) mg/dL AST (14-36) U/L ALT (0-35) U/L Alkaline Phosphatase (38-126) U/L Troponin I (0.000-0.034) ng/mL NT-Pro-B Natriuret Pep (<300) pg/mL Serum Total Protein (6.3-8.2) g/dL Albumin (3.5-5.0) g/dL Thyroxine (T4) (5.53-10.96) ug/dL TSH 3rd Generation (0.47-4.68) mIU/L Urine Color (Yellow) Urine Appearance (Clear) Urine pH (4.6-8.0) Ur Specific [place] (1.005-1.030) Urine Protein (Negative) Urine Glucose (UA) (Negative) mg/dL Urine Ketones (Negative) Urine Blood (Negative) Urine Nitrite (Negative) Urine Bilirubin (Negative) Urine Urobilinogen (0.2) mg/dL Ur Leukocyte Esterase (Negative) U Hyaline Cast (Auto) (0-2) /LPF Urine Microscopic RBC (0-5) /HPF Urine Microscopic WBC (0-5) /HPF Ur Epithelial Cells (None Seen) /HPF Urine Bacteria (None Seen) /HPF Urine Culture Reflexed (NO) Influenza Type A Ag (NEGATIVE) Influenza Type B Ag (NEGATIVE) RSV (PCR) (Negative) SARS-CoV-2 (PCR) (NEGATIVE) Slides for Path Review 05/17/22 05/17/22 05/17/22 Range/Units 21:12 21:12 21:12 WBC (4.0-10.5) x10^3/uL RBC (4.1-5.4) x10^6/uL Hgb (12.0-16.0) g/dL Hct (35-47) % MCV (78-100) fL MCH (26-32) pg MCHC (32-36) g/dL RDW (11.5-14.0) % Plt Count (150-450) x10^3/uL MPV (7.5-11.0) fL Gran % (36.0-66.0) % Immature Gran % (Auto) (0.00-0.4) % Nucleat RBC Rel Count (0.00-0.1) % Eos # (Auto) (0-0.5) x10^3/uL Immature Gran # (Auto) (0.00-0.03) x10^3u/L Absolute Lymphs (auto) (1.0-4.6) x10^3/uL Absolute Monos (auto) (0.0-1.3) x10^3/uL Absolute Nucleated RBC (0.00-0.01) x10^3u/L Lymphocytes % (24.0-44.0) % Monocytes % (0.0-12.0) % Eosinophils % (0.00-5.0) % Basophils % (0.0-0.4) % Absolute Granulocytes (1.4-6.9) x10^3/uL Basophils # (0-0.4) x10^3/uL PT (9.4-12.5) SECONDS INR (0.8-3.0) Sodium 132 L (137-145) mmol/L Potassium 3.4 L (3.5-5.1) mmol/L Chloride 96 L (98-107) mmol/L Carbon Dioxide 28 (22-30) mmol/L Anion Gap 11.0 (5-15) MEQ/L BUN 11 (7-17) mg/dL Creatinine 0.53 (0.52-1.04) mg/dL Estimated GFR > 60.0 ML/MIN Glucose 93 (74-106) mg/dL POC Glucometer (74 to 106) mg/dL Hemoglobin A1c (4.5-6.0) % Lactic Acid (0.4-2.0) Calcium 8.9 (8.4-10.2) mg/dL Total Bilirubin 0.80 (0.2-1.3) mg/dL AST 30 (14-36) U/L ALT 23 (0-35) U/L Alkaline Phosphatase 118 (38-126) U/L Troponin I 0.041 H* (0.000-0.034) ng/mL NT-Pro-B Natriuret Pep (<300) pg/mL Serum Total Protein 5.9 L (6.3-8.2) g/dL Albumin 3.6 (3.5-5.0) g/dL Thyroxine (T4) 6.59 (5.53-10.96) ug/dL TSH 3rd Generation 1.240 (0.47-4.68) mIU/L Urine Color (Yellow) Urine Appearance (Clear) Urine pH (4.6-8.0) Ur Specific [place] (1.005-1.030) Urine Protein (Negative) Urine Glucose (UA) (Negative) mg/dL Urine Ketones (Negative) Urine Blood (Negative) Urine Nitrite (Negative) Urine Bilirubin (Negative) Urine Urobilinogen (0.2) mg/dL Ur Leukocyte Esterase (Negative) U Hyaline Cast (Auto) (0-2) /LPF Urine Microscopic RBC (0-5) /HPF Urine Microscopic WBC (0-5) /HPF Ur Epithelial Cells (None Seen) /HPF Urine Bacteria (None Seen) /HPF Urine Culture Reflexed (NO) Influenza Type A Ag (NEGATIVE) Influenza Type B Ag (NEGATIVE) RSV (PCR) (Negative) SARS-CoV-2 (PCR) (NEGATIVE) Slides for Path Review 05/17/22 05/17/22 05/18/22 Range/Units 22:03 22:24 01:16 WBC (4.0-10.5) x10^3/uL RBC (4.1-5.4) x10^6/uL Hgb (12.0-16.0) g/dL Hct (35-47) % MCV (78-100) fL MCH (26-32) pg MCHC (32-36) g/dL RDW (11.5-14.0) % Plt Count (150-450) x10^3/uL MPV (7.5-11.0) fL Gran % (36.0-66.0) % Immature Gran % (Auto) (0.00-0.4) % Nucleat RBC Rel Count (0.00-0.1) % Eos # (Auto) (0-0.5) x10^3/uL Immature Gran # (Auto) (0.00-0.03) x10^3u/L Absolute Lymphs (auto) (1.0-4.6) x10^3/uL Absolute Monos (auto) (0.0-1.3) x10^3/uL Absolute Nucleated RBC (0.00-0.01) x10^3u/L Lymphocytes % (24.0-44.0) % Monocytes % (0.0-12.0) % Eosinophils % (0.00-5.0) % Basophils % (0.0-0.4) % Absolute Granulocytes (1.4-6.9) x10^3/uL Basophils # (0-0.4) x10^3/uL PT (9.4-12.5) SECONDS INR (0.8-3.0) Sodium (137-145) mmol/L Potassium (3.5-5.1) mmol/L Chloride (98-107) mmol/L Carbon Dioxide (22-30) mmol/L Anion Gap (5-15) MEQ/L BUN (7-17) mg/dL Creatinine (0.52-1.04) mg/dL Estimated GFR ML/MIN Glucose (74-106) mg/dL POC Glucometer (74 to 106) mg/dL Hemoglobin A1c (4.5-6.0) % Lactic Acid (0.4-2.0) Calcium (8.4-10.2) mg/dL Total Bilirubin (0.2-1.3) mg/dL AST (14-36) U/L ALT (0-35) U/L Alkaline Phosphatase (38-126) U/L Troponin I 0.049 H* (0.000-0.034) ng/mL NT-Pro-B Natriuret Pep (<300) pg/mL Serum Total Protein (6.3-8.2) g/dL Albumin (3.5-5.0) g/dL Thyroxine (T4) (5.53-10.96) ug/dL TSH 3rd Generation (0.47-4.68) mIU/L Urine Color Yellow (Yellow) Urine Appearance Clear (Clear) Urine pH 6.0 (4.6-8.0) Ur Specific [place] 1.015 (1.005-1.030) Urine Protein Trace A (Negative) Urine Glucose (UA) Negative (Negative) mg/dL Urine Ketones 15 A (Negative) Urine Blood Moderate A (Negative) Urine Nitrite Positive A (Negative) Urine Bilirubin Negative (Negative) Urine Urobilinogen 0.2 (0.2) mg/dL Ur Leukocyte Esterase Trace A (Negative) U Hyaline Cast (Auto) 3-5 A (0-2) /LPF Urine Microscopic RBC 6-10 A (0-5) /HPF Urine Microscopic WBC 21-50 A (0-5) /HPF Ur Epithelial Cells None Seen (None Seen) /HPF Urine Bacteria None Seen (None Seen) /HPF Urine Culture Reflexed YES (NO) Influenza Type A Ag NEGATIVE (NEGATIVE) Influenza Type B Ag NEGATIVE (NEGATIVE) RSV (PCR) NEGATIVE (Negative) SARS-CoV-2 (PCR) POSITIVE A (NEGATIVE) Slides for Path Review 05/18/22 05/18/22 05/18/22 Range/Units 04:30 04:36 04:36 WBC 5.8 (4.0-10.5) x10^3/uL RBC 4.67 (4.1-5.4) x10^6/uL Hgb 14.4 (12.0-16.0) g/dL Hct 44.3 (35-47) % MCV 94.9 (78-100) fL MCH 30.8 (26-32) pg MCHC 32.5 (32-36) g/dL RDW 18.1 H (11.5-14.0) % Plt Count 219 (150-450) x10^3/uL MPV 10.6 (7.5-11.0) fL Gran % 78.9 H (36.0-66.0) % Immature Gran % (Auto) 0.9 H (0.00-0.4) % Nucleat RBC Rel Count 0.0 (0.00-0.1) % Eos # (Auto) 0.01 (0-0.5) x10^3/uL Immature Gran # (Auto) 0.05 H (0.00-0.03) x10^3u/L Absolute Lymphs (auto) 0.58 L (1.0-4.6) x10^3/uL Absolute Monos (auto) 0.54 (0.0-1.3) x10^3/uL Absolute Nucleated RBC 0.00 (0.00-0.01) x10^3u/L Lymphocytes % 9.9 L (24.0-44.0) % Monocytes % 9.2 (0.0-12.0) % Eosinophils % 0.2 (0.00-5.0) % Basophils % 0.9 (0.0-0.4) % Absolute Granulocytes 4.61 (1.4-6.9) x10^3/uL Basophils # 0.05 (0-0.4) x10^3/uL PT (9.4-12.5) SECONDS INR (0.8-3.0) Sodium (137-145) mmol/L Potassium (3.5-5.1) mmol/L Chloride (98-107) mmol/L Carbon Dioxide (22-30) mmol/L Anion Gap (5-15) MEQ/L BUN (7-17) mg/dL Creatinine (0.52-1.04) mg/dL Estimated GFR ML/MIN Glucose (74-106) mg/dL POC Glucometer (74 to 106) mg/dL Hemoglobin A1c 6.30 H (4.5-6.0) % Lactic Acid (0.4-2.0) Calcium (8.4-10.2) mg/dL Total Bilirubin (0.2-1.3) mg/dL AST (14-36) U/L ALT (0-35) U/L Alkaline Phosphatase (38-126) U/L Troponin I 0.059 H* (0.000-0.034) ng/mL NT-Pro-B Natriuret Pep (<300) pg/mL Serum Total Protein (6.3-8.2) g/dL Albumin (3.5-5.0) g/dL Thyroxine (T4) (5.53-10.96) ug/dL TSH 3rd Generation (0.47-4.68) mIU/L Urine Color (Yellow) Urine Appearance (Clear) Urine pH (4.6-8.0) Ur Specific [place] (1.005-1.030) Urine Protein (Negative) Urine Glucose (UA) (Negative) mg/dL Urine Ketones (Negative) Urine Blood (Negative) Urine Nitrite (Negative) Urine Bilirubin (Negative) Urine Urobilinogen (0.2) mg/dL Ur Leukocyte Esterase (Negative) U Hyaline Cast (Auto) (0-2) /LPF Urine Microscopic RBC (0-5) /HPF Urine Microscopic WBC (0-5) /HPF Ur Epithelial Cells (None Seen) /HPF Urine Bacteria (None Seen) /HPF Urine Culture Reflexed (NO) Influenza Type A Ag (NEGATIVE) Influenza Type B Ag (NEGATIVE) RSV (PCR) (Negative) SARS-CoV-2 (PCR) (NEGATIVE) Slides for Path Review YES 05/18/22 05/18/22 05/18/22 Range/Units 04:36 04:36 07:27 WBC (4.0-10.5) x10^3/uL RBC (4.1-5.4) x10^6/uL Hgb (12.0-16.0) g/dL Hct (35-47) % MCV (78-100) fL MCH (26-32) pg MCHC (32-36) g/dL RDW (11.5-14.0) % Plt Count (150-450) x10^3/uL MPV (7.5-11.0) fL Gran % (36.0-66.0) % Immature Gran % (Auto) (0.00-0.4) % Nucleat RBC Rel Count (0.00-0.1) % Eos # (Auto) (0-0.5) x10^3/uL Immature Gran # (Auto) (0.00-0.03) x10^3u/L Absolute Lymphs (auto) (1.0-4.6) x10^3/uL Absolute Monos (auto) (0.0-1.3) x10^3/uL Absolute Nucleated RBC (0.00-0.01) x10^3u/L Lymphocytes % (24.0-44.0) % Monocytes % (0.0-12.0) % Eosinophils % (0.00-5.0) % Basophils % (0.0-0.4) % Absolute Granulocytes (1.4-6.9) x10^3/uL Basophils # (0-0.4) x10^3/uL PT 16.3 H (9.4-12.5) SECONDS INR 1.54 (0.8-3.0) Sodium 133 L (137-145) mmol/L Potassium 3.3 L (3.5-5.1) mmol/L Chloride 101 (98-107) mmol/L Carbon Dioxide 27 (22-30) mmol/L Anion Gap 8.4 (5-15) MEQ/L BUN 9 (7-17) mg/dL Creatinine 0.53 (0.52-1.04) mg/dL Estimated GFR > 60.0 ML/MIN Glucose 93 (74-106) mg/dL POC Glucometer 89 (74 to 106) mg/dL Hemoglobin A1c (4.5-6.0) % Lactic Acid (0.4-2.0) Calcium 8.3 L (8.4-10.2) mg/dL Total Bilirubin 0.60 (0.2-1.3) mg/dL AST 30 (14-36) U/L ALT 22 (0-35) U/L Alkaline Phosphatase 102 (38-126) U/L Troponin I (0.000-0.034) ng/mL NT-Pro-B Natriuret Pep 3990 (<300) pg/mL Serum Total Protein 5.8 L (6.3-8.2) g/dL Albumin 3.5 (3.5-5.0) g/dL Thyroxine (T4) (5.53-10.96) ug/dL TSH 3rd Generation (0.47-4.68) mIU/L Urine Color (Yellow) Urine Appearance (Clear) Urine pH (4.6-8.0) Ur Specific [place] (1.005-1.030) Urine Protein (Negative) Urine Glucose (UA) (Negative) mg/dL Urine Ketones (Negative) Urine Blood (Negative) Urine Nitrite (Negative) Urine Bilirubin (Negative) Urine Urobilinogen (0.2) mg/dL Ur Leukocyte Esterase (Negative) U Hyaline Cast (Auto) (0-2) /LPF Urine Microscopic RBC (0-5) /HPF Urine Microscopic WBC (0-5) /HPF Ur Epithelial Cells (None Seen) /HPF Urine Bacteria (None Seen) /HPF Urine Culture Reflexed (NO) Influenza Type A Ag (NEGATIVE) Influenza Type B Ag (NEGATIVE) RSV (PCR) (Negative) SARS-CoV-2 (PCR) (NEGATIVE) Slides for Path Review 05/18/22 Range/Units 11:29 WBC (4.0-10.5) x10^3/uL RBC (4.1-5.4) x10^6/uL Hgb (12.0-16.0) g/dL Hct (35-47) % MCV (78-100) fL MCH (26-32) pg MCHC (32-36) g/dL RDW (11.5-14.0) % Plt Count (150-450) x10^3/uL MPV (7.5-11.0) fL Gran % (36.0-66.0) % Immature Gran % (Auto) (0.00-0.4) % Nucleat RBC Rel Count (0.00-0.1) % Eos # (Auto) (0-0.5) x10^3/uL Immature Gran # (Auto) (0.00-0.03) x10^3u/L Absolute Lymphs (auto) (1.0-4.6) x10^3/uL Absolute Monos (auto) (0.0-1.3) x10^3/uL Absolute Nucleated RBC (0.00-0.01) x10^3u/L Lymphocytes % (24.0-44.0) % Monocytes % (0.0-12.0) % Eosinophils % (0.00-5.0) % Basophils % (0.0-0.4) % Absolute Granulocytes (1.4-6.9) x10^3/uL Basophils # (0-0.4) x10^3/uL PT (9.4-12.5) SECONDS INR (0.8-3.0) Sodium (137-145) mmol/L Potassium (3.5-5.1) mmol/L Chloride (98-107) mmol/L Carbon Dioxide (22-30) mmol/L Anion Gap (5-15) MEQ/L BUN (7-17) mg/dL Creatinine (0.52-1.04) mg/dL Estimated GFR ML/MIN Glucose (74-106) mg/dL POC Glucometer 132 H (74 to 106) mg/dL Hemoglobin A1c (4.5-6.0) % Lactic Acid (0.4-2.0) Calcium (8.4-10.2) mg/dL Total Bilirubin (0.2-1.3) mg/dL AST (14-36) U/L ALT (0-35) U/L Alkaline Phosphatase (38-126) U/L Troponin I (0.000-0.034) ng/mL NT-Pro-B Natriuret Pep (<300) pg/mL Serum Total Protein (6.3-8.2) g/dL Albumin (3.5-5.0) g/dL Thyroxine (T4) (5.53-10.96) ug/dL TSH 3rd Generation (0.47-4.68) mIU/L Urine Color (Yellow) Urine Appearance (Clear) Urine pH (4.6-8.0) Ur Specific [place] (1.005-1.030) Urine Protein (Negative) Urine Glucose (UA) (Negative) mg/dL Urine Ketones (Negative) Urine Blood (Negative) Urine Nitrite (Negative) Urine Bilirubin (Negative) Urine Urobilinogen (0.2) mg/dL Ur Leukocyte Esterase (Negative) U Hyaline Cast (Auto) (0-2) /LPF Urine Microscopic RBC (0-5) /HPF Urine Microscopic WBC (0-5) /HPF Ur Epithelial Cells (None Seen) /HPF Urine Bacteria (None Seen) /HPF Urine Culture Reflexed (NO) Influenza Type A Ag (NEGATIVE) Influenza Type B Ag (NEGATIVE) RSV (PCR) (Negative) SARS-CoV-2 (PCR) (NEGATIVE) Slides for Path Review Accuchecks Date 05/18/22 Date 05/18/22 Time 11:45 Time 07:44 - Radiology Impressions Radiology Exams & Impressions: Radiology Procedures Category Date Time Status HEAD WITHOUT CONTRAST [CT] Stat Exams 05/17/22 20:56 Completed - Other Procedures and Tests Respiratory Therapy 05/18/22 03:08 Respiratory Therapy Assessment DAILY 05/18/22 03:09 Oxygen Nasal Cannula 2 lpm Assessment/Plan (1) UTI (urinary tract infection) Current Visit: Yes Status: Acute Qualifiers: Urinary tract infection type: acute pyelonephritis Qualified Code(s): N10 - Acute pyelonephritis Code(s): N39.0 - URINARY TRACT INFECTION, SITE NOT SPECIFIED (2) Altered mental status Current Visit: Yes Status: Acute Qualifiers: Altered mental status type: disorientation Qualified Code(s): R41.0 - Disorientation, unspecified Code(s): R41.82 - ALTERED MENTAL STATUS, UNSPECIFIED (3) COVID-19 Current Visit: Yes Status: Acute Code(s): U07.1 - COVID-19 Hospital Summary - Hospital Course Hospital Course: Chief Complaint Diagnosis AMS/UTI/COVID Allergies Allergy/AdvReac Type Severity Reaction Status Date / Time leflunomide Allergy Stomach Verified 05/17/22 21:02 Cramps losartan potassium Allergy Verified 05/17/22 21:02 [From Dory] Tetracyclines Allergy Verified 05/17/22 21:02 Vital Signs (Last 24 hours) Temp Pulse Resp BP Pulse Ox 05/18/22 13:06 98.2 F 69 16 109/72 99 05/18/22 07:45 98.6 F 85 16 110/73 96 05/18/22 07:20 108 H 18 97 05/18/22 06:00 105 H 18 97 05/18/22 04:00 84 14 95 05/18/22 02:50 86 16 95 05/18/22 02:00 99.2 F 102 H 16 118/78 96 05/18/22 01:12 96 H 16 156/76 94 L 05/18/22 00:03 93 L 05/18/22 00:00 105 H 24 132/95 94 L 05/17/22 23:00 101 H 26 H 130/95 94 L 05/17/22 22:00 92 H 22 162/83 92 L 05/17/22 21:40 91 H 24 162/83 93 L 05/17/22 20:42 99.9 F 87 18 159/84 96 Home Medications Medication Instructions Recorded Confirmed Last Taken Type Rivastigmine 1 each TD DINNER 05/17/22 05/17/22 Unknown History Cephalexin 250 mg/5 ml Susp 250 mg PO QID 7 Days #200 05/18/22 Unknown Rx [Keflex 250 mg/5 ml Susp] Current Medications Generic Name Dose Route Start Last Admin Trade Name Whitney PRN Reason Stop Dose Admin Acetaminophen 650 mg 05/18/22 01:52 05/18/22 08:04 Acetaminophen 325 Mg Tablet PO 06/17/22 01:51 650 mg Q4H PRN PRN Administration PAIN AND/OR FEVER Albuterol/Ipratropium 3 ml 05/18/22 01:52 Ipratropium/Albuterol Sulfate 3 Ml Ampul.Neb IH 06/17/22 01:51 Q4HPRN PRN SHORTNESS OF BREATH/WHEEZING Amlodipine Besylate 5 mg 05/18/22 12:00 05/18/22 13:08 Amlodipine Besylate 5 Mg Tablet PO 06/17/22 11:59 5 mg 1200 ADRIAN Administration Famotidine 20 mg 05/18/22 10:00 05/18/22 10:46 Famotidine 20 Mg/1 Vial IV 06/17/22 09:59 20 mg Q12HT ADRIAN Administration Ceftriaxone Sodium/Dextrose 1 g in 50 mls @ 100 mls/hr 05/18/22 22:00 Rocephin 1 Gm-D5w 50 Ml Bag IV 05/21/22 21:59 Q24H22 ADRIAN Insulin Human Regular 0 unit 05/18/22 01:52 Insulin Regular, Human 1 Unit SQ 06/17/22 01:51 UD PRN HYPERGLYCEMIA Memantine 20 mg 05/18/22 10:00 05/18/22 10:46 Memantine Hcl 5 Mg Tablet PO 06/17/22 09:59 20 mg BID ADRIAN Administration Methylprednisolone 4 mg 05/18/22 10:00 05/18/22 10:46 Methylprednisolone 4 Mg Tablet PO 06/17/22 09:59 4 mg DAILY ADRIAN Administration Discontinued Medications Generic Name Dose Route Start Last Admin Trade Name Whitney PRN Reason Stop Dose Admin Sodium Chloride 1,000 mls @ 100 mls/hr 05/17/22 21:00 05/17/22 21:05 Sodium Chloride 0.9% 1000 Ml IV 06/16/22 20:59 100 mls/hr .Q10H ADRIAN Administration Ceftriaxone Sodium/Dextrose 1 g in 50 mls @ 100 mls/hr 05/17/22 23:51 05/17/22 23:59 Rocephin 1 Gm-D5w 50 Ml Bag IV 05/18/22 00:20 100 mls/hr STAT STA 100 mls/hr Administration Ceftriaxone Sodium/Dextrose Confirm 05/17/22 23:57 Rocephin 1 Gm-D5w 50 Ml Bag Administered 05/17/22 23:58 Dose 1 g in 50 mls @ ud IV .STK-MED ONE Sodium Chloride Confirm 05/17/22 21:03 Sodium Chloride 0.9% 1000 Ml Administered 05/17/22 21:04 Dose 1,000 mls @ ud .ROUTE .STK-MED ONE Warfarin Sodium 5 mg 05/18/22 01:52 05/18/22 02:26 Warfarin Sodium 5 Mg 5 Mg Tablet PO 05/18/22 01:53 5 mg ONCE ONE Administration Intake & Output (Last 24 hours) 05/16/22 05/17/22 05/18/22 05/19/22 11:59 11:59 11:59 11:59 Intake Total 280 340 Output Total 350 Balance 280 -10 Weight 52.2 kg Microbiology Results (Last 24 hours) 05/17/22 22:03 Urine, Void Urine Culture - Pending Laboratory Results (Last 24 hours) 05/18/22 05/18/22 05/18/22 11:29 07:27 04:36 WBC RBC Hgb Hct MCV MCH MCHC RDW Plt Count MPV Gran % Immature Gran % (Auto) Nucleat RBC Rel Count Eos # (Auto) Immature Gran # (Auto) Absolute Lymphs (auto) Absolute Monos (auto) Absolute Nucleated RBC Lymphocytes % Monocytes % Eosinophils % Basophils % Absolute Granulocytes Basophils # PT 16.3 H INR 1.54 Sodium Potassium Chloride Carbon Dioxide Anion Gap BUN Creatinine Estimated GFR Glucose POC Glucometer 132 H 89 Hemoglobin A1c Lactic Acid Calcium Total Bilirubin AST ALT Alkaline Phosphatase Troponin I NT-Pro-B Natriuret Pep Serum Total Protein Albumin Thyroxine (T4) TSH 3rd Generation Urine Color Urine Appearance Urine pH Ur Specific [place] Urine Protein Urine Glucose (UA) Urine Ketones Urine Blood Urine Nitrite Urine Bilirubin Urine Urobilinogen Ur Leukocyte Esterase U Hyaline Cast (Auto) Urine Microscopic RBC Urine Microscopic WBC Ur Epithelial Cells Urine Bacteria Urine Culture Reflexed Influenza Type A Ag Influenza Type B Ag RSV (PCR) SARS-CoV-2 (PCR) Slides for Path Review 0305/18/22 05/18/22 04:36 04:36 04:36 WBC 5.8 RBC 4.67 Hgb 14.4 Hct 44.3 MCV 94.9 MCH 30.8 MCHC 32.5 RDW 18.1 H Plt Count 219 MPV 10.6 Gran % 78.9 H Immature Gran % (Auto) 0.9 H Nucleat RBC Rel Count 0.0 Eos # (Auto) 0.01 Immature Gran # (Auto) 0.05 H Absolute Lymphs (auto) 0.58 L Absolute Monos (auto) 0.54 Absolute Nucleated RBC 0.00 Lymphocytes % 9.9 L Monocytes % 9.2 Eosinophils % 0.2 Basophils % 0.9 Absolute Granulocytes 4.61 Basophils # 0.05 PT INR Sodium 133 L Potassium 3.3 L Chloride 101 Carbon Dioxide 27 Anion Gap 8.4 BUN 9 Creatinine 0.53 Estimated GFR > 60.0 Glucose 93 POC Glucometer Hemoglobin A1c Lactic Acid Calcium 8.3 L Total Bilirubin 0.60 AST 30 ALT 22 Alkaline Phosphatase 102 Troponin I 0.059 H* NT-Pro-B Natriuret Pep 3990 Serum Total Protein 5.8 L Albumin 3.5 Thyroxine (T4) TSH 3rd Generation Urine Color Urine Appearance Urine pH Ur Specific [place] Urine Protein Urine Glucose (UA) Urine Ketones Urine Blood Urine Nitrite Urine Bilirubin Urine Urobilinogen Ur Leukocyte Esterase U Hyaline Cast (Auto) Urine Microscopic RBC Urine Microscopic WBC Ur Epithelial Cells Urine Bacteria Urine Culture Reflexed Influenza Type A Ag Influenza Type B Ag RSV (PCR) SARS-CoV-2 (PCR) Slides for Path Review YES 05/18/22 05/18/22 05/17/22 04:30 01:16 22:24 WBC RBC Hgb Hct MCV MCH MCHC RDW Plt Count MPV Gran % Immature Gran % (Auto) Nucleat RBC Rel Count Eos # (Auto) Immature Gran # (Auto) Absolute Lymphs (auto) Absolute Monos (auto) Absolute Nucleated RBC Lymphocytes % Monocytes % Eosinophils % Basophils % Absolute Granulocytes Basophils # PT INR Sodium Potassium Chloride Carbon Dioxide Anion Gap BUN Creatinine Estimated GFR Glucose POC Glucometer Hemoglobin A1c 6.30 H Lactic Acid Calcium Total Bilirubin AST ALT Alkaline Phosphatase Troponin I 0.049 H* NT-Pro-B Natriuret Pep Serum Total Protein Albumin Thyroxine (T4) TSH 3rd Generation Urine Color Urine Appearance Urine pH Ur Specific [place] Urine Protein Urine Glucose (UA) Urine Ketones Urine Blood Urine Nitrite Urine Bilirubin Urine Urobilinogen Ur Leukocyte Esterase U Hyaline Cast (Auto) Urine Microscopic RBC Urine Microscopic WBC Ur Epithelial Cells Urine Bacteria Urine Culture Reflexed Influenza Type A Ag NEGATIVE Influenza Type B Ag NEGATIVE RSV (PCR) NEGATIVE SARS-CoV-2 (PCR) POSITIVE A Slides for Path Review 05/17/22 05/17/22 05/17/22 22:03 21:12 21:12 WBC RBC Hgb Hct MCV MCH MCHC RDW Plt Count MPV Gran % Immature Gran % (Auto) Nucleat RBC Rel Count Eos # (Auto) Immature Gran # (Auto) Absolute Lymphs (auto) Absolute Monos (auto) Absolute Nucleated RBC Lymphocytes % Monocytes % Eosinophils % Basophils % Absolute Granulocytes Basophils # PT INR Sodium Potassium Chloride Carbon Dioxide Anion Gap BUN Creatinine Estimated GFR Glucose POC Glucometer Hemoglobin A1c Lactic Acid Calcium Total Bilirubin AST ALT Alkaline Phosphatase Troponin I 0.041 H* NT-Pro-B Natriuret Pep Serum Total Protein Albumin Thyroxine (T4) 6.59 TSH 3rd Generation 1.240 Urine Color Yellow Urine Appearance Clear Urine pH 6.0 Ur Specific [place] 1.015 Urine Protein Trace A Urine Glucose (UA) Negative Urine Ketones 15 A Urine Blood Moderate A Urine Nitrite Positive A Urine Bilirubin Negative Urine Urobilinogen 0.2 Ur Leukocyte Esterase Trace A U Hyaline Cast (Auto) 3-5 A Urine Microscopic RBC 6-10 A Urine Microscopic WBC 21-50 A Ur Epithelial Cells None Seen Urine Bacteria None Seen Urine Culture Reflexed YES Influenza Type A Ag Influenza Type B Ag RSV (PCR) SARS-CoV-2 (PCR) Slides for Path Review 05/17/22 05/17/22 05/17/22 21:12 21:12 21:12 WBC 7.1 RBC 4.61 Hgb 14.3 Hct 44.4 MCV 96.3 MCH 31.0 MCHC 32.2 RDW 17.5 H Plt Count 212 MPV 10.6 Gran % 85.4 H Immature Gran % (Auto) 0.6 H Nucleat RBC Rel Count 0.0 Eos # (Auto) 0.03 Immature Gran # (Auto) 0.04 H Absolute Lymphs (auto) 0.47 L Absolute Monos (auto) 0.45 Absolute Nucleated RBC 0.00 Lymphocytes % 6.6 L Monocytes % 6.4 Eosinophils % 0.4 Basophils % 0.6 Absolute Granulocytes 6.04 Basophils # 0.04 PT INR Sodium 132 L Potassium 3.4 L Chloride 96 L Carbon Dioxide 28 Anion Gap 11.0 BUN 11 Creatinine 0.53 Estimated GFR > 60.0 Glucose 93 POC Glucometer Hemoglobin A1c Lactic Acid 2.0 Calcium 8.9 Total Bilirubin 0.80 AST 30 ALT 23 Alkaline Phosphatase 118 Troponin I NT-Pro-B Natriuret Pep Serum Total Protein 5.9 L Albumin 3.6 Thyroxine (T4) TSH 3rd Generation Urine Color Urine Appearance Urine pH Ur Specific [place] Urine Protein Urine Glucose (UA) Urine Ketones Urine Blood Urine Nitrite Urine Bilirubin Urine Urobilinogen Ur Leukocyte Esterase U Hyaline Cast (Auto) Urine Microscopic RBC Urine Microscopic WBC Ur Epithelial Cells Urine Bacteria Urine Culture Reflexed Influenza Type A Ag Influenza Type B Ag RSV (PCR) SARS-CoV-2 (PCR) Slides for Path Review 05/17/22 20:57 WBC RBC Hgb Hct MCV MCH MCHC RDW Plt Count MPV Gran % Immature Gran % (Auto) Nucleat RBC Rel Count Eos # (Auto) Immature Gran # (Auto) Absolute Lymphs (auto) Absolute Monos (auto) Absolute Nucleated RBC Lymphocytes % Monocytes % Eosinophils % Basophils % Absolute Granulocytes Basophils # PT 17.7 H INR 1.69 Sodium Potassium Chloride Carbon Dioxide Anion Gap BUN Creatinine Estimated GFR Glucose POC Glucometer Hemoglobin A1c Lactic Acid Calcium Total Bilirubin AST ALT Alkaline Phosphatase Troponin I NT-Pro-B Natriuret Pep Serum Total Protein Albumin Thyroxine (T4) TSH 3rd Generation Urine Color Urine Appearance Urine pH Ur Specific [place] Urine Protein Urine Glucose (UA) Urine Ketones Urine Blood Urine Nitrite Urine Bilirubin Urine Urobilinogen Ur Leukocyte Esterase U Hyaline Cast (Auto) Urine Microscopic RBC Urine Microscopic WBC Ur Epithelial Cells Urine Bacteria Urine Culture Reflexed Influenza Type A Ag Influenza Type B Ag RSV (PCR) SARS-CoV-2 (PCR) Slides for Path Review Orders (Last 24 hours) Category Date Time Status Bedrest with BRP/BSC ROUTINE Activity 05/18/22 01:52 Active Code Status Order ROUTINE Care 05/18/22 01:52 Active EKG-ER Only STAT Care 05/17/22 20:54 Completed IV Care Q6H Care 05/18/22 01:52 Active IV Care Q6H Care 05/18/22 01:52 Completed IV Insertion STAT Care 05/17/22 20:54 Completed Isolation, Initiate & Maintain Q6H Care 05/18/22 01:52 Active Neuro Checks Q2H Care 05/18/22 01:52 Active POCT Glucose Check ACHS Care 05/18/22 01:[address] in Observation ROUTINE Care 05/18/22 01:52 Active Carolina Armstrong ROUTINE Care 05/18/22 01:52 Active Telemetry q6h Care 05/18/22 01:52 Active Vital Signs Q4H Care 05/18/22 01:52 Active Cardio-Pulmonary Rehab .as ordered Cons 05/18/22 02:56 Active Scheme Technician/Discharge Plan ROUTINE Cons 05/18/22 03:24 Active Heart-Healthy Diet Diet 05/18/22 Breakfast Active Nutritional Admission Screen ONCE Diet 05/18/22 03:24 Active Discharge Routine Discharge 05/18/22 Ordered HEAD WITHOUT CONTRAST [CT] Stat Exams 05/17/22 20:56 Completed CBC W DIFF AM.LAB Lab 05/18/22 04:36 Completed CBC W DIFF Stat Lab 05/17/22 21:12 Completed CMP AM.LAB Lab 05/18/22 04:36 Completed CMP Stat Lab 05/17/22 21:12 Completed COVID/FLU/RSV Panel Stat Lab 05/17/22 22:24 Completed CULTURE,URINE Stat Lab 05/17/22 22:03 Received HEMOGLOBIN A1C Urgent Lab 05/18/22 04:30 Completed Lactic Acid Stat Lab 05/17/22 21:12 Completed NT PRO BNPII AM.LAB Lab 05/18/22 04:36 Completed POCT GLUCOSE Stat Lab 05/18/22 07:27 Completed POCT GLUCOSE Stat Lab 05/18/22 11:29 Completed PROTIME WITH INR Routine Lab 05/18/22 04:36 Completed PT INR [PROTIME WITH INR] Stat Lab 05/17/22 20:57 Completed T4 (Thyroxine) Stat Lab 05/17/22 21:12 Completed TROPONIN Q4H Lab 05/17/22 21:12 Completed TROPONIN Q4H Lab 05/18/22 01:16 Completed TROPONIN Q4H Lab 05/18/22 04:36 Completed TSH [TSH, 3RD Generation] Stat Lab 05/17/22 21:12 Completed UA W/RFX UR CULTURE Stat Lab 05/17/22 22:03 Completed Acetaminophen 325 mg [Tylenol 325 mg] Med 05/18/22 01:52 Active 650 mg PO Q4H PRN PRN Albuterol/Ipratropium 3ml Neb* [DUONEB 0.5-3 MG/3 ml Med 05/18/22 01:52 Active Neb] 3 ml IH Q4HPRN PRN Amlodipine Besylate 5 mg [Norvasc 5 mg] Med 05/18/22 12:00 Active 5 mg PO 1200 Ceftriaxone 1 GM/50 ML PREMIX* [ROCEPHIN 1 Gm-D5w 50 ml Med 05/18/22 22:00 Active Bag] 1 g in 50 ml IV Q24H22 Ceftriaxone 1 GM/50 ML PREMIX* [ROCEPHIN 1 Gm-D5w 50 ml Med 05/17/22 23:51 Discontinued Bag] 1 g in 50 ml IV STAT Ceftriaxone 1 GM/50 ML PREMIX* [ROCEPHIN 1 Gm-D5w 50 ml Med 05/17/22 23:57 Discontinued Bag] 1 g in 50 ml IV UD Famotidine 20 mg Vial [Pepcid 20 MG VIAL] Med 05/18/22 10:00 Active 20 mg IV Q12HT Insulin Regular, Human [Humulin R] Med 05/18/22 01:52 Active See Dose Instructions SQ UD PRN Memantine HCl 5 mg [Namenda 5 MG] Med 05/18/22 10:00 Active 20 mg PO BID Methylprednisolone 4 mg [Medrol 4 mg] Med 05/18/22 10:00 Active 4 mg PO DAILY NaCl 0.9% 1000 ml [Sodium Chloride 0.9% 1000 ML] 1,000 Med 05/17/22 21:03 Discontinued ml .ROUTE UD NaCl 0.9% 1000 ml [Sodium Chloride 0.9% 1000 ML] 1,000 Med 05/17/22 21:00 Discontinued ml IV 100 mls/hr Warfarin Sodium 5 mg [Jantoven] Med 05/18/22 01:52 Discontinued 5 mg PO ONCE ONE Oxygen Nasal Cannula 2 lpm RT 05/18/22 03:09 Active Pulse Oximetry .continuos RT 05/18/22 03:09 Active Respiratory Therapy Assessment DAILY RT 05/18/22 03:08 Active Respiratory Therapy Consult ROUTINE RT 05/18/22 01:52 Completed Transfer Order Routine Transfer 05/18/22 Completed Patient Care Notes (Last 24 hours) 05/18/22 12:23 Case Management Note by Adilene Anne WITH [facility] UPDATED ON PLAN TO DC HOME LATER TODAY AFTER 3:30 WHEN FAMILY GETS OFF WORK. SHE VERIFIED UNDERSTANDING AND REPORTS A NURSE WILL BE OUT THIS EVENING TO DO A "TUCK IN" VISIT. Initialized on 05/18/22 12:23 - END OF NOTE 05/18/22 12:20 (created 05/18/22 12:29) Nursing Note by Tania Rosenberg rounded on patient. Initialized on 05/18/22 12:29 - END OF NOTE 05/18/22 11:55 (created 05/18/22 13:09) Case Management Note by Hannah Ram DR ROUNDED AND EVALUATED, PLANS TO DC HOME WITH [facility] - PT IS ALREADY ON SERVICE. RX: CEPHALEXIN 250MG/5ML, TAKE 250MG PO QID X 7DAYS, NO REFILLS - CALLED INTO [facility]. Initialized on 05/18/22 13:09 - END OF NOTE 05/18/22 09:32 Case Management Note by Adilene Anne S/W [place] FROM [facility]- PATIENT IS A CURRENT PATIENT OF THEIRS. LONG PATIENT STAYS OBS SHE WILL REMAIN ON THEIR SERVICE. CALLED JE[facility] TO DISCUSS DC PLANS- NO ANSWER-LM Initialized on 05/18/22 09:32 - END OF NOTE - Vitals & Intake/Output Vital Signs: Vital Signs Temperature 98.2 F 05/18/22 13:06 Pulse Rate 69 05/18/22 13:06 Respiratory Rate 16 05/18/22 13:06 Blood Pressure 109/72 05/18/22 13:06 O2 Sat by Pulse Oximetry 99 05/18/22 13:06 Intake & Output: Intake & Output 05/16/22 05/17/22 05/18/22 05/19/22 11:59 11:59 11:59 11:59 Intake Total 280 340 Output Total 350 Balance 280 -10 Weight 52.2 kg - Lab Result Diagrams: 05/18/22 04:36 05/18/22 04:36 Lab Results-Last 24 Hrs: Lab Results-Last 24 Hours 05/17/22 05/17/22 05/17/22 Range/Units 20:57 21:12 21:12 WBC 7.1 (4.0-10.5) x10^3/uL RBC 4.61 (4.1-5.4) x10^6/uL Hgb 14.3 (12.0-16.0) g/dL Hct 44.4 (35-47) % MCV 96.3 (78-100) fL MCH 31.0 (26-32) pg MCHC 32.2 (32-36) g/dL RDW 17.5 H (11.5-14.0) % Plt Count 212 (150-450) x10^3/uL MPV 10.6 (7.5-11.0) fL Gran % 85.4 H (36.0-66.0) % Immature Gran % (Auto) 0.6 H (0.00-0.4) % Nucleat RBC Rel Count 0.0 (0.00-0.1) % Eos # (Auto) 0.03 (0-0.5) x10^3/uL Immature Gran # (Auto) 0.04 H (0.00-0.03) x10^3u/L Absolute Lymphs (auto) 0.47 L (1.0-4.6) x10^3/uL Absolute Monos (auto) 0.45 (0.0-1.3) x10^3/uL Absolute Nucleated RBC 0.00 (0.00-0.01) x10^3u/L Lymphocytes % 6.6 L (24.0-44.0) % Monocytes % 6.4 (0.0-12.0) % Eosinophils % 0.4 (0.00-5.0) % Basophils % 0.6 (0.0-0.4) % Absolute Granulocytes 6.04 (1.4-6.9) x10^3/uL Basophils # 0.04 (0-0.4) x10^3/uL PT 17.7 H (9.4-12.5) SECONDS INR 1.69 (0.8-3.0) Sodium (137-145) mmol/L Potassium (3.5-5.1) mmol/L Chloride (98-107) mmol/L Carbon Dioxide (22-30) mmol/L Anion Gap (5-15) MEQ/L BUN (7-17) mg/dL Creatinine (0.52-1.04) mg/dL Estimated GFR ML/MIN Glucose (74-106) mg/dL POC Glucometer (74 to 106) mg/dL Hemoglobin A1c (4.5-6.0) % Lactic Acid 2.0 (0.4-2.0) Calcium (8.4-10.2) mg/dL Total Bilirubin (0.2-1.3) mg/dL AST (14-36) U/L ALT (0-35) U/L Alkaline Phosphatase (38-126) U/L Troponin I (0.000-0.034) ng/mL NT-Pro-B Natriuret Pep (<300) pg/mL Serum Total Protein (6.3-8.2) g/dL Albumin (3.5-5.0) g/dL Thyroxine (T4) (5.53-10.96) ug/dL TSH 3rd Generation (0.47-4.68) mIU/L Urine Color (Yellow) Urine Appearance (Clear) Urine pH (4.6-8.0) Ur Specific [place] (1.005-1.030) Urine Protein (Negative) Urine Glucose (UA) (Negative) mg/dL Urine Ketones (Negative) Urine Blood (Negative) Urine Nitrite (Negative) Urine Bilirubin (Negative) Urine Urobilinogen (0.2) mg/dL Ur Leukocyte Esterase (Negative) U Hyaline Cast (Auto) (0-2) /LPF Urine Microscopic RBC (0-5) /HPF Urine Microscopic WBC (0-5) /HPF Ur Epithelial Cells (None Seen) /HPF Urine Bacteria (None Seen) /HPF Urine Culture Reflexed (NO) Influenza Type A Ag (NEGATIVE) Influenza Type B Ag (NEGATIVE) RSV (PCR) (Negative) SARS-CoV-2 (PCR) (NEGATIVE) Slides for Path Review 05/17/22 05/17/22 05/17/22 Range/Units 21:12 21:12 21:12 WBC (4.0-10.5) x10^3/uL RBC (4.1-5.4) x10^6/uL Hgb (12.0-16.0) g/dL Hct (35-47) % MCV (78-100) fL MCH (26-32) pg MCHC (32-36) g/dL RDW (11.5-14.0) % Plt Count (150-450) x10^3/uL MPV (7.5-11.0) fL Gran % (36.0-66.0) % Immature Gran % (Auto) (0.00-0.4) % Nucleat RBC Rel Count (0.00-0.1) % Eos # (Auto) (0-0.5) x10^3/uL Immature Gran # (Auto) (0.00-0.03) x10^3u/L Absolute Lymphs (auto) (1.0-4.6) x10^3/uL Absolute Monos (auto) (0.0-1.3) x10^3/uL Absolute Nucleated RBC (0.00-0.01) x10^3u/L Lymphocytes % (24.0-44.0) % Monocytes % (0.0-12.0) % Eosinophils % (0.00-5.0) % Basophils % (0.0-0.4) % Absolute Granulocytes (1.4-6.9) x10^3/uL Basophils # (0-0.4) x10^3/uL PT (9.4-12.5) SECONDS INR (0.8-3.0) Sodium 132 L (137-145) mmol/L Potassium 3.4 L (3.5-5.1) mmol/L Chloride 96 L (98-107) mmol/L Carbon Dioxide 28 (22-30) mmol/L Anion Gap 11.0 (5-15) MEQ/L BUN 11 (7-17) mg/dL Creatinine 0.53 (0.52-1.04) mg/dL Estimated GFR > 60.0 ML/MIN Glucose 93 (74-106) mg/dL POC Glucometer (74 to 106) mg/dL Hemoglobin A1c (4.5-6.0) % Lactic Acid (0.4-2.0) Calcium 8.9 (8.4-10.2) mg/dL Total Bilirubin 0.80 (0.2-1.3) mg/dL AST 30 (14-36) U/L ALT 23 (0-35) U/L Alkaline Phosphatase 118 (38-126) U/L Troponin I 0.041 H* (0.000-0.034) ng/mL NT-Pro-B Natriuret Pep (<300) pg/mL Serum Total Protein 5.9 L (6.3-8.2) g/dL Albumin 3.6 (3.5-5.0) g/dL Thyroxine (T4) 6.59 (5.53-10.96) ug/dL TSH 3rd Generation 1.240 (0.47-4.68) mIU/L Urine Color (Yellow) Urine Appearance (Clear) Urine pH (4.6-8.0) Ur Specific [place] (1.005-1.030) Urine Protein (Negative) Urine Glucose (UA) (Negative) mg/dL Urine Ketones (Negative) Urine Blood (Negative) Urine Nitrite (Negative) Urine Bilirubin (Negative) Urine Urobilinogen (0.2) mg/dL Ur Leukocyte Esterase (Negative) U Hyaline Cast (Auto) (0-2) /LPF Urine Microscopic RBC (0-5) /HPF Urine Microscopic WBC (0-5) /HPF Ur Epithelial Cells (None Seen) /HPF Urine Bacteria (None Seen) /HPF Urine Culture Reflexed (NO) Influenza Type A Ag (NEGATIVE) Influenza Type B Ag (NEGATIVE) RSV (PCR) (Negative) SARS-CoV-2 (PCR) (NEGATIVE) Slides for Path Review 05/17/22 05/17/22 05/18/22 Range/Units 22:03 22:24 01:16 WBC (4.0-10.5) x10^3/uL RBC (4.1-5.4) x10^6/uL Hgb (12.0-16.0) g/dL Hct (35-47) % MCV (78-100) fL MCH (26-32) pg MCHC (32-36) g/dL RDW (11.5-14.0) % Plt Count (150-450) x10^3/uL MPV (7.5-11.0) fL Gran % (36.0-66.0) % Immature Gran % (Auto) (0.00-0.4) % Nucleat RBC Rel Count (0.00-0.1) % Eos # (Auto) (0-0.5) x10^3/uL Immature Gran # (Auto) (0.00-0.03) x10^3u/L Absolute Lymphs (auto) (1.0-4.6) x10^3/uL Absolute Monos (auto) (0.0-1.3) x10^3/uL Absolute Nucleated RBC (0.00-0.01) x10^3u/L Lymphocytes % (24.0-44.0) % Monocytes % (0.0-12.0) % Eosinophils % (0.00-5.0) % Basophils % (0.0-0.4) % Absolute Granulocytes (1.4-6.9) x10^3/uL Basophils # (0-0.4) x10^3/uL PT (9.4-12.5) SECONDS INR (0.8-3.0) Sodium (137-145) mmol/L Potassium (3.5-5.1) mmol/L Chloride (98-107) mmol/L Carbon Dioxide (22-30) mmol/L Anion Gap (5-15) MEQ/L BUN (7-17) mg/dL Creatinine (0.52-1.04) mg/dL Estimated GFR ML/MIN Glucose (74-106) mg/dL POC Glucometer (74 to 106) mg/dL Hemoglobin A1c (4.5-6.0) % Lactic Acid (0.4-2.0) Calcium (8.4-10.2) mg/dL Total Bilirubin (0.2-1.3) mg/dL AST (14-36) U/L ALT (0-35) U/L Alkaline Phosphatase (38-126) U/L Troponin I 0.049 H* (0.000-0.034) ng/mL NT-Pro-B Natriuret Pep (<300) pg/mL Serum Total Protein (6.3-8.2) g/dL Albumin (3.5-5.0) g/dL Thyroxine (T4) (5.53-10.96) ug/dL TSH 3rd Generation (0.47-4.68) mIU/L Urine Color Yellow (Yellow) Urine Appearance Clear (Clear) Urine pH 6.0 (4.6-8.0) Ur Specific [place] 1.015 (1.005-1.030) Urine Protein Trace A (Negative) Urine Glucose (UA) Negative (Negative) mg/dL Urine Ketones 15 A (Negative) Urine Blood Moderate A (Negative) Urine Nitrite Positive A (Negative) Urine Bilirubin Negative (Negative) Urine Urobilinogen 0.2 (0.2) mg/dL Ur Leukocyte Esterase Trace A (Negative) U Hyaline Cast (Auto) 3-5 A (0-2) /LPF Urine Microscopic RBC 6-10 A (0-5) /HPF Urine Microscopic WBC 21-50 A (0-5) /HPF Ur Epithelial Cells None Seen (None Seen) /HPF Urine Bacteria None Seen (None Seen) /HPF Urine Culture Reflexed YES (NO) Influenza Type A Ag NEGATIVE (NEGATIVE) Influenza Type B Ag NEGATIVE (NEGATIVE) RSV (PCR) NEGATIVE (Negative) SARS-CoV-2 (PCR) POSITIVE A (NEGATIVE) Slides for Path Review 05/18/22 05/18/22 05/18/22 Range/Units 04:30 04:36 04:36 WBC 5.8 (4.0-10.5) x10^3/uL RBC 4.67 (4.1-5.4) x10^6/uL Hgb 14.4 (12.0-16.0) g/dL Hct 44.3 (35-47) % MCV 94.9 (78-100) fL MCH 30.8 (26-32) pg MCHC 32.5 (32-36) g/dL RDW 18.1 H (11.5-14.0) % Plt Count 219 (150-450) x10^3/uL MPV 10.6 (7.5-11.0) fL Gran % 78.9 H (36.0-66.0) % Immature Gran % (Auto) 0.9 H (0.00-0.4) % Nucleat RBC Rel Count 0.0 (0.00-0.1) % Eos # (Auto) 0.01 (0-0.5) x10^3/uL Immature Gran # (Auto) 0.05 H (0.00-0.03) x10^3u/L Absolute Lymphs (auto) 0.58 L (1.0-4.6) x10^3/uL Absolute Monos (auto) 0.54 (0.0-1.3) x10^3/uL Absolute Nucleated RBC 0.00 (0.00-0.01) x10^3u/L Lymphocytes % 9.9 L (24.0-44.0) % Monocytes % 9.2 (0.0-12.0) % Eosinophils % 0.2 (0.00-5.0) % Basophils % 0.9 (0.0-0.4) % Absolute Granulocytes 4.61 (1.4-6.9) x10^3/uL Basophils # 0.05 (0-0.4) x10^3/uL PT (9.4-12.5) SECONDS INR (0.8-3.0) Sodium (137-145) mmol/L Potassium (3.5-5.1) mmol/L Chloride (98-107) mmol/L Carbon Dioxide (22-30) mmol/L Anion Gap (5-15) MEQ/L BUN (7-17) mg/dL Creatinine (0.52-1.04) mg/dL Estimated GFR ML/MIN Glucose (74-106) mg/dL POC Glucometer (74 to 106) mg/dL Hemoglobin A1c 6.30 H (4.5-6.0) % Lactic Acid (0.4-2.0) Calcium (8.4-10.2) mg/dL Total Bilirubin (0.2-1.3) mg/dL AST (14-36) U/L ALT (0-35) U/L Alkaline Phosphatase (38-126) U/L Troponin I 0.059 H* (0.000-0.034) ng/mL NT-Pro-B Natriuret Pep (<300) pg/mL Serum Total Protein (6.3-8.2) g/dL Albumin (3.5-5.0) g/dL Thyroxine (T4) (5.53-10.96) ug/dL TSH 3rd Generation (0.47-4.68) mIU/L Urine Color (Yellow) Urine Appearance (Clear) Urine pH (4.6-8.0) Ur Specific [place] (1.005-1.030) Urine Protein (Negative) Urine Glucose (UA) (Negative) mg/dL Urine Ketones (Negative) Urine Blood (Negative) Urine Nitrite (Negative) Urine Bilirubin (Negative) Urine Urobilinogen (0.2) mg/dL Ur Leukocyte Esterase (Negative) U Hyaline Cast (Auto) (0-2) /LPF Urine Microscopic RBC (0-5) /HPF Urine Microscopic WBC (0-5) /HPF Ur Epithelial Cells (None Seen) /HPF Urine Bacteria (None Seen) /HPF Urine Culture Reflexed (NO) Influenza Type A Ag (NEGATIVE) Influenza Type B Ag (NEGATIVE) RSV (PCR) (Negative) SARS-CoV-2 (PCR) (NEGATIVE) Slides for Path Review YES 05/18/22 05/18/22 05/18/22 Range/Units 04:36 04:36 07:27 WBC (4.0-10.5) x10^3/uL RBC (4.1-5.4) x10^6/uL Hgb (12.0-16.0) g/dL Hct (35-47) % MCV (78-100) fL MCH (26-32) pg MCHC (32-36) g/dL RDW (11.5-14.0) % Plt Count (150-450) x10^3/uL MPV (7.5-11.0) fL Gran % (36.0-66.0) % Immature Gran % (Auto) (0.00-0.4) % Nucleat RBC Rel Count (0.00-0.1) % Eos # (Auto) (0-0.5) x10^3/uL Immature Gran # (Auto) (0.00-0.03) x10^3u/L Absolute Lymphs (auto) (1.0-4.6) x10^3/uL Absolute Monos (auto) (0.0-1.3) x10^3/uL Absolute Nucleated RBC (0.00-0.01) x10^3u/L Lymphocytes % (24.0-44.0) % Monocytes % (0.0-12.0) % Eosinophils % (0.00-5.0) % Basophils % (0.0-0.4) % Absolute Granulocytes (1.4-6.9) x10^3/uL Basophils # (0-0.4) x10^3/uL PT 16.3 H (9.4-12.5) SECONDS INR 1.54 (0.8-3.0) Sodium 133 L (137-145) mmol/L Potassium 3.3 L (3.5-5.1) mmol/L Chloride 101 (98-107) mmol/L Carbon Dioxide 27 (22-30) mmol/L Anion Gap 8.4 (5-15) MEQ/L BUN 9 (7-17) mg/dL Creatinine 0.53 (0.52-1.04) mg/dL Estimated GFR > 60.0 ML/MIN Glucose 93 (74-106) mg/dL POC Glucometer 89 (74 to 106) mg/dL Hemoglobin A1c (4.5-6.0) % Lactic Acid (0.4-2.0) Calcium 8.3 L (8.4-10.2) mg/dL Total Bilirubin 0.60 (0.2-1.3) mg/dL AST 30 (14-36) U/L ALT 22 (0-35) U/L Alkaline Phosphatase 102 (38-126) U/L Troponin I (0.000-0.034) ng/mL NT-Pro-B Natriuret Pep 3990 (<300) pg/mL Serum Total Protein 5.8 L (6.3-8.2) g/dL Albumin 3.5 (3.5-5.0) g/dL Thyroxine (T4) (5.53-10.96) ug/dL TSH 3rd Generation (0.47-4.68) mIU/L Urine Color (Yellow) Urine Appearance (Clear) Urine pH (4.6-8.0) Ur Specific [place] (1.005-1.030) Urine Protein (Negative) Urine Glucose (UA) (Negative) mg/dL Urine Ketones (Negative) Urine Blood (Negative) Urine Nitrite (Negative) Urine Bilirubin (Negative) Urine Urobilinogen (0.2) mg/dL Ur Leukocyte Esterase (Negative) U Hyaline Cast (Auto) (0-2) /LPF Urine Microscopic RBC (0-5) /HPF Urine Microscopic WBC (0-5) /HPF Ur Epithelial Cells (None Seen) /HPF Urine Bacteria (None Seen) /HPF Urine Culture Reflexed (NO) Influenza Type A Ag (NEGATIVE) Influenza Type B Ag (NEGATIVE) RSV (PCR) (Negative) SARS-CoV-2 (PCR) (NEGATIVE) Slides for Path Review 05/18/22 Range/Units 11:29 WBC (4.0-10.5) x10^3/uL RBC (4.1-5.4) x10^6/uL Hgb (12.0-16.0) g/dL Hct (35-47) % MCV (78-100) fL MCH (26-32) pg MCHC (32-36) g/dL RDW (11.5-14.0) % Plt Count (150-450) x10^3/uL MPV (7.5-11.0) fL Gran % (36.0-66.0) % Immature Gran % (Auto) (0.00-0.4) % Nucleat RBC Rel Count (0.00-0.1) % Eos # (Auto) (0-0.5) x10^3/uL Immature Gran # (Auto) (0.00-0.03) x10^3u/L Absolute Lymphs (auto) (1.0-4.6) x10^3/uL Absolute Monos (auto) (0.0-1.3) x10^3/uL Absolute Nucleated RBC (0.00-0.01) x10^3u/L Lymphocytes % (24.0-44.0) % Monocytes % (0.0-12.0) % Eosinophils % (0.00-5.0) % Basophils % (0.0-0.4) % Absolute Granulocytes (1.4-6.9) x10^3/uL Basophils # (0-0.4) x10^3/uL PT (9.4-12.5) SECONDS INR (0.8-3.0) Sodium (137-145) mmol/L Potassium (3.5-5.1) mmol/L Chloride (98-107) mmol/L Carbon Dioxide (22-30) mmol/L Anion Gap (5-15) MEQ/L BUN (7-17) mg/dL Creatinine (0.52-1.04) mg/dL Estimated GFR ML/MIN Glucose (74-106) mg/dL POC Glucometer 132 H (74 to 106) mg/dL Hemoglobin A1c (4.5-6.0) % Lactic Acid (0.4-2.0) Calcium (8.4-10.2) mg/dL Total Bilirubin (0.2-1.3) mg/dL AST (14-36) U/L ALT (0-35) U/L Alkaline Phosphatase (38-126) U/L Troponin I (0.000-0.034) ng/mL NT-Pro-B Natriuret Pep (<300) pg/mL Serum Total Protein (6.3-8.2) g/dL Albumin (3.5-5.0) g/dL Thyroxine (T4) (5.53-10.96) ug/dL TSH 3rd Generation (0.47-4.68) mIU/L Urine Color (Yellow) Urine Appearance (Clear) Urine pH (4.6-8.0) Ur Specific [place] (1.005-1.030) Urine Protein (Negative) Urine Glucose (UA) (Negative) mg/dL Urine Ketones (Negative) Urine Blood (Negative) Urine Nitrite (Negative) Urine Bilirubin (Negative) Urine Urobilinogen (0.2) mg/dL Ur Leukocyte Esterase (Negative) U Hyaline Cast (Auto) (0-2) /LPF Urine Microscopic RBC (0-5) /HPF Urine Microscopic WBC (0-5) /HPF Ur Epithelial Cells (None Seen) /HPF Urine Bacteria (None Seen) /HPF Urine Culture Reflexed (NO) Influenza Type A Ag (NEGATIVE) Influenza Type B Ag (NEGATIVE) RSV (PCR) (Negative) SARS-CoV-2 (PCR) (NEGATIVE) Slides for Path Review Micro Results-Entire Visit: Accuchecks Date 05/18/22 Date 05/18/22 Time 11:45 Time 07:44 - Radiology Exams Ordered Rad Exams-Entire Visit: Radiology Procedures Category Date Time Status HEAD WITHOUT CONTRAST [CT] Stat Exams 05/17/22 20:56 Completed - Procedures and Test Procedures and Tests throughout Hospitalization: Therapy Orders & Screens 05/18/22 01:52 Respiratory Therapy Consult ROUTINE Comment: Reason For Exam: 05/18/22 03:08 Respiratory Therapy Assessment DAILY Comment: 05/18/22 03:09 Oxygen Nasal Cannula 2 lpm Comment: - Discharge Discharge Date: 05/18/22 Disposition: Hospice @ [facility] Condition: Good Prescriptions: New Cephalexin 250 mg/5 ml Susp [Keflex 250 mg/5 ml Susp] 250 mg PO QID 7 Days #200 Continue Methotrexate Sodium 2.5 mg [Trexall 2.5 mg] 8 tab PO UD Esomeprazole Magnesium [Nexium] 40 mg PO DAILY Cholecalciferol (Vitamin D3) [Vitamin D] 2,000 units PO DINNER Metoprolol Tartrate 25 mg PO BID Warfarin Sodium 1 mg [Jantoven] 2.5 mg PO DINNER Metformin HCl 500 mg [Glucophage 500 MG] 500 mg PO EVENING MEAL Leucovorin Calcium 5 mg PO UD Ezetimibe 10 mg [Zetia 10 MG] 1 tab PO HS Tramadol HCl 50 mg [Ultram 50 mg] 50 mg PO Q8H PRN PRN Reason: Pain Polyethylene Glycol 3350 [Clearlax] 17 gm PO HSPRN PRN PRN Reason: Constipation Ropinirole 2Mg [Requip 2Mg Tab] 1 mg PO HS Triazolam 0.125 mg PO HS Iron 65 mg PO DAILY Cyanocobalamin (Vitamin B-12) [Vitamin B12] 2,500 mcg PO DAILY Methylprednisolone 4 mg [Medrol 4 mg] 4 mg PO DAILY Memantine HCl [Namenda] 20 mg PO BID Furosemide 40 mg [Lasix 40 MG] 40 mg PO DAILY PRN PRN PRN Reason: CHF Potassium Chloride 10 meq PO UD Amlodipine Besylate 5 mg [Norvasc 5 mg] 5 mg PO LUNCH Rivastigmine 1 each TD DINNER Instructions: Urinary Tract Infection, Adult (DC) Additional Instructions: [facility] TO CONTINUE SERVICES Follow up with: BETHANY CHAMPAGNE [Primary Care Provider] - Forms: Discharge Instructions
[2022-05-18] MEDS ORDERED: ROCEPHIN 1 Gm-D5w 50 ml Bag** 1 G/50 ML IVPB IV SCH (22:00)
== END 2022-05-18 16:30 | disposition hospice, home (50) ==
LOC: ED 20:36 → MED SURG 05-18 01:48
PROVIDERS: ADMIT General Practice; ATTEND General Practice
DX: N39.0 Urinary tract infection, site not specified (principal); R41.82 Altered mental status, unspecified; U07.1 COVID-19; I11.0 Hypertensive heart disease with heart failure; I50.9 Heart failure, unspecified; E11.9 Type 2 diabetes mellitus without complications; R77.8 Other specified abnormalities of plasma proteins; F03.90 Unspecified dementia, unspecified severity, without behavioral disturbance, psychotic disturbance, mood disturbance, and anxiety; Z79.899 Other long term (current) drug therapy; Z20.828 Contact with and (suspected) exposure to other viral communicable diseases
CPT/HCPCS: 0241U; 36000; 36415; 70450; 80053; 81001; 82947; 83036; 83605; 83880; 84436; 84443; 84484; 85025; 85610; 87086; 93005; 94762; 99285; G0378; J0696; A9270-GY

== ENCOUNTER 2022-07-12 19:24 | Emergency (ER) | payer OTHER, MEDICARE, BC ==
--- NOTE | 2022-07-12 20:01 | ERPHSYRPT ---
- History of Present Illness Time Seen by Provider: 07/12/22 20:00 Source: patient, family Exam Limitations: no limitations Physician History: Some vertigo and vague weakness earlier, feels better now, on hospice, family wants some tests done, labs only, no EKG or head CT. Timing/Duration: today, resolved prior to arrival Severity: mild Modifying Factors: Improves With: nothing Associated Symptoms: denies symptoms Allergies/Adverse Reactions: leflunomide Allergy (Verified 07/12/22 20:16) Stomach Cramps losartan potassium [From Cozaar] Allergy (Verified 07/12/22 20:16) Tetracyclines Allergy (Verified 07/12/22 20:16) Home Medications: Esomeprazole Magnesium [Nexium] 40 mg PO DAILY 05/22/14 [History] Methotrexate Sodium 2.5 mg [Trexall 2.5 mg] 8 tab PO UD 05/22/14 [History] Cholecalciferol (Vitamin D3) [Vitamin D] 2,000 units PO DINNER 07/22/16 [History] Metoprolol Tartrate 25 mg PO BID 02/11/21 [History] Metformin HCl 500 mg [Glucophage 500 MG] 500 mg PO EVENING MEAL 07/31/21 [History] Warfarin Sodium 1 mg [Jantoven] 2.5 mg PO DINNER 07/31/21 [History] Leucovorin Calcium 5 mg PO UD 08/01/21 [History] Ezetimibe 10 mg [Zetia 10 MG] 1 tab PO HS 10/13/21 [History] Cyanocobalamin (Vitamin B-12) [Vitamin B12] 2,500 mcg PO DAILY 02/28/22 [History] Furosemide 40 mg [Lasix 40 MG] 40 mg PO DAILY PRN PRN 02/28/22 [History] Iron 65 mg PO DAILY 02/28/22 [History] Memantine HCl [Namenda] 20 mg PO BID 02/28/22 [History] Methylprednisolone 4 mg [Medrol 4 mg] 4 mg PO DAILY 02/28/22 [History] Polyethylene Glycol 3350 [Clearlax] 17 gm PO HSPRN PRN 02/28/22 [History] Ropinirole 2Mg [Requip 2Mg Tab] 1 mg PO HS 02/28/22 [History] Tramadol HCl 50 mg [Ultram 50 mg] 50 mg PO Q8H PRN 02/28/22 [History] Triazolam 0.125 mg PO HS 02/28/22 [History] Amlodipine Besylate 5 mg [Norvasc 5 mg] 5 mg PO LUNCH 03/01/22 [History] Potassium Chloride 10 meq PO UD 03/01/22 [History] Rivastigmine 1 each TD DINNER 05/17/22 [History] Hx Tetanus, Diphtheria Vaccination/Date Given: Yes Hx Influenza Vaccination/Date Given: Yes Hx Pneumococcal Vaccination/Date Given: Yes Travel Risk - Vaccine Status Have you recieved a Covid-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: Yes 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: [employer] - Vaccination Dates Date of 2cond Vaccination (if applicable): 05/02/20 - Review of Systems Constitutional: No Symptoms Eyes: No Symptoms Ears, Nose, & Throat: No Symptoms Respiratory: No Symptoms Cardiac: No Symptoms Abdominal/Gastrointestinal: No Symptoms Genitourinary Symptoms: No Symptoms Musculoskeletal: No Symptoms Skin: No Symptoms Neurological: No Symptoms Psychological: No Symptoms Endocrine: No Symptoms Hematologic/Lymphatic: No Symptoms Immunological/Allergic: No Symptoms All Other Systems: Reviewed and Negative - Past Medical History Pertinent Past Medical History: Yes Neurological History: No Pertinent History ENT History: Cataracts Cardiac History: Angina, Congestive Heart Failure, Hypertension, Myocardial Infarction (NM) Respiratory History: CHF Endocrine Medical History: Diabetes Type II Musculoskeletal History: Rheumatoid Arthritis GI Medical History: No Pertinent History History: No Pertinent History Psycho-Social History: No Pertinent History Female Reproductive Disorders: No Pertinent History Other Medical History: artificial aortic valve, heart stent, torn rotator cuff. info from history , pt confused at this time and answering questions with "I dont know" - Past Surgical History Past Surgical History: Yes Neuro Surgical History: No Pertinent History Cardiac: Cardiac Catheterization, Cardiac Stent, Valve Replacement Respiratory: No Pertinent History Gastrointestinal: Hernia Repair Genitourinary: No Pertinent History Musculoskeletal: No Pertinent History Female Surgical History: No Pertinent History Other Surgical History: artifical aortic valve - Social History Smoking Status: Never smoker Exposure to second hand smoke: No Drug Use: none Patient Lives Alone: Yes (family checks freq) - Nursing Vital Signs Nursing Vital Signs: Initial Vital Signs Temperature 98.7 F 07/12/22 20:00 Pulse Rate 62 07/12/22 20:00 Respiratory Rate 20 07/12/22 20:00 Blood Pressure 154/99 07/12/22 20:00 O2 Sat by Pulse Oximetry 97 07/12/22 20:00 Pain Scale Pain Intensity 0 - Physical Exam General Appearance: no apparent distress Eye Exam: PERRL/EOMI, eyes nml inspection Ears, Nose, Throat Exam: normal ENT inspection, TMs normal, pharynx normal Neck Exam: normal inspection, non-tender Respiratory Exam: normal breath sounds, lungs clear Cardiovascular Exam: regular rate/rhythm, normal heart sounds, other (artificial heart valve) Gastrointestinal/Abdomen Exam: soft Pelvic Exam: not done Rectal Exam: not done Back Exam: normal inspection Extremity Exam: normal inspection, normal range of motion Neurologic Exam: alert, oriented x 3, cooperative, normal mood/affect, sensation nml Skin Exam: normal color, warm, dry - Course Nursing assessment & vital signs reviewed: Yes Ordered Tests: Active Orders 24 hr Category Date Time Status CBC W DIFF Stat Lab 07/12/22 21:08 Completed CMP Stat Lab 07/12/22 21:08 Completed PT INR [PROTIME WITH INR] Stat Lab 07/12/22 21:08 Completed TROPONIN Q4H Lab 07/12/22 21:08 Completed Lab/Rad Data: Laboratory Result Diagrams 07/12/22 21:08 07/12/22 21:08 Laboratory Results 07/12/22 07/12/22 07/12/22 Range/Units 21:08 21:08 21:08 WBC (4.0-10.5) x10^3/uL RBC (4.1-5.4) x10^6/uL Hgb (12.0-16.0) g/dL Hct (35-47) % MCV (78-100) fL MCH (26-32) pg MCHC (32-36) g/dL RDW (11.5-14.0) % Plt Count (150-450) x10^3/uL MPV (7.5-11.0) fL Gran % (36.0-66.0) % Immature Gran % (Auto) (0.00-0.4) % Nucleat RBC Rel Count (0.00-0.1) % Eos # (Auto) (0-0.5) x10^3/uL Immature Gran # (Auto) (0.00-0.03) x10^3u/L Absolute Lymphs (auto) (1.0-4.6) x10^3/uL Absolute Monos (auto) (0.0-1.3) x10^3/uL Absolute Nucleated RBC (0.00-0.01) x10^3u/L Lymphocytes % (24.0-44.0) % Monocytes % (0.0-12.0) % Eosinophils % (0.00-5.0) % Basophils % (0.0-0.4) % Absolute Granulocytes (1.4-6.9) x10^3/uL Basophils # (0-0.4) x10^3/uL PT 28.2 H (9.4-12.5) SECONDS INR 2.79 (0.8-3.0) Sodium 138 (137-145) mmol/L Potassium 3.9 (3.5-5.1) mmol/L Chloride 102 (98-107) mmol/L Carbon Dioxide 32 H (22-30) mmol/L Anion Gap 7.8 (5-15) MEQ/L BUN 15 (7-17) mg/dL Creatinine 0.52 (0.52-1.04) mg/dL Estimated GFR > 60.0 ML/MIN Glucose 103 (74-106) mg/dL Calcium 9.1 (8.4-10.2) mg/dL Total Bilirubin 0.60 (0.2-1.3) mg/dL AST 23 (14-36) U/L ALT 23 (0-35) U/L Alkaline Phosphatase 108 (38-126) U/L Troponin I 0.015 (0.000-0.034) ng/mL Serum Total Protein 5.8 L (6.3-8.2) g/dL Albumin 3.4 L (3.5-5.0) g/dL 07/12/22 Range/Units 21:08 WBC 6.8 (4.0-10.5) x10^3/uL RBC 4.38 (4.1-5.4) x10^6/uL Hgb 14.0 (12.0-16.0) g/dL Hct 44.0 (35-47) % MCV 100.5 H (78-100) fL MCH 32.0 (26-32) pg MCHC 31.8 L (32-36) g/dL RDW 15.9 H (11.5-14.0) % Plt Count 235 (150-450) x10^3/uL MPV 10.7 (7.5-11.0) fL Gran % 73.2 H (36.0-66.0) % Immature Gran % (Auto) 0.4 (0.00-0.4) % Nucleat RBC Rel Count 0.0 (0.00-0.1) % Eos # (Auto) 0.03 (0-0.5) x10^3/uL Immature Gran # (Auto) 0.03 (0.00-0.03) x10^3u/L Absolute Lymphs (auto) 1.17 (1.0-4.6) x10^3/uL Absolute Monos (auto) 0.56 (0.0-1.3) x10^3/uL Absolute Nucleated RBC 0.00 (0.00-0.01) x10^3u/L Lymphocytes % 17.3 L (24.0-44.0) % Monocytes % 8.3 (0.0-12.0) % Eosinophils % 0.4 (0.00-5.0) % Basophils % 0.4 (0.0-0.4) % Absolute Granulocytes 4.94 (1.4-6.9) x10^3/uL Basophils # 0.03 (0-0.4) x10^3/uL PT (9.4-12.5) SECONDS INR (0.8-3.0) Sodium (137-145) mmol/L Potassium (3.5-5.1) mmol/L Chloride (98-107) mmol/L Carbon Dioxide (22-30) mmol/L Anion Gap (5-15) MEQ/L BUN (7-17) mg/dL Creatinine (0.52-1.04) mg/dL Estimated GFR ML/MIN Glucose (74-106) mg/dL Calcium (8.4-10.2) mg/dL Total Bilirubin (0.2-1.3) mg/dL AST (14-36) U/L ALT (0-35) U/L Alkaline Phosphatase (38-126) U/L Troponin I (0.000-0.034) ng/mL Serum Total Protein (6.3-8.2) g/dL Albumin (3.5-5.0) g/dL - Progress Progress: unchanged Progress Note: 07/12/22 22:05 Exam unremarkable, labs requested fine, they did not want head CT or EKG, d/c Counseled pt/family regarding: lab results, diagnosis Medical Desision Making - Independent Historian Additional History obtained from: Family - Diagnostic Testing Diagnostic test were ordered, analyzed, and reviewed by me: Yes - Departure Departure Disposition: Home Clinical Impression: Vertigo Condition: Stable Critical Care Time: No Referrals: BETHANY CHAMPAGNE [Primary Care Provider] - Follow up/PCP as directed Instructions: Vertigo (a Type of Dizziness) (DC) Additional Instructions: Medication as helpful, recheck as needed. Prescriptions: Ondansetron ODT 4 MG [Zofran Odt 4 mg] 4 mg PO Q6H PRN PRN #10 tablet PRN Reason: Nausea Meclizine HCl 25 mg [Antivert 25 mg] 25 mg PO Q8H PRN PRN #30 tablet PRN Reason: Dizziness
[2022-07-12 21:12] LABS: Absolute Neutrophil Ct (ANC) 4.94 x10^3/uL (1.4-6.9); BASOPHIL % 0.4 % (0.0-0.4); Basophil (Absolute #) 0.03 x10^3/uL (0-0.4); Eosinophil % 0.4 % (0.00-5.0); Eosinophil (Absolute #) 0.03 x10^3/uL (0-0.5); IMMATURE GRAN # 0.03 x10^3u/L (0.00-0.03); IMMATURE GRAN % 0.4 % (0.00-0.4); Lymphocyte (Absolute #) 1.17 x10^3/uL (1.0-4.6); Lymphocytes % 17.3 % (24.0-44.0); Mean Cell Volume 100.5 fL (78-100); Mean Corpuscular Hgb Concent. 31.8 g/dL (32-36); Mean Platelet Volume 10.7 fL (7.5-11.0); Monocyte (Absolute #) 0.56 x10^3/uL (0.0-1.3); Monocytes % 8.3 % (0.0-12.0); Neutrophil % 73.2 % (36.0-66.0); Platelet Count 235 x10^3/uL (150-450); Red Blood Count 4.38 x10^6/uL (4.1-5.4); Red Cell Distribution Width 15.9 % (11.5-14.0); White Blood Count 6.8 x10^3/uL (4.0-10.5)
[2022-07-12 21:28] LABS: ALBUMIN 3.4 g/dL (3.5-5.0); ALKALINE PHOSPHATASE 108 U/L (38-126); ANION GAP 7.8 MEQ/L (5-15); BLOOD UREA NITROGEN 15 mg/dL (7-17); CHLORIDE 102 mmol/L (98-107); Calcium 9.1 mg/dL (8.4-10.2); Carbon Dioxide 32 mmol/L (22-30); Creatinine 1 0.52 mg/dL (0.52-1.04); EST GLOMERULAR FILTRATION RATE > 60.0 ML/MIN; Glucose 103 mg/dL (74-106); Potassium 3.9 mmol/L (3.5-5.1); SGOT/AST 23 U/L (14-36); SGPT/ALT 23 U/L (0-35); SODIUM 138 mmol/L (137-145); Total Protein 5.8 g/dL (6.3-8.2)
[2022-07-12 21:29] LABS: INR 2.79 (0.8-3.0); PROTIME 28.2 SECONDS (9.4-12.5)
[2022-07-12 22:22] VITALS: BP 156/88; PULSE 57; O2SAT 99
== END 2022-07-12 22:23 | disposition home or self-care (01) ==
LOC: ED 19:24
DX: R42 Dizziness and giddiness (principal); I11.0 Hypertensive heart disease with heart failure; I50.9 Heart failure, unspecified; E11.9 Type 2 diabetes mellitus without complications; Z79.01 Long term (current) use of anticoagulants; Z79.84 Long term (current) use of oral hypoglycemic drugs; Z79.899 Other long term (current) drug therapy
CPT/HCPCS: 36000; 36415; 80053; 84484; 85025; 85610; 99283